=== PATIENT | male | born 1955 | race Caucasian/White ===

== ENCOUNTER 2019-02-10 05:31 | Inpatient (IN) | payer OTHER ==
[2019-02-10] VITALS (14 sets, daily range): BP systolic 74–135; BP diastolic 39–78
[~2019-02-10] VITALS: Ht 188 cm; Wt 104.4 kg
[2019-02-10] MEDS ORDERED: MIDAZOLAM HCL/PF 2 MG/2 ML VIAL. ONE ×3 (05:36→11:35)
[2019-02-10] MEDS ORDERED: fentaNYL PF VIAL 100 MCG/2 ML VIAL ONE (05:36)
[2019-02-10] MEDS ORDERED: VANCOMYCIN 10GM VIAL for OR. ONE (05:43)
[2019-02-10] MEDS ORDERED: SURGICEL HEMOSTAT 4X8 EACH. ONE (05:43)
[2019-02-10] MEDS ORDERED: ASPIRIN RECTAL 300 MG SUPP. ONE (05:44)
[2019-02-10] MEDS ORDERED: PAPAVERINE 60 MG/2 ML VIAL FOR OR ONLY. ONE (05:44)
[2019-02-10] MEDS ORDERED: 0.9 % SODIUM CHLORIDE 20 ML VIAL. IJ ONE ×3 (05:44)
[2019-02-10] MEDS ORDERED: fentaNYL PF VIAL 100 MCG/2 ML VIAL IV ONE ×2 (05:45→06:45)
[2019-02-10] MEDS ORDERED: DEXTROSE 50% 25 GM / 50ML DISP.SYRIN. IV PRN ×2 (05:45→14:15)
--- NOTE | 2019-02-10 05:50 | PHYS DOC ---
Past Medical History Past Medical History: Diabetes-Type II Past Surgical History: Appendectomy Smoking: Quit Greater Than 1 Year Alcohol Use: None Drug Use: None Adult General Chief Complaint Chief Complaint: CHEST PAIN-CARDIAC NATURE HPI HPI 63-year-old male presents from [facility] as a STEMI activation. Patient reports having chest pain last night with some associated shortness of breath. Patient presented to [facility] ED when the pain hadn't relieved this AM. EKG obtained at that time was concerning for STEMI. Patient received 324mg ASA, 50mcg of Fentanyl, 4000 units of Heparin, and nitroglycerin prior to transport. Denies trauma. Denies leg swelling or calf tenderness. Denies fever/chills. Reports cardiac risk factors of DM and history of father with AMI in his 60s. Review of Systems Review of Systems Constitutional: Denies fever or chills [] Eyes: Denies change in visual acuity, redness, or eye pain [] HENT: Denies nasal congestion or sore throat [] Respiratory: Denies cough; reports shortness of breath [] Cardiovascular: Reports chest pain; denies palpitations GI: Denies abdominal pain, nausea, vomiting, or diarrhea [] : Denies dysuria or hematuria [] Musculoskeletal: Denies back pain or joint pain [] Integument: Denies rash or skin lesions [] Neurologic: Denies headache, focal weakness or sensory changes [] Complete systems were reviewed and found to be within normal limits, except as documented in this note. Current Medications Current Medications Current Medications Medications (Trade) Dose Ordered Sig/[facility] Start Time Stop Time Status Last Admin Dose Admin Fentanyl Citrate (Fentanyl 2ml Vial) 100 mcg STK-MED ONCE 02/10/19 05:36 02/10/19 05:37 DC Midazolam HCl (Versed) 2 mg STK-MED ONCE 02/10/19 05:36 02/10/19 05:37 DC Physical Exam Physical Exam Constitutional: Well developed, well nourished, no acute distress, non-toxic appearance. [] HENT: Normocephalic, atraumatic, oropharynx moist Eyes: PERRL, EOMI, conjunctiva normal, no discharge. [] Neck: Normal range of motion, no tenderness, supple Cardiovascular: Heart rate regular rhythm, no murmur [] Lungs & Thorax: Bilateral breath sounds clear to auscultation [] Abdomen: Soft, no tenderness Skin: Warm, dry, no erythema, no rash. [] Extremities: No calves tenderness, ROM intact, no edema. [] Neurologic: Alert and oriented X 3, no focal deficits noted. [] Psychologic: Affect normal, judgement normal, mood normal. [] Current Patient Data Vital Signs Vital Signs Date Time Temp Pulse Resp B/P (MAP) Pulse Ox O2 Delivery O2 Flow Rate FiO2 02/10/19 05:31 98.4 118 22 139/89 (106) 96 Room Air 98.4 Lab Values Laboratory Tests Test 02/10/19 05:36 White Blood Count 8.6 x10^3/uL (4.0-11.0) Red Blood Count 5.02 x10^6/uL (4.30-5.70) Hemoglobin 15.0 g/dL (13.0-17.5) Hematocrit 43.5 % (39.0-53.0) Mean Corpuscular Volume 87 fL (79-100) Mean Corpuscular Hemoglobin 30 pg (25-35) Mean Corpuscular Hemoglobin Concent 35 g/dL (31-37) Red Cell Distribution Width 13.3 % (11.5-14.5) Platelet Count 171 x10^3/uL (140-400) Neutrophils (%) (Auto) 78 % (31-73) H Lymphocytes (%) (Auto) 14 % (24-48) L Monocytes (%) (Auto) 8 % (0-9) Eosinophils (%) (Auto) 0 % (0-3) Basophils (%) (Auto) 0 % (0-3) Neutrophils # (Auto) 6.7 x10^3uL (1.8-7.7) Lymphocytes # (Auto) 1.2 x10^3/uL (1.0-4.8) Monocytes # (Auto) 0.7 x10^3/uL (0.0-1.1) Eosinophils # (Auto) 0.0 x10^3/uL (0.0-0.7) Basophils # (Auto) 0.0 x10^3/uL (0.0-0.2) Prothrombin Time 14.9 SEC (11.7-14.0) H Prothrombin Time INR 1.2 (0.8-1.1) H PTT 145 SEC (24-38) H Sodium Level 140 mmol/L (136-145) Potassium Level 4.1 mmol/L (3.5-5.1) Chloride Level 105 mmol/L (98-107) Carbon Dioxide Level 19 mmol/L (21-32) L Anion Gap 16 (6-14) H Blood Urea Nitrogen 18 mg/dL (8-26) Creatinine 1.0 mg/dL (0.7-1.3) Estimated GFR (Cockcroft-Gault) 75.5 BUN/Creatinine Ratio 18 (6-20) Glucose Level 242 mg/dL (70-99) H Calcium Level 9.6 mg/dL (8.5-10.1) Magnesium Level 1.8 mg/dL (1.8-2.4) Total Bilirubin 0.9 mg/dL (0.2-1.0) Aspartate Amino Transferase (AST) 24 U/L (15-37) Alanine Aminotransferase (ALT) 27 U/L (16-63) Alkaline Phosphatase 107 U/L (46-116) Creatine Kinase 123 U/L (39-308) Creatine Kinase MB (Mass) 6.6 ng/mL (0.0-3.6) H Creatine Kinase MB Relative Index 5.4 % (0-4) H Troponin I Quantitative 0.848 ng/mL (0.000-0.055) UQ-Nzy-Y-Type Natriuretic Peptide 471 pg/mL (0-124) H Total Protein 7.1 g/dL (6.4-8.2) Albumin 3.9 g/dL (3.4-5.0) Albumin/Globulin Ratio 1.2 (1.0-1.7) Lipase 142 U/L (73-393) Laboratory Tests 02/10/19 05:36 Laboratory Tests 02/10/19 05:36 EKG EKG @0536 Sinus tachycadia at 112bpm, ST elevation aVR, Deep ST depression I-II, aVF , V3-V6, nonspecific t wave inversion I and aVL Radiology/Procedures Radiology/Procedures CXR AP: (Preliminary interpretation by ED physician) NO acute process noted. Course & Med Decision Making Course & Med Decision Making Pertinent Labs and Imaging studies reviewed. (See chart for details) Patient presented as emergent transfer from [facility] ER for STEMI. Patient with cardiac risk factors including diabetes, former smoker, and family history. Patient had previously received aspirin, nitroglycerin, fentanyl, and heparin bolus. Chest x-ray without acute process. Labs obtained and posted to chart. Patient emergently transferred to the [facility]. Discussed case previously with Dr. Christian (cardiology) who met patient in [facility]. Patient requiring admission for further evaluation and treatment. Discussed with Dr. Chatman (hospitalist) who is in agreement with admission. Discussed findings and plan with patient and family, who acknowledge understanding and agreement. Dragon Disclaimer Dragon Disclaimer This electronic medical record was generated, in whole or in part, using a voice recognition dictation system. Departure Departure Impression: Primary Impression: STEMI (ST elevation myocardial infarction) Disposition: 09 ADMITTED INPATIENT Condition: GUARDED Referrals: RYAN MARTINEZ MD (PCP) Critical Care Time Critical care time was 30 minutes which includes time at bedside, spent in discussion of patient's care with specialists and/or family members, with interpretation of laboratory and/or radiological studies and is exclusive of procedures. Problem Qualifiers Primary Impression: STEMI (ST elevation myocardial infarction) Involved coronary artery: unspecified coronary artery Qualified Codes: I21.3 - ST elevation (STEMI) myocardial infarction of unspecified site LOLY HUSAIN DO Feb 10, 2019 05:50
[2019-02-10 05:57] LABS: BASO % 0 % (0-3); EOS % 0 % (0-3); HEMATOCRIT 43.5 % (39.0-53.0); LYMPH # 1.2 x10^3/uL (1.0-4.8); LYMPH % 14 % (24-48); MEAN CORPUSCULAR HEMOGLOBIN 30 pg (25-35); MEAN CORPUSCULAR HGB CONC 35 g/dL (31-37); MEAN CORPUSCULAR VOLUME 87 fL (79-100); MONO # 0.7 x10^3/uL (0.0-1.1); MONO % 8 % (0-9); NEUT # 6.7 x10^3uL (1.8-7.7); NEUT % 78 % (31-73); PLATELET COUNT 171 x10^3/uL (140-400); RED BLOOD COUNT 5.02 x10^6/uL (4.30-5.70); RED CELL DISTRIBUTION WIDTH 13.3 % (11.5-14.5); WHITE BLOOD COUNT 8.6 x10^3/uL (4.0-11.0)
[2019-02-10 06:06] LABS: CALCIUM 9.6 mg/dL (8.5-10.1); GFR 75.5; POTASSIUM 4.1 mmol/L (3.5-5.1)
[2019-02-10 06:07] LABS: PROTHROMBIN TIME PATIENT 14.9 SEC (11.7-14.0)
[2019-02-10] MEDS ORDERED: IODIXANOL 320 MG/ML 100 ML VIAL. ONE (06:09)
[2019-02-10] MEDS ORDERED: HEPARIN for IV BOLUS 10,000 UNIT/10 ML VIAL. ONE ×3 (06:10→13:21)
[2019-02-10 06:12] LABS: ALBUMIN 3.9 g/dL (3.4-5.0); ALBUMIN/GLOBULIN RATIO 1.2 (1.0-1.7); MAGNESIUM 1.8 mg/dL (1.8-2.4); TOTAL BILIRUBIN 0.9 mg/dL (0.2-1.0); TOTAL PROTEIN 7.1 g/dL (6.4-8.2)
--- NOTE | 2019-02-10 06:23 | EKG ---
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
[2019-02-10] MEDS ORDERED: NITROGLYCERIN PREMIX 250 ML IV ONE (06:26)
--- NOTE | 2019-02-10 06:35 | PDOC ---
MODERATE SEDATION ASSESSMENT RISKS/ALTERNATIVES Risks/Alternatives Risks and alternatives of this type of sedation and procedure discussed with: RISK/ALTERNATIVES: Patient H & P ON CHART H & P H & P on chart and reviewed for co-morbid conditions and appropriate labs. H&P ON CHART: Yes STATUS PREG STATUS ASSESSED: N/A MEDS/ALLERGIES REVIEWED Meds/Allergies Reviewed Medications and Allergies including time and route of recently administered narcotics and sedatives. MEDS/ALLERGIES REVIEWED: Yes ASA RATING ASA RATING: III AIRWAY ASSESSMENT Airway Assessment Airway patency, oral function limitations, presence of caps, crowns, dentures, partials, and ability to extend neck assessed. AIRWAY ASSESSMENT: Yes MALLAMPATI SCORE MALLAMPATI SCORE: II PRE-SEDATION ASSESSMENT PRE-SEDATION ASSESSMENT: Yes MATHEW SHEEHAN MD Feb 10, 2019 06:35
--- NOTE | 2019-02-10 06:36 | PDOC2 ---
CONSULT Date of Consult Date of Consult DATE: 02/10/19 TIME: 06:36 Reason for Consult Reason for Consult: Acute myocardial infarction Referring Physician Referring Physician: Dr. Mccray Identification/Chief Complaint Chief Complaint Chest pain Source Source: Caregiver, Chart review, Patient History of Present Illness Reason for Visit: 63-year-old male initially presented to [facility] with waxing and waning retrosternal chest pain that he described as burning sensation starting yesterday at 10 pm. EKG showed diffuse ST depressions and ST elevation in aVR. Code STEMI was activated and patient was transferred emergently to [facility]. Patient continues to have chest pain but is presently down to 3/10 severity. He denied any orthopnea/PND, palpitations or syncope. He is a nonsmoker but has family history of premature coronary artery disease. Past Medical History Past Medical History Hypertension Diabetes mellitus type 2 Past Surgical History Past Surgical History Appendectomy Family History Family History Strongly positive for premature coronary artery disease Social History Social History Patient quit smoking several years ago and denied any alcohol or drug abuse Current Medications Current Medications Current Medications Fentanyl Citrate (Fentanyl 2ml Vial) 100 mcg STK-MED ONCE .ROUTE ; Start at 05:36; Stop 02/10/19 at 05:37; Status DC Midazolam HCl (Versed) 2 mg STK-MED ONCE .ROUTE ; Start 02/10/19 at 05:36; Stop 02/10/19 at 05:37; Status DC Fentanyl Citrate (Fentanyl 2ml Vial) 50 mcg 1X ONCE IV Last administered on at 05:43; Start 02/10/19 at 05:45; Stop 02/10/19 at 05:49; Status DC Insulin Human Lispro (HumaLOG) 0-5 UNITS TIDWMEALS SQ ; Start 02/10/19 at 08:00 Dextrose (Dextrose 50%-Water Syringe) 12.5 gm PRN Q15MIN PRN IV SEE COMMENTS; Start 02/10/19 at 05:45 Iodixanol (Visipaque 320) 100 ml STK-MED ONCE .ROUTE ; Start 02/10/19 at 06:09; Stop 02/10/19 at 06:10; Status DC Heparin Sodium (Porcine) (Heparin Sodium) 10,000 unit STK-MED ONCE .ROUTE ; Start 02/10/19 at 06:10; Stop 02/10/19 at 06:11; Status DC Nitroglycerin/ Dextrose 250 ml @ As Directed STK-MED ONCE IV ; Start 02/10/19 at 06:26; Stop 02/10/19 at 06:27; Status DC Allergies Allergies: Coded Allergies: No Known Drug Allergies (Unverified , 02/10/19) ROS PSYCHOLOGICAL ROS: No: Hallucinations Eyes: No Loss of vision HEENT: No: Epistaxis Respiratory: No: Hemoptysis Cardiovascular: yes Chest Pain Gastrointestinal: No Vomiting, No Diarrhea Genitourinary: No Hematuria Neurological: No Seizures Skin: No Rash Physical Exam General: Alert, Oriented X3 HEENT: Atraumatic Lungs: Clear to auscultation Heart: Regular rate Abdomen: Soft, No tenderness Extremities: No edema Neuro: Normal speech Psych/Mental Status: Mood NL Vitals VITALS Vital Signs Date Time Temp Pulse Resp B/P (MAP) Pulse Ox O2 Delivery O2 Flow Rate FiO2 02/10/19 05:43 18 96 Room Air 02/10/19 05:31 98.4 118 139/89 (106) 98.4 Labs Labs Laboratory Tests Test 02/10/19 05:36 White Blood Count 8.6 x10^3/uL (4.0-11.0) Red Blood Count 5.02 x10^6/uL (4.30-5.70) Hemoglobin 15.0 g/dL (13.0-17.5) Hematocrit 43.5 % (39.0-53.0) Mean Corpuscular Volume 87 fL (79-100) Mean Corpuscular Hemoglobin 30 pg (25-35) Mean Corpuscular Hemoglobin Concent 35 g/dL (31-37) Red Cell Distribution Width 13.3 % (11.5-14.5) Platelet Count 171 x10^3/uL (140-400) Neutrophils (%) (Auto) 78 % (31-73) Lymphocytes (%) (Auto) 14 % (24-48) Monocytes (%) (Auto) 8 % (0-9) Eosinophils (%) (Auto) 0 % (0-3) Basophils (%) (Auto) 0 % (0-3) Neutrophils # (Auto) 6.7 x10^3uL (1.8-7.7) Lymphocytes # (Auto) 1.2 x10^3/uL (1.0-4.8) Monocytes # (Auto) 0.7 x10^3/uL (0.0-1.1) Eosinophils # (Auto) 0.0 x10^3/uL (0.0-0.7) Basophils # (Auto) 0.0 x10^3/uL (0.0-0.2) Prothrombin Time 14.9 SEC (11.7-14.0) Prothromb Time International Ratio 1.2 (0.8-1.1) Activated Partial Thromboplast Time 145 SEC (24-38) Sodium Level 140 mmol/L (136-145) Potassium Level 4.1 mmol/L (3.5-5.1) Chloride Level 105 mmol/L (98-107) Carbon Dioxide Level 19 mmol/L (21-32) Anion Gap 16 (6-14) Blood Urea Nitrogen 18 mg/dL (8-26) Creatinine 1.0 mg/dL (0.7-1.3) Estimated GFR (Cockcroft-Gault) 75.5 BUN/Creatinine Ratio 18 (6-20) Glucose Level 242 mg/dL (70-99) Calcium Level 9.6 mg/dL (8.5-10.1) Magnesium Level 1.8 mg/dL (1.8-2.4) Total Bilirubin 0.9 mg/dL (0.2-1.0) Aspartate Amino Transf (AST/SGOT) 24 U/L (15-37) Alanine Aminotransferase (ALT/SGPT) 27 U/L (16-63) Alkaline Phosphatase 107 U/L (46-116) Creatine Kinase 123 U/L (39-308) Creatine Kinase MB (Mass) 6.6 ng/mL (0.0-3.6) Creatine Kinase MB Relative Index 5.4 % (0-4) Troponin I Quantitative 0.848 ng/mL (0.000-0.055) NF-Nrl-[id number]-Type Natriuretic Peptide 471 pg/mL (0-124) Total Protein 7.1 g/dL (6.4-8.2) Albumin 3.9 g/dL (3.4-5.0) Albumin/Globulin Ratio 1.2 (1.0-1.7) Lipase 142 U/L (73-393) Laboratory Tests Test 02/10/19 05:36 White Blood Count 8.6 x10^3/uL (4.0-11.0) Red Blood Count 5.02 x10^6/uL (4.30-5.70) Hemoglobin 15.0 g/dL (13.0-17.5) Hematocrit 43.5 % (39.0-53.0) Mean Corpuscular Volume 87 fL (79-100) Mean Corpuscular Hemoglobin 30 pg (25-35) Mean Corpuscular Hemoglobin Concent 35 g/dL (31-37) Red Cell Distribution Width 13.3 % (11.5-14.5) Platelet Count 171 x10^3/uL (140-400) Neutrophils (%) (Auto) 78 % (31-73) Lymphocytes (%) (Auto) 14 % (24-48) Monocytes (%) (Auto) 8 % (0-9) Eosinophils (%) (Auto) 0 % (0-3) Basophils (%) (Auto) 0 % (0-3) Neutrophils # (Auto) 6.7 x10^3uL (1.8-7.7) Lymphocytes # (Auto) 1.2 x10^3/uL (1.0-4.8) Monocytes # (Auto) 0.7 x10^3/uL (0.0-1.1) Eosinophils # (Auto) 0.0 x10^3/uL (0.0-0.7) Basophils # (Auto) 0.0 x10^3/uL (0.0-0.2) Prothrombin Time 14.9 SEC (11.7-14.0) Prothromb Time International Ratio 1.2 (0.8-1.1) Activated Partial Thromboplast Time 145 SEC (24-38) Sodium Level 140 mmol/L (136-145) Potassium Level 4.1 mmol/L (3.5-5.1) Chloride Level 105 mmol/L (98-107) Carbon Dioxide Level 19 mmol/L (21-32) Anion Gap 16 (6-14) Blood Urea Nitrogen 18 mg/dL (8-26) Creatinine 1.0 mg/dL (0.7-1.3) Estimated GFR (Cockcroft-Gault) 75.5 BUN/Creatinine Ratio 18 (6-20) Glucose Level 242 mg/dL (70-99) Calcium Level 9.6 mg/dL (8.5-10.1) Magnesium Level 1.8 mg/dL (1.8-2.4) Total Bilirubin 0.9 mg/dL (0.2-1.0) Aspartate Amino Transf (AST/SGOT) 24 U/L (15-37) Alanine Aminotransferase (ALT/SGPT) 27 U/L (16-63) Alkaline Phosphatase 107 U/L (46-116) Creatine Kinase 123 U/L (39-308) Creatine Kinase MB (Mass) 6.6 ng/mL (0.0-3.6) Creatine Kinase MB Relative Index 5.4 % (0-4) Troponin I Quantitative 0.848 ng/mL (0.000-0.055) RG-[id number]-Type Natriuretic Peptide 471 pg/mL (0-124) Total Protein 7.1 g/dL (6.4-8.2) Albumin 3.9 g/dL (3.4-5.0) Albumin/Globulin Ratio 1.2 (1.0-1.7) Lipase 142 U/L (73-393) Assessment/Plan Assessment/Plan 1. Acute myocardial infarction: EKG showed diffuse deep ST depressions and T- wave inversions and ST elevation in aVR. Patient has ongoing chest pain. We will proceed with emergent cardiac catheterization and possible angioplasty. Risks and benefits were explained and he is agreeable. 2. Diabetes mellitus type 2: Treated per IM Thank you for your consultation MATHEW SHEEHAN MD Feb 10, 2019 06:36
[2019-02-10] MEDS ORDERED: ROCURONIUM 100 MG/10 ML VIAL. ONE ×2 (06:44→08:51)
[2019-02-10] MEDS ORDERED: MIDAZOLAM HCL/PF 5 MG/5 ML VIAL. ONE (06:45)
[2019-02-10] MEDS ORDERED: LIDOCAINE 1% Multi-Dose 20 ML VIAL. INJ ONE (06:45)
[2019-02-10] MEDS ORDERED: SUFentanil 250 MCG/5 ML AMPUL. ONE (06:45)
[2019-02-10] MEDS ORDERED: MIDAZOLAM HCL/PF 2 MG/2 ML VIAL. IV ONE (06:45)
[2019-02-10] MEDS ORDERED: IODIXANOL 320 MG/ML 100 ML VIAL. IART ONE (06:45)
--- NOTE | 2019-02-10 06:45 | NUR ---
Nursing Electrical Software Engineer called stating patient to go for emergent CABG from [facility]. Admission information and history obtained from patient's .
[2019-02-10] MEDS ORDERED: LIDOCAINE 2% PF 5 ML VIAL. ONE ×2 (06:46→13:21)
[2019-02-10] MEDS ORDERED: AMINOCAPROIC ACID 5,000 MG/20 ML VIAL. IV ONE ×3 (06:46)
[2019-02-10] MEDS ORDERED: ETOMIDATE 20 MG/10 ML VIAL. IV ONE (06:46)
[2019-02-10] MEDS ORDERED: HEPARIN 30,000 UNIT/30 ML VIAL. ONE (06:50)
[2019-02-10] MEDS ORDERED: ePHEDrine PF IN SALINE 50 MG/10 ML SYRINGE. IV ONE ×2 (06:53→07:22)
[2019-02-10] MEDS ORDERED: PHENYLEPHRINE 10 MG/ML VIAL. ONE (06:59)
[2019-02-10] MEDS ORDERED: NITROGLYCERIN PREMIX 250 ML IV PRN ×2 (07:00→14:15)
[2019-02-10] MEDS ORDERED: EPINEPHrine SYRINGE 1 MG/10 ML SYRINGE ONE (07:20)
[2019-02-10] MEDS ORDERED: PHENYLEPHRINE in 0.9% NACL PF 1 MG/10 ML SYRINGE. IV ONE (07:22)
[2019-02-10] MEDS ORDERED: POTASSIUM CHLORIDE 70 MEQ, SODIUM BICARBONATE VIAL 12.5 MEQ, LIDOCAINE 2% 24 ML in IV E... IRR ONE (07:30)
[2019-02-10] MEDS ORDERED: HEPARIN 20,000 UNIT in IV RINGERS,LACTATED 1000ML 1,000 ML IRR ONE (07:30)
[2019-02-10] MEDS ORDERED: HEPARIN PRESERVATIVE FREE 800 UNIT, NITROGLYCERIN 4 MG, VERAPAMIL 8 MG, SODIUM BICARBON... IRR ONE ×5 (07:30)
[2019-02-10] MEDS ORDERED: POTASSIUM CHLORIDE 15 MEQ, SODIUM BICARBONATE VIAL 12.5 MEQ in IV ELECTROLYTE-S (PH 7.4... IRR ONE (07:30)
--- NOTE | 2019-02-10 07:33 | RAD ---
Portable chest, 02/10/2019: HISTORY: Chest pain The heart size is normal. No pulmonary infiltrate is seen. There is no evidence of pleural fluid. IMPRESSION: No acute cardiopulmonary abnormality is detected. Electronically signed by: Seun Childress MD (02/10/2019 7:30 AM) [facility]
--- NOTE | 2019-02-10 07:35 | NUR ---
Pt to OR for CABG, pt at bedside, pt alert and 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, states chest pain is "almost 0", Dr Sandoval here to see pt. OR staff arrived to take pt. Balloon pump in place, VSS. VELAZQUEZ RN
--- NOTE | 2019-02-10 07:44 | PDOC2 ---
CONSULT Date of Consult Date of Consult DATE: 02/10/19 TIME: 07:36 Reason for Consult Reason for Consult: STEMI Referring Physician Referring Physician: Dr Christian Identification/Chief Complaint Chief Complaint Chest pain Source Source: Chart review, Patient History of Present Illness Reason for Visit: Patient is a 63 year old male, with type II DM and FHx of premature IDH, who presents with chest pain since 10pm last night. Apparently has been having intermittent CP for some time, but has considered his symptoms as not significant. ST elevation in aVR and diffuse ST depressions in all other leads. Cath shows severe 3VD, with 70% left main involvement, no flow in the LAD, subtotal LCx occlusion and 90% proximal RCA disease. LVgram shows acute systolic failure with EF 20-25%. He continues to have ongoing chest pain and active ST elevations. Past Medical History Cardiovascular: CAD Pulmonary: No pertinent hx GI: No pertinent hx Heme/Onc: No pertinent hx Hepatobiliary: No pertinent hx Psych: No pertinent hx Rheumatologic: No pertinent hx Infectious disease: No pertinent hx ENT: No pertinent hx Renal/: No pertinent hx Endocrine: Diabetes Dermatology: No pertinent hx Past Surgical History Past Surgical History: Appendectomy Family History Family History: Coronary Artery Disease Social History Quit Drugs: None Lives: with Family Current Medications Current Medications Current Medications Fentanyl Citrate (Fentanyl 2ml Vial) 100 mcg STK-MED ONCE .ROUTE ; Start at 05:36; Stop 02/10/19 at 05:37; Status DC Midazolam HCl (Versed) 2 mg STK-MED ONCE .ROUTE ; Start 02/10/19 at 05:36; Stop 02/10/19 at 05:37; Status DC Fentanyl Citrate (Fentanyl 2ml Vial) 50 mcg 1X ONCE IV Last administered on at 05:43; Start 02/10/19 at 05:45; Stop 02/10/19 at 05:49; Status DC Insulin Human Lispro (HumaLOG) 0-5 UNITS TIDWMEALS SQ ; Start 02/10/19 at 08:00 Dextrose (Dextrose 50%-Water Syringe) 12.5 gm PRN Q15MIN PRN IV SEE COMMENTS; Start 02/10/19 at 05:45 Iodixanol (Visipaque 320) 100 ml STK-MED ONCE .ROUTE ; Start 02/10/19 at 06:09; Stop 02/10/19 at 06:10; Status DC Heparin Sodium (Porcine) (Heparin Sodium) 10,000 unit STK-MED ONCE .ROUTE ; Start 02/10/19 at 06:10; Stop 02/10/19 at 06:11; Status DC Nitroglycerin/ Dextrose 250 ml @ As Directed STK-MED ONCE IV ; Start 02/10/19 at 06:26; Stop 02/10/19 at 06:27; Status DC Vancomycin HCl (VANCO for OR ONLY) 10 gm STK-MED ONCE .ROUTE ; Start 02/10/19 at 05:43; Stop 02/10/19 at 06:44; Status DC Cellulose (Surgicel Hemostat 4x8) 1 each STK-MED ONCE .ROUTE ; Start 02/10/19 at 05:43; Stop 02/10/19 at 06:44; Status DC Papaverine HCl 60 mg STK-MED ONCE .ROUTE ; Start 02/10/19 at 05:44; Stop at 06:44; Status DC Aspirin (Aspirin) 300 mg STK-MED ONCE .ROUTE ; Start 02/10/19 at 05:44; Stop at 06:44; Status DC Sodium Chloride (SODIUM CHLORIDE 20ml) 20 ml STK-MED ONCE IJ ; Start 02/10/19 at 05:44; Stop 02/10/19 at 06:44; Status DC Sodium Chloride (SODIUM CHLORIDE 20ml) 20 ml STK-MED ONCE IJ ; Start 02/10/19 at 05:44; Stop 02/10/19 at 06:44; Status DC Potassium Chloride 70 meq/ Sodium Bicarbonate 12.5 meq/Lidocaine HCl 24 ml/ Parenteral Electrolytes 571.5 ml @ 571.5 mls/ hr 1X ONCE IRR ; Start 02/10/19 at 07:30; Stop 02/10/19 at 08:29 Sodium Chloride (SODIUM CHLORIDE 20ml) 20 ml STK-MED ONCE IJ ; Start 02/10/19 at 05:44; Stop 02/10/19 at 06:45; Status DC Rocuronium Sparks (Zemuron) 100 mg STK-MED ONCE .ROUTE ; Start 02/10/19 at 06: 44; Stop 02/10/19 at 06:45; Status DC Sufentanil Citrate (Sufenta) 250 mcg STK-MED ONCE .ROUTE ; Start 02/10/19 at 06: 45; Stop 02/10/19 at 06:46; Status DC Potassium Chloride 15 meq/ Sodium Bicarbonate 12.5 meq/Parenteral Electrolytes 520 ml @ 520 mls/hr 1X ONCE IRR ; Start 02/10/19 at 07:30; Stop 02/10/19 at 08 :29 Midazolam HCl (Versed) 5 mg STK-MED ONCE .ROUTE ; Start 02/10/19 at 06:45; Stop 02/10/19 at 06:46; Status DC Lidocaine HCl (Lidocaine Pf 2% Vial) 5 ml STK-MED ONCE .ROUTE ; Start 02/10/19 at 06:46; Stop 02/10/19 at 06:47; Status DC Etomidate (Amidate) 20 mg STK-MED ONCE IV ; Start 02/10/19 at 06:46; Stop at 06:47; Status DC Aminocaproic Acid (Amicar) 5,000 mg STK-MED ONCE IV ; Start 02/10/19 at 06:46; Stop 02/10/19 at 06:47; Status DC Aminocaproic Acid (Amicar) 5,000 mg STK-MED ONCE IV ; Start 02/10/19 at 06:46; Stop 02/10/19 at 06:47; Status DC Aminocaproic Acid (Amicar) 5,000 mg STK-MED ONCE IV ; Start 02/10/19 at 06:46; Stop 02/10/19 at 06:47; Status DC Heparin Sodium/ Sodium Chloride (HEPARIN for ARTERIAL LINE FLUSH) 1,000 unit 1X ONCE IART Last administered on 02/10/19at 06:56; Start 02/10/19 at 06:45; Stop 02/10/19 at 06:56; Status DC Midazolam HCl (Versed) 2 mg 1X ONCE IV Last administered on 02/10/19at 06:57; Start 02/10/19 at 06:45; Stop 02/10/19 at 06:56; Status DC Fentanyl Citrate (Fentanyl 2ml Vial) 100 mcg 1X ONCE IV Last administered on at 06:56; Start 02/10/19 at 06:45; Stop 02/10/19 at 06:56; Status DC Iodixanol (Visipaque 320) 139 ml 1X ONCE IART Last administered on 02/10/19at 06:56; Start 02/10/19 at 06:45; Stop 02/10/19 at 06:56; Status DC Lidocaine HCl (Lidocaine 1% 20ml Vial) 20 ml 1X ONCE INJ Last administered on 02/10/19at 06:56; Start 02/10/19 at 06:45; Stop 02/10/19 at 06:56; Status DC Heparin Sodium (Porcine) (Heparin 5,000 Units/1,000ml NS) 5,000 unit 1X ONCE IV Last administered on 02/10/19at 06:45; Start 02/10/19 at 06:45; Stop at 06:56; Status DC Heparin Sodium (Porcine) 38762 unit/Ringer's Solution 1,020 ml @ 1,020 mls/hr 1X ONCE IRR ; Start 02/10/19 at 07:30; Stop 02/10/19 at 08:29 Heparin Sodium (Porcine) 800 unit/ Nitroglycerin 4 mg/Verapamil HCl 8 mg/Sodium Bicarbonate 0.34 meq/Ringer's Solution 512.34 ml @ 512.34 mls/hr 1X ONCE IRR ; Start 02/10/19 at 07:30; Stop 02/10/19 at 08:29 Cefazolin Sodium 1 gm/Sodium Chloride 500 ml @ 500 mls/hr 1X ONCE IRR ; Start 02/10/19 at 07:30; Stop 02/10/19 at 08:29 Heparin Sodium (Porcine) 30,000 unit STK-MED ONCE .ROUTE ; Start 02/10/19 at 06: 50; Stop 02/10/19 at 06:51; Status DC Nitroglycerin/ Dextrose 250 ml @ 1.5 mls/hr CONT PRN IV SEE I/O RECORD Last administered on 02/10/19at 06:36; Start 02/10/19 at 07:00 Ephedrine Sulfate (ePHEDrine PF IN SALINE SYRINGE) 50 mg STK-MED ONCE IV ; Start 02/10/19 at 06:53; Stop 02/10/19 at 06:54; Status DC Phenylephrine HCl (Sp-Synephrine Inj) 10 mg STK-MED ONCE .ROUTE ; Start at 06:59; Stop 02/10/19 at 07:00; Status DC Epinephrine HCl (EPINEPHrine SYRINGE) 1 mg STK-MED ONCE .ROUTE ; Start 02/10/19 at 07:20; Stop 02/10/19 at 07:21; Status DC Ephedrine Sulfate (ePHEDrine PF IN SALINE SYRINGE) 50 mg STK-MED ONCE IV ; Start 02/10/19 at 07:22; Stop 02/10/19 at 07:23; Status DC Phenylephrine HCl (PHENYLEPHRINE in 0.9% NACL PF) 1 mg STK-MED ONCE IV ; Start 02/10/19 at 07:22; Stop 02/10/19 at 07:23; Status DC Active Scripts Active Reported No Known Medications Prior To Admisstion (Info) Each 1 Each DAILY Allergies Allergies: Coded Allergies: No Known Drug Allergies (Unverified , 02/10/19) ROS General: No: Chills, Night Sweats, Fatigue, Malaise, Appetite PSYCHOLOGICAL ROS: No: Anxiety, Behavioral Disorder, Concentration difficultie , Decreased libido, Depression, Disorientation, Hallucinations, Hostility, Irritablity, Memory difficulties, Mood Swings, Obsessive thoughts, Physical abuse, Sexual abuse, Sleep disturbances, Suicidal ideation Eyes: No Blurry vision, No Decreased vision, No Double vision, No Dry eyes, No Excessive tearing, No Eye Pain, No Itchy Eyes, No Loss of vision, No Photophobia , No Scotomata, No Uses contacts, No Uses glasses ALLERGY AND IMMUNOLOGY: No: Hives, Insect Bite Sensitivity, Itchy/Watery Eyes, Nasal Congestion, Post Nasal Drip, Seasonal Allergies Hematological and Lymphatic: No: Bleeding Problems, Blood Clots, Blood Transfusions, Brusing, Night Sweats, Pallor, Swollen Lymph Nodes ENDOCRINE: No: Breast Changes, Galactorrhea, Hair Pattern Changes, Hot Flashes , Malaise/lethargy, Mood Swings, Palpitations, Polydipsia/polyuria, Skin Changes , Temperature Intolerance, Unexpected Weight Changes Respiratory: No: Cough, Hemoptysis, Orthopnea, Pleuritic Pain, Shortness of breath, SOB with excertion, Sputum Changes, Stridor, Tachypnea, Wheezing Cardiovascular: yes Chest Pain; No Palpitations, No Orthopnea, No Paroxysmal Noc. Dyspnea, No Edema, No Lt Headedness Gastrointestinal: No Nausea, No Vomiting, No Abdominal Pain, No Diarrhea, No Constipation, No Melena, No Hematochezia Genitourinary: No Dysuria, No Frequency, No Incontinence, No Hematuria, No Retention, No Discharge, No Urgency, No Pain, No Flank Pain Musculoskeletal: No Gait Disturbance, No Joint Pain, No Joint Stiffness, No Joint Swelling, No Muscle Pain, No Muscular Weakness, No Pain In:, No Swelling In: Neurological: No Behavorial Changes, No Bowel/Bladder ControlChng, No Confusion , No Dizziness, No Gait Disturbance, No Headaches, No Impaired Coord/balance, No Memory Loss, No Numbness/Tingling, No Seizures, No Speech Problems, No Tremors, No Visual Changes, No Weakness Skin: No Dry Skin, No Eczema, No Hair Changes, No Lumps, No Mole Changes, No Mottling, No Nail Changes, No Pruritus, No Rash, No Skin Lesion Changes, No Acne Physical Exam General: Alert, Oriented X3, No acute distress HEENT: Atraumatic, PERRLA Lungs: Clear to auscultation Heart: Regular rate, Normal S1, Normal S2 Abdomen: Soft, No tenderness Extremities: No edema Skin: No significant lesion Neuro: Normal gait, Normal speech, Strength at 5/5 X4 ext, Normal tone, Sensation intact, Cranial nerves 3-12 NL, Reflexes 2+ Psych/Mental Status: Mental status NL MUSCULOSKELETAL: No deformity Vitals VITALS Vital Signs Date Time Temp Pulse Resp B/P (MAP) Pulse Ox O2 Delivery O2 Flow Rate FiO2 02/10/19 07:25 100 15 96 Nasal Cannula 3.0 02/10/19 05:31 98.4 139/89 (106) 98.4 Labs Labs Laboratory Tests Test 02/10/19 05:36 White Blood Count 8.6 x10^3/uL (4.0-11.0) Red Blood Count 5.02 x10^6/uL (4.30-5.70) Hemoglobin 15.0 g/dL (13.0-17.5) Hematocrit 43.5 % (39.0-53.0) Mean Corpuscular Volume 87 fL (79-100) Mean Corpuscular Hemoglobin 30 pg (25-35) Mean Corpuscular Hemoglobin Concent 35 g/dL (31-37) Red Cell Distribution Width 13.3 % (11.5-14.5) Platelet Count 171 x10^3/uL (140-400) Neutrophils (%) (Auto) 78 % (31-73) Lymphocytes (%) (Auto) 14 % (24-48) Monocytes (%) (Auto) 8 % (0-9) Eosinophils (%) (Auto) 0 % (0-3) Basophils (%) (Auto) 0 % (0-3) Neutrophils # (Auto) 6.7 x10^3uL (1.8-7.7) Lymphocytes # (Auto) 1.2 x10^3/uL (1.0-4.8) Monocytes # (Auto) 0.7 x10^3/uL (0.0-1.1) Eosinophils # (Auto) 0.0 x10^3/uL (0.0-0.7) Basophils # (Auto) 0.0 x10^3/uL (0.0-0.2) Prothrombin Time 14.9 SEC (11.7-14.0) Prothromb Time International Ratio 1.2 (0.8-1.1) Activated Partial Thromboplast Time 145 SEC (24-38) Sodium Level 140 mmol/L (136-145) Potassium Level 4.1 mmol/L (3.5-5.1) Chloride Level 105 mmol/L (98-107) Carbon Dioxide Level 19 mmol/L (21-32) Anion Gap 16 (6-14) Blood Urea Nitrogen 18 mg/dL (8-26) Creatinine 1.0 mg/dL (0.7-1.3) Estimated GFR (Cockcroft-Gault) 75.5 BUN/Creatinine Ratio 18 (6-20) Glucose Level 242 mg/dL (70-99) Calcium Level 9.6 mg/dL (8.5-10.1) Magnesium Level 1.8 mg/dL (1.8-2.4) Total Bilirubin 0.9 mg/dL (0.2-1.0) Aspartate Amino Transf (AST/SGOT) 24 U/L (15-37) Alanine Aminotransferase (ALT/SGPT) 27 U/L (16-63) Alkaline Phosphatase 107 U/L (46-116) Creatine Kinase 123 U/L (39-308) Creatine Kinase MB (Mass) 6.6 ng/mL (0.0-3.6) Creatine Kinase MB Relative Index 5.4 % (0-4) Troponin I Quantitative 0.848 ng/mL (0.000-0.055) TI-Vtn-W-Type Natriuretic Peptide 471 pg/mL (0-124) Total Protein 7.1 g/dL (6.4-8.2) Albumin 3.9 g/dL (3.4-5.0) Albumin/Globulin Ratio 1.2 (1.0-1.7) Lipase 142 U/L (73-393) Laboratory Tests Test 02/10/19 05:36 White Blood Count 8.6 x10^3/uL (4.0-11.0) Red Blood Count 5.02 x10^6/uL (4.30-5.70) Hemoglobin 15.0 g/dL (13.0-17.5) Hematocrit 43.5 % (39.0-53.0) Mean Corpuscular Volume 87 fL (79-100) Mean Corpuscular Hemoglobin 30 pg (25-35) Mean Corpuscular Hemoglobin Concent 35 g/dL (31-37) Red Cell Distribution Width 13.3 % (11.5-14.5) Platelet Count 171 x10^3/uL (140-400) Neutrophils (%) (Auto) 78 % (31-73) Lymphocytes (%) (Auto) 14 % (24-48) Monocytes (%) (Auto) 8 % (0-9) Eosinophils (%) (Auto) 0 % (0-3) Basophils (%) (Auto) 0 % (0-3) Neutrophils # (Auto) 6.7 x10^3uL (1.8-7.7) Lymphocytes # (Auto) 1.2 x10^3/uL (1.0-4.8) Monocytes # (Auto) 0.7 x10^3/uL (0.0-1.1) Eosinophils # (Auto) 0.0 x10^3/uL (0.0-0.7) Basophils # (Auto) 0.0 x10^3/uL (0.0-0.2) Prothrombin Time 14.9 SEC (11.7-14.0) Prothromb Time International Ratio 1.2 (0.8-1.1) Activated Partial Thromboplast Time 145 SEC (24-38) Sodium Level 140 mmol/L (136-145) Potassium Level 4.1 mmol/L (3.5-5.1) Chloride Level 105 mmol/L (98-107) Carbon Dioxide Level 19 mmol/L (21-32) Anion Gap 16 (6-14) Blood Urea Nitrogen 18 mg/dL (8-26) Creatinine 1.0 mg/dL (0.7-1.3) Estimated GFR (Cockcroft-Gault) 75.5 BUN/Creatinine Ratio 18 (6-20) Glucose Level 242 mg/dL (70-99) Calcium Level 9.6 mg/dL (8.5-10.1) Magnesium Level 1.8 mg/dL (1.8-2.4) Total Bilirubin 0.9 mg/dL (0.2-1.0) Aspartate Amino Transf (AST/SGOT) 24 U/L (15-37) Alanine Aminotransferase (ALT/SGPT) 27 U/L (16-63) Alkaline Phosphatase 107 U/L (46-116) Creatine Kinase 123 U/L (39-308) Creatine Kinase MB (Mass) 6.6 ng/mL (0.0-3.6) Creatine Kinase MB Relative Index 5.4 % (0-4) Troponin I Quantitative 0.848 ng/mL (0.000-0.055) AZ-Xlm-W-Type Natriuretic Peptide 471 pg/mL (0-124) Total Protein 7.1 g/dL (6.4-8.2) Albumin 3.9 g/dL (3.4-5.0) Albumin/Globulin Ratio 1.2 (1.0-1.7) Lipase 142 U/L (73-393) Assessment/Plan Assessment/Plan 63 year old male presents with STEMI. Cath shows severe 3VD, with 70% left main disease, no flow in the LAD, subtotal LCx occlusion and 90% proximal RCA disease , unable to perform primary PCI. LVgram demonstrates acute systolic failure with EF 20%. Patient continues to have ongoing chest pain and ST elevations. Risks, benefits of surgical coronary revascularization explained. Patient agrees. Proceed with emergency CABG ARNULFO MORROW MD Feb 10, 2019 07:44
--- NOTE | 2019-02-10 07:50 | PDOC1 ---
History and Physical Date of Admission Date of Admission DATE: 02/10/19 TIME: 07:48 Identification/Chief Complaint Chief Complaint Chest pain Source Source: Patient History of Present Illness History of Present Illness 63 yo M w/ PMHx DM2, HTN who initially presented to [facility] ED by the [facility] with waxing and waning retrosternal chest pain that he described as burning sensation starting yesterday at 10 pm[address] EKG showed diffuse ST depressions and ST elevation in aVR. Code STEMI was activated and patient was transferred emergently to [facility] to go urgently to manager labor delivery. Patient continues to have chest pain but is presently down to 3/10 severity. He denied any orthopnea/ PND, palpitations or syncope. He is a nonsmoker but has family history of premature coronary artery disease. ST elevation in aVR and diffuse ST depressions in all other leads. Cath shows severe 3VD, without LAD flow, subtotal LCx occlusion and 95% proximal RCA disease and CT surgery was urgently consulted. Initially seen in transit to OR. Then subsequently seen in ICU thereafter. Past Medical History Cardiovascular: CAD, HTN Pulmonary: No pertinent hx GI: No pertinent hx Heme/Onc: No pertinent hx Hepatobiliary: No pertinent hx Psych: No pertinent hx Rheumatologic: No pertinent hx Infectious disease: No pertinent hx ENT: No pertinent hx Renal/: No pertinent hx Endocrine: Diabetes Dermatology: No pertinent hx Past Surgical History Past Surgical History: Appendectomy Family History Family History: Coronary Artery Disease Social History Smoke: Quit ALCOHOL: rare Drugs: None Current Medications Current Medications Current Medications Fentanyl Citrate (Fentanyl 2ml Vial) 100 mcg STK-MED ONCE .ROUTE ; Start at 05:36; Stop 02/10/19 at 05:37; Status DC Midazolam HCl (Versed) 2 mg STK-MED ONCE .ROUTE ; Start 02/10/19 at 05:36; Stop 02/10/19 at 05:37; Status DC Fentanyl Citrate (Fentanyl 2ml Vial) 50 mcg 1X ONCE IV Last administered on at 05:43; Start 02/10/19 at 05:45; Stop 02/10/19 at 05:49; Status DC Insulin Human Lispro (HumaLOG) 0-5 UNITS TIDWMEALS SQ ; Start 02/10/19 at 08:00 Dextrose (Dextrose 50%-Water Syringe) 12.5 gm PRN Q15MIN PRN IV SEE COMMENTS; Start 02/10/19 at 05:45 Iodixanol (Visipaque 320) 100 ml STK-MED ONCE .ROUTE ; Start 02/10/19 at 06:09; Stop 02/10/19 at 06:10; Status DC Heparin Sodium (Porcine) (Heparin Sodium) 10,000 unit STK-MED ONCE .ROUTE ; Start 02/10/19 at 06:10; Stop 02/10/19 at 06:11; Status DC Nitroglycerin/ Dextrose 250 ml @ As Directed STK-MED ONCE IV ; Start 02/10/19 at 06:26; Stop 02/10/19 at 06:27; Status DC Vancomycin HCl (VANCO for OR ONLY) 10 gm STK-MED ONCE .ROUTE ; Start 02/10/19 at 05:43; Stop 02/10/19 at 06:44; Status DC Cellulose (Surgicel Hemostat 4x8) 1 each STK-MED ONCE .ROUTE ; Start 02/10/19 at 05:43; Stop 02/10/19 at 06:44; Status DC Papaverine HCl 60 mg STK-MED ONCE .ROUTE ; Start 02/10/19 at 05:44; Stop at 06:44; Status DC Aspirin (Aspirin) 300 mg STK-MED ONCE .ROUTE ; Start 02/10/19 at 05:44; Stop at 06:44; Status DC Sodium Chloride (SODIUM CHLORIDE 20ml) 20 ml STK-MED ONCE IJ ; Start 02/10/19 at 05:44; Stop 02/10/19 at 06:44; Status DC Sodium Chloride (SODIUM CHLORIDE 20ml) 20 ml STK-MED ONCE IJ ; Start 02/10/19 at 05:44; Stop 02/10/19 at 06:44; Status DC Potassium Chloride 70 meq/ Sodium Bicarbonate 12.5 meq/Lidocaine HCl 24 ml/ Parenteral Electrolytes 571.5 ml @ 571.5 mls/ hr 1X ONCE IRR ; Start 02/10/19 at 07:30; Stop 02/10/19 at 08:29 Sodium Chloride (SODIUM CHLORIDE 20ml) 20 ml STK-MED ONCE IJ ; Start 02/10/19 at 05:44; Stop 02/10/19 at 06:45; Status DC Rocuronium [place] (Zemuron) 100 mg STK-MED ONCE .ROUTE ; Start 02/10/19 at 06: 44; Stop 02/10/19 at 06:45; Status DC Sufentanil Citrate (Sufenta) 250 mcg STK-MED ONCE .ROUTE ; Start 02/10/19 at 06: 45; Stop 02/10/19 at 06:46; Status DC Potassium Chloride 15 meq/ Sodium Bicarbonate 12.5 meq/Parenteral Electrolytes 520 ml @ 520 mls/hr 1X ONCE IRR ; Start 02/10/19 at 07:30; Stop 02/10/19 at 08 :29 Midazolam HCl (Versed) 5 mg STK-MED ONCE .ROUTE ; Start 02/10/19 at 06:45; Stop 02/10/19 at 06:46; Status DC Lidocaine HCl (Lidocaine Pf 2% Vial) 5 ml STK-MED ONCE .ROUTE ; Start 02/10/19 at 06:46; Stop 02/10/19 at 06:47; Status DC Etomidate (Amidate) 20 mg STK-MED ONCE IV ; Start 02/10/19 at 06:46; Stop at 06:47; Status DC Aminocaproic Acid (Amicar) 5,000 mg STK-MED ONCE IV ; Start 02/10/19 at 06:46; Stop 02/10/19 at 06:47; Status DC Aminocaproic Acid (Amicar) 5,000 mg STK-MED ONCE IV ; Start 02/10/19 at 06:46; Stop 02/10/19 at 06:47; Status DC Aminocaproic Acid (Amicar) 5,000 mg STK-MED ONCE IV ; Start 02/10/19 at 06:46; Stop 02/10/19 at 06:47; Status DC Heparin Sodium/ Sodium Chloride (HEPARIN for ARTERIAL LINE FLUSH) 1,000 unit 1X ONCE IART Last administered on 02/10/19at 06:56; Start 02/10/19 at 06:45; Stop 02/10/19 at 06:56; Status DC Midazolam HCl (Versed) 2 mg 1X ONCE IV Last administered on 02/10/19at 06:57; Start 02/10/19 at 06:45; Stop 02/10/19 at 06:56; Status DC Fentanyl Citrate (Fentanyl 2ml Vial) 100 mcg 1X ONCE IV Last administered on at 06:56; Start 02/10/19 at 06:45; Stop 02/10/19 at 06:56; Status DC Iodixanol (Visipaque 320) 139 ml 1X ONCE IART Last administered on 02/10/19at 06:56; Start 02/10/19 at 06:45; Stop 02/10/19 at 06:56; Status DC Lidocaine HCl (Lidocaine 1% 20ml Vial) 20 ml 1X ONCE INJ Last administered on 02/10/19at 06:56; Start 02/10/19 at 06:45; Stop 02/10/19 at 06:56; Status DC Heparin Sodium (Porcine) (Heparin 5,000 Units/1,000ml NS) 5,000 unit 1X ONCE IV Last administered on 02/10/19at 06:45; Start 02/10/19 at 06:45; Stop at 06:56; Status DC Heparin Sodium (Porcine) 54959 unit/Ringer's Solution 1,020 ml @ 1,020 mls/hr 1X ONCE IRR ; Start 02/10/19 at 07:30; Stop 02/10/19 at 08:29 Heparin Sodium (Porcine) 800 unit/ Nitroglycerin 4 mg/Verapamil HCl 8 mg/Sodium Bicarbonate 0.34 meq/Ringer's Solution 512.34 ml @ 512.34 mls/hr 1X ONCE IRR ; Start 02/10/19 at 07:30; Stop 02/10/19 at 08:29 Cefazolin Sodium 1 gm/Sodium Chloride 500 ml @ 500 mls/hr 1X ONCE IRR ; Start 02/10/19 at 07:30; Stop 02/10/19 at 08:29 Heparin Sodium (Porcine) 30,000 unit STK-MED ONCE .ROUTE ; Start 02/10/19 at 06: 50; Stop 02/10/19 at 06:51; Status DC Nitroglycerin/ Dextrose 250 ml @ 1.5 mls/hr CONT PRN IV SEE I/O RECORD Last administered on 02/10/19at 06:36; Start 02/10/19 at 07:00 Ephedrine Sulfate (ePHEDrine PF IN SALINE SYRINGE) 50 mg STK-MED ONCE IV ; Start 02/10/19 at 06:53; Stop 02/10/19 at 06:54; Status DC Phenylephrine HCl (Sp-Synephrine Inj) 10 mg STK-MED ONCE .ROUTE ; Start at 06:59; Stop 02/10/19 at 07:00; Status DC Epinephrine HCl (EPINEPHrine SYRINGE) 1 mg STK-MED ONCE .ROUTE ; Start 02/10/19 at 07:20; Stop 02/10/19 at 07:21; Status DC Ephedrine Sulfate (ePHEDrine PF IN SALINE SYRINGE) 50 mg STK-MED ONCE IV ; Start 02/10/19 at 07:22; Stop 02/10/19 at 07:23; Status DC Phenylephrine HCl (PHENYLEPHRINE in 0.9% NACL PF) 1 mg STK-MED ONCE IV ; Start 02/10/19 at 07:22; Stop 02/10/19 at 07:23; Status DC Active Scripts Active Reported No Known Medications Prior To Admisstion (Info) Each 1 Each DAILY Allergies Allergies: Coded Allergies: No Known Drug Allergies (Unverified , 02/10/19) ROS General: YES: Fatigue, Malaise, Appetite; No: Chills, Night Sweats, Other PSYCHOLOGICAL ROS: No: Anxiety, Behavioral Disorder, Concentration difficultie , Decreased libido, Depression, Disorientation, Hallucinations, Hostility, Irritablity, Memory difficulties, Mood Swings, Obsessive thoughts, Physical abuse, Sexual abuse, Sleep disturbances, Suicidal ideation, Other Eyes: No Blurry vision, No Decreased vision, No Double vision, No Dry eyes, No Excessive tearing, No Eye Pain, No Itchy Eyes, No Loss of vision, No Photophobia , No Scotomata, No Uses contacts, No Uses glasses, No Other HEENT: No: Heacaches, Visual Changes, Hearing change, Nasal congestion, Nasal discharge, Oral lesions, Sinus pain, Sore Throat, Epistaxis, Sneezing, Snoring, Tinnitus, Vertigo, Vocal changes, Other ALLERGY AND IMMUNOLOGY: No: Hives, Insect Bite Sensitivity, Itchy/Watery Eyes, Nasal Congestion, Post Nasal Drip, Seasonal Allergies, Other Hematological and Lymphatic: No: Bleeding Problems, Blood Clots, Blood Transfusions, Brusing, Night Sweats, Pallor, Swollen Lymph Nodes, Other ENDOCRINE: No: Breast Changes, Galactorrhea, Hair Pattern Changes, Hot Flashes , Malaise/lethargy, Mood Swings, Palpitations, Polydipsia/polyuria, Skin Changes , Temperature Intolerance, Unexpected Weight Changes, Other Breast: No New/Changing Breast Lumps, No Nipple changes, No Nipple discharge, No Other Respiratory: YES: Shortness of breath, SOB with excertion; No: Cough, Hemoptysis, Orthopnea, Pleuritic Pain, Sputum Changes, Stridor, Tachypnea, Wheezing, Other Cardiovascular: yes Chest Pain; No Palpitations, No Orthopnea, No Paroxysmal Noc. Dyspnea, No Edema, No Lt Headedness, No Other Gastrointestinal: No Nausea, No Vomiting, No Abdominal Pain, No Diarrhea, No Constipation, No Melena, No Hematochezia, No Other Genitourinary: No Dysuria, No Frequency, No Incontinence, No Hematuria, No Retention, No Discharge, No Urgency, No Pain, No Flank Pain, No Other, No , No , No , No , No , No , No Musculoskeletal: No Gait Disturbance, No Joint Pain, No Joint Stiffness, No Joint Swelling, No Muscle Pain, No Muscular Weakness, No Pain In:, No Swelling In:, No Other Neurological: No Behavorial Changes, No Bowel/Bladder ControlChng, No Confusion , No Dizziness, No Gait Disturbance, No Headaches, No Impaired Coord/balance, No Memory Loss, No Numbness/Tingling, No Seizures, No Speech Problems, No Tremors, No Visual Changes, No Weakness, No Other Skin: No Dry Skin, No Eczema, No Hair Changes, No Lumps, No Mole Changes, No Mottling, No Nail Changes, No Pruritus, No Rash, No Skin Lesion Changes, No Other, No Acne Physical Exam General: mild distress HEENT: Atraumatic, PERRLA, EOMI, Mucous membr. moist/pink Lungs: Other (Ventilatory breath sounds) Heart: S1S2, RRR, murmurs Abdomen: Normal bowel sounds, Soft, No tenderness, No hepatosplenomegaly, No masses Extremities: No clubbing, No cyanosis, No edema, Normal pulses, No tenderness/ swelling Skin: No rashes, No breakdown, No significant lesion Neuro: Reflexes 2+ Psych/Mental Status: Other (Sedated) Vitals Vitals Vital Signs Date Time Temp Pulse Resp B/P (MAP) Pulse Ox O2 Delivery O2 Flow Rate FiO2 02/10/19 07:25 100 15 96 Nasal Cannula 3.0 02/10/19 05:31 98.4 139/89 (106) 98.4 Labs Labs Laboratory Tests Test 02/10/19 05:36 White Blood Count 8.6 x10^3/uL (4.0-11.0) Red Blood Count 5.02 x10^6/uL (4.30-5.70) Hemoglobin 15.0 g/dL (13.0-17.5) Hematocrit 43.5 % (39.0-53.0) Mean Corpuscular Volume 87 fL (79-100) Mean Corpuscular Hemoglobin 30 pg (25-35) Mean Corpuscular Hemoglobin Concent 35 g/dL (31-37) Red Cell Distribution Width 13.3 % (11.5-14.5) Platelet Count 171 x10^3/uL (140-400) Neutrophils (%) (Auto) 78 % (31-73) Lymphocytes (%) (Auto) 14 % (24-48) Monocytes (%) (Auto) 8 % (0-9) Eosinophils (%) (Auto) 0 % (0-3) Basophils (%) (Auto) 0 % (0-3) Neutrophils # (Auto) 6.7 x10^3uL (1.8-7.7) Lymphocytes # (Auto) 1.2 x10^3/uL (1.0-4.8) Monocytes # (Auto) 0.7 x10^3/uL (0.0-1.1) Eosinophils # (Auto) 0.0 x10^3/uL (0.0-0.7) Basophils # (Auto) 0.0 x10^3/uL (0.0-0.2) Prothrombin Time 14.9 SEC (11.7-14.0) Prothromb Time International Ratio 1.2 (0.8-1.1) Activated Partial Thromboplast Time 145 SEC (24-38) Sodium Level 140 mmol/L (136-145) Potassium Level 4.1 mmol/L (3.5-5.1) Chloride Level 105 mmol/L (98-107) Carbon Dioxide Level 19 mmol/L (21-32) Anion Gap 16 (6-14) Blood Urea Nitrogen 18 mg/dL (8-26) Creatinine 1.0 mg/dL (0.7-1.3) Estimated GFR (Cockcroft-Gault) 75.5 BUN/Creatinine Ratio 18 (6-20) Glucose Level 242 mg/dL (70-99) Calcium Level 9.6 mg/dL (8.5-10.1) Magnesium Level 1.8 mg/dL (1.8-2.4) Total Bilirubin 0.9 mg/dL (0.2-1.0) Aspartate Amino Transf (AST/SGOT) 24 U/L (15-37) Alanine Aminotransferase (ALT/SGPT) 27 U/L (16-63) Alkaline Phosphatase 107 U/L (46-116) Creatine Kinase 123 U/L (39-308) Creatine Kinase MB (Mass) 6.6 ng/mL (0.0-3.6) Creatine Kinase MB Relative Index 5.4 % (0-4) Troponin I Quantitative 0.848 ng/mL (0.000-0.055) OG-Rkw-M-Type Natriuretic Peptide 471 pg/mL (0-124) Total Protein 7.1 g/dL (6.4-8.2) Albumin 3.9 g/dL (3.4-5.0) Albumin/Globulin Ratio 1.2 (1.0-1.7) Lipase 142 U/L (73-393) Laboratory Tests Test 02/10/19 05:36 White Blood Count 8.6 x10^3/uL (4.0-11.0) Red Blood Count 5.02 x10^6/uL (4.30-5.70) Hemoglobin 15.0 g/dL (13.0-17.5) Hematocrit 43.5 % (39.0-53.0) Mean Corpuscular Volume 87 fL (79-100) Mean Corpuscular Hemoglobin 30 pg (25-35) Mean Corpuscular Hemoglobin Concent 35 g/dL (31-37) Red Cell Distribution Width 13.3 % (11.5-14.5) Platelet Count 171 x10^3/uL (140-400) Neutrophils (%) (Auto) 78 % (31-73) Lymphocytes (%) (Auto) 14 % (24-48) Monocytes (%) (Auto) 8 % (0-9) Eosinophils (%) (Auto) 0 % (0-3) Basophils (%) (Auto) 0 % (0-3) Neutrophils # (Auto) 6.7 x10^3uL (1.8-7.7) Lymphocytes # (Auto) 1.2 x10^3/uL (1.0-4.8) Monocytes # (Auto) 0.7 x10^3/uL (0.0-1.1) Eosinophils # (Auto) 0.0 x10^3/uL (0.0-0.7) Basophils # (Auto) 0.0 x10^3/uL (0.0-0.2) Prothrombin Time 14.9 SEC (11.7-14.0) Prothromb Time International Ratio 1.2 (0.8-1.1) Activated Partial Thromboplast Time 145 SEC (24-38) Sodium Level 140 mmol/L (136-145) Potassium Level 4.1 mmol/L (3.5-5.1) Chloride Level 105 mmol/L (98-107) Carbon Dioxide Level 19 mmol/L (21-32) Anion Gap 16 (6-14) Blood Urea Nitrogen 18 mg/dL (8-26) Creatinine 1.0 mg/dL (0.7-1.3) Estimated GFR (Cockcroft-Gault) 75.5 BUN/Creatinine Ratio 18 (6-20) Glucose Level 242 mg/dL (70-99) Calcium Level 9.6 mg/dL (8.5-10.1) Magnesium Level 1.8 mg/dL (1.8-2.4) Total Bilirubin 0.9 mg/dL (0.2-1.0) Aspartate Amino Transf (AST/SGOT) 24 U/L (15-37) Alanine Aminotransferase (ALT/SGPT) 27 U/L (16-63) Alkaline Phosphatase 107 U/L (46-116) Creatine Kinase 123 U/L (39-308) Creatine Kinase MB (Mass) 6.6 ng/mL (0.0-3.6) Creatine Kinase MB Relative Index 5.4 % (0-4) Troponin I Quantitative 0.848 ng/mL (0.000-0.055) TF-Hdf-J-Type Natriuretic Peptide 471 pg/mL (0-124) Total Protein 7.1 g/dL (6.4-8.2) Albumin 3.9 g/dL (3.4-5.0) Albumin/Globulin Ratio 1.2 (1.0-1.7) Lipase 142 U/L (73-393) VTE Prophylaxis Ordered VTE Prophylaxis Devices: Yes VTE Pharmacological Prophylaxi: Yes Assessment/Plan Assessment/Plan A/P: ST elevation myocardial infarction - to manager labor delivery urgently, found with severe disease by cardiology, sent urgently to CABG Acute systolic heart failure (EF 20-25%) - IABP placed Severe three vessel coronary artery disease with left main stem involvement - going to CABG. Will consult pulm for vent management post-operatively Diabetes - unknown meds, will place on insulin GTT to goal glucose 140 HTN - unknown meds, will reconcile home meds FEN - NPO PPX - heparin FULL CODE ICU for post-op CABG management SHAWN MACDONALD MD Feb 10, 2019 07:50
[2019-02-10] MEDS: ceFAZolin SODIUM 3 GM in IV DEXTROSE 5% 100ML 100 ML IV PRN ×2 (08:45→09:49)
[2019-02-10] MEDS ORDERED: MANNITOL 20% PREMIX 500 ML IV ONE (09:00)
[2019-02-10] MEDS ORDERED: INSULIN REGULAR VIAL 150 UNIT in 0.9 % SODIUM CHLORIDE 150ML 150 ML IV PRN (09:15)
--- NOTE | 2019-02-10 10:43 | NUR ---
0896 Communication w family on start of procedure w reinforcement of what to expect the next several hours
[2019-02-10] MEDS ORDERED: NOREPINEPHRIN 8MG/250ML PREMIX 250 ML IV ONE (11:15)
[2019-02-10] MEDS ORDERED: PROTAMINE 50 MG/5 ML VIAL. IV ONE (11:33)
[2019-02-10] MEDS ORDERED: PROTAMINE 250 MG/25 ML VIAL IV ONE ×2 (11:33)
[2019-02-10] MEDS ORDERED: ceFAZolin SODIUM 3 GM in IV DEXTROSE 5% 100ML 100 ML IV ONE (11:45)
[2019-02-10] MEDS ORDERED: ROCURONIUM 50 MG/5 ML VIAL. ONE (12:06)
--- NOTE | 2019-02-10 12:19 | CARD ---
MR#: [id number] Date of Study: 02/10/2019 Ordering Physician: MATHEW CHRISTIAN, Referring Physician: SHAWN MACDONALD, Tech: RT Urvashi (R) APPROVED REPORT Technologist: RT Urvashi (R) Nurse: Madisyn Sánchez R.N. Procedure(s) performed: 1. Left heart catheterization, selective coronary angiography and left ventr iculography 2. Successful intra-aortic balloon pump placement Sedation Time: 93 Minutes Fluoro Time: 3.6 Minutes Dose: 77.68 Gycm2 Contrast: 139 Visipaque INDICATION The indication(s) include : Acute myocardial infarction. PROCEDURE NARRATIVE After explaining the risks, benefits and alternative options, informed consent was obtained from shanice ent. Patient was brought to the cardiac Balance Bridge Assembler and his right groin was prepped and draped in the us ual fashion. 20 mL of 2% lidocaine was infiltrated into the skin and subcutaneous tissues for local a nesthesia. Arterial access was obtained the right common femoral artery and a 6 [place] sheath was ins erted. 6 [place] JL4 and 6 [place] JR4 catheters were used to perform selective angiography of the left and right coronary arteries. 6 [place] pigtail catheter was used to perform left ventriculography. Th e following findings were noted. FINDINGS 1. Hemodynamics: Elevated left ventricular end-diastolic pressure 34 mmHg consistent with acute sys tolic and diastolic heart failure. 2. Left ventriculography: Severe left ventricle systolic dysfunction with ejection fraction estimat ed at 25%. 3. Coronary angiography: a. The left main coronary artery arose from the left sinus of Valsalva, gave rise to the left anteri or descending and left circumflex arteries and showed 70% stenosis involving the mid to distal segmen t. b. The left anterior descending artery showed 100% occlusion in the midsegment with distal reconstit ution from left to left and [id number] collaterals. c. The left circumflex artery showed 99% stenosis involving the midsegment. The first obtuse margina l branch did not show any critical stenosis. The second obtuse marginal branch which appeared to be a medium caliber vessel showed 100% occlusion in the proximal segment with distal reconstitution from left to left collaterals. d. The right coronary artery was a large and dominant vessel arising from the right sinus of Valsalv a, was very tortuous and showed 90% stenosis involving the proximal segment and 80% stenosis involvin g the midsegment. Since patient had severe three-vessel coronary artery disease a decision was made to proceed with merged with [facility] coronary artery bypass surgery after discussion with cardiothoracic surgery. The sheath in the right groin was exchanged to IABP sheath. A 50 cm intra-aortic balloon pump was advanced and position ed in aorta under fluoroscopy guidance. Patient tolerated the procedure well. He will be transferred emergently to or for emergent coronary artery bypass surgery. There were no immediate complications. Conclusion 1. Severe three-vessel coronary artery disease 2. Severe left ventricular systolic dysfunction with ejection fraction estimated at 25% 3. Elevated left ventricle end-diastolic pressure consistent with acute systolic and diastolic heart failure 4. Successful placement of intra-aortic balloon pump Recommendations Emergent coronary artery bypass surgery by CT surgery. Signed by : Mathew Christian, Electronically Approved : 02/10/2019 12:19:00
[2019-02-10] MEDS ORDERED: PROPOFOL 0 ML IV ONE (12:49)
[2019-02-10] MEDS ORDERED: MAGNESIUM SULFATE 5 GM/10 ML VIAL. ONE (13:21)
[2019-02-10] MEDS ORDERED: ALBUMIN HUMAN 25% 200 ML IV ONE (13:21)
[2019-02-10] MEDS ORDERED: CALCIUM CHLORIDE 1,000 MG/10 ML DISP.SYRIN ONE (13:21)
[2019-02-10] MEDS ORDERED: SODIUM BICARB ADULT 8.4% 50 MEQ/50 ML DISP.SYRIN. ONE ×2 (13:23→15:29)
[2019-02-10 13:43] LABS: HEMATOCRIT 32.5 % (39.0-53.0); HEMOGLOBIN 11.3 g/dL (13.0-17.5); WHITE BLOOD COUNT 14.4 x10^3/uL (4.0-11.0)
[2019-02-10 13:52] LABS: PROTHROMBIN TIME PATIENT 19.3 SEC (11.7-14.0)
--- NOTE | 2019-02-10 14:01 | PDOC ---
BRIEF OPERATIVE NOTE Date: Feb 10, 2019 Pre-Op Diagnosis ST elevation myocardial infarction Acute systolic heart failure (EF 20-25%) Severe three vessel coronary artery disease with left main stem involvement Diabetes Post-Op Diagnosis ST elevation myocardial infarction Acute systolic heart failure (EF 20-25%) Severe three vessel coronary artery disease with left main stem involvement Diabetes Procedure Performed Emergency CABG x 3 (AL to LAD, SVG to RPDA, SVG to OM) Left endoscopic greater saphenous vein harvest Surgeon Arnulfo Morrow MD FACS Bag Loader Nazanin Webster, STEPHANIE Dhaliwal PULLBOAT ENGINEER Anesthesiologist Dr Ferrer Anesthesia Type: General Blood Loss Cellsaver IV Fluid Crystalloid: 1700 mls Colloid: 500 mls Cellsaver: 850 mls Urine Output 625 mls Specimens Obtained None Findings Diffusely calcified targets, but with reasonable size Moderate size AL with excellent flow Excellent saphenous vein conduit Off CPB on 8mcg Levophed and IABP 1:2 CPB time: 107 min x-clamp time: 92 min Complications None ARNULFO MORROW MD Feb 10, 2019 14:01
--- NOTE | 2019-02-10 14:03 | PDOC4 ---
Operative Note Operative Note Date Feb 10, [address] elevation myocardial infarction Acute systolic heart failure (EF 20-25%) Severe three vessel coronary artery disease with left main stem involvement Diabetes Postoperative diagnosis ST elevation myocardial infarction Acute systolic heart failure (EF 20-25%) Severe three vessel coronary artery disease with left main stem involvement Diabetes Procedure performed Emergency CABG x 3 (AL to LAD, SVG to RPDA, SVG to OM) Left endoscopic greater saphenous vein harvest Surgeon Stevenson Morrow MD FACS Equipment Technician Nazanin Webster, LAYOUT FORMERVan Dhaliwal [facility] Anesthesiologist Dr Ferrer Anesthesia type General Blood loss Cellsaver IV fluids Crystalloid: 1700 mls Colloid: 500 mls Cellsaver: 850 mls Urine output 625 mls Specimens obtained None Findings Diffusely calcified targets, but with reasonable size Moderate size AL with excellent flow Excellent saphenous vein conduit Off CPB on 8mcg Levophed and IABP 1:2 CPB time: 107 min x-clamp time: 92 min Complications None Indication Patient is a 63 year old male, with type II DM and FHx of premature IDH, who presents with chest pain since 10pm last night. Apparently has been having intermittent CP for some time, but has considered his symptoms as not significant. ST elevation in aVR and diffuse ST depressions in all other leads. Cath shows severe 3VD, without LAD flow, subtotal LCx occlusion and 80-90% proximal RCA disease. LV function was impaired with EF 20-25%. An emergency CABG was indicated. Operation After appropriate identification, the patient was brought to the operating room from the [facility] laborer with an IABP and placed supine on the operating table. Anesthesia was induced and the airway was secured with an endotracheal tube. A right IJ Uvalde-Fariha catheter was placed. A left radial arterial line was also inserted. Antibiotics were delivered and the patient was preped and draped in the usual standard surgical sterile fashion. A timeout was then performed. A median sternotomy was performed and the left internal mammary artery was harvested, which was of moderate size, but with excellent flow. Simultaneously the left greater saphenous vein was harvested endoscopically, but was of excellent quality and caliber. The pericardium was incised. The patient was heparinized. Cardiopulmonary bypass was established through the ascending aorta and the right atrium. A retrograde catheter was placed in the coronary sinus. The patient was cooled to 34. Arrest was achieved with induction antegrade and retrograde cold blood cardioplegia. The cross-clamp was applied and diastolic arrest was achieved. Intermittent dosages of antegrade and retrograde cardioplegia were given every 20 minutes. Grafts: Saphenous vein graft to right posterior descending coronary artery, end to side anastomosis with 7-0 Prolene. 2 mm vessel, diffusely calcified Saphenous vein graft to obtuse marginal coronary artery, end to side anastomosis with 7-0 Prolene, 2 mm vessel, diffusely calcified Left internal mammary artery to left anterior descending coronary artery, end to side anastomosis with 7-0 Prolene. 2 mm vessel, diffusely calcified Two proximal anastomoses were performed using a 5-0 Prolene running suture. The cross-clamp was removed. The heart was allowed to rewarm and reperfuse. The grafts were de-aired. The patient resumed normal sinus rhythm and was from cardiopulmonary bypass on a small dose of Levophed and on the IABP with 1: 2 support. All cannulae were removed. Heparin was reversed with protamine. Atrial and ventricular pacing wires were placed. Hemostasis was confirmed. An angled 32 Wol[place] chest tube was placed in the left pleural space, a 32Fr angled in the posterior pericardium and a 32 straight in the anterior pericardium. The sternotomy was closed with seven stainless steel wires. The incision was closed with a layer of 0 Vicryl, followed by 2-0 Vicryl and then 4-0 Monocryl for the epidermis. Sterile dressings were applied. The total cardiopulmonary bypass time was 107 minutes and the cross-clamp time was 92 minutes. The instrument, sponge and needle counts were correct. The patient was then transferred to the ICU in critical condition. STEVENSON MORROW MD Feb 10, 2019 14:03
[2019-02-10] MEDS ORDERED: AMIODARONE 900 MG in IV DEXTROSE 5% 500 ML IV PRN (14:15)
[2019-02-10] MEDS ORDERED: ACETAMINOPHEN 650 MG SUPP.RECT. PR PRN (14:15)
[2019-02-10] MEDS ORDERED: 0.9 % SODIUM CHLORIDE 10 ML DISP.SYRIN. IV PRN (14:15)
[2019-02-10] MEDS ORDERED: KCL PER PROTOCOL MC PRN (14:15)
[2019-02-10] MEDS ORDERED: BISACODYL 10 MG SUPP.RECT. PR PRN (14:15)
[2019-02-10] MEDS ORDERED: METOCLOPRAMIDE HCL 10 MG/2 ML VIAL. IV PRN (14:15)
[2019-02-10] MEDS ORDERED: PROCHLORPERAZINE 10 MG/2 ML VIAL. IV PRN (14:15)
[2019-02-10] MEDS ORDERED: PROPOFOL 100 ML IV PRN (14:15)
[2019-02-10] MEDS ORDERED: MAGNESIUM SULFATE 1GM 100 ML IV PRN (14:15)
[2019-02-10] MEDS ORDERED: AMIODARONE 150 MG in IV DEXTROSE 5% 100ML 100 ML IV PRN (14:15)
[2019-02-10] MEDS ORDERED: ALBUTEROL SULFATE 2.5 MG/3 ML NEBU. NEB PRN (14:15)
[2019-02-10] MEDS ORDERED: MORPHINE SULFATE 4 MG/ML VIAL. IV PRN (14:15)
[2019-02-10] MEDS ORDERED: AMIODARONE 150 MG in IV DEXTROSE 5% 100ML 100 ML IV ONE (14:15)
--- NOTE | 2019-02-10 14:16 | RAD ---
Examination: PORTABLE CHEST 1V History: POST OP CABG DONE IN OR. NO INSTRUMENT COUNT PERFORMED PRIOR TO SURGERY Comparison/Correlation: Portable chest x-ray exam performed earlier on the same day Findings: Portable supine frontal view of the chest was obtained. Sternal wires are present. Mediastinal clips noted. Endotracheal tube terminates 5.7 cm from the cecille. Mediastinal tube is noted. Pericardial drain noted. Nasogastric tube is in place. Left basilar chest tube noted. Right internal jugular [place] catheter terminates somewhat distally in the left pulmonary artery. Left medial basilar atelectasis is present. No pneumothorax with the patient is supine limiting assessment. Surgical clips at the epigastric level noted. No suspicious radiopaque foreign body or retained foreign body endplate delineated. Impression: Left [place] catheter terminates distally in the left pulmonary arterial system overlying the lower lobe. Correlate clinically in determining partial retraction. No suspicious radiopaque foreign body delineated. Electronically signed by: Nithin Gandara MD (02/10/2019 2:13 PM) [id number]
[2019-02-10] MEDS ORDERED: ISOFLURANE > 120 MINUTES. IH ONE (14:46)
[2019-02-10 15:07] LABS: BASE EXCESS COOX -5 mmol/L (-3-3); HCO3 COOX 21 mmol/L (21-28); METHEMOGLOBIN 0.5 % (0.0-1.9); OXYHEMOGLOBIN 98.6 %; PCO2 COOX 46 mmHg (35-46); PO2 COOX 374 mmHg (65-108); SAT O2 COOX 99 % (92-99)
[2019-02-10 15:08] LABS: HEMATOCRIT 36.6 % (39.0-53.0); HEMOGLOBIN 12.4 g/dL (13.0-17.5); RED BLOOD COUNT 4.16 x10^6/uL (4.30-5.70); RED CELL DISTRIBUTION WIDTH 13.5 % (11.5-14.5); WHITE BLOOD COUNT 14.3 x10^3/uL (4.0-11.0)
[2019-02-10 15:16] LABS: CALCIUM 9.6 mg/dL (8.5-10.1); CREATININE 1.2 mg/dL (0.7-1.3); GFR 61.1; POTASSIUM 3.7 mmol/L (3.5-5.1)
[2019-02-10 15:18] LABS: MAGNESIUM 2.6 mg/dL (1.8-2.4)
[2019-02-10] MEDS: MEPERIDINE PF 25 MG/ML VIAL. IV PRN (15:41)
[2019-02-10] MEDS ORDERED: SODIUM BICARB ADULT 8.4% 50 MEQ/50 ML DISP.SYRIN. IV ONE ×2 (15:45→18:15)
[2019-02-10] MEDS ORDERED: POTASSIUM CHL 20MEQ PREMIX 50 ML IV PRN ×3 (15:45→16:00)
[2019-02-10] MEDS: ALBUMIN HUMAN 5% 250 ML IV PRN ×3 (15:50→18:04)
[2019-02-10] MEDS: POTASSIUM CHL 20MEQ PREMIX 50 ML IV SCH ×2 (16:43→16:52)
[2019-02-10] MEDS: IV RINGERS,LACTATED 1000ML 1,000 ML IV SCH (16:55)
[2019-02-10 17:50] LABS: BASE EXCESS ABG -5 mmol/L (-3-3); HCO3 ABG 19 mmol/L (21-28); PCO2 ABG 33 mmHg (35-46); PO2 ABG 131 mmHg (65-108); SAT O2 ABG 98 % (92-99)
[2019-02-10 17:52] LABS: FIO2 ABG 40
[2019-02-10] MEDS: ACETAMINOPHEN 325 MG TABLET. PO PRN (18:02)
[2019-02-10 19:49] LABS: HEMATOCRIT 32.2 % (39.0-53.0); HEMOGLOBIN 10.9 g/dL (13.0-17.5); RED BLOOD COUNT 3.67 x10^6/uL (4.30-5.70); RED CELL DISTRIBUTION WIDTH 13.5 % (11.5-14.5); WHITE BLOOD COUNT 14.1 x10^3/uL (4.0-11.0)
[2019-02-10] MEDS: oxyCODONE IR 5 MG TABLET PO PRN (19:51)
[2019-02-10 20:01] LABS: CREATININE 1.1 mg/dL (0.7-1.3); GFR 67.6; POTASSIUM 4.3 mmol/L (3.5-5.1)
[2019-02-10] MEDS: ONDANSETRON PF 4 MG/2 ML VIAL. IV PRN (20:04)
[2019-02-10] MEDS: SENNOSIDES/DOCUSATE 8.6/50MG TABLET. PO SCH (20:36)
--- NOTE | 2019-02-10 20:58 | EKG ---
[facility] [address] [place] [address] Test Date: 2019-02-10 Test Time: 20:40:12 Pat Name: XENA HERNANDEZ Department: Room: 104 1 Gender: M Dag Coater: PATRIC : 1955 Requested By: ARNULFO MORROW Order Number: [id number] Reading MD: Measurements Intervals [place] Rate: 104 P: 108 NC: 152 QRS: 6 QRSD: 78 T: 108 QT: 332 QTc: 443 Interpretive Statements SINUS TACHYCARDIA LOW LIMB LEAD VOLTAGE QRS(T) CONTOUR ABNORMALITY CONSIDER ANTEROSEPTAL MYOCARDIAL DAMAGE T ABNORMALITY IN HIGH LATERAL LEADS ABNORMAL ECG RI6.01 No previous ECG available for comparison
[2019-02-10] MEDS ORDERED: FAMOTIDINE 20 MG/2 ML VIAL IVP SCH (21:00)
[2019-02-10] MEDS ORDERED: NOREPINEPHRIN 8MG/250ML PREMIX 250 ML IV PRN (22:45)
[2019-02-11] VITALS (23 sets, daily range): BP systolic 93–134; BP diastolic 35–67
[2019-02-11] MEDS: oxyCODONE IR 5 MG TABLET PO PRN ×6 (00:18→20:57)
[2019-02-11] MEDS: ACETAMINOPHEN 325 MG TABLET. PO PRN ×2 (03:14→10:19)
[2019-02-11] MEDS: INSULIN REGULAR VIAL 150 UNIT in 0.9 % SODIUM CHLORIDE 150ML 150 ML IV PRN (03:18)
--- NOTE | 2019-02-11 05:49 | EKG ---
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
[2019-02-11 05:51] LABS: CALCIUM 8.8 mg/dL (8.5-10.1); CREATININE 1.1 mg/dL (0.7-1.3); GFR 67.6; MAGNESIUM 2.1 mg/dL (1.8-2.4); POTASSIUM 4.1 mmol/L (3.5-5.1)
[2019-02-11 05:53] LABS: HEMATOCRIT 31.2 % (39.0-53.0); HEMOGLOBIN 10.7 g/dL (13.0-17.5); RED BLOOD COUNT 3.53 x10^6/uL (4.30-5.70); RED CELL DISTRIBUTION WIDTH 13.9 % (11.5-14.5); WHITE BLOOD COUNT 12.5 x10^3/uL (4.0-11.0)
[2019-02-11 05:59] LABS: CHOLESTEROL/HDL RATIO 2.2
--- NOTE | 2019-02-11 06:26 | PDOC ---
Provider Note Provider Note [id number] acute resp fail abnl cxr cad see orders NEVA RENTERIA MD Feb 11, 2019 06:26
--- NOTE | 2019-02-11 07:06 | CONS ---
DATE OF CONSULTATION: 02/11/2019 REASON FOR CONSULTATION: I was asked to see this 63-year-old gentleman for acute respiratory failure. HISTORY OF PRESENT ILLNESS: He has history of 10-izrr-pbpe smoking, stopped smoking in . He has not been diagnosed with any pulmonary disease. He presented with chest pain yesterday and had a cardiac catheterization and was found to have a 3-vessel coronary artery disease. He underwent emergent CABG. He was on the ventilator, was extubated yesterday evening. He is currently on 2 liters of oxygen. He has slight shortness of breath. He does have pain in the incision area. He denies cough. He does snore, has not had any sleep studies. He is currently on Levophed, amiodarone drip, insulin drip and balloon pump. PAST MEDICAL HISTORY: Diabetes mellitus, status post appendectomy. ALLERGIES: No known drug allergies. MEDICATIONS: Currently, he is on Levophed, insulin drip, amiodarone drip, metoprolol, aspirin, Pepcid. SOCIAL HISTORY: History of 88-[id number]-rfuk smoking. FAMILY HISTORY: Hypertension. REVIEW OF SYSTEMS: As mentioned above, other systems otherwise negative. PHYSICAL EXAMINATION: GENERAL: This is an overweight gentleman. VITAL SIGNS: His O2 saturation on 2 liters of oxygen is 96%, respiratory rate 18, heart rate 88, blood pressure 106/52, temperature 99.7. HEENT: Normocephalic, atraumatic. Pupils equal, round, reactive to light. There is shallow oropharynx. Nose is clear. NECK: There is a [place] in place. There is no thyromegaly or lymphadenopathy. CARDIOVASCULAR: Regular rate and rhythm. PMI is nondisplaced. CHEST INSPECTION: Status post sternotomy, dressing is in place. LUNGS: There are bibasilar crackles, dullness at the bases. ABDOMEN: Soft. Bowel sounds are good. There is no mass. EXTREMITIES: There is trace edema. LYMPHATICS: There is no lymphadenopathy. NEUROLOGIC: Alert and oriented. SKIN: Chronic changes. LABORATORY DATA: I reviewed the following lab data: Chest x-ray showed borderline cardiomegaly, increased vascular marking. WBC 14.1, hemoglobin 10.9, platelets 111. Sodium 141, potassium 4.1, chloride 107, CO2 23, glucose 151, BUN 19, creatinine 1.1. ABG yesterday pH 7.37, pCO2 33, pO2 131. His cardiac catheterization did show ejection fraction 25% presurgery. IMPRESSION: 1. Expected acute respiratory failure, status post coronary artery bypass graft. 2. Coronary artery disease, status post coronary artery bypass graft on 02/10/2019. 3. Leukocytosis. 4. Thrombocytopenia. 5. Diabetes mellitus. 6. Obesity and snoring, probable obstructive sleep apnea-hypopnea syndrome. 7. Ex-smoker. PLAN AND RECOMMENDATIONS: 1. Titrate FiO2 to keep O2 saturation at 92%. 2. Start incentive spirometry. 3. Add bronchodilator, Atrovent only. 4. Amiodarone and Levophed per Cardiology and Cardiothoracic surgeon. 5. Elevate head of bed. 6. I will change Pepcid to Protonix, Pepcid may cause thrombocytopenia. We will monitor thrombocytopenia. 7. Monitor leukocytosis. 8. I have discussed obstructive sleep apnea-hypopnea syndrome, the importance of diagnosis and treatment, if untreated increased cardiovascular and FAMILY HEALTH NURSE PRACTITIONER morbidity and mortality. I do recommend a sleep study as an outpatient. Thank you very much for allowing me to participate in care of this very nice gentleman. The findings and recommendations were discussed with the patient and RN. The patient understood and agreed to proceed with the plan. I have answered all of his questions. NEVA RENTERIA M.D. : Amberly JOB#: [id number] / [id number]
[2019-02-11] MEDS ORDERED: ASPIRIN RECTAL 300 MG SUPP. PR PRN (08:00)
[2019-02-11] MEDS: INSULIN LISPRO 300 UNITS/3 ML INSULN.PEN. SQ SCH ×3 (08:00→17:00)
[2019-02-11] MEDS: IPRATROPIUM BROMIDE 0.5 MG/2.5 ML NEBU. NEB SCH ×4 (08:03→20:23)
[2019-02-11] MEDS: PANTOPRAZOLE 40 MG TABLET.DR. PO SCH (08:25)
[2019-02-11] MEDS: ASPIRIN ENTERIC COATED 325 MG TABLET.DR. PO SCH (08:26)
[2019-02-11] MEDS: SENNOSIDES/DOCUSATE 8.6/50MG TABLET. PO SCH ×2 (08:30→20:57)
[2019-02-11] MEDS: MEPERIDINE PF 25 MG/ML VIAL. IV PRN ×2 (08:37→08:38)
--- NOTE | 2019-02-11 08:45 | PDOC ---
PROGRESS NOTES Chief Complaint Chief Complaint A/P: ST elevation myocardial infarction - to [facility] urgently, found with severe disease by cardiology, sent urgently to CABG CAD s/p CABG x 3 (AL to LAD, SVG to RPDA, SVG to OM) with Left endoscopic greater saphenous vein harvest Acute systolic heart failure (EF 20-25%) - IABP placed. Does have low UOP, given 4 bags albumin Seen by pulm for vent management post-operatively - extubated yesterday Diabetes - unknown meds, will place on insulin GTT to goal glucose 140 HTN - unknown meds, will reconcile home meds, picks up meds at [facility] on [address] FEN - ADA diet PPX - heparin FULL CODE ICU for post-op CABG management History of Present Illness History of Present Illness 63 yo M w/ PMHx DM2, HTN who initially presented to [facility] ED by the [facility] with waxing and waning retrosternal chest pain that he described as burning sensation starting yesterday at 10 pm. EKG showed diffuse ST depressions and ST elevation in aVR. Code STEMI was activated and patient was transferred emergently to [facility] to go urgently to [facility]. Patient continues to have chest pain but is presently down to 3/10 severity. He denied any orthopnea/ PND, palpitations or syncope. He is a nonsmoker but has family history of premature coronary artery disease. ST elevation in aVR and diffuse ST depressions in all other leads. Cath shows severe 3VD, without LAD flow, subtotal LCx occlusion and 95% proximal RCA disease and CT surgery was urgently consulted. Initially seen in transit to OR. Then subsequently seen in ICU thereafter. Successfully extubated yesterday without event, feeling some chest discomfort this morning, describes it as different. He is exhausted, falls asleep during examination. Does have low UOP, given 4 bags albumin. Still on insulin GTT, good glycemic control, ate a bit this morning. Still on amio gtt as well. off levophed. Chest drains with no air leak. Vitals Vitals Vital Signs Date Time Temp Pulse Resp B/P (MAP) Pulse Ox O2 Delivery O2 Flow Rate FiO2 02/11/19 08:26 18 96 Room Air 02/11/19 08:07 2.0 02/11/19 06:00 84 02/11/19 06:00 99.6 108/47 (67) 99.6 Physical Exam General: Alert, Oriented X3, Cooperative, mild distress Heart: Regular rate, Normal S1, Normal S2 Lungs: Wheezing Abdomen: Normal bowel sounds, Soft, No tenderness, No hepatosplenomegaly, No masses Extremities: No clubbing, No cyanosis, No edema, Normal pulses, No tenderness/ swelling Skin: No rashes, No breakdown, No significant lesion Labs LABS Laboratory Tests Test 02/10/19 09:04 02/10/19 10:11 02/10/19 10:43 02/10/19 11:12 Activated Clotting Time 617 SEC (90-125) 525 SEC (90-125) 526 SEC (90-125) 532 SEC (90-125) Test 02/10/19 11:54 02/10/19 12:30 02/10/19 13:30 02/10/19 14:50 Activated Clotting Time 138 SEC (90-125) 131 SEC (90-125) White Blood Count 14.4 x10^3/uL (4.0-11.0) 14.3 x10^3/uL (4.0-11.0) Hemoglobin 11.3 g/dL (13.0-17.5) 12.4 g/dL (13.0-17.5) Hematocrit 32.5 % (39.0-53.0) 36.6 % (39.0-53.0) Platelet Count 102 x10^3/uL (140-400) 106 x10^3/uL (140-400) Prothrombin Time 19.3 SEC (11.7-14.0) Prothromb Time International Ratio 1.7 (0.8-1.1) Activated Partial Thromboplast Time 32 SEC (24-38) 32 SEC (24-38) Fibrinogen 213 mg/dL (200-440) Red Blood Count 4.16 x10^6/uL (4.30-5.70) Mean Corpuscular Volume 88 fL (79-100) Mean Corpuscular Hemoglobin 30 pg (25-35) Mean Corpuscular Hemoglobin Concent 34 g/dL (31-37) Red Cell Distribution Width 13.5 % (11.5-14.5) Sodium Level 145 mmol/L (136-145) Potassium Level 3.7 mmol/L (3.5-5.1) Chloride Level 111 mmol/L (98-107) Carbon Dioxide Level 22 mmol/L (21-32) Anion Gap 12 (6-14) Blood Urea Nitrogen 17 mg/dL (8-26) Creatinine 1.2 mg/dL (0.7-1.3) Estimated GFR (Cockcroft-Gault) 61.1 Glucose Level 125 mg/dL (70-99) Calcium Level 9.6 mg/dL (8.5-10.1) Magnesium Level 2.6 mg/dL (1.8-2.4) Test 02/10/19 15:00 02/10/19 16:12 02/10/19 17:33 02/10/19 17:35 O2 Saturation 99 % (92-99) 98 % (92-99) Arterial Blood pH 7.29 (7.35-7.45) 7.37 (7.35-7.45) Arterial Blood pCO2 at Patient Temp 46 mmHg (35-46) 33 mmHg (35-46) Arterial Blood pO2 at Patient Temp 374 mmHg (65-108) 131 mmHg (65-108) Arterial Blood HCO3 21 mmol/L (21-28) 19 mmol/L (21-28) Arterial Blood Base Excess -5 mmol/L (-3-3) -5 mmol/L (-3-3) Oxyhemoglobin 98.6 % Methemoglobin 0.5 % (0.0-1.9) Carbon Monoxide, Quantitative 0.1 % (0.0-1.9) FiO2 100 40 Glucose (Fingerstick) 107 mg/dL (70-99) 159 mg/dL (70-99) 205 mg/dL (70-99) Test 02/10/19 18:38 02/10/19 19:40 02/10/19 19:41 02/10/19 21:08 Glucose (Fingerstick) 185 mg/dL (70-99) 188 mg/dL (70-99) 165 mg/dL (70-99) White Blood Count 14.1 x10^3/uL (4.0-11.0) Red Blood Count 3.67 x10^6/uL (4.30-5.70) Hemoglobin 10.9 g/dL (13.0-17.5) Hematocrit 32.2 % (39.0-53.0) Mean Corpuscular Volume 88 fL (79-100) Mean Corpuscular Hemoglobin 30 pg (25-35) Mean Corpuscular Hemoglobin Concent 34 g/dL (31-37) Red Cell Distribution Width 13.5 % (11.5-14.5) Platelet Count 111 x10^3/uL (140-400) Sodium Level 145 mmol/L (136-145) Potassium Level 4.3 mmol/L (3.5-5.1) Chloride Level 110 mmol/L (98-107) Carbon Dioxide Level 24 mmol/L (21-32) Anion Gap 11 (6-14) Blood Urea Nitrogen 18 mg/dL (8-26) Creatinine 1.1 mg/dL (0.7-1.3) Estimated GFR (Cockcroft-Gault) 67.6 Glucose Level 197 mg/dL (70-99) Calcium Level 9.0 mg/dL (8.5-10.1) Magnesium Level 2.0 mg/dL (1.8-2.4) Test 02/10/19 22:14 02/10/19 23:17 02/11/19 00:16 02/11/19 01:08 Glucose (Fingerstick) 165 mg/dL (70-99) 174 mg/dL (70-99) 162 mg/dL (70-99) 159 mg/dL (70-99) Test 02/11/19 02:14 02/11/19 03:21 02/11/19 04:23 02/11/19 05:25 Glucose (Fingerstick) 153 mg/dL (70-99) 148 mg/dL (70-99) 129 mg/dL (70-99) 143 mg/dL (70-99) Test 02/11/19 05:30 02/11/19 06:00 Sodium Level 141 mmol/L (136-145) Potassium Level 4.1 mmol/L (3.5-5.1) Chloride Level 107 mmol/L (98-107) Carbon Dioxide Level 23 mmol/L (21-32) Anion Gap 11 (6-14) Blood Urea Nitrogen 19 mg/dL (8-26) Creatinine 1.1 mg/dL (0.7-1.3) Estimated GFR (Cockcroft-Gault) 67.6 Glucose Level 151 mg/dL (70-99) Calcium Level 8.8 mg/dL (8.5-10.1) Magnesium Level 2.1 mg/dL (1.8-2.4) Triglycerides Level 72 mg/dL (0-150) Cholesterol Level 65 mg/dL (0-200) LDL Cholesterol, Calculated 22 mg/dL (0-100) VLDL Cholesterol, Calculated 14 mg/dL (0-40) Non-HDL Cholesterol Calculated 36 mg/dL (0-129) HDL Cholesterol 29 mg/dL (40-60) Cholesterol/HDL Ratio 2.2 White Blood Count 12.5 x10^3/uL (4.0-11.0) Red Blood Count 3.53 x10^6/uL (4.30-5.70) Hemoglobin 10.7 g/dL (13.0-17.5) Hematocrit 31.2 % (39.0-53.0) Mean Corpuscular Volume 88 fL (79-100) Mean Corpuscular Hemoglobin 30 pg (25-35) Mean Corpuscular Hemoglobin Concent 34 g/dL (31-37) Red Cell Distribution Width 13.9 % (11.5-14.5) Platelet Count 84 x10^3/uL (140-400) Comment Review of Relevant I have reviewed the following items richie (where applicable) has been applied. Labs Laboratory Tests Test 02/10/19 05:36 02/10/19 07:32 02/10/19 09:04 02/10/19 10:11 White Blood Count 8.6 x10^3/uL (4.0-11.0) Red Blood Count 5.02 x10^6/uL (4.30-5.70) Hemoglobin 15.0 g/dL (13.0-17.5) Hematocrit 43.5 % (39.0-53.0) Mean Corpuscular Volume 87 fL (79-100) Mean Corpuscular Hemoglobin 30 pg (25-35) Mean Corpuscular Hemoglobin Concent 35 g/dL (31-37) Red Cell Distribution Width 13.3 % (11.5-14.5) Platelet Count 171 x10^3/uL (140-400) Neutrophils (%) (Auto) 78 % (31-73) Lymphocytes (%) (Auto) 14 % (24-48) Monocytes (%) (Auto) 8 % (0-9) Eosinophils (%) (Auto) 0 % (0-3) Basophils (%) (Auto) 0 % (0-3) Neutrophils # (Auto) 6.7 x10^3uL (1.8-7.7) Lymphocytes # (Auto) 1.2 x10^3/uL (1.0-4.8) Monocytes # (Auto) 0.7 x10^3/uL (0.0-1.1) Eosinophils # (Auto) 0.0 x10^3/uL (0.0-0.7) Basophils # (Auto) 0.0 x10^3/uL (0.0-0.2) Prothrombin Time 14.9 SEC (11.7-14.0) Prothromb Time International Ratio 1.2 (0.8-1.1) Activated Partial Thromboplast Time 145 SEC (24-38) Sodium Level 140 mmol/L (136-145) Potassium Level 4.1 mmol/L (3.5-5.1) Chloride Level 105 mmol/L (98-107) Carbon Dioxide Level 19 mmol/L (21-32) Anion Gap 16 (6-14) Blood Urea Nitrogen 18 mg/dL (8-26) Creatinine 1.0 mg/dL (0.7-1.3) Estimated GFR (Cockcroft-Gault) 75.5 BUN/Creatinine Ratio 18 (6-20) Glucose Level 242 mg/dL (70-99) Calcium Level 9.6 mg/dL (8.5-10.1) Magnesium Level 1.8 mg/dL (1.8-2.4) Total Bilirubin 0.9 mg/dL (0.2-1.0) Aspartate Amino Transf (AST/SGOT) 24 U/L (15-37) Alanine Aminotransferase (ALT/SGPT) 27 U/L (16-63) Alkaline Phosphatase 107 U/L (46-116) Creatine Kinase 123 U/L (39-308) Creatine Kinase MB (Mass) 6.6 ng/mL (0.0-3.6) Creatine Kinase MB Relative Index 5.4 % (0-4) Troponin I Quantitative 0.848 ng/mL (0.000-0.055) FG-Qga-M-Type Natriuretic Peptide 471 pg/mL (0-124) Total Protein 7.1 g/dL (6.4-8.2) Albumin 3.9 g/dL (3.4-5.0) Albumin/Globulin Ratio 1.2 (1.0-1.7) Lipase 142 U/L (73-393) Activated Clotting Time 136 SEC (90-125) 617 SEC (90-125) 525 SEC (90-125) Test 02/10/19 10:43 02/10/19 11:12 02/10/19 11:54 02/10/19 12:30 Activated Clotting Time 526 SEC (90-125) 532 SEC (90-125) 138 SEC (90-125) 131 SEC (90-125) Test 02/10/19 13:30 02/10/19 14:50 02/10/19 15:00 02/10/19 16:12 White Blood Count 14.4 x10^3/uL (4.0-11.0) 14.3 x10^3/uL (4.0-11.0) Hemoglobin 11.3 g/dL (13.0-17.5) 12.4 g/dL (13.0-17.5) Hematocrit 32.5 % (39.0-53.0) 36.6 % (39.0-53.0) Platelet Count 102 x10^3/uL (140-400) 106 x10^3/uL (140-400) Prothrombin Time 19.3 SEC (11.7-14.0) Prothromb Time International Ratio 1.7 (0.8-1.1) Activated Partial Thromboplast Time 32 SEC (24-38) 32 SEC (24-38) Fibrinogen 213 mg/dL (200-440) Red Blood Count 4.16 x10^6/uL (4.30-5.70) Mean Corpuscular Volume 88 fL (79-100) Mean Corpuscular Hemoglobin 30 pg (25-35) Mean Corpuscular Hemoglobin Concent 34 g/dL (31-37) Red Cell Distribution Width 13.5 % (11.5-14.5) Sodium Level 145 mmol/L (136-145) Potassium Level 3.7 mmol/L (3.5-5.1) Chloride Level 111 mmol/L (98-107) Carbon Dioxide Level 22 mmol/L (21-32) Anion Gap 12 (6-14) Blood Urea Nitrogen 17 mg/dL (8-26) Creatinine 1.2 mg/dL (0.7-1.3) Estimated GFR (Cockcroft-Gault) 61.1 Glucose Level 125 mg/dL (70-99) Calcium Level 9.6 mg/dL (8.5-10.1) Magnesium Level 2.6 mg/dL (1.8-2.4) O2 Saturation 99 % (92-99) Arterial Blood pH 7.29 (7.35-7.45) Arterial Blood pCO2 at Patient Temp 46 mmHg (35-46) Arterial Blood pO2 at Patient Temp 374 mmHg (65-108) Arterial Blood HCO3 21 mmol/L (21-28) Arterial Blood Base Excess -5 mmol/L (-3-3) Oxyhemoglobin 98.6 % Methemoglobin 0.5 % (0.0-1.9) Carbon Monoxide, Quantitative 0.1 % (0.0-1.9) FiO2 100 Glucose (Fingerstick) 107 mg/dL (70-99) 159 mg/dL (70-99) Test 02/10/19 17:33 02/10/19 17:35 02/10/19 18:38 02/10/19 19:40 Glucose (Fingerstick) 205 mg/dL (70-99) 185 mg/dL (70-99) O2 Saturation 98 % (92-99) Arterial Blood pH 7.37 (7.35-7.45) Arterial Blood pCO2 at Patient Temp 33 mmHg (35-46) Arterial Blood pO2 at Patient Temp 131 mmHg (65-108) Arterial Blood HCO3 19 mmol/L (21-28) Arterial Blood Base Excess -5 mmol/L (-3-3) FiO2 40 White Blood Count 14.1 x10^3/uL (4.0-11.0) Red Blood Count 3.67 x10^6/uL (4.30-5.70) Hemoglobin 10.9 g/dL (13.0-17.5) Hematocrit 32.2 % (39.0-53.0) Mean Corpuscular Volume 88 fL (79-100) Mean Corpuscular Hemoglobin 30 pg (25-35) Mean Corpuscular Hemoglobin Concent 34 g/dL (31-37) Red Cell Distribution Width 13.5 % (11.5-14.5) Platelet Count 111 x10^3/uL (140-400) Sodium Level 145 mmol/L (136-145) Potassium Level 4.3 mmol/L (3.5-5.1) Chloride Level 110 mmol/L (98-107) Carbon Dioxide Level 24 mmol/L (21-32) Anion Gap 11 (6-14) Blood Urea Nitrogen 18 mg/dL (8-26) Creatinine 1.1 mg/dL (0.7-1.3) Estimated GFR (Cockcroft-Gault) 67.6 Glucose Level 197 mg/dL (70-99) Calcium Level 9.0 mg/dL (8.5-10.1) Magnesium Level 2.0 mg/dL (1.8-2.4) Test 02/10/19 19:41 02/10/19 21:08 02/10/19 22:14 02/10/19 23:17 Glucose (Fingerstick) 188 mg/dL (70-99) 165 mg/dL (70-99) 165 mg/dL (70-99) 174 mg/dL (70-99) Test 02/11/19 00:16 02/11/19 01:08 02/11/19 02:14 02/11/19 03:21 Glucose (Fingerstick) 162 mg/dL (70-99) 159 mg/dL (70-99) 153 mg/dL (70-99) 148 mg/dL (70-99) Test 02/11/19 04:23 02/11/19 05:25 02/11/19 05:30 02/11/19 06:00 Glucose (Fingerstick) 129 mg/dL (70-99) 143 mg/dL (70-99) Sodium Level 141 mmol/L (136-145) Potassium Level 4.1 mmol/L (3.5-5.1) Chloride Level 107 mmol/L (98-107) Carbon Dioxide Level 23 mmol/L (21-32) Anion Gap 11 (6-14) Blood Urea Nitrogen 19 mg/dL (8-26) Creatinine 1.1 mg/dL (0.7-1.3) Estimated GFR (Cockcroft-Gault) 67.6 Glucose Level 151 mg/dL (70-99) Calcium Level 8.8 mg/dL (8.5-10.1) Magnesium Level 2.1 mg/dL (1.8-2.4) Triglycerides Level 72 mg/dL (0-150) Cholesterol Level 65 mg/dL (0-200) LDL Cholesterol, Calculated 22 mg/dL (0-100) VLDL Cholesterol, Calculated 14 mg/dL (0-40) Non-HDL Cholesterol Calculated 36 mg/dL (0-129) HDL Cholesterol 29 mg/dL (40-60) Cholesterol/HDL Ratio 2.2 White Blood Count 12.5 x10^3/uL (4.0-11.0) Red Blood Count 3.53 x10^6/uL (4.30-5.70) Hemoglobin 10.7 g/dL (13.0-17.5) Hematocrit 31.2 % (39.0-53.0) Mean Corpuscular Volume 88 fL (79-100) Mean Corpuscular Hemoglobin 30 pg (25-35) Mean Corpuscular Hemoglobin Concent 34 g/dL (31-37) Red Cell Distribution Width 13.9 % (11.5-14.5) Platelet Count 84 x10^3/uL (140-400) Laboratory Tests Test 02/10/19 09:04 02/10/19 10:11 02/10/19 10:43 02/10/19 11:12 Activated Clotting Time 617 SEC (90-125) 525 SEC (90-125) 526 SEC (90-125) 532 SEC (90-125) Test 02/10/19 11:54 02/10/19 12:30 02/10/19 13:30 02/10/19 14:50 Activated Clotting Time 138 SEC (90-125) 131 SEC (90-125) White Blood Count 14.4 x10^3/uL (4.0-11.0) 14.3 x10^3/uL (4.0-11.0) Hemoglobin 11.3 g/dL (13.0-17.5) 12.4 g/dL (13.0-17.5) Hematocrit 32.5 % (39.0-53.0) 36.6 % (39.0-53.0) Platelet Count 102 x10^3/uL (140-400) 106 x10^3/uL (140-400) Prothrombin Time 19.3 SEC (11.7-14.0) Prothromb Time International Ratio 1.7 (0.8-1.1) Activated Partial Thromboplast Time 32 SEC (24-38) 32 SEC (24-38) Fibrinogen 213 mg/dL (200-440) Red Blood Count 4.16 x10^6/uL (4.30-5.70) Mean Corpuscular Volume 88 fL (79-100) Mean Corpuscular Hemoglobin 30 pg (25-35) Mean Corpuscular Hemoglobin Concent 34 g/dL (31-37) Red Cell Distribution Width 13.5 % (11.5-14.5) Sodium Level 145 mmol/L (136-145) Potassium Level 3.7 mmol/L (3.5-5.1) Chloride Level 111 mmol/L (98-107) Carbon Dioxide Level 22 mmol/L (21-32) Anion Gap 12 (6-14) Blood Urea Nitrogen 17 mg/dL (8-26) Creatinine 1.2 mg/dL (0.7-1.3) Estimated GFR (Cockcroft-Gault) 61.1 Glucose Level 125 mg/dL (70-99) Calcium Level 9.6 mg/dL (8.5-10.1) Magnesium Level 2.6 mg/dL (1.8-2.4) Test 02/10/19 15:00 02/10/19 16:12 02/10/19 17:33 02/10/19 17:35 O2 Saturation 99 % (92-99) 98 % (92-99) Arterial Blood pH 7.29 (7.35-7.45) 7.37 (7.35-7.45) Arterial Blood pCO2 at Patient Temp 46 mmHg (35-46) 33 mmHg (35-46) Arterial Blood pO2 at Patient Temp 374 mmHg (65-108) 131 mmHg (65-108) Arterial Blood HCO3 21 mmol/L (21-28) 19 mmol/L (21-28) Arterial Blood Base Excess -5 mmol/L (-3-3) -5 mmol/L (-3-3) Oxyhemoglobin 98.6 % Methemoglobin 0.5 % (0.0-1.9) Carbon Monoxide, Quantitative 0.1 % (0.0-1.9) FiO2 100 40 Glucose (Fingerstick) 107 mg/dL (70-99) 159 mg/dL (70-99) 205 mg/dL (70-99) Test 02/10/19 18:38 02/10/19 19:40 02/10/19 19:41 02/10/19 21:08 Glucose (Fingerstick) 185 mg/dL (70-99) 188 mg/dL (70-99) 165 mg/dL (70-99) White Blood Count 14.1 x10^3/uL (4.0-11.0) Red Blood Count 3.67 x10^6/uL (4.30-5.70) Hemoglobin 10.9 g/dL (13.0-17.5) Hematocrit 32.2 % (39.0-53.0) Mean Corpuscular Volume 88 fL (79-100) Mean Corpuscular Hemoglobin 30 pg (25-35) Mean Corpuscular Hemoglobin Concent 34 g/dL (31-37) Red Cell Distribution Width 13.5 % (11.5-14.5) Platelet Count 111 x10^3/uL (140-400) Sodium Level 145 mmol/L (136-145) Potassium Level 4.3 mmol/L (3.5-5.1) Chloride Level 110 mmol/L (98-107) Carbon Dioxide Level 24 mmol/L (21-32) Anion Gap 11 (6-14) Blood Urea Nitrogen 18 mg/dL (8-26) Creatinine 1.1 mg/dL (0.7-1.3) Estimated GFR (Cockcroft-Gault) 67.6 Glucose Level 197 mg/dL (70-99) Calcium Level 9.0 mg/dL (8.5-10.1) Magnesium Level 2.0 mg/dL (1.8-2.4) Test 02/10/19 22:14 02/10/19 23:17 02/11/19 00:16 02/11/19 01:08 Glucose (Fingerstick) 165 mg/dL (70-99) 174 mg/dL (70-99) 162 mg/dL (70-99) 159 mg/dL (70-99) Test 02/11/19 02:14 02/11/19 03:21 02/11/19 04:23 02/11/19 05:25 Glucose (Fingerstick) 153 mg/dL (70-99) 148 mg/dL (70-99) 129 mg/dL (70-99) 143 mg/dL (70-99) Test 02/11/19 05:30 02/11/19 06:00 Sodium Level 141 mmol/L (136-145) Potassium Level 4.1 mmol/L (3.5-5.1) Chloride Level 107 mmol/L (98-107) Carbon Dioxide Level 23 mmol/L (21-32) Anion Gap 11 (6-14) Blood Urea Nitrogen 19 mg/dL (8-26) Creatinine 1.1 mg/dL (0.7-1.3) Estimated GFR (Cockcroft-Gault) 67.6 Glucose Level 151 mg/dL (70-99) Calcium Level 8.8 mg/dL (8.5-10.1) Magnesium Level 2.1 mg/dL (1.8-2.4) Triglycerides Level 72 mg/dL (0-150) Cholesterol Level 65 mg/dL (0-200) LDL Cholesterol, Calculated 22 mg/dL (0-100) VLDL Cholesterol, Calculated 14 mg/dL (0-40) Non-HDL Cholesterol Calculated 36 mg/dL (0-129) HDL Cholesterol 29 mg/dL (40-60) Cholesterol/HDL Ratio 2.2 White Blood Count 12.5 x10^3/uL (4.0-11.0) Red Blood Count 3.53 x10^6/uL (4.30-5.70) Hemoglobin 10.7 g/dL (13.0-17.5) Hematocrit 31.2 % (39.0-53.0) Mean Corpuscular Volume 88 fL (79-100) Mean Corpuscular Hemoglobin 30 pg (25-35) Mean Corpuscular Hemoglobin Concent 34 g/dL (31-37) Red Cell Distribution Width 13.9 % (11.5-14.5) Platelet Count 84 x10^3/uL (140-400) Medications Current Medications Fentanyl Citrate (Fentanyl 2ml Vial) 100 mcg STK-MED ONCE .ROUTE ; Start at 05:36; Stop 02/10/19 at 05:37; Status DC Midazolam HCl (Versed) 2 mg STK-MED ONCE .ROUTE ; Start 02/10/19 at 05:36; Stop 02/10/19 at 05:37; Status DC Fentanyl Citrate (Fentanyl 2ml Vial) 50 mcg 1X ONCE IV Last administered on at 05:43; Start 02/10/19 at 05:45; Stop 02/10/19 at 05:49; Status DC Insulin Human Lispro (HumaLOG) 0-5 UNITS TIDWMEALS SQ ; Start 02/10/19 at 08:00 Dextrose (Dextrose 50%-Water Syringe) 12.5 gm PRN Q15MIN PRN IV SEE COMMENTS; Start 02/10/19 at 05:45; Stop 02/10/19 at 14:59; Status DC Iodixanol (Visipaque 320) 100 ml STK-MED ONCE .ROUTE ; Start 02/10/19 at 06:09; Stop 02/10/19 at 06:10; Status DC Heparin Sodium (Porcine) (Heparin Sodium) 10,000 unit STK-MED ONCE .ROUTE ; Start 02/10/19 at 06:10; Stop 02/10/19 at 06:11; Status DC Nitroglycerin/ Dextrose 250 ml @ As Directed STK-MED ONCE IV ; Start 02/10/19 at 06:26; Stop 02/10/19 at 06:27; Status DC Vancomycin HCl (VANCO for OR ONLY) 10 gm STK-MED ONCE .ROUTE Last administered on 02/10/19at 09:45; Start 02/10/19 at 05:43; Stop 02/10/19 at 06:44; Status DC Cellulose (Surgicel Hemostat 4x8) 1 each STK-MED ONCE .ROUTE Last administered on 02/10/19at 09:48; Start 02/10/19 at 05:43; Stop 02/10/19 at 06:44; Status DC Papaverine HCl 60 mg STK-MED ONCE .ROUTE Last administered on 02/10/19at 09:48; Start 02/10/19 at 05:44; Stop 02/10/19 at 06:44; Status DC Aspirin (Aspirin) 300 mg STK-MED ONCE .ROUTE Last administered on 02/10/19 09: 48; Start 02/10/19 at 05:44; Stop 02/10/19 at 06:44; Status DC Sodium Chloride (SODIUM CHLORIDE 20ml) 20 ml STK-MED ONCE IJ Last administered on 02/10/19at 09:44; Start 02/10/19 at 05:44; Stop 02/10/19 at 06:44; Status DC Sodium Chloride (SODIUM CHLORIDE 20ml) 20 ml STK-MED ONCE IJ Last administered on 02/10/19at 09:45; Start 02/10/19 at 05:44; Stop 02/10/19 at 06:44; Status DC Potassium Chloride 70 meq/ Sodium Bicarbonate 12.5 meq/Lidocaine HCl 24 ml/ Parenteral Electrolytes 571.5 ml @ 571.5 mls/ hr 1X ONCE IRR ; Start 02/10/19 at 07:30; Stop 02/10/19 at 08:29; Status DC Sodium Chloride (SODIUM CHLORIDE 20ml) 20 ml STK-MED ONCE IJ Last administered on 02/10/19at 09:45; Start 02/10/19 at 05:44; Stop 02/10/19 at 06:45; Status DC Rocuronium [place] (Zemuron) 100 mg STK-MED ONCE .ROUTE ; Start 02/10/19 at 06: 44; Stop 02/10/19 at 06:45; Status DC Sufentanil Citrate (Sufenta) 250 mcg STK-MED ONCE .ROUTE ; Start 02/10/19 at 06: 45; Stop 02/10/19 at 06:46; Status DC Potassium Chloride 15 meq/ Sodium Bicarbonate 12.5 meq/Parenteral Electrolytes 520 ml @ 520 mls/hr 1X ONCE IRR ; Start 02/10/19 at 07:30; Stop 02/10/19 at 08 :29; Status DC Midazolam HCl (Versed) 5 mg STK-MED ONCE .ROUTE ; Start 02/10/19 at 06:45; Stop 02/10/19 at 06:46; Status DC Lidocaine HCl (Lidocaine Pf 2% Vial) 5 ml STK-MED ONCE .ROUTE ; Start 02/10/19 at 06:46; Stop 02/10/19 at 06:47; Status DC Etomidate (Amidate) 20 mg STK-MED ONCE IV ; Start 02/10/19 at 06:46; Stop at 06:47; Status DC Aminocaproic Acid (Amicar) 5,000 mg STK-MED ONCE IV ; Start 02/10/19 at 06:46; Stop 02/10/19 at 06:47; Status DC Aminocaproic Acid (Amicar) 5,000 mg STK-MED ONCE IV ; Start 02/10/19 at 06:46; Stop 02/10/19 at 06:47; Status DC Aminocaproic Acid (Amicar) 5,000 mg STK-MED ONCE IV ; Start 02/10/19 at 06:46; Stop 02/10/19 at 06:47; Status DC Heparin Sodium/ Sodium Chloride (HEPARIN for ARTERIAL LINE FLUSH) 1,000 unit 1X ONCE IART Last administered on 02/10/19 06:56; Start 02/10/19 at 06:45; Stop 02/10/19 at 06:56; Status DC Midazolam HCl (Versed) 2 mg 1X ONCE IV Last administered on 02/10/19 06:57; Start 02/10/19 at 06:45; Stop 02/10/19 at 06:56; Status DC Fentanyl Citrate (Fentanyl 2ml Vial) 100 mcg 1X ONCE IV Last administered on 06:56; Start 02/10/19 at 06:45; Stop 02/10/19 at 06:56; Status DC Iodixanol (Visipaque 320) 139 ml 1X ONCE IART Last administered on 02/10/19 06:56; Start 02/10/19 at 06:45; Stop 02/10/19 at 06:56; Status DC Lidocaine HCl (Lidocaine 1% 20ml Vial) 20 ml 1X ONCE INJ Last administered on 02/10/19 06:56; Start 02/10/19 at 06:45; Stop 02/10/19 at 06:56; Status DC Heparin Sodium (Porcine) (Heparin 5,000 Units/1,000ml NS) 5,000 unit 1X ONCE IV Last administered on 02/10/19at 06:45; Start 02/10/19 at 06:45; Stop at 06:56; Status DC Heparin Sodium (Porcine) 32569 unit/Ringer's Solution 1,020 ml @ 1,020 mls/hr 1X ONCE IRR Last administered on 02/10/19at 09:54; Start 02/10/19 at 07:30; Stop 02/10/19 at 08:29; Status DC Heparin Sodium (Porcine) 800 unit/ Nitroglycerin 4 mg/Verapamil HCl 8 mg/Sodium Bicarbonate 0.34 meq/Ringer's Solution 512.34 ml @ 512.34 mls/hr 1X ONCE IRR ; Start 02/10/19 at 07:30; Stop 02/10/19 at 08:29; Status DC Cefazolin Sodium 1 gm/Sodium Chloride 500 ml @ 500 mls/hr 1X ONCE IRR ; Start 02/10/19 at 07:30; Stop 02/10/19 at 08:29; Status DC Heparin Sodium (Porcine) 30,000 unit STK-MED ONCE .ROUTE ; Start 02/10/19 at 06: 50; Stop 02/10/19 at 06:51; Status DC Nitroglycerin/ Dextrose 250 ml @ 1.5 mls/hr CONT PRN IV SEE I/O RECORD Last administered on 02/10/19at 06:36; Start 02/10/19 at 07:00 Ephedrine Sulfate (ePHEDrine PF IN SALINE SYRINGE) 50 mg STK-MED ONCE IV ; Start 02/10/19 at 06:53; Stop 02/10/19 at 06:54; Status DC Phenylephrine HCl (Sp-Synephrine Inj) 10 mg STK-MED ONCE .ROUTE ; Start at 06:59; Stop 02/10/19 at 07:00; Status DC Epinephrine HCl (EPINEPHrine SYRINGE) 1 mg STK-MED ONCE .ROUTE ; Start 02/10/19 at 07:20; Stop 02/10/19 at 07:21; Status DC Ephedrine Sulfate (ePHEDrine PF IN SALINE SYRINGE) 50 mg STK-MED ONCE IV ; Start 02/10/19 at 07:22; Stop 02/10/19 at 07:23; Status DC Phenylephrine HCl (PHENYLEPHRINE in 0.9% NACL PF) 1 mg STK-MED ONCE IV ; Start 02/10/19 at 07:22; Stop 02/10/19 at 07:23; Status DC Heparin Sodium (Porcine) (Heparin Sodium) 10,000 unit STK-MED ONCE .ROUTE ; Start 02/10/19 at 08:02; Stop 02/10/19 at 08:03; Status DC Cefazolin Sodium 3 gm/Dextrose 100 ml @ 200 mls/hr 1X PREOP PRN IV PRIOR TO PROCEDURE Last administered on 02/10/19at 08:45; Start 02/10/19 at 08:29; Stop at 08:28; Status DC Mannitol 500 ml @ 0 mls/hr 1X ONCE IV ; Start 02/10/19 at 09:00; Stop 02/10/19 at 09:01; Status DC Rocuronium [place] (Zemuron) 100 mg STK-MED ONCE .ROUTE ; Start 02/10/19 at 08: 51; Stop 02/10/19 at 08:52; Status DC Insulin Human Regular 150 unit/ Sodium Chloride 151.5 ml @ 0 mls/hr CONT PRN IV SEE I/O RECORD Last administered on 02/10/19at 09:50; Start 02/10/19 at 09:15 ; Stop 02/10/19 at 14:57; Status DC Norepinephrine Bitartrate 250 ml @ 1.875 mls/ hr 1X ONCE IV Last administered on 02/10/19at 16:56; Start 02/10/19 at 11:15; Stop 02/16/19 at 00:34 Midazolam HCl (Versed) 2 mg STK-MED ONCE .ROUTE ; Start 02/10/19 at 11:13; Stop 02/10/19 at 11:14; Status DC Epinephrine HCl 4 mg/Sodium Chloride 254 ml @ 3.81 mls/hr CONT PRN IV SEE I/O RECORD; Start 02/10/19 at 11:30; Stop 02/10/19 at 14:57; Status DC Protamine Sulfate (Protamine) 50 mg STK-MED ONCE IV ; Start 02/10/19 at 11:33; Stop 02/10/19 at 11:34; Status DC Protamine Sulfate (Protamine) 250 mg STK-MED ONCE IV ; Start 02/10/19 at 11:33; Stop 02/10/19 at 11:34; Status DC Protamine Sulfate (Protamine) 250 mg STK-MED ONCE IV ; Start 02/10/19 at 11:33; Stop 02/10/19 at 11:34; Status DC Midazolam HCl (Versed) 2 mg STK-MED ONCE .ROUTE ; Start 02/10/19 at 11:35; Stop 02/10/19 at 11:36; Status DC Cefazolin Sodium 3 gm/Dextrose 100 ml @ 200 mls/hr 1X ONCE IV Last administered on 02/10/19at 12:40; Start 02/10/19 at 11:45; Stop 02/10/19 at 12:14 ; Status DC Rocuronium [place] (Zemuron) 50 mg STK-MED ONCE .ROUTE ; Start 02/10/19 at 12:06 ; Stop 02/10/19 at 12:07; Status DC Propofol 0 ml @ As Directed STK-MED ONCE IV ; Start 02/10/19 at 12:49; Stop at 12:50; Status DC Nicardipine HCl 50 mg/Sodium Chloride 250 ml @ 25 mls/hr CONT PRN IV SEE I/O RECORD; Start 02/10/19 at 13:15; Stop 02/10/19 at 14:56; Status DC Heparin Sodium (Porcine) (Heparin Sodium) 10,000 unit STK-MED ONCE .ROUTE ; Start 02/10/19 at 13:21; Stop 02/10/19 at 13:22; Status DC Lidocaine HCl (Lidocaine Pf 2% Vial) 5 ml STK-MED ONCE .ROUTE ; Start 02/10/19 at 13:21; Stop 02/10/19 at 13:22; Status DC Magnesium Sulfate 5 gm STK-MED ONCE .ROUTE ; Start 02/10/19 at 13:21; Stop 02/10 at 13:22; Status DC Albumin Human 200 ml @ As Directed STK-MED ONCE IV ; Start 02/10/19 at 13:21; Stop 02/10/19 at 13:22; Status DC Calcium Chloride (Calcium Chloride) 1,000 mg STK-MED ONCE .ROUTE ; Start at 13:21; Stop 02/10/19 at 13:22; Status DC Sodium Bicarbonate (Sodium Bicarb Adult 8.4% Syr) 50 meq STK-MED ONCE .ROUTE ; Start 02/10/19 at 13:23; Stop 02/10/19 at 13:24; Status DC Sodium Chloride (Normal Saline Flush) 3 ml PRN Q12HR PRN IV AFTER MEDS AND BLOOD DRAWS; Start 02/10/19 at 14:15 Ringer's Solution 1,000 ml @ 30 mls/hr Q24H IV Last administered on 02/10/19at 16:55; Start 02/10/19 at 14:06 Albumin Human 250 ml @ 500 mls/hr PRN Q4HRS PRN IV SEE COMMENTS Last administered on 02/10/19at 18:04; Start 02/10/19 at 14:15 Insulin Human Regular 150 unit/ Sodium Chloride 151.5 ml @ 0 mls/hr CONT PRN PRN IV PER PROTOCOL Last administered on 02/11/19at 03:18; Start 02/10/19 at 14: 15 Dextrose (Dextrose 50%-Water Syringe) 25 gm PRN Q15MIN PRN IV LOW BLOOD SUGAR; Start 02/10/19 at 14:15 Nitroglycerin/ Dextrose 250 ml @ 0 mls/hr CONT PRN PRN IV POST CV SURGERY; Start 02/10/19 at 14:15; Stop 02/10/19 at 14:59; Status DC Epinephrine HCl 4 mg/Sodium Chloride 254 ml @ 0 mls/hr CONT PRN PRN IV POST CV SURGERY; Start 02/10/19 at 14:15 Amiodarone HCl 150 mg/Dextrose 103 ml @ 600 mls/hr 1X ONCE IV Last administered on 02/10/19at 22:41; Start 02/10/19 at 14:15; Stop 02/10/19 at 14:26 ; Status DC Amiodarone HCl 150 mg/Dextrose 103 ml @ 200 mls/hr 1X PRN PRN IV FOR AFIB; Start 02/10/19 at 14:15 Amiodarone HCl 900 mg/Dextrose 518 ml @ 0 mls/hr CONT PRN PRN IV AFIB Last administered on 02/10/19at 22:43; Start 02/10/19 at 14:15 Info (KCl Per Protocol) 1 ea CONT PRN PRN MC SEE COMMENTS; Start 02/10/19 at 14 :15 Magnesium Sulfate/ Dextrose 100 ml @ 100 mls/hr PRN DAILY PRN IV FOR MAG < 2.2 ; Start 02/10/19 at 14:15 Famotidine (Pepcid Vial) 20 mg BID IVP Last administered on 02/10/19at 20:36; Start 02/10/19 at 21:00; Stop 02/11/19 at 06:31; Status DC Ondansetron HCl (Zofran) 4 mg PRN Q4HRS PRN IV NAUSEA/VOMITING, 1st CHOICE Last administered on 02/10/19at 20:04; Start 02/10/19 at 14:15 Prochlorperazine Edisylate (Compazine) 10 mg PRN Q6HRS PRN IV NAUSEA/VOMITING, 2nd CHOICE; Start 02/10/19 at 14:15 Metoclopramide HCl (Reglan Vial) 10 mg PRN Q6HRS PRN IV NAUSEA/VOMITING, 3rd CHOICE; Start 02/10/19 at 14:15 Morphine Sulfate (Morphine Sulfate) 2 mg PRN Q1HR PRN IV PAIN; Start 02/10/19 at 14:15 Morphine Sulfate (Morphine Sulfate) 4 mg PRN Q1HR PRN IV PAIN Last administered on 02/10/19at 18:20; Start 02/10/19 at 14:15 Acetaminophen (Tylenol) 650 mg PRN Q4HRS PRN PO TEMP > 101'F or PAIN Last administered on 02/11/19at 03:14; Start 02/10/19 at 14:15 Acetaminophen (Tylenol Supp) 650 mg PRN Q4HRS PRN [place] TEMP > 101'F or MILD PAIN ; Start 02/10/19 at 14:15 Meperidine HCl (Demerol) 12.5 mg PRN Q15MIN PRN IV SHIVERING Last administered on 02/10/19at 15:41; Start 02/10/19 at 14:15; Stop 02/11/19 at 14:06 Propofol 100 ml @ 0 mls/hr CONT PRN PRN IV POSTOP SEDATION UNTIL EXTUBATE Last administered on 02/10/19at 16:58; Start 02/10/19 at 14:15 Senna/Docusate Sodium (Senna Plus) 1 tab BID PO Last administered on 02/10/19at 20:36; Start 02/10/19 at 21:00 Bisacodyl (Dulcolax Supp) 10 mg PRN DAILY PRN [place] NO BOWEL MOVEMENT; Start 02/10 at 14:15 Chlorhexidine Gluconate (Peridex) 15 ml BID MM ; Start 02/11/19 at 09:00 Aspirin (Ecotrin) 325 mg DAILYWBKFT PO Last administered on 02/11/19at 08:26; Start 02/11/19 at 08:00 Aspirin (Aspirin) 300 mg PRN DAILY PRN [place] IF UNABLE TO TAKE PO; Start 02/11/19 at 08:00 Albuterol Sulfate (Ventolin Neb Soln) 2.5 mg PRN Q4HRS PRN NEB SHORTNESS OF BREATH; Start 02/10/19 at 14:15 Metoprolol Tartrate (Lopressor) 25 mg BID PO ; Start 02/11/19 at 09:00 Nicardipine HCl 50 mg/Sodium Chloride 250 ml @ 0 mls/hr CONT PRN PRN IV PER PROTOCOL; Start 02/10/19 at 14:15 Oxycodone HCl (Roxicodone) 5 mg PRN Q4HRS PRN PO MILD TO MODERATE PAIN; Start 02/10/19 at 14:15 Oxycodone HCl (Roxicodone) 10 mg PRN Q4HRS PRN PO SEVERE PAIN Last administered on 02/11/19at 08:26; Start 02/10/19 at 14:15 Cefazolin Sodium/ Dextrose 50 ml @ 100 mls/hr Q8H IV ; Start 02/10/19 at 18:00 ; Stop 02/10/19 at 19:17; Status DC Isoflurane (Isoflurane) 90 ml STK-MED ONCE IH ; Start 02/10/19 at 14:46; Stop at 14:47; Status DC Sodium Bicarbonate (Sodium Bicarb Adult 8.4% Syr) 50 meq STK-MED ONCE .ROUTE ; Start 02/10/19 at 15:29; Stop 02/10/19 at 15:30; Status DC Sodium Bicarbonate (Sodium Bicarb Adult 8.4% Syr) 50 meq 1X ONCE IV Last administered on 02/10/19at 15:50; Start 02/10/19 at 15:45; Stop 02/10/19 at 15:46 ; Status DC Potassium Chloride/Water 50 ml @ 50 mls/hr PRN Q1HR PRN IV FOR K 3.1-3.5; Start 02/10/19 at 15:45 Potassium Chloride/Water 50 ml @ 50 mls/hr PRN Q1HR PRN IV FOR K 2.6-3.0 MEQ/L ; Start 02/10/19 at 15:45 Potassium Chloride/Water 50 ml @ 50 mls/hr PRN Q1HR PRN IV FOR K <2.6 MEQ/L; Start 02/10/19 at 16:00 Magnesium Sulfate/ Dextrose 100 ml @ 50 mls/hr PRN DAILY PRN IV SEE COMMENTS; Start 02/11/19 at 09:00 Potassium Chloride/Water 50 ml @ 50 mls/hr Q1H IV Last administered on 16:52; Start 02/10/19 at 17:00; Stop 02/10/19 at 18:59; Status DC Sodium Bicarbonate (Sodium Bicarb Adult 8.4% Syr) 50 meq 1X ONCE IV Last administered on 02/10/19at 18:05; Start 02/10/19 at 18:15; Stop 02/10/19 at 18:16 ; Status DC Cefazolin Sodium/ Dextrose 50 ml @ 100 mls/hr Q8H IV Last administered on 02/11at 04:26; Start 02/10/19 at 20:30; Stop 02/12/19 at 04:59 Norepinephrine Bitartrate 250 ml @ 1.875 mls/ hr CONT PRN IV SEE I/O RECORD Last administered on 02/11/19at 00:23; Start 02/10/19 at 22:45 Pantoprazole Sodium (Protonix) 40 mg DAILYAC PO Last administered on 02/11/19 08:25; Start 02/11/19 at 07:30 Ipratropium [place] (Atrovent) 0.5 mg RTQID NEB Last administered on 02/11/19 08:03; Start 02/11/19 at 08:00 Active Scripts Active Reported No Known Medications Prior To Admisstion (Info) Each 1 Each DAILY Vitals/I & O Vital Sign - Last 24 Hours 02/10/19 02/10/19 02/10/19 02/10/19 14:25 14:30 14:45 15:00 Temp 99.3 99.3 Pulse 99 99 101 Resp 18 B/P (MAP) 115/78 (90) 127/46 (73) 101/39 (59) Pulse Ox 100 100 O2 Delivery Ventilator Ventilator 02/10/19 02/10/19 02/10/19 02/10/19 15:00 15:15 15:30 15:41 Pulse 101 111 99 Resp 18 B/P (MAP) 135/58 (83) 101/39 (59) 117/46 (69) Pulse Ox 100 O2 Delivery Ventilator 02/10/19 02/10/19 02/10/19 02/10/19 16:00 16:00 16:30 16:38 Temp 99.8 99.8 Pulse 98 98 102 Resp 18 B/P (MAP) 94/41 (58) 94/41 (58) 118/51 (73) Pulse Ox 100 100 O2 Delivery Ventilator Ventilator 02/10/19 02/10/19 02/10/19 02/10/19 17:00 17:00 17:00 18:00 Temp 100.8 100.6 100.8 100.6 Pulse 105 105 106 Resp 19 22 B/P (MAP) 90/40 (57) 90/40 (57) 74/46 (55) Pulse Ox 98 98 O2 Delivery BiPAP/CPAP Ventilator Nasal Cannula O2 Flow Rate 4.0 02/10/19 02/10/19 02/10/19 02/10/19 18:00 18:09 18:20 18:50 Pulse 106 Resp 22 B/P (MAP) 74/46 (55) Pulse Ox 97 97 O2 Delivery Nasal Cannula Nasal Cannula Nasal Cannula O2 Flow Rate 4.0 4.0 4.0 02/10/19 02/10/19 02/10/19 02/10/19 19:00 19:00 19:43 20:00 Temp 100.1 100.1 Pulse 103 103 103 Resp 17 B/P (MAP) 105/43 (63) 105/43 (63) Pulse Ox 97 97 O2 Delivery Nasal Cannula Nasal Cannula O2 Flow Rate 4.0 4.0 02/10/19 02/10/19 02/10/19 02/10/19 20:00 20:00 21:00 22:00 Temp 100.3 100.1 100.1 100.3 100.1 100.1 Pulse 103 103 102 Resp 16 14 12 B/P (MAP) 111/46 (67) 101/45 (63) 104/46 (65) Pulse Ox 97 96 98 O2 Delivery Nasal Cannula Nasal Cannula Nasal Cannula Nasal Cannula O2 Flow Rate 4.0 4.0 4.0 4.0 02/10/19 02/10/19 02/10/19 02/11/19 22:41 23:00 23:00 00:00 Temp 99.9 99.9 Pulse 102 95 96 Resp 12 B/P (MAP) 102/46 98/44 (62) Pulse Ox 97 O2 Delivery Nasal Cannula Nasal Cannula O2 Flow Rate 4.0 4.0 02/11/19 02/11/19 02/11/19 02/11/19 01:00 02:00 02:00 03:00 Temp 100.0 100.0 99.9 100.0 100.0 99.9 Pulse 92 91 89 86 Resp 12 14 12 B/P (MAP) 116/35 (62) 115/45 (68) 122/50 (74) Pulse Ox 98 98 97 O2 Delivery Nasal Cannula Nasal Cannula Nasal Cannula O2 Flow Rate 4.0 4.0 4.0 02/11/19 02/11/19 02/11/19 02/11/19 03:23 03:49 04:00 04:34 Temp 100.1 100.1 Pulse 88 89 88 Resp 14 B/P (MAP) 115/52 (73) Pulse Ox 96 O2 Delivery Nasal Cannula Nasal Cannula O2 Flow Rate 4.0 2.0 02/11/19 02/11/19 02/11/19 02/11/19 05:00 05:00 05:26 06:00 Temp 99.7 99.6 99.7 99.6 Pulse 88 88 84 Resp 14 14 B/P (MAP) 106/52 (70) 108/47 (67) Pulse Ox 96 96 96 O2 Delivery Nasal Cannula Nasal Cannula Nasal Cannula O2 Flow Rate 2.0 2.0 2.0 02/11/19 02/11/19 02/11/19 06:00 08:07 08:26 Pulse 84 Resp 18 Pulse Ox 96 96 O2 Delivery Nasal Cannula Room Air O2 Flow Rate 2.0 Intake and Output 02/10/19 02/10/19 02/11/19 15:00 23:00 07:00 Intake Total 1190 ml 1234 ml Output Total 60 ml 458 ml 345 ml Balance -60 ml 732 ml 889 ml SHAWN MACDONALD MD Feb 11, 2019 08:45
[2019-02-11] MEDS ORDERED: MAGNESIUM SULFATE 4GM 100 ML IV PRN (09:00)
[2019-02-11] MEDS ORDERED: CHLORHEXIDINE 0.12% 15 ML MOUTHWASH. MM SCH (09:00)
[2019-02-11] MEDS: METOPROLOL TART IMMED RELEASE 25 MG TABLET. PO SCH ×2 (09:00→20:57)
--- NOTE | 2019-02-11 09:17 | RAD ---
Exam performed: One view chest HISTORY: Status post CABG DATE OF SERVICE: 02/11/2019. COMPARISON: 02/10/2019. Single AP semiupright portable view chest findings: Heart size and mediastinal silhouette is within limits of normal. Pulmonary vascularity is unremarkable. Interval extubation and removal of feeding tube. [place]-Fariha catheter is redemonstrated. 2 left-sided chest tubes. Slight hazy opacification of the left lung base is noted Impression: Interval extubation and removal of feeding tube. [place]-Fariha catheter and 2 left-sided chest tubes remain. Mild hazy opacification of the left lung base, likely mild atelectasis Electronically signed by: Bianca Thomas MD (02/11/2019 9:13 AM) [facility]
[2019-02-11] MEDS: MORPHINE SULFATE 2 MG/ML VIAL. IV PRN ×3 (10:19→18:39)
--- NOTE | 2019-02-11 10:43 | NUR ---
Order received from Dr. Villanueva to change patient's IABP settings from 1:1 to 1:2. RN placed patient on 1:2 at 0900. VS are WNL at this time. BP stable. Holding AM dose of Metoprolol due to VS parameters-- also verified with Dr. Villanueva during rounds. Pt currently on Amiodarone gtt. Levophed gtt stopped at 0750. Will continue to monitor.
--- NOTE | 2019-02-11 10:44 | PDOC ---
CARDIOLOGY PROGRESS NOTE SUBJECTIVE: No acute events overnight. This a.m. he feels ok except for incisional pain Mild cough Pressors off. IABP now at 1:2. OBJECTIVE: Vital SIgns: Vital Signs Date Time Temp Pulse Resp B/P (MAP) Pulse Ox O2 Delivery O2 Flow Rate FiO2 02/11/19 10:19 12 95 Nasal Cannula 2.0 02/11/19 10:00 99.6 90 114/38 (63) 99.6 I & O +1.5 L Objective: a/o x 3. NAD Normal heart tones. Lungs clear SOft abd No edema. 1+ pulses. CURRENT MEDICATIONS: asa 325mg daily Amiodarone gtt DIAGNOSTIC TESTING: Cr wnl Hgb 10.7 PA catheter extending into left subsegmental arteries CXR clr ASSESSMENT: 1. Emergent CABG for 3V CAD 2. Dyslipidemia 3. Post-operative vasoplegia improving. PLAN: 1. Hold metoprolol for now given that he is on amio and had levo turned off this a.m. 2. PA pressures, arterial pressures stable. IABP at 1:2 now, plan for removal in 2 hours. 3. Start atorvastatin 40mg p.o qhs. Thanks. Will follow along. MARY COPELAND MD Feb 11, 2019 10:44
[2019-02-11] MEDS ORDERED: MAGNESIUM SULFATE 2GM 50 ML IV ONE (11:00)
[2019-02-11] MEDS ORDERED: POTASSIUM CHL 20MEQ PREMIX 50 ML IV ONE (11:00)
[2019-02-11] MEDS: IV RINGERS,LACTATED 1000ML 1,000 ML IV SCH (13:49)
--- NOTE | 2019-02-11 15:00 | NUR ---
Patient's IABP removed by Dr. Villanueva at 1400. Angioseal placed at bedside. Direct pressure applied for 10 min per MD. Pressure dressing applied. No bleeding at site. Pulses remain palpable. See assessments. Orders received from Dr. Douglas to remove ART line, remove [place], start Amiodarone 200 mg BID PO, and to remove mediastinal chest tubes at 6pm after patient is allowed to get out of bed post IABP removal per Dr. Villanueva. Patient's family is at bedside. See assessments.
--- NOTE | 2019-02-11 15:12 | PDOC ---
Progress Note Subjective Subjective Doing very well. Fast track extubation yesterday. Levophed off, IABP out. Normotensive, SR. Minimal tube drainage. CI>3. Hb 10.7, creat 1.1. CXR with expected postop changes. ROS ROS No nausea No vomiting No pain No rash Vital Sign Vital Signs Vital Signs Date Time Temp Pulse Resp B/P (MAP) Pulse Ox O2 Delivery O2 Flow Rate FiO2 02/11/19 14:35 16 94 Nasal Cannula 2.0 02/11/19 13:00 87 02/11/19 13:00 99.8 99.8 Physical Exam PHYSICAL EXAM GENERAL: NAD, Alert HEENT: PERRL, OC/OP NECK: Supple, no JVD, no LN LUNGS: Clear HEART: S1S2, no gallop, no murmur ABD: Soft, NT, no organomegaly, no rebound EXT: No edema, no cyanosis [employer]: Alert, 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, no focal neurologic deficit SKIN: No rash IV: ok Labs Lab Laboratory Tests Test 02/10/19 16:12 02/10/19 17:33 02/10/19 17:35 02/10/19 18:38 Glucose (Fingerstick) 159 mg/dL (70-99) 205 mg/dL (70-99) 185 mg/dL (70-99) O2 Saturation 98 % (92-99) Arterial Blood pH 7.37 (7.35-7.45) Arterial Blood pCO2 at Patient Temp 33 mmHg (35-46) Arterial Blood pO2 at Patient Temp 131 mmHg (65-108) Arterial Blood HCO3 19 mmol/L (21-28) Arterial Blood Base Excess -5 mmol/L (-3-3) FiO2 40 Test 02/10/19 19:40 02/10/19 19:41 02/10/19 21:08 02/10/19 22:14 White Blood Count 14.1 x10^3/uL (4.0-11.0) Red Blood Count 3.67 x10^6/uL (4.30-5.70) Hemoglobin 10.9 g/dL (13.0-17.5) Hematocrit 32.2 % (39.0-53.0) Mean Corpuscular Volume 88 fL (79-100) Mean Corpuscular Hemoglobin 30 pg (25-35) Mean Corpuscular Hemoglobin Concent 34 g/dL (31-37) Red Cell Distribution Width 13.5 % (11.5-14.5) Platelet Count 111 x10^3/uL (140-400) Sodium Level 145 mmol/L (136-145) Potassium Level 4.3 mmol/L (3.5-5.1) Chloride Level 110 mmol/L (98-107) Carbon Dioxide Level 24 mmol/L (21-32) Anion Gap 11 (6-14) Blood Urea Nitrogen 18 mg/dL (8-26) Creatinine 1.1 mg/dL (0.7-1.3) Estimated GFR (Cockcroft-Gault) 67.6 Glucose Level 197 mg/dL (70-99) Calcium Level 9.0 mg/dL (8.5-10.1) Magnesium Level 2.0 mg/dL (1.8-2.4) Glucose (Fingerstick) 188 mg/dL (70-99) 165 mg/dL (70-99) 165 mg/dL (70-99) Test 02/10/19 23:17 02/11/19 00:16 02/11/19 01:08 02/11/19 02:14 Glucose (Fingerstick) 174 mg/dL (70-99) 162 mg/dL (70-99) 159 mg/dL (70-99) 153 mg/dL (70-99) Test 02/11/19 03:21 02/11/19 04:23 02/11/19 05:25 02/11/19 05:30 Glucose (Fingerstick) 148 mg/dL (70-99) 129 mg/dL (70-99) 143 mg/dL (70-99) Sodium Level 141 mmol/L (136-145) Potassium Level 4.1 mmol/L (3.5-5.1) Chloride Level 107 mmol/L (98-107) Carbon Dioxide Level 23 mmol/L (21-32) Anion Gap 11 (6-14) Blood Urea Nitrogen 19 mg/dL (8-26) Creatinine 1.1 mg/dL (0.7-1.3) Estimated GFR (Cockcroft-Gault) 67.6 Glucose Level 151 mg/dL (70-99) Calcium Level 8.8 mg/dL (8.5-10.1) Magnesium Level 2.1 mg/dL (1.8-2.4) Triglycerides Level 72 mg/dL (0-150) Cholesterol Level 65 mg/dL (0-200) LDL Cholesterol, Calculated 22 mg/dL (0-100) VLDL Cholesterol, Calculated 14 mg/dL (0-40) Non-HDL Cholesterol Calculated 36 mg/dL (0-129) HDL Cholesterol 29 mg/dL (40-60) Cholesterol/HDL Ratio 2.2 Test 02/11/19 06:00 02/11/19 06:30 02/11/19 07:37 02/11/19 08:49 White Blood Count 12.5 x10^3/uL (4.0-11.0) Red Blood Count 3.53 x10^6/uL (4.30-5.70) Hemoglobin 10.7 g/dL (13.0-17.5) Hematocrit 31.2 % (39.0-53.0) Mean Corpuscular Volume 88 fL (79-100) Mean Corpuscular Hemoglobin 30 pg (25-35) Mean Corpuscular Hemoglobin Concent 34 g/dL (31-37) Red Cell Distribution Width 13.9 % (11.5-14.5) Platelet Count 84 x10^3/uL (140-400) Glucose (Fingerstick) 144 mg/dL (70-99) 132 mg/dL (70-99) 118 mg/dL (70-99) Test 02/11/19 09:52 02/11/19 11:02 02/11/19 12:29 02/11/19 13:51 Glucose (Fingerstick) 131 mg/dL (70-99) 135 mg/dL (70-99) 152 mg/dL (70-99) 148 mg/dL (70-99) Objective Assessment POD#1, s/p emergent CABG x 3 (AL to LAD, SVG to OM, SVG to RPDA). Doing very well. Fast track extubation yesterday. Levophed off, IABP out. Normotensive, SR. Minimal tube drainage. CI>3. Hb 10.7, creat 1.1. CXR with expected postop changes. Plan Plan of Care D/c swan-stephanie D/c a-line D/c mediastinal tubes Switch amiodarone drip to 200mg po BID ASA, statin. Can start b kristin tonight if BP OK OOBTC at 6pm, given that sheath was removed at 2pm ARNULFO MORROW MD Feb 11, 2019 15:12
[2019-02-11] MEDS: AMIODARONE HCL 200 MG TABLET. PO SCH (16:06)
--- NOTE | 2019-02-11 16:44 | NUR ---
Arterial line removed. Manual pressure applied. Pressure dressing applied. [place] catheter removed. Cap placed on [place]. R femoral site remains intact. No bleeding at this time. Soft, no sign of hematoma. Patient's PO Amiodarone given. Will d/c Amiodarone gtt before end of shift. See assessments, VS's.
--- NOTE | 2019-02-11 18:30 | NUR ---
Patient's mediastinal chest tubes removed after standing on side of bed and walking to [facility]-- Per Dr. Douglas' order. Patient had large bowel movement, increased amount of pain. Patient wanted back in bed instead of recliner. See I/O. CT dressing changed. TPM wires secured to chest. Patient in pain, but tolerated well.
[2019-02-11] MEDS: ATORVASTATIN CALCIUM 40 MG TABLET. PO SCH (20:58)
[2019-02-12] VITALS (23 sets, daily range): BP systolic 111–150; BP diastolic 63–83
[2019-02-12] MEDS: ONDANSETRON PF 4 MG/2 ML VIAL. IV PRN (02:45)
[2019-02-12] MEDS: oxyCODONE IR 5 MG TABLET PO PRN ×3 (03:15→23:52)
[2019-02-12] MEDS: INSULIN REGULAR VIAL 150 UNIT in 0.9 % SODIUM CHLORIDE 150ML 150 ML IV PRN (05:08)
[2019-02-12 05:37] LABS: HEMATOCRIT 30.5 % (39.0-53.0); HEMOGLOBIN 10.6 g/dL (13.0-17.5); RED BLOOD COUNT 3.45 x10^6/uL (4.30-5.70); RED CELL DISTRIBUTION WIDTH 14.4 % (11.5-14.5); WHITE BLOOD COUNT 17.4 x10^3/uL (4.0-11.0)
[2019-02-12 05:47] LABS: CALCIUM 9.3 mg/dL (8.5-10.1); CREATININE 1.1 mg/dL (0.7-1.3); GFR 67.6; MAGNESIUM 2.4 mg/dL (1.8-2.4); POTASSIUM 4.1 mmol/L (3.5-5.1)
--- NOTE | 2019-02-12 06:15 | PDOC ---
PULMONARY PROGRESS NOTES Subjective on 02, swan out. sob better w BD, pain in incision area Vitals Vital Signs Date Time Temp Pulse Resp B/P (MAP) Pulse Ox O2 Delivery O2 Flow Rate FiO2 02/12/19 05:00 102 12 113/66 (82) 94 Nasal Cannula 2.0 02/12/19 04:00 98.9 98.9 Comments ros as mentioned as above other sys otherwise neg ROS: No Nausea General: Alert, No acute distress Lungs: Crackles, Other (l base, dull ) Cardiovascular: S1, S2 Abdomen: Soft, Non-tender, Other (no mass) Neuro Exam: Alert Extremities: Other (edema) Skin: Warm Labs Laboratory Tests Test 02/10/19 07:32 02/10/19 09:04 02/10/19 10:11 02/10/19 10:43 Activated Clotting Time 136 SEC (90-125) 617 SEC (90-125) 525 SEC (90-125) 526 SEC (90-125) Test 02/10/19 11:12 02/10/19 11:54 02/10/19 12:30 02/10/19 13:30 Activated Clotting Time 532 SEC (90-125) 138 SEC (90-125) 131 SEC (90-125) White Blood Count 14.4 x10^3/uL (4.0-11.0) Hemoglobin 11.3 g/dL (13.0-17.5) Hematocrit 32.5 % (39.0-53.0) Platelet Count 102 x10^3/uL (140-400) Prothrombin Time 19.3 SEC (11.7-14.0) Prothromb Time International Ratio 1.7 (0.8-1.1) Activated Partial Thromboplast Time 32 SEC (24-38) Fibrinogen 213 mg/dL (200-440) Test 02/10/19 14:50 02/10/19 15:00 02/10/19 16:12 02/10/19 17:33 White Blood Count 14.3 x10^3/uL (4.0-11.0) Red Blood Count 4.16 x10^6/uL (4.30-5.70) Hemoglobin 12.4 g/dL (13.0-17.5) Hematocrit 36.6 % (39.0-53.0) Mean Corpuscular Volume 88 fL (79-100) Mean Corpuscular Hemoglobin 30 pg (25-35) Mean Corpuscular Hemoglobin Concent 34 g/dL (31-37) Red Cell Distribution Width 13.5 % (11.5-14.5) Platelet Count 106 x10^3/uL (140-400) Activated Partial Thromboplast Time 32 SEC (24-38) Sodium Level 145 mmol/L (136-145) Potassium Level 3.7 mmol/L (3.5-5.1) Chloride Level 111 mmol/L (98-107) Carbon Dioxide Level 22 mmol/L (21-32) Anion Gap 12 (6-14) Blood Urea Nitrogen 17 mg/dL (8-26) Creatinine 1.2 mg/dL (0.7-1.3) Estimated GFR (Cockcroft-Gault) 61.1 Glucose Level 125 mg/dL (70-99) Calcium Level 9.6 mg/dL (8.5-10.1) Magnesium Level 2.6 mg/dL (1.8-2.4) O2 Saturation 99 % (92-99) Arterial Blood pH 7.29 (7.35-7.45) Arterial Blood pCO2 at Patient Temp 46 mmHg (35-46) Arterial Blood pO2 at Patient Temp 374 mmHg (65-108) Arterial Blood HCO3 21 mmol/L (21-28) Arterial Blood Base Excess -5 mmol/L (-3-3) Oxyhemoglobin 98.6 % Methemoglobin 0.5 % (0.0-1.9) Carbon Monoxide, Quantitative 0.1 % (0.0-1.9) FiO2 100 Glucose (Fingerstick) 107 mg/dL (70-99) 159 mg/dL (70-99) 205 mg/dL (70-99) Test 02/10/19 17:35 02/10/19 18:38 02/10/19 19:40 02/10/19 19:41 O2 Saturation 98 % (92-99) Arterial Blood pH 7.37 (7.35-7.45) Arterial Blood pCO2 at Patient Temp 33 mmHg (35-46) Arterial Blood pO2 at Patient Temp 131 mmHg (65-108) Arterial Blood HCO3 19 mmol/L (21-28) Arterial Blood Base Excess -5 mmol/L (-3-3) FiO2 40 Glucose (Fingerstick) 185 mg/dL (70-99) 188 mg/dL (70-99) White Blood Count 14.1 x10^3/uL (4.0-11.0) Red Blood Count 3.67 x10^6/uL (4.30-5.70) Hemoglobin 10.9 g/dL (13.0-17.5) Hematocrit 32.2 % (39.0-53.0) Mean Corpuscular Volume 88 fL (79-100) Mean Corpuscular Hemoglobin 30 pg (25-35) Mean Corpuscular Hemoglobin Concent 34 g/dL (31-37) Red Cell Distribution Width 13.5 % (11.5-14.5) Platelet Count 111 x10^3/uL (140-400) Sodium Level 145 mmol/L (136-145) Potassium Level 4.3 mmol/L (3.5-5.1) Chloride Level 110 mmol/L (98-107) Carbon Dioxide Level 24 mmol/L (21-32) Anion Gap 11 (6-14) Blood Urea Nitrogen 18 mg/dL (8-26) Creatinine 1.1 mg/dL (0.7-1.3) Estimated GFR (Cockcroft-Gault) 67.6 Glucose Level 197 mg/dL (70-99) Calcium Level 9.0 mg/dL (8.5-10.1) Magnesium Level 2.0 mg/dL (1.8-2.4) Test 02/10/19 21:08 02/10/19 22:14 02/10/19 23:17 02/11/19 00:16 Glucose (Fingerstick) 165 mg/dL (70-99) 165 mg/dL (70-99) 174 mg/dL (70-99) 162 mg/dL (70-99) Test 02/11/19 01:08 02/11/19 02:14 02/11/19 03:21 02/11/19 04:23 Glucose (Fingerstick) 159 mg/dL (70-99) 153 mg/dL (70-99) 148 mg/dL (70-99) 129 mg/dL (70-99) Test 02/11/19 05:25 02/11/19 05:30 02/11/19 06:00 02/11/19 06:30 Glucose (Fingerstick) 143 mg/dL (70-99) 144 mg/dL (70-99) Sodium Level 141 mmol/L (136-145) Potassium Level 4.1 mmol/L (3.5-5.1) Chloride Level 107 mmol/L (98-107) Carbon Dioxide Level 23 mmol/L (21-32) Anion Gap 11 (6-14) Blood Urea Nitrogen 19 mg/dL (8-26) Creatinine 1.1 mg/dL (0.7-1.3) Estimated GFR (Cockcroft-Gault) 67.6 Glucose Level 151 mg/dL (70-99) Calcium Level 8.8 mg/dL (8.5-10.1) Magnesium Level 2.1 mg/dL (1.8-2.4) Triglycerides Level 72 mg/dL (0-150) Cholesterol Level 65 mg/dL (0-200) LDL Cholesterol, Calculated 22 mg/dL (0-100) VLDL Cholesterol, Calculated 14 mg/dL (0-40) Non-HDL Cholesterol Calculated 36 mg/dL (0-129) HDL Cholesterol 29 mg/dL (40-60) Cholesterol/HDL Ratio 2.2 White Blood Count 12.5 x10^3/uL (4.0-11.0) Red Blood Count 3.53 x10^6/uL (4.30-5.70) Hemoglobin 10.7 g/dL (13.0-17.5) Hematocrit 31.2 % (39.0-53.0) Mean Corpuscular Volume 88 fL (79-100) Mean Corpuscular Hemoglobin 30 pg (25-35) Mean Corpuscular Hemoglobin Concent 34 g/dL (31-37) Red Cell Distribution Width 13.9 % (11.5-14.5) Platelet Count 84 x10^3/uL (140-400) Test 02/11/19 07:37 02/11/19 08:49 02/11/19 09:52 02/11/19 11:02 Glucose (Fingerstick) 132 mg/dL (70-99) 118 mg/dL (70-99) 131 mg/dL (70-99) 135 mg/dL (70-99) Test 02/11/19 12:29 02/11/19 13:51 02/11/19 15:08 02/11/19 18:45 Glucose (Fingerstick) 152 mg/dL (70-99) 148 mg/dL (70-99) 143 mg/dL (70-99) 156 mg/dL (70-99) Test 02/11/19 19:58 02/11/19 21:01 02/11/19 22:08 02/11/19 23:09 Glucose (Fingerstick) 127 mg/dL (70-99) 123 mg/dL (70-99) 142 mg/dL (70-99) 147 mg/dL (70-99) Test 02/12/19 00:12 02/12/19 01:17 02/12/19 02:46 02/12/19 03:53 Glucose (Fingerstick) 125 mg/dL (70-99) 144 mg/dL (70-99) 150 mg/dL (70-99) 150 mg/dL (70-99) Test 02/12/19 05:10 White Blood Count 17.4 x10^3/uL (4.0-11.0) Red Blood Count 3.45 x10^6/uL (4.30-5.70) Hemoglobin 10.6 g/dL (13.0-17.5) Hematocrit 30.5 % (39.0-53.0) Mean Corpuscular Volume 88 fL (79-100) Mean Corpuscular Hemoglobin 31 pg (25-35) Mean Corpuscular Hemoglobin Concent 35 g/dL (31-37) Red Cell Distribution Width 14.4 % (11.5-14.5) Platelet Count 82 x10^3/uL (140-400) Sodium Level 138 mmol/L (136-145) Potassium Level 4.1 mmol/L (3.5-5.1) Chloride Level 102 mmol/L (98-107) Carbon Dioxide Level 27 mmol/L (21-32) Anion Gap 9 (6-14) Blood Urea Nitrogen 31 mg/dL (8-26) Creatinine 1.1 mg/dL (0.7-1.3) Estimated GFR (Cockcroft-Gault) 67.6 Glucose Level 177 mg/dL (70-99) Calcium Level 9.3 mg/dL (8.5-10.1) Magnesium Level 2.4 mg/dL (1.8-2.4) Laboratory Tests Test 02/11/19 06:30 02/11/19 07:37 02/11/19 08:49 02/11/19 09:52 Glucose (Fingerstick) 144 mg/dL (70-99) 132 mg/dL (70-99) 118 mg/dL (70-99) 131 mg/dL (70-99) Test 02/11/19 11:02 02/11/19 12:29 02/11/19 13:51 02/11/19 15:08 Glucose (Fingerstick) 135 mg/dL (70-99) 152 mg/dL (70-99) 148 mg/dL (70-99) 143 mg/dL (70-99) Test 02/11/19 18:45 02/11/19 19:58 02/11/19 21:01 02/11/19 22:08 Glucose (Fingerstick) 156 mg/dL (70-99) 127 mg/dL (70-99) 123 mg/dL (70-99) 142 mg/dL (70-99) Test 02/11/19 23:09 02/12/19 00:12 02/12/19 01:17 02/12/19 02:46 Glucose (Fingerstick) 147 mg/dL (70-99) 125 mg/dL (70-99) 144 mg/dL (70-99) 150 mg/dL (70-99) Test 02/12/19 03:53 02/12/19 05:10 Glucose (Fingerstick) 150 mg/dL (70-99) White Blood Count 17.4 x10^3/uL (4.0-11.0) Red Blood Count 3.45 x10^6/uL (4.30-5.70) Hemoglobin 10.6 g/dL (13.0-17.5) Hematocrit 30.5 % (39.0-53.0) Mean Corpuscular Volume 88 fL (79-100) Mean Corpuscular Hemoglobin 31 pg (25-35) Mean Corpuscular Hemoglobin Concent 35 g/dL (31-37) Red Cell Distribution Width 14.4 % (11.5-14.5) Platelet Count 82 x10^3/uL (140-400) Sodium Level 138 mmol/L (136-145) Potassium Level 4.1 mmol/L (3.5-5.1) Chloride Level 102 mmol/L (98-107) Carbon Dioxide Level 27 mmol/L (21-32) Anion Gap 9 (6-14) Blood Urea Nitrogen 31 mg/dL (8-26) Creatinine 1.1 mg/dL (0.7-1.3) Estimated GFR (Cockcroft-Gault) 67.6 Glucose Level 177 mg/dL (70-99) Calcium Level 9.3 mg/dL (8.5-10.1) Magnesium Level 2.4 mg/dL (1.8-2.4) Medications Active Scripts Medications Dose Route/Sig Max Daily Dose Days Date Category No Known Medications Prior To Admisstion (Info) Each 1 Each DAILY 02/10/19 Reported Comments cxr reviewed, l atelectasis, cts Impression . IMPRESSION: 1. Expected acute respiratory failure, status post coronary artery bypass graft. 2. Coronary artery disease, status post coronary artery bypass graft on 02/10/2019. 3. Leukocytosis. 4. Thrombocytopenia. 5. Diabetes mellitus. 6. Obesity and snoring, probable obstructive sleep apnea-hypopnea syndrome. 7. Ex-smoker. Plan . PLAN AND RECOMMENDATIONS: 1. Titrate FiO2 to keep O2 saturation at 92%. extubated 02/10, ?lasix low dose x1 2. incentive spirometry. 3. bronchodilator, Atrovent only. 4. Amiodarone Cardiology and Cardiothoracic surgeon. 5. Elevate head of bed. 6. Protonix for prophylaxis, 7. Monitor leukocytosis. 8. I have discussed obstructive sleep apnea-hypopnea syndrome, the importance of diagnosis and treatment, if untreated increased cardiovascular and [employer] morbidity and mortality. I do recommend a sleep study as an outpatient. discussed w pt, rn NEVA RENTERIA MD Feb 12, 2019 06:15
[2019-02-12] MEDS: IPRATROPIUM BROMIDE 0.5 MG/2.5 ML NEBU. NEB SCH ×4 (07:00→20:12)
[2019-02-12] MEDS: PANTOPRAZOLE 40 MG TABLET.DR. PO SCH (07:30)
[2019-02-12] MEDS: ASPIRIN ENTERIC COATED 325 MG TABLET.DR. PO SCH (08:00)
--- NOTE | 2019-02-12 08:04 | PDOC ---
Provider Note Provider Note LATE ENTRY FOR PROCEDURE NOTE ON 02/11/2019 IABP REMOVAL: After verbal consent from the patient and confirmation of adequate hemodynamics and decision was made to remove the intra-aortic balloon pump previously placed through the right common femoral artery in the setting of the patient's original presentation for cardiac shock and three-vessel disease. After sterile prep and drape the injured balloon pump was removed through the previously placed 7-1/2 Serbian sheath and next a J-tipped guidewire was advanced without difficulty and the previous sheath was removed. Hemostasis was obtained with a Angio-Seal device. 2 hours postprocedure the patient had excellent palpable pedal pulses. Right groin site was clean dry and intact. No complications noted. Conclusion: 1. Successful intraaortic balloon pump removal. MARY COPELAND MD Feb 12, 2019 08:04
--- NOTE | 2019-02-12 08:05 | RAD ---
PORTABLE CHEST 1V Clinical History: S/P CABG Technique: AP view of the chest was obtained at 02/12/2019 6:38 AM. Comparison: February 11, 2019. Findings: The heart is normal size. There is median sternotomy wires. The right [place]-Fariha catheter has been removed although the introducer remains in place. The left-sided chest tube is unchanged. The mediastinal drain has been removed. There is patchy opacity in the left lung base and blunting of the left costophrenic angle. Impression: 1. Postoperative appearance of the chest. 2. Mild left effusion and left basal infiltrate likely discoid atelectasis has slightly increased. Electronically signed by: Brennen Melton III, MD (02/12/2019 8:02 AM) [facility]
[2019-02-12] MEDS ORDERED: POTASSIUM CHL 20MEQ PREMIX 50 ML IV ONE (08:30)
[2019-02-12] MEDS: AMIODARONE HCL 200 MG TABLET. PO SCH ×2 (09:00→21:01)
[2019-02-12] MEDS: METOPROLOL TART IMMED RELEASE 25 MG TABLET. PO SCH ×2 (09:00→21:01)
[2019-02-12] MEDS: SENNOSIDES/DOCUSATE 8.6/50MG TABLET. PO SCH ×2 (09:00→21:00)
--- NOTE | 2019-02-12 09:59 | PDOC ---
CARDIOLOGY PROGRESS NOTE SUBJECTIVE: Reports continued incisional pain but otherwise no new issues. Able to be up in chair this morning. He does not have an appetite quite yet. OBJECTIVE: Vital SIgns: Vital Signs Date Time Temp Pulse Resp B/P (MAP) Pulse Ox O2 Delivery O2 Flow Rate FiO2 02/12/19 09:00 104 14 134/69 (90) 95 Nasal Cannula 2.0 02/12/19 08:00 98.7 98.7 I & O Intake and Output 02/12/19 06:59 Intake Total 3667 ml Output Total 1573 ml Balance 2094 ml Intake Oral 1850 ml IV Total 1817 ml Output Urine Total 955 ml Chest Tube Drainage Total 618 ml Objective: Alert and oriented 3 Decreased breath sounds at the lung bases Normal S1 and S2 without any rubs Soft abdomen Pleural tube still in place with mild drainage overnight No significant edema of the lower extremity is, both feet are warm to touch and 1+ palpable pedal pulses CURRENT MEDICATIONS: Pertinent cardio vascular medications include aspirin, atorvastatin, metoprolol and amiodarone DIAGNOSTIC TESTING: Hemoglobin stable at 10.6. Creatinine within normal limits. No significant abnormalities on telemetry. ASSESSMENT: 1. Coronary artery disease status post urgent three-vessel bypass PLAN: 1. Continue postoperative care per CT surg 2. May decrease aspirin to 81 mg upon discharge 3. Continue statin and metoprolol therapy. Continue amiodarone per CT surgery. 4. May need one dose of lasix today given mild effusion on CXR and 2+L on I/O' s. No further CV recs. F/u in the office in 8 weeks. Thanks. Pls call with questions. MARY COPELAND MD Feb 12, 2019 09:59
[2019-02-12] MEDS: INSULIN LISPRO 300 UNITS/3 ML INSULN.PEN. SQ SCH ×3 (10:17→17:00)
--- NOTE | 2019-02-12 11:11 | NUR ---
Patient walked one lap around unit-- on monitor, on room air. Tolerated well. SpO2 >92% entire time. Patient is back in room, remains in recliner. Family is at bedside. Patient states his pain is 2/10. Roxicodone given. Pleural chest tube drained. See I/O. VS stable at this time. See assessments.
[2019-02-12] MEDS ORDERED: DEXTROSE 50% 25 GM / 50ML DISP.SYRIN. IV PRN (12:30)
--- NOTE | 2019-02-12 12:32 | NUR ---
Orders received from Dr. Douglas to give patient 12.5 Metoprolol x1, 50 U Lantus x1, start patient on high dose sliding scale insulin, give 10 U Novolog x1, remove pleural chest tube at end of shift (keep TPM wires capped until tomorrow), and to remove lozano catheter. Patient is currently sleeping in chair.
--- NOTE | 2019-02-12 12:33 | PDOC ---
PROGRESS NOTES Chief Complaint Chief Complaint A/P: ST elevation myocardial infarction - to lab tech urgently, found with severe disease by cardiology, sent urgently to CABG CAD s/p CABG x 3 (AL to LAD, SVG to RPDA, SVG to OM) with Left endoscopic greater saphenous vein harvest Acute systolic heart failure (EF 20-25%) - IABP placed. Does have low UOP, given 4 bags albumin Seen by pulm for vent management post-operatively - extubated yesterday Diabetes - unknown meds, will place on insulin GTT to goal glucose 140 HTN - unknown meds, will reconcile home meds, picks up meds at [facility] on [address] FEN - ADA diet PPX - heparin FULL CODE ICU for post-op CABG management History of Present Illness History of Present Illness 63 yo M w/ PMHx DM2, HTN who initially presented to [facility] ED by [facility] with waxing and waning retrosternal chest pain that he described as burning sensation starting yesterday at 10 pm. EKG showed diffuse ST depressions and ST elevation in aVR. Code STEMI was activated and patient was transferred emergently to [facility] to go urgently to lab tech. Patient continues to have chest pain but is presently down to 3/10 severity. He denied any orthopnea/ PND, palpitations or syncope. He is a nonsmoker but has family history of premature coronary artery disease. ST elevation in aVR and diffuse ST depressions in all other leads. Cath shows severe 3VD, without LAD flow, subtotal LCx occlusion and 95% proximal RCA disease and CT surgery was urgently consulted. Initially seen in transit to OR. Then subsequently seen in ICU thereafter. Extubated 02/10/19 without event. Feeling some chest discomfort this morning, describes it as better. WBC up a bit. He is exhausted, falls asleep during examination.Still on insulin GTT, good glycemic control, ate a bit this morning. off amio gtt as well. off levophed. Chest drains with no air leak. Up to chair Vitals Vitals Vital Signs Date Time Temp Pulse Resp B/P (MAP) Pulse Ox O2 Delivery O2 Flow Rate FiO2 02/12/19 12:00 104 15 111/74 (86) 95 Nasal Cannula 2.0 02/12/19 08:00 98.7 98.7 Physical Exam Physical Exam GENERAL: NAD, Alert HEENT: PERRL, OC/OP NECK: Supple, no JVD, no LN LUNGS: Clear HEART: S1S2, no gallop, no murmur ABD: Soft, NT, no organomegaly, no rebound EXT: No edema, no cyanosis CABIN SERVICE AGENT: Alert, 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, no focal neurologic deficit SKIN: No rash IV: ok General: Alert, Oriented X3, Cooperative, mild distress Heart: Regular rate, Normal S1, Normal S2 Lungs: Crackles, Other (l base, dull ) Abdomen: Normal bowel sounds, Soft, No tenderness, No hepatosplenomegaly, No masses Extremities: No clubbing, No cyanosis, No edema, Normal pulses, No tenderness/ swelling Skin: No rashes, No breakdown, No significant lesion Labs LABS Laboratory Tests Test 02/11/19 13:51 02/11/19 15:08 02/11/19 18:45 02/11/19 19:58 Glucose (Fingerstick) 148 mg/dL (70-99) 143 mg/dL (70-99) 156 mg/dL (70-99) 127 mg/dL (70-99) Test 02/11/19 21:01 02/11/19 22:08 02/11/19 23:09 02/12/19 00:12 Glucose (Fingerstick) 123 mg/dL (70-99) 142 mg/dL (70-99) 147 mg/dL (70-99) 125 mg/dL (70-99) Test 02/12/19 01:17 02/12/19 02:46 02/12/19 03:53 02/12/19 05:04 Glucose (Fingerstick) 144 mg/dL (70-99) 150 mg/dL (70-99) 150 mg/dL (70-99) 167 mg/dL (70-99) Test 02/12/19 05:10 02/12/19 06:44 02/12/19 07:41 02/12/19 10:16 White Blood Count 17.4 x10^3/uL (4.0-11.0) Red Blood Count 3.45 x10^6/uL (4.30-5.70) Hemoglobin 10.6 g/dL (13.0-17.5) Hematocrit 30.5 % (39.0-53.0) Mean Corpuscular Volume 88 fL (79-100) Mean Corpuscular Hemoglobin 31 pg (25-35) Mean Corpuscular Hemoglobin Concent 35 g/dL (31-37) Red Cell Distribution Width 14.4 % (11.5-14.5) Platelet Count 82 x10^3/uL (140-400) Sodium Level 138 mmol/L (136-145) Potassium Level 4.1 mmol/L (3.5-5.1) Chloride Level 102 mmol/L (98-107) Carbon Dioxide Level 27 mmol/L (21-32) Anion Gap 9 (6-14) Blood Urea Nitrogen 31 mg/dL (8-26) Creatinine 1.1 mg/dL (0.7-1.3) Estimated GFR (Cockcroft-Gault) 67.6 Glucose Level 177 mg/dL (70-99) Calcium Level 9.3 mg/dL (8.5-10.1) Magnesium Level 2.4 mg/dL (1.8-2.4) Glucose (Fingerstick) 162 mg/dL (70-99) 151 mg/dL (70-99) 161 mg/dL (70-99) Test 02/12/19 11:34 Glucose (Fingerstick) 145 mg/dL (70-99) Comment Review of Relevant I have reviewed the following items richie (where applicable) has been applied. Labs Laboratory Tests Test 02/10/19 13:30 02/10/19 14:50 02/10/19 15:00 02/10/19 16:12 White Blood Count 14.4 x10^3/uL (4.0-11.0) 14.3 x10^3/uL (4.0-11.0) Hemoglobin 11.3 g/dL (13.0-17.5) 12.4 g/dL (13.0-17.5) Hematocrit 32.5 % (39.0-53.0) 36.6 % (39.0-53.0) Platelet Count 102 x10^3/uL (140-400) 106 x10^3/uL (140-400) Prothrombin Time 19.3 SEC (11.7-14.0) Prothromb Time International Ratio 1.7 (0.8-1.1) Activated Partial Thromboplast Time 32 SEC (24-38) 32 SEC (24-38) Fibrinogen 213 mg/dL (200-440) Red Blood Count 4.16 x10^6/uL (4.30-5.70) Mean Corpuscular Volume 88 fL (79-100) Mean Corpuscular Hemoglobin 30 pg (25-35) Mean Corpuscular Hemoglobin Concent 34 g/dL (31-37) Red Cell Distribution Width 13.5 % (11.5-14.5) Sodium Level 145 mmol/L (136-145) Potassium Level 3.7 mmol/L (3.5-5.1) Chloride Level 111 mmol/L (98-107) Carbon Dioxide Level 22 mmol/L (21-32) Anion Gap 12 (6-14) Blood Urea Nitrogen 17 mg/dL (8-26) Creatinine 1.2 mg/dL (0.7-1.3) Estimated GFR (Cockcroft-Gault) 61.1 Glucose Level 125 mg/dL (70-99) Calcium Level 9.6 mg/dL (8.5-10.1) Magnesium Level 2.6 mg/dL (1.8-2.4) O2 Saturation 99 % (92-99) Arterial Blood pH 7.29 (7.35-7.45) Arterial Blood pCO2 at Patient Temp 46 mmHg (35-46) Arterial Blood pO2 at Patient Temp 374 mmHg (65-108) Arterial Blood HCO3 21 mmol/L (21-28) Arterial Blood Base Excess -5 mmol/L (-3-3) Oxyhemoglobin 98.6 % Methemoglobin 0.5 % (0.0-1.9) Carbon Monoxide, Quantitative 0.1 % (0.0-1.9) FiO2 100 Glucose (Fingerstick) 107 mg/dL (70-99) 159 mg/dL (70-99) Test 02/10/19 17:33 02/10/19 17:35 02/10/19 18:38 02/10/19 19:40 Glucose (Fingerstick) 205 mg/dL (70-99) 185 mg/dL (70-99) O2 Saturation 98 % (92-99) Arterial Blood pH 7.37 (7.35-7.45) Arterial Blood pCO2 at Patient Temp 33 mmHg (35-46) Arterial Blood pO2 at Patient Temp 131 mmHg (65-108) Arterial Blood HCO3 19 mmol/L (21-28) Arterial Blood Base Excess -5 mmol/L (-3-3) FiO2 40 White Blood Count 14.1 x10^3/uL (4.0-11.0) Red Blood Count 3.67 x10^6/uL (4.30-5.70) Hemoglobin 10.9 g/dL (13.0-17.5) Hematocrit 32.2 % (39.0-53.0) Mean Corpuscular Volume 88 fL (79-100) Mean Corpuscular Hemoglobin 30 pg (25-35) Mean Corpuscular Hemoglobin Concent 34 g/dL (31-37) Red Cell Distribution Width 13.5 % (11.5-14.5) Platelet Count 111 x10^3/uL (140-400) Sodium Level 145 mmol/L (136-145) Potassium Level 4.3 mmol/L (3.5-5.1) Chloride Level 110 mmol/L (98-107) Carbon Dioxide Level 24 mmol/L (21-32) Anion Gap 11 (6-14) Blood Urea Nitrogen 18 mg/dL (8-26) Creatinine 1.1 mg/dL (0.7-1.3) Estimated GFR (Cockcroft-Gault) 67.6 Glucose Level 197 mg/dL (70-99) Calcium Level 9.0 mg/dL (8.5-10.1) Magnesium Level 2.0 mg/dL (1.8-2.4) Test 02/10/19 19:41 02/10/19 21:08 02/10/19 22:14 02/10/19 23:17 Glucose (Fingerstick) 188 mg/dL (70-99) 165 mg/dL (70-99) 165 mg/dL (70-99) 174 mg/dL (70-99) Test 02/11/19 00:16 02/11/19 01:08 02/11/19 02:14 02/11/19 03:21 Glucose (Fingerstick) 162 mg/dL (70-99) 159 mg/dL (70-99) 153 mg/dL (70-99) 148 mg/dL (70-99) Test 02/11/19 04:23 02/11/19 05:25 02/11/19 05:30 02/11/19 06:00 Glucose (Fingerstick) 129 mg/dL (70-99) 143 mg/dL (70-99) Sodium Level 141 mmol/L (136-145) Potassium Level 4.1 mmol/L (3.5-5.1) Chloride Level 107 mmol/L (98-107) Carbon Dioxide Level 23 mmol/L (21-32) Anion Gap 11 (6-14) Blood Urea Nitrogen 19 mg/dL (8-26) Creatinine 1.1 mg/dL (0.7-1.3) Estimated GFR (Cockcroft-Gault) 67.6 Glucose Level 151 mg/dL (70-99) Calcium Level 8.8 mg/dL (8.5-10.1) Magnesium Level 2.1 mg/dL (1.8-2.4) Triglycerides Level 72 mg/dL (0-150) Cholesterol Level 65 mg/dL (0-200) LDL Cholesterol, Calculated 22 mg/dL (0-100) VLDL Cholesterol, Calculated 14 mg/dL (0-40) Non-HDL Cholesterol Calculated 36 mg/dL (0-129) HDL Cholesterol 29 mg/dL (40-60) Cholesterol/HDL Ratio 2.2 White Blood Count 12.5 x10^3/uL (4.0-11.0) Red Blood Count 3.53 x10^6/uL (4.30-5.70) Hemoglobin 10.7 g/dL (13.0-17.5) Hematocrit 31.2 % (39.0-53.0) Mean Corpuscular Volume 88 fL (79-100) Mean Corpuscular Hemoglobin 30 pg (25-35) Mean Corpuscular Hemoglobin Concent 34 g/dL (31-37) Red Cell Distribution Width 13.9 % (11.5-14.5) Platelet Count 84 x10^3/uL (140-400) Test 02/11/19 06:30 02/11/19 07:37 02/11/19 08:49 02/11/19 09:52 Glucose (Fingerstick) 144 mg/dL (70-99) 132 mg/dL (70-99) 118 mg/dL (70-99) 131 mg/dL (70-99) Test 02/11/19 11:02 02/11/19 12:29 02/11/19 13:51 02/11/19 15:08 Glucose (Fingerstick) 135 mg/dL (70-99) 152 mg/dL (70-99) 148 mg/dL (70-99) 143 mg/dL (70-99) Test 02/11/19 18:45 02/11/19 19:58 02/11/19 21:01 02/11/19 22:08 Glucose (Fingerstick) 156 mg/dL (70-99) 127 mg/dL (70-99) 123 mg/dL (70-99) 142 mg/dL (70-99) Test 02/11/19 23:09 02/12/19 00:12 02/12/19 01:17 02/12/19 02:46 Glucose (Fingerstick) 147 mg/dL (70-99) 125 mg/dL (70-99) 144 mg/dL (70-99) 150 mg/dL (70-99) Test 02/12/19 03:53 02/12/19 05:04 02/12/19 05:10 02/12/19 06:44 Glucose (Fingerstick) 150 mg/dL (70-99) 167 mg/dL (70-99) 162 mg/dL (70-99) White Blood Count 17.4 x10^3/uL (4.0-11.0) Red Blood Count 3.45 x10^6/uL (4.30-5.70) Hemoglobin 10.6 g/dL (13.0-17.5) Hematocrit 30.5 % (39.0-53.0) Mean Corpuscular Volume 88 fL (79-100) Mean Corpuscular Hemoglobin 31 pg (25-35) Mean Corpuscular Hemoglobin Concent 35 g/dL (31-37) Red Cell Distribution Width 14.4 % (11.5-14.5) Platelet Count 82 x10^3/uL (140-400) Sodium Level 138 mmol/L (136-145) Potassium Level 4.1 mmol/L (3.5-5.1) Chloride Level 102 mmol/L (98-107) Carbon Dioxide Level 27 mmol/L (21-32) Anion Gap 9 (6-14) Blood Urea Nitrogen 31 mg/dL (8-26) Creatinine 1.1 mg/dL (0.7-1.3) Estimated GFR (Cockcroft-Gault) 67.6 Glucose Level 177 mg/dL (70-99) Calcium Level 9.3 mg/dL (8.5-10.1) Magnesium Level 2.4 mg/dL (1.8-2.4) Test 02/12/19 07:41 02/12/19 10:16 02/12/19 11:34 Glucose (Fingerstick) 151 mg/dL (70-99) 161 mg/dL (70-99) 145 mg/dL (70-99) Laboratory Tests Test 02/11/19 13:51 02/11/19 15:08 02/11/19 18:45 02/11/19 19:58 Glucose (Fingerstick) 148 mg/dL (70-99) 143 mg/dL (70-99) 156 mg/dL (70-99) 127 mg/dL (70-99) Test 02/11/19 21:01 02/11/19 22:08 02/11/19 23:09 02/12/19 00:12 Glucose (Fingerstick) 123 mg/dL (70-99) 142 mg/dL (70-99) 147 mg/dL (70-99) 125 mg/dL (70-99) Test 02/12/19 01:17 02/12/19 02:46 02/12/19 03:53 02/12/19 05:04 Glucose (Fingerstick) 144 mg/dL (70-99) 150 mg/dL (70-99) 150 mg/dL (70-99) 167 mg/dL (70-99) Test 02/12/19 05:10 02/12/19 06:44 02/12/19 07:41 02/12/19 10:16 White Blood Count 17.4 x10^3/uL (4.0-11.0) Red Blood Count 3.45 x10^6/uL (4.30-5.70) Hemoglobin 10.6 g/dL (13.0-17.5) Hematocrit 30.5 % (39.0-53.0) Mean Corpuscular Volume 88 fL (79-100) Mean Corpuscular Hemoglobin 31 pg (25-35) Mean Corpuscular Hemoglobin Concent 35 g/dL (31-37) Red Cell Distribution Width 14.4 % (11.5-14.5) Platelet Count 82 x10^3/uL (140-400) Sodium Level 138 mmol/L (136-145) Potassium Level 4.1 mmol/L (3.5-5.1) Chloride Level 102 mmol/L (98-107) Carbon Dioxide Level 27 mmol/L (21-32) Anion Gap 9 (6-14) Blood Urea Nitrogen 31 mg/dL (8-26) Creatinine 1.1 mg/dL (0.7-1.3) Estimated GFR (Cockcroft-Gault) 67.6 Glucose Level 177 mg/dL (70-99) Calcium Level 9.3 mg/dL (8.5-10.1) Magnesium Level 2.4 mg/dL (1.8-2.4) Glucose (Fingerstick) 162 mg/dL (70-99) 151 mg/dL (70-99) 161 mg/dL (70-99) Test 02/12/19 11:34 Glucose (Fingerstick) 145 mg/dL (70-99) Medications Current Medications Fentanyl Citrate (Fentanyl 2ml Vial) 100 mcg STK-MED ONCE .ROUTE ; Start at 05:36; Stop 02/10/19 at 05:37; Status DC Midazolam HCl (Versed) 2 mg STK-MED ONCE .ROUTE ; Start 02/10/19 at 05:36; Stop 02/10/19 at 05:37; Status DC Fentanyl Citrate (Fentanyl 2ml Vial) 50 mcg 1X ONCE IV Last administered on at 05:43; Start 02/10/19 at 05:45; Stop 02/10/19 at 05:49; Status DC Insulin Human Lispro (HumaLOG) 0-5 UNITS TIDWMEALS SQ Last administered on 02/12at 11:36; Start 02/10/19 at 08:00 Dextrose (Dextrose 50%-Water Syringe) 12.5 gm PRN Q15MIN PRN IV SEE COMMENTS; Start 02/10/19 at 05:45; Stop 02/10/19 at 14:59; Status DC Iodixanol (Visipaque 320) 100 ml STK-MED ONCE .ROUTE ; Start 02/10/19 at 06:09; Stop 02/10/19 at 06:10; Status DC Heparin Sodium (Porcine) (Heparin Sodium) 10,000 unit STK-MED ONCE .ROUTE ; Start 02/10/19 at 06:10; Stop 02/10/19 at 06:11; Status DC Nitroglycerin/ Dextrose 250 ml @ As Directed STK-MED ONCE IV ; Start 02/10/19 at 06:26; Stop 02/10/19 at 06:27; Status DC Vancomycin HCl (VANCO for OR ONLY) 10 gm STK-MED ONCE .ROUTE Last administered on 02/10/19 09:45; Start 02/10/19 at 05:43; Stop 02/10/19 at 06:44; Status DC Cellulose (Surgicel Hemostat 4x8) 1 each STK-MED ONCE .ROUTE Last administered on 02/10/19 09:48; Start 02/10/19 at 05:43; Stop 02/10/19 at 06:44; Status DC Papaverine HCl 60 mg STK-MED ONCE .ROUTE Last administered on 02/10/19 09:48; Start 02/10/19 at 05:44; Stop 02/10/19 at 06:44; Status DC Aspirin (Aspirin) 300 mg STK-MED ONCE .ROUTE Last administered on 02/10/19 09: 48; Start 02/10/19 at 05:44; Stop 02/10/19 at 06:44; Status DC Sodium Chloride (SODIUM CHLORIDE 20ml) 20 ml STK-MED ONCE IJ Last administered on 02/10/19 09:44; Start 02/10/19 at 05:44; Stop 02/10/19 at 06:44; Status DC Sodium Chloride (SODIUM CHLORIDE 20ml) 20 ml STK-MED ONCE IJ Last administered on 02/10/19 09:45; Start 02/10/19 at 05:44; Stop 02/10/19 at 06:44; Status DC Potassium Chloride 70 meq/ Sodium Bicarbonate 12.5 meq/Lidocaine HCl 24 ml/ Parenteral Electrolytes 571.5 ml @ 571.5 mls/ hr 1X ONCE IRR ; Start 02/10/19 at 07:30; Stop 02/10/19 at 08:29; Status DC Sodium Chloride (SODIUM CHLORIDE 20ml) 20 ml STK-MED ONCE IJ Last administered on 02/10/19 09:45; Start 02/10/19 at 05:44; Stop 02/10/19 at 06:45; Status DC Rocuronium [place] (Zemuron) 100 mg STK-MED ONCE .ROUTE ; Start 02/10/19 at 06: 44; Stop 02/10/19 at 06:45; Status DC Sufentanil Citrate (Sufenta) 250 mcg STK-MED ONCE .ROUTE ; Start 02/10/19 at 06: 45; Stop 02/10/19 at 06:46; Status DC Potassium Chloride 15 meq/ Sodium Bicarbonate 12.5 meq/Parenteral Electrolytes 520 ml @ 520 mls/hr 1X ONCE IRR ; Start 02/10/19 at 07:30; Stop 02/10/19 at 08 :29; Status DC Midazolam HCl (Versed) 5 mg STK-MED ONCE .ROUTE ; Start 02/10/19 at 06:45; Stop 02/10/19 at 06:46; Status DC Lidocaine HCl (Lidocaine Pf 2% Vial) 5 ml STK-MED ONCE .ROUTE ; Start 02/10/19 at 06:46; Stop 02/10/19 at 06:47; Status DC Etomidate (Amidate) 20 mg STK-MED ONCE IV ; Start 02/10/19 at 06:46; Stop at 06:47; Status DC Aminocaproic Acid (Amicar) 5,000 mg STK-MED ONCE IV ; Start 02/10/19 at 06:46; Stop 02/10/19 at 06:47; Status DC Aminocaproic Acid (Amicar) 5,000 mg STK-MED ONCE IV ; Start 02/10/19 at 06:46; Stop 02/10/19 at 06:47; Status DC Aminocaproic Acid (Amicar) 5,000 mg STK-MED ONCE IV ; Start 02/10/19 at 06:46; Stop 02/10/19 at 06:47; Status DC Heparin Sodium/ Sodium Chloride (HEPARIN for ARTERIAL LINE FLUSH) 1,000 unit 1X ONCE IART Last administered on 02/10/19at 06:56; Start 02/10/19 at 06:45; Stop 02/10/19 at 06:56; Status DC Midazolam HCl (Versed) 2 mg 1X ONCE IV Last administered on 02/10/19at 06:57; Start 02/10/19 at 06:45; Stop 02/10/19 at 06:56; Status DC Fentanyl Citrate (Fentanyl 2ml Vial) 100 mcg 1X ONCE IV Last administered on at 06:56; Start 02/10/19 at 06:45; Stop 02/10/19 at 06:56; Status DC Iodixanol (Visipaque 320) 139 ml 1X ONCE IART Last administered on 02/10/19at 06:56; Start 02/10/19 at 06:45; Stop 02/10/19 at 06:56; Status DC Lidocaine HCl (Lidocaine 1% 20ml Vial) 20 ml 1X ONCE INJ Last administered on 02/10/19at 06:56; Start 02/10/19 at 06:45; Stop 02/10/19 at 06:56; Status DC Heparin Sodium (Porcine) (Heparin 5,000 Units/1,000ml NS) 5,000 unit 1X ONCE IV Last administered on 02/10/19at 06:45; Start 02/10/19 at 06:45; Stop at 06:56; Status DC Heparin Sodium (Porcine) 78052 unit/Ringer's Solution 1,020 ml @ 1,020 mls/hr 1X ONCE IRR Last administered on 02/10/19at 09:54; Start 02/10/19 at 07:30; Stop 02/10/19 at 08:29; Status DC Heparin Sodium (Porcine) 800 unit/ Nitroglycerin 4 mg/Verapamil HCl 8 mg/Sodium Bicarbonate 0.34 meq/Ringer's Solution 512.34 ml @ 512.34 mls/hr 1X ONCE IRR ; Start 02/10/19 at 07:30; Stop 02/10/19 at 08:29; Status DC Cefazolin Sodium 1 gm/Sodium Chloride 500 ml @ 500 mls/hr 1X ONCE IRR ; Start 02/10/19 at 07:30; Stop 02/10/19 at 08:29; Status DC Heparin Sodium (Porcine) 30,000 unit STK-MED ONCE .ROUTE ; Start 02/10/19 at 06: 50; Stop 02/10/19 at 06:51; Status DC Nitroglycerin/ Dextrose 250 ml @ 1.5 mls/hr CONT PRN IV SEE I/O RECORD Last administered on 02/10/19at 06:36; Start 02/10/19 at 07:00 Ephedrine Sulfate (ePHEDrine PF IN SALINE SYRINGE) 50 mg STK-MED ONCE IV ; Start 02/10/19 at 06:53; Stop 02/10/19 at 06:54; Status DC Phenylephrine HCl (Sp-Synephrine Inj) 10 mg STK-MED ONCE .ROUTE ; Start at 06:59; Stop 02/10/19 at 07:00; Status DC Epinephrine HCl (EPINEPHrine SYRINGE) 1 mg STK-MED ONCE .ROUTE ; Start 02/10/19 at 07:20; Stop 02/10/19 at 07:21; Status DC Ephedrine Sulfate (ePHEDrine PF IN SALINE SYRINGE) 50 mg STK-MED ONCE IV ; Start 02/10/19 at 07:22; Stop 02/10/19 at 07:23; Status DC Phenylephrine HCl (PHENYLEPHRINE in 0.9% NACL PF) 1 mg STK-MED ONCE IV ; Start 02/10/19 at 07:22; Stop 02/10/19 at 07:23; Status DC Heparin Sodium (Porcine) (Heparin Sodium) 10,000 unit STK-MED ONCE .ROUTE ; Start 02/10/19 at 08:02; Stop 02/10/19 at 08:03; Status DC Cefazolin Sodium 3 gm/Dextrose 100 ml @ 200 mls/hr 1X PREOP PRN IV PRIOR TO PROCEDURE Last administered on 02/10/19at 08:45; Start 02/10/19 at 08:29; Stop at 08:28; Status DC Mannitol 500 ml @ 0 mls/hr 1X ONCE IV ; Start 02/10/19 at 09:00; Stop 02/10/19 at 09:01; Status DC Rocuronium [place] (Zemuron) 100 mg STK-MED ONCE .ROUTE ; Start 02/10/19 at 08: 51; Stop 02/10/19 at 08:52; Status DC Insulin Human Regular 150 unit/ Sodium Chloride 151.5 ml @ 0 mls/hr CONT PRN IV SEE I/O RECORD Last administered on 02/10/19at 09:50; Start 02/10/19 at 09:15 ; Stop 02/10/19 at 14:57; Status DC Norepinephrine Bitartrate 250 ml @ 1.875 mls/ hr 1X ONCE IV Last administered on 02/10/19at 16:56; Start 02/10/19 at 11:15; Stop 02/16/19 at 00:34 Midazolam HCl (Versed) 2 mg STK-MED ONCE .ROUTE ; Start 02/10/19 at 11:13; Stop 02/10/19 at 11:14; Status DC Epinephrine HCl 4 mg/Sodium Chloride 254 ml @ 3.81 mls/hr CONT PRN IV SEE I/O RECORD; Start 02/10/19 at 11:30; Stop 02/10/19 at 14:57; Status DC Protamine Sulfate (Protamine) 50 mg STK-MED ONCE IV ; Start 02/10/19 at 11:33; Stop 02/10/19 at 11:34; Status DC Protamine Sulfate (Protamine) 250 mg STK-MED ONCE IV ; Start 02/10/19 at 11:33; Stop 02/10/19 at 11:34; Status DC Protamine Sulfate (Protamine) 250 mg STK-MED ONCE IV ; Start 02/10/19 at 11:33; Stop 02/10/19 at 11:34; Status DC Midazolam HCl (Versed) 2 mg STK-MED ONCE .ROUTE ; Start 02/10/19 at 11:35; Stop 02/10/19 at 11:36; Status DC Cefazolin Sodium 3 gm/Dextrose 100 ml @ 200 mls/hr 1X ONCE IV Last administered on 02/10/19at 12:40; Start 02/10/19 at 11:45; Stop 02/10/19 at 12:14 ; Status DC Rocuronium [place] (Zemuron) 50 mg STK-MED ONCE .ROUTE ; Start 02/10/19 at 12:06 ; Stop 02/10/19 at 12:07; Status DC Propofol 0 ml @ As Directed STK-MED ONCE IV ; Start 02/10/19 at 12:49; Stop at 12:50; Status DC Nicardipine HCl 50 mg/Sodium Chloride 250 ml @ 25 mls/hr CONT PRN IV SEE I/O RECORD; Start 02/10/19 at 13:15; Stop 02/10/19 at 14:56; Status DC Heparin Sodium (Porcine) (Heparin Sodium) 10,000 unit STK-MED ONCE .ROUTE ; Start 02/10/19 at 13:21; Stop 02/10/19 at 13:22; Status DC Lidocaine HCl (Lidocaine Pf 2% Vial) 5 ml STK-MED ONCE .ROUTE ; Start 02/10/19 at 13:21; Stop 02/10/19 at 13:22; Status DC Magnesium Sulfate 5 gm STK-MED ONCE .ROUTE ; Start 02/10/19 at 13:21; Stop 02/10 at 13:22; Status DC Albumin Human 200 ml @ As Directed STK-MED ONCE IV ; Start 02/10/19 at 13:21; Stop 02/10/19 at 13:22; Status DC Calcium Chloride (Calcium Chloride) 1,000 mg STK-MED ONCE .ROUTE ; Start at 13:21; Stop 02/10/19 at 13:22; Status DC Sodium Bicarbonate (Sodium Bicarb Adult 8.4% Syr) 50 meq STK-MED ONCE .ROUTE ; Start 02/10/19 at 13:23; Stop 02/10/19 at 13:24; Status DC Sodium Chloride (Normal Saline Flush) 3 ml PRN Q12HR PRN IV AFTER MEDS AND BLOOD DRAWS; Start 02/10/19 at 14:15 Ringer's Solution 1,000 ml @ 30 mls/hr Q24H IV Last administered on 02/11/19at 13:49; Start 02/10/19 at 14:06 Albumin Human 250 ml @ 500 mls/hr PRN Q4HRS PRN IV SEE COMMENTS Last administered on 02/10/19at 18:04; Start 02/10/19 at 14:15 Insulin Human Regular 150 unit/ Sodium Chloride 151.5 ml @ 0 mls/hr CONT PRN PRN IV PER PROTOCOL Last administered on 02/12/19at 05:08; Start 02/10/19 at 14: 15 Dextrose (Dextrose 50%-Water Syringe) 25 gm PRN Q15MIN PRN IV LOW BLOOD SUGAR; Start 02/10/19 at 14:15 Nitroglycerin/ Dextrose 250 ml @ 0 mls/hr CONT PRN PRN IV POST CV SURGERY; Start 02/10/19 at 14:15; Stop 02/10/19 at 14:59; Status DC Epinephrine HCl 4 mg/Sodium Chloride 254 ml @ 0 mls/hr CONT PRN PRN IV POST CV SURGERY; Start 02/10/19 at 14:15 Amiodarone HCl 150 mg/Dextrose 103 ml @ 600 mls/hr 1X ONCE IV Last administered on 02/10/19 22:41; Start 02/10/19 at 14:15; Stop 02/10/19 at 14:26 ; Status DC Amiodarone HCl 150 mg/Dextrose 103 ml @ 200 mls/hr 1X PRN PRN IV FOR AFIB; Start 02/10/19 at 14:15 Amiodarone HCl 900 mg/Dextrose 518 ml @ 0 mls/hr CONT PRN PRN IV AFIB Last administered on 02/10/19at 22:43; Start 02/10/19 at 14:15 Info (KCl Per Protocol) 1 ea CONT PRN PRN MC SEE COMMENTS; Start 02/10/19 at 14 :15 Magnesium Sulfate/ Dextrose 100 ml @ 100 mls/hr PRN DAILY PRN IV FOR MAG < 2.2 ; Start 02/10/19 at 14:15 Famotidine (Pepcid Vial) 20 mg BID IVP Last administered on 02/10/19at 20:36; Start 02/10/19 at 21:00; Stop 02/11/19 at 06:31; Status DC Ondansetron HCl (Zofran) 4 mg PRN Q4HRS PRN IV NAUSEA/VOMITING, 1st CHOICE Last administered on 02/12/19 02:45; Start 02/10/19 at 14:15 Prochlorperazine Edisylate (Compazine) 10 mg PRN Q6HRS PRN IV NAUSEA/VOMITING, 2nd CHOICE; Start 02/10/19 at 14:15 Metoclopramide HCl (Reglan Vial) 10 mg PRN Q6HRS PRN IV NAUSEA/VOMITING, 3rd CHOICE; Start 02/10/19 at 14:15 Morphine Sulfate (Morphine Sulfate) 2 mg PRN Q1HR PRN IV PAIN Last administered on 02/11/19at 18:39; Start 02/10/19 at 14:15 Morphine Sulfate (Morphine Sulfate) 4 mg PRN Q1HR PRN IV PAIN Last administered on 02/10/19 18:20; Start 02/10/19 at 14:15 Acetaminophen (Tylenol) 650 mg PRN Q4HRS PRN PO TEMP > 101'F or MILD PAIN Last administered on 02/11/19at 10:19; Start 02/10/19 at 14:15 Acetaminophen (Tylenol Supp) 650 mg PRN Q4HRS PRN ID TEMP > 101'F or MILD PAIN ; Start 02/10/19 at 14:15 Meperidine HCl (Demerol) 12.5 mg PRN Q15MIN PRN IV SHIVERING Last administered on 02/10/19 15:41; Start 02/10/19 at 14:15; Stop 02/11/19 at 14:06; Status DC Propofol 100 ml @ 0 mls/hr CONT PRN PRN IV POSTOP SEDATION UNTIL EXTUBATE Last administered on 02/10/19at 16:58; Start 02/10/19 at 14:15 Senna/Docusate Sodium (Senna Plus) 1 tab BID PO Last administered on 02/12/19 09:00; Start 02/10/19 at 21:00 Bisacodyl (Dulcolax Supp) 10 mg PRN DAILY PRN ID NO BOWEL MOVEMENT; Start 02/10 at 14:15 Chlorhexidine Gluconate (Peridex) 15 ml BID MM ; Start 02/11/19 at 09:00; Stop 02/11/19 at 11:15; Status DC Aspirin (Ecotrin) 325 mg [id number] PO Last administered on 02/12/19at 08:00; Start 02/11/19 at 08:00 Aspirin (Aspirin) 300 mg PRN DAILY PRN ID IF UNABLE TO TAKE PO; Start 02/11/19 at 08:00 Albuterol Sulfate (Ventolin Neb Soln) 2.5 mg PRN Q4HRS PRN NEB SHORTNESS OF BREATH; Start 02/10/19 at 14:15 Metoprolol Tartrate (Lopressor) 25 mg BID PO Last administered on 02/12/19at 09: 00; Start 02/11/19 at 09:00 Nicardipine HCl 50 mg/Sodium Chloride 250 ml @ 0 mls/hr CONT PRN PRN IV PER PROTOCOL; Start 02/10/19 at 14:15 Oxycodone HCl (Roxicodone) 5 mg PRN Q4HRS PRN PO MODERATE PAIN Last administered on 02/12/19at 03:15; Start 02/10/19 at 14:15 Oxycodone HCl (Roxicodone) 10 mg PRN Q4HRS PRN PO SEVERE PAIN Last administered on 02/12/19at 10:04; Start 02/10/19 at 14:15 Cefazolin Sodium/ Dextrose 50 ml @ 100 mls/hr Q8H IV ; Start 02/10/19 at 18:00 ; Stop 02/10/19 at 19:17; Status DC Isoflurane (Isoflurane) 90 ml STK-MED ONCE IH ; Start 02/10/19 at 14:46; Stop at 14:47; Status DC Sodium Bicarbonate (Sodium Bicarb Adult 8.4% Syr) 50 meq STK-MED ONCE .ROUTE ; Start 02/10/19 at 15:29; Stop 02/10/19 at 15:30; Status DC Sodium Bicarbonate (Sodium Bicarb Adult 8.4% Syr) 50 meq 1X ONCE IV Last administered on 02/10/19at 15:50; Start 02/10/19 at 15:45; Stop 02/10/19 at 15:46 ; Status DC Potassium Chloride/Water 50 ml @ 50 mls/hr PRN Q1HR PRN IV FOR K 3.1-3.5; Start 02/10/19 at 15:45 Potassium Chloride/Water 50 ml @ 50 mls/hr PRN Q1HR PRN IV FOR K 2.6-3.0 MEQ/L ; Start 02/10/19 at 15:45 Potassium Chloride/Water 50 ml @ 50 mls/hr PRN Q1HR PRN IV FOR K <2.6 MEQ/L; Start 02/10/19 at 16:00 Magnesium Sulfate/ Dextrose 100 ml @ 50 mls/hr PRN DAILY PRN IV SEE COMMENTS; Start 02/11/19 at 09:00 Potassium Chloride/Water 50 ml @ 50 mls/hr Q1H IV Last administered on at 16:52; Start 02/10/19 at 17:00; Stop 02/10/19 at 18:59; Status DC Sodium Bicarbonate (Sodium Bicarb Adult 8.4% Syr) 50 meq 1X ONCE IV Last administered on 02/10/19at 18:05; Start 02/10/19 at 18:15; Stop 02/10/19 at 18:16 ; Status DC Cefazolin Sodium/ Dextrose 50 ml @ 100 mls/hr Q8H IV Last administered on 02/12at 04:23; Start 02/10/19 at 20:30; Stop 02/12/19 at 04:59; Status DC Norepinephrine Bitartrate 250 ml @ 1.875 mls/ hr CONT PRN IV SEE I/O RECORD Last administered on 02/11/19at 00:23; Start 02/10/19 at 22:45 Pantoprazole Sodium (Protonix) 40 mg DAILYAC PO Last administered on 02/12/19at 07:30; Start 02/11/19 at 07:30 Ipratropium [place] (Atrovent) 0.5 mg RTQID NEB Last administered on 02/12/19at 11:16; Start 02/11/19 at 08:00 Potassium Chloride/Water 50 ml @ 50 mls/hr 1X ONCE IV Last administered on at 10:58; Start 02/11/19 at 11:00; Stop 02/11/19 at 11:59; Status DC Magnesium Sulfate 50 ml @ 25 mls/hr 1X ONCE IV Last administered on 02/11/19at 12:21; Start 02/11/19 at 11:00; Stop 02/11/19 at 12:59; Status DC Atorvastatin Calcium (Lipitor) 40 mg QHS PO Last administered on 02/11/19at 20: 58; Start 02/11/19 at 21:00 Amiodarone HCl (Cordarone) 200 mg BID PO Last administered on 02/12/19at 09:00; Start 02/11/19 at 16:00 Potassium Chloride/Water 50 ml @ 50 mls/hr 1X ONCE IV Last administered on at 08:30; Start 02/12/19 at 08:30; Stop 02/12/19 at 09:29; Status DC Insulin Glargine (Lantus) 50 units QHS SQ ; Start 02/12/19 at 21:00; Status UNV Insulin Glargine (Lantus) 50 units 1X ONCE SQ ; Start 02/12/19 at 12:30; Stop 02/12/19 at 12:31; Status UNV Insulin Human Lispro (HumaLOG) 10 units 1X ONCE SQ ; Start 02/12/19 at 12:30; Stop 02/12/19 at 12:31; Status UNV Active Scripts Active Reported No Known Medications Prior To Admisstion (Info) Each 1 Each MC DAILY Vitals/I & O Vital Sign - Last 24 Hours 4/20/19 4/20/19 4/20/19 4/20/19 13:00 13:00 14:00 14:00 Temp 99.8 99.6 99.8 99.6 Pulse 87 87 91 92 Resp 15 17 B/P (MAP) 126/51 (76) 124/54 (77) 102/61 (75) Pulse Ox 96 95 O2 Delivery Nasal Cannula Nasal Cannula O2 Flow Rate 2.0 2.0 02/11/19 02/11/19 02/11/19 02/11/19 14:35 15:00 15:00 15:05 Temp 99.8 99.8 Pulse 90 91 Resp 16 11 18 B/P (MAP) 134/54 (80) 104/61 (75) Pulse Ox 94 95 95 O2 Delivery Nasal Cannula Nasal Cannula Nasal Cannula O2 Flow Rate 2.0 2.0 2.0 02/11/19 02/11/19 02/11/19 02/11/19 15:34 16:00 16:00 16:06 Pulse 93 Resp 12 B/P (MAP) 108/62 (77) 137/53 Pulse Ox 95 96 O2 Delivery Nasal Cannula Nasal Cannula Nasal Cannula O2 Flow Rate 2.0 2.0 2.0 02/11/19 02/11/19 02/11/19 02/11/19 16:07 17:00 18:00 18:39 Pulse 94 Resp 16 15 16 30 B/P (MAP) 129/53 (78) 115/62 (79) Pulse Ox 95 97 97 92 O2 Delivery Nasal Cannula Nasal Cannula Nasal Cannula Nasal Cannula O2 Flow Rate 2.0 2.0 2.0 1.0 02/11/19 02/11/19 02/11/19 02/11/19 19:00 19:00 19:30 20:00 Temp 98.6 98.6 Pulse 92 94 91 Resp 16 14 16 B/P (MAP) 104/61 (75) 107/67 (80) 107/67 (80) Pulse Ox 95 97 97 O2 Delivery Nasal Cannula Nasal Cannula Nasal Cannula Nasal Cannula O2 Flow Rate 2.0 2.0 2.0 2.0 02/11/19 02/11/19 02/11/19 02/11/19 20:51 20:57 21:00 22:00 Pulse 93 93 93 Resp 12 14 B/P (MAP) 112/66 104/65 (78) 117/62 (80) Pulse Ox 95 96 93 O2 Delivery Nasal Cannula Nasal Cannula Nasal Cannula O2 Flow Rate 2.0 2.0 2.0 02/11/19 02/12/19 02/12/19 02/12/19 23:00 00:00 00:15 01:00 Temp 98.5 98.5 Pulse 98 101 101 Resp 12 12 11 B/P (MAP) 93/59 (70) 118/66 (83) 119/66 (83) Pulse Ox 93 91 96 O2 Delivery Room Air Room Air Nasal Cannula Nasal Cannula O2 Flow Rate 2.0 2.0 02/12/19 02/12/19 02/12/19 02/12/19 02:00 03:00 03:15 03:56 Pulse 106 98 Resp 14 12 14 B/P (MAP) 115/64 (81) 123/71 (88) Pulse Ox 96 97 O2 Delivery Nasal Cannula Nasal Cannula Nasal Cannula Nasal Cannula O2 Flow Rate 2.0 2.0 2.0 2.0 02/12/19 02/12/19 02/12/19 02/12/19 04:00 04:15 05:00 07:00 Temp 98.9 98.9 Pulse 102 102 102 Resp 13 12 16 B/P (MAP) 117/65 (82) 113/66 (82) 123/63 (83) Pulse Ox 94 94 95 O2 Delivery Nasal Cannula Nasal Cannula Nasal Cannula Nasal Cannula O2 Flow Rate 2.0 2.0 2.0 2.0 02/12/19 02/12/19 02/12/19 02/12/19 07:00 08:00 08:00 09:00 Temp 98.7 98.7 Pulse 100 102 Resp 17 B/P (MAP) 125/75 (92) 129/65 Pulse Ox 97 96 O2 Delivery Nasal Cannula Nasal Cannula Nasal Cannula O2 Flow Rate 2.0 2.0 2.0 02/12/19 02/12/19 02/12/19 02/12/19 09:00 09:00 10:00 10:04 Pulse 102 104 102 Resp 14 11 11 B/P (MAP) 129/65 134/69 (90) 129/65 (86) Pulse Ox 95 96 96 O2 Delivery Nasal Cannula Nasal Cannula Nasal Cannula O2 Flow Rate 2.0 2.0 2.0 02/12/19 02/12/19 02/12/19 02/12/19 11:00 11:04 11:18 12:00 Pulse 103 Resp 15 16 B/P (MAP) 119/65 (83) Pulse Ox 94 94 94 O2 Delivery Nasal Cannula Nasal Cannula Nasal Cannula Nasal Cannula O2 Flow Rate 2.0 2.0 2.0 2.0 02/12/19 12:00 Pulse 104 Resp 15 B/P (MAP) 111/74 (86) Pulse Ox 95 O2 Delivery Nasal Cannula O2 Flow Rate 2.0 Intake and Output 02/11/19 02/11/19 02/12/19 15:00 23:00 07:00 Intake Total 1200 ml 200 ml 2267 ml Output Total 568 ml 710 ml 295 ml Balance 632 ml -510 ml 1972 ml SHAWN MACDONALD MD Feb 12, 2019 12:32
[2019-02-12] MEDS: ACETAMINOPHEN 325 MG TABLET. PO PRN (12:50)
[2019-02-12] MEDS: IV RINGERS,LACTATED 1000ML 1,000 ML IV SCH (12:52)
--- NOTE | 2019-02-12 12:55 | PDOC ---
Progress Note Subjective Subjective Doing very well. Normotensive, mild sinus tachycardia 100-110. On 2 lit NC. UO 50-70mls/hr. Pleural tube dumped this morning, output now minimal. Hb 10.6, creat 1.1. CXR with expected postop changes, increased gas in GI tract. Glucose 160-170 on 6 units/hr insulin drip. ROS ROS No nausea No vomiting No pain No rash Vital Sign Vital Signs Vital Signs Date Time Temp Pulse Resp B/P (MAP) Pulse Ox O2 Delivery O2 Flow Rate FiO2 02/12/19 12:00 104 15 111/74 (86) 95 Nasal Cannula 2.0 02/12/19 08:00 98.7 98.7 Physical Exam PHYSICAL EXAM GENERAL: NAD, Alert HEENT: PERRL, OC/OP NECK: Supple, no JVD, no LN LUNGS: Clear HEART: S1S2, no gallop, no murmur ABD: Soft, NT, no organomegaly, no rebound EXT: No edema, no cyanosis LENS DOTTER: Alert, 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, no focal neurologic deficit SKIN: No rash IV: ok Labs Lab Laboratory Tests Test 02/11/19 13:51 02/11/19 15:08 02/11/19 18:45 02/11/19 19:58 Glucose (Fingerstick) 148 mg/dL (70-99) 143 mg/dL (70-99) 156 mg/dL (70-99) 127 mg/dL (70-99) Test 02/11/19 21:01 02/11/19 22:08 02/11/19 23:09 02/12/19 00:12 Glucose (Fingerstick) 123 mg/dL (70-99) 142 mg/dL (70-99) 147 mg/dL (70-99) 125 mg/dL (70-99) Test 02/12/19 01:17 02/12/19 02:46 02/12/19 03:53 02/12/19 05:04 Glucose (Fingerstick) 144 mg/dL (70-99) 150 mg/dL (70-99) 150 mg/dL (70-99) 167 mg/dL (70-99) Test 02/12/19 05:10 02/12/19 06:44 02/12/19 07:41 02/12/19 10:16 White Blood Count 17.4 x10^3/uL (4.0-11.0) Red Blood Count 3.45 x10^6/uL (4.30-5.70) Hemoglobin 10.6 g/dL (13.0-17.5) Hematocrit 30.5 % (39.0-53.0) Mean Corpuscular Volume 88 fL (79-100) Mean Corpuscular Hemoglobin 31 pg (25-35) Mean Corpuscular Hemoglobin Concent 35 g/dL (31-37) Red Cell Distribution Width 14.4 % (11.5-14.5) Platelet Count 82 x10^3/uL (140-400) Sodium Level 138 mmol/L (136-145) Potassium Level 4.1 mmol/L (3.5-5.1) Chloride Level 102 mmol/L (98-107) Carbon Dioxide Level 27 mmol/L (21-32) Anion Gap 9 (6-14) Blood Urea Nitrogen 31 mg/dL (8-26) Creatinine 1.1 mg/dL (0.7-1.3) Estimated GFR (Cockcroft-Gault) 67.6 Glucose Level 177 mg/dL (70-99) Calcium Level 9.3 mg/dL (8.5-10.1) Magnesium Level 2.4 mg/dL (1.8-2.4) Glucose (Fingerstick) 162 mg/dL (70-99) 151 mg/dL (70-99) 161 mg/dL (70-99) Test 02/12/19 11:34 Glucose (Fingerstick) 145 mg/dL (70-99) Objective Assessment POD#2, s/p emergent CABG x 3 (AL to LAD, SVG to OM, SVG to RPDA) Doing very well. Normotensive, mild sinus tachycardia 100-110. On 2 lit NC. UO 50-70mls/hr. Pleural tube dumped this morning, output now minimal. Hb 10.6, creat 1.1. CXR with expected postop changes, increased gas in GI tract. Glucose 160-170 on 6 units/hr insulin drip. Plan Plan of Care D/c pleural tube D/c lozano D/c cordis Amiodarone 200mg po BID Metoprolol 25mg BID ASA, statin. Start Lantus 50U daily with high dose sliding scale. Keep in ICU for one more day ARNULFO MORROW MD Feb 12, 2019 12:55
[2019-02-12] MEDS ORDERED: METOPROLOL TART IMMED RELEASE 25 MG TABLET. PO ONE (13:00)
[2019-02-12] MEDS ORDERED: INSULIN LISPRO 300 UNITS/3 ML INSULN.PEN. SQ ONE (13:00)
[2019-02-12] MEDS ORDERED: INSULIN GLARGINE 300 UNITS/3 ML INSULN.PEN. SQ ONE (13:00)
--- NOTE | 2019-02-12 18:14 | NUR ---
Pleural chest tube removed, Cordis removed, lozano catheter removed. Patient tolerated well. TPM wires capped, secured to chest. Patient walked entire lap of unit on room air. 2L NC applied when patient fell asleep in chair. VS stable. Patient currently sleeping in chair.
[2019-02-12] MEDS: ATORVASTATIN CALCIUM 40 MG TABLET. PO SCH (21:00)
[2019-02-12] MEDS: INSULIN GLARGINE 300 UNITS/3 ML INSULN.PEN. SQ SCH (21:17)
[2019-02-13] VITALS (16 sets, daily range): BP systolic 110–153; BP diastolic 59–80
[2019-02-13 06:51] LABS: HEMATOCRIT 31.3 % (39.0-53.0); HEMOGLOBIN 10.7 g/dL (13.0-17.5); RED BLOOD COUNT 3.53 x10^6/uL (4.30-5.70); WHITE BLOOD COUNT 16.4 x10^3/uL (4.0-11.0)
[2019-02-13 06:53] LABS: CALCIUM 9.5 mg/dL (8.5-10.1); CREATININE 1.1 mg/dL (0.7-1.3); GFR 67.6; MAGNESIUM 2.3 mg/dL (1.8-2.4)
[2019-02-13] MEDS: PANTOPRAZOLE 40 MG TABLET.DR. PO SCH (08:31)
[2019-02-13] MEDS: METOPROLOL TART IMMED RELEASE 25 MG TABLET. PO SCH (08:31)
[2019-02-13] MEDS: SENNOSIDES/DOCUSATE 8.6/50MG TABLET. PO SCH ×2 (08:31→20:52)
[2019-02-13] MEDS: AMIODARONE HCL 200 MG TABLET. PO SCH ×2 (08:31→20:53)
[2019-02-13] MEDS: ACETAMINOPHEN 325 MG TABLET. PO PRN ×2 (08:31→13:14)
[2019-02-13] MEDS: ASPIRIN ENTERIC COATED 325 MG TABLET.DR. PO SCH (08:31)
--- NOTE | 2019-02-13 08:32 | PDOC ---
PULMONARY PROGRESS NOTES Subjective Pt. is up in chair this am, on room air. Pt. denies SOB, cough or chesty pain. reports abdominal fullness. Vitals Vital Signs Date Time Temp Pulse Resp B/P (MAP) Pulse Ox O2 Delivery O2 Flow Rate FiO2 02/13/19 07:00 98.2 100 19 140/76 (97) 96 Nasal Cannula 2.0 98.2 Comments 12 point ROS was reviewed with pt. is negative except for positives in HPI. ROS: No Nausea, No Chest Pain, No Abdominal Pain General: Alert, Oriented X4, No acute distress Lungs: Clear, Crackles, Other (diminished in LLL) Cardiovascular: S1, S2 Abdomen: Soft, Non-tender, Other Neuro Exam: Alert, Oriented, Normal Speech Extremities: Other (trace edema BLE) Skin: Warm Labs Laboratory Tests Test 02/12/19 10:16 02/12/19 11:34 02/12/19 12:48 02/12/19 17:32 Glucose (Fingerstick) 161 mg/dL 145 mg/dL 142 mg/dL 206 mg/dL Test 02/12/19 21:04 02/13/19 06:15 02/13/19 08:24 Glucose (Fingerstick) 171 mg/dL 234 mg/dL White Blood Count 16.4 x10^3/uL Red Blood Count 3.53 x10^6/uL Hemoglobin 10.7 g/dL Hematocrit 31.3 % Mean Corpuscular Volume 89 fL Mean Corpuscular Hemoglobin 30 pg Mean Corpuscular Hemoglobin Concent 34 g/dL Red Cell Distribution Width 14.0 % Platelet Count 110 x10^3/uL Sodium Level 134 mmol/L Potassium Level 5.0 mmol/L Chloride Level 100 mmol/L Carbon Dioxide Level 27 mmol/L Anion Gap 7 Blood Urea Nitrogen 36 mg/dL Creatinine 1.1 mg/dL Estimated GFR (Cockcroft-Gault) 67.6 Glucose Level 273 mg/dL Calcium Level 9.5 mg/dL Magnesium Level 2.3 mg/dL Current Medications Medications (Trade) Dose Ordered Sig/Rosa Elena Route PRN Reason Start Time Stop Time Status Last Admin Dose Admin Fentanyl Citrate (Fentanyl 2ml Vial) 100 mcg STK-MED ONCE .ROUTE 02/10/19 05:36 02/10/19 05:37 DC Midazolam HCl (Versed) 2 mg STK-MED ONCE .ROUTE 02/10/19 05:36 02/10/19 05:37 DC Fentanyl Citrate (Fentanyl 2ml Vial) 50 mcg 1X ONCE IV 02/10/19 05:45 02/10/19 05:49 DC 02/10/19 05:43 Insulin Human Lispro (HumaLOG) 0-5 UNITS TIDWMEALS SQ 02/10/19 08:00 02/12/19 12:32 DC 02/12/19 11:36 Dextrose (Dextrose 50%-Water Syringe) 12.5 gm PRN Q15MIN PRN IV SEE COMMENTS 02/10/19 05:45 02/10/19 14:59 DC Iodixanol (Visipaque 320) 100 ml STK-MED ONCE .ROUTE 02/10/19 06:09 02/10/19 06:10 DC Heparin Sodium (Porcine) (Heparin Sodium) 10,000 unit STK-MED ONCE .ROUTE 02/10/19 06:10 02/10/19 06:11 DC Nitroglycerin/ Dextrose 250 ml @ As Directed STK-MED ONCE IV 02/10/19 06:26 02/10/19 06:27 DC Vancomycin HCl (VANCO for OR ONLY) 10 gm STK-MED ONCE .ROUTE 02/10/19 05:43 02/10/19 06:44 DC 02/10/19 09:45 Cellulose (Surgicel Hemostat 4x8) 1 each STK-MED ONCE .ROUTE 02/10/19 05:43 02/10/19 06:44 DC 02/10/19 09:48 Papaverine HCl 60 mg STK-MED ONCE .ROUTE 02/10/19 05:44 02/10/19 06:44 DC 02/10/19 09:48 Aspirin (Aspirin) 300 mg STK-MED ONCE .ROUTE 02/10/19 05:44 02/10/19 06:44 DC 02/10/19 09:48 Sodium Chloride (SODIUM CHLORIDE 20ml) 20 ml STK-MED ONCE IJ 02/10/19 05:44 02/10/19 06:44 DC 02/10/19 09:44 Sodium Chloride (SODIUM CHLORIDE 20ml) 20 ml STK-MED ONCE IJ 02/10/19 05:44 02/10/19 06:44 DC 02/10/19 09:45 Potassium Chloride 70 meq/ Sodium Bicarbonate 12.5 meq/Lidocaine HCl 24 ml/Parenteral Electrolytes 571.5 ml @ 571.5 mls/ hr 1X ONCE IRR 02/10/19 07:30 02/10/19 08:29 DC Sodium Chloride (SODIUM CHLORIDE 20ml) 20 ml STK-MED ONCE IJ 02/10/19 05:44 02/10/19 06:45 DC 02/10/19 09:45 Rocuronium [place] (Zemuron) 100 mg STK-MED ONCE .ROUTE 02/10/19 06:44 02/10/19 06:45 DC Sufentanil Citrate (Sufenta) 250 mcg STK-MED ONCE .ROUTE 02/10/19 06:45 02/10/19 06:46 DC Potassium Chloride 15 meq/ Sodium Bicarbonate 12.5 meq/Parenteral Electrolytes 520 ml @ 520 mls/hr 1X ONCE IRR 02/10/19 07:30 02/10/19 08:29 DC Midazolam HCl (Versed) 5 mg STK-MED ONCE .ROUTE 02/10/19 06:45 02/10/19 06:46 DC Lidocaine HCl (Lidocaine Pf 2% Vial) 5 ml STK-MED ONCE .ROUTE 02/10/19 06:46 02/10/19 06:47 DC Etomidate (Amidate) 20 mg STK-MED ONCE IV 02/10/19 06:46 02/10/19 06:47 DC Aminocaproic Acid (Amicar) 5,000 mg STK-MED ONCE IV 02/10/19 06:46 02/10/19 06:47 DC Aminocaproic Acid (Amicar) 5,000 mg STK-MED ONCE IV 02/10/19 06:46 02/10/19 06:47 DC Aminocaproic Acid (Amicar) 5,000 mg STK-MED ONCE IV 02/10/19 06:46 02/10/19 06:47 DC Heparin Sodium/ Sodium Chloride (HEPARIN for ARTERIAL LINE FLUSH) 1,000 unit 1X ONCE IART 02/10/19 06:45 02/10/19 06:56 DC 02/10/19 06:56 Midazolam HCl (Versed) 2 mg 1X ONCE IV 02/10/19 06:45 02/10/19 06:56 DC 02/10/19 06:57 Fentanyl Citrate (Fentanyl 2ml Vial) 100 mcg 1X ONCE IV 02/10/19 06:45 02/10/19 06:56 DC 02/10/19 06:56 Iodixanol (Visipaque 320) 139 ml 1X ONCE IART 02/10/19 06:45 02/10/19 06:56 DC 02/10/19 06:56 Lidocaine HCl (Lidocaine 1% 20ml Vial) 20 ml 1X ONCE INJ 02/10/19 06:45 02/10/19 06:56 DC 02/10/19 06:56 Heparin Sodium (Porcine) (Heparin 5,000 Units/1,000ml NS) 5,000 unit 1X ONCE IV 02/10/19 06:45 02/10/19 06:56 DC 02/10/19 06:45 Heparin Sodium (Porcine) 65220 unit/Ringer's Solution 1,020 ml @ 1,020 mls/hr 1X ONCE IRR 02/10/19 07:30 02/10/19 08:29 DC 02/10/19 09:54 Heparin Sodium (Porcine) 800 unit/ Nitroglycerin 4 mg/Verapamil HCl 8 mg/Sodium Bicarbonate 0.34 meq/Ringer's Solution 512.34 ml @ 512.34 mls/hr 1X ONCE IRR 02/10/19 07:30 02/10/19 08:29 DC Cefazolin Sodium 1 gm/Sodium Chloride 500 ml @ 500 mls/hr 1X ONCE IRR 02/10/19 07:30 02/10/19 08:29 DC Heparin Sodium (Porcine) 30,000 unit STK-MED ONCE .ROUTE 02/10/19 06:50 02/10/19 06:51 DC Nitroglycerin/ Dextrose 250 ml @ 1.5 mls/hr CONT PRN IV SEE I/O RECORD 02/10/19 07:00 02/10/19 06:36 Ephedrine Sulfate (ePHEDrine PF IN SALINE SYRINGE) 50 mg STK-MED ONCE IV 02/10/19 06:53 02/10/19 06:54 DC Phenylephrine HCl (Sp-Synephrine Inj) 10 mg STK-MED ONCE .ROUTE 02/10/19 06:59 02/10/19 07:00 DC Epinephrine HCl (EPINEPHrine SYRINGE) 1 mg STK-MED ONCE .ROUTE 02/10/19 07:20 02/10/19 07:21 DC Ephedrine Sulfate (ePHEDrine PF IN SALINE SYRINGE) 50 mg STK-MED ONCE IV 02/10/19 07:22 02/10/19 07:23 DC Phenylephrine HCl (PHENYLEPHRINE in 0.9% NACL PF) 1 mg STK-MED ONCE IV 02/10/19 07:22 02/10/19 07:23 DC Heparin Sodium (Porcine) (Heparin Sodium) 10,000 unit STK-MED ONCE .ROUTE 02/10/19 08:02 02/10/19 08:03 DC Cefazolin Sodium 3 gm/Dextrose 100 ml @ 200 mls/hr 1X PREOP PRN IV PRIOR TO PROCEDURE 02/10/19 08:29 02/11/19 08:28 DC 02/10/19 08:45 Mannitol 500 ml @ 0 mls/hr 1X ONCE IV 02/10/19 09:00 02/10/19 09:01 DC Rocuronium [place] (Zemuron) 100 mg STK-MED ONCE .ROUTE 02/10/19 08:51 02/10/19 08:52 DC Insulin Human Regular 150 unit/ Sodium Chloride 151.5 ml @ 0 mls/hr CONT PRN IV SEE I/O RECORD 02/10/19 09:15 02/10/19 14:57 DC 02/10/19 09:50 Norepinephrine Bitartrate 250 ml @ 1.875 mls/ hr 1X ONCE IV 02/10/19 11:15 02/16/19 00:34 02/10/19 16:56 Midazolam HCl (Versed) 2 mg STK-MED ONCE .ROUTE 02/10/19 11:13 02/10/19 11:14 DC Epinephrine HCl 4 mg/Sodium Chloride 254 ml @ 3.81 mls/hr CONT PRN IV SEE I/O RECORD 02/10/19 11:30 02/10/19 14:57 DC Protamine Sulfate (Protamine) 50 mg STK-MED ONCE IV 02/10/19 11:33 02/10/19 11:34 DC Protamine Sulfate (Protamine) 250 mg STK-MED ONCE IV 02/10/19 11:33 02/10/19 11:34 DC Protamine Sulfate (Protamine) 250 mg STK-MED ONCE IV 02/10/19 11:33 02/10/19 11:34 DC Midazolam HCl (Versed) 2 mg STK-MED ONCE .ROUTE 02/10/19 11:35 02/10/19 11:36 DC Cefazolin Sodium 3 gm/Dextrose 100 ml @ 200 mls/hr 1X ONCE IV 02/10/19 11:45 02/10/19 12:14 DC 02/10/19 12:40 Rocuronium [place] (Zemuron) 50 mg STK-MED ONCE .ROUTE 02/10/19 12:06 02/10/19 12:07 DC Propofol 0 ml @ As Directed STK-MED ONCE IV 02/10/19 12:49 02/10/19 12:50 DC Nicardipine HCl 50 mg/Sodium Chloride 250 ml @ 25 mls/hr CONT PRN IV SEE I/O RECORD 02/10/19 13:15 02/10/19 14:56 DC Heparin Sodium (Porcine) (Heparin Sodium) 10,000 unit STK-MED ONCE .ROUTE 02/10/19 13:21 02/10/19 13:22 DC Lidocaine HCl (Lidocaine Pf 2% Vial) 5 ml STK-MED ONCE .ROUTE 02/10/19 13:21 02/10/19 13:22 DC Magnesium Sulfate 5 gm STK-MED ONCE .ROUTE 02/10/19 13:21 02/10/19 13:22 DC Albumin Human 200 ml @ As Directed STK-MED ONCE IV 02/10/19 13:21 02/10/19 13:22 DC Calcium Chloride (Calcium Chloride) 1,000 mg STK-MED ONCE .ROUTE 02/10/19 13:21 02/10/19 13:22 DC Sodium Bicarbonate (Sodium Bicarb Adult 8.4% Syr) 50 meq STK-MED ONCE .ROUTE 02/10/19 13:23 02/10/19 13:24 DC Sodium Chloride (Normal Saline Flush) 3 ml PRN Q12HR PRN IV AFTER MEDS AND BLOOD DRAWS 02/10/19 14:15 Ringer's Solution 1,000 ml @ 30 mls/hr Q24H IV 02/10/19 14:06 02/12/19 12:52 Albumin Human 250 ml @ 500 mls/hr PRN Q4HRS PRN IV SEE COMMENTS 02/10/19 14:15 02/10/19 18:04 Insulin Human Regular 150 unit/ Sodium Chloride 151.5 ml @ 0 mls/hr CONT PRN PRN IV PER PROTOCOL 02/10/19 14:15 02/12/19 05:08 Dextrose (Dextrose 50%-Water Syringe) 25 gm PRN Q15MIN PRN IV LOW BLOOD SUGAR 02/10/19 14:15 Nitroglycerin/ Dextrose 250 ml @ 0 mls/hr CONT PRN PRN IV POST CV SURGERY 02/10/19 14:15 02/10/19 14:59 DC Epinephrine HCl 4 mg/Sodium Chloride 254 ml @ 0 mls/hr CONT PRN PRN IV POST CV SURGERY 02/10/19 14:15 Amiodarone HCl 150 mg/Dextrose 103 ml @ 600 mls/hr 1X ONCE IV 02/10/19 14:15 02/10/19 14:26 DC 02/10/19 22:41 Amiodarone HCl 150 mg/Dextrose 103 ml @ 200 mls/hr 1X PRN PRN IV FOR AFIB 02/10/19 14:15 Amiodarone HCl 900 mg/Dextrose 518 ml @ 0 mls/hr CONT PRN PRN IV AFIB 02/10/19 14:15 02/10/19 22:43 Info (KCl Per Protocol) 1 ea CONT PRN PRN MC SEE COMMENTS 02/10/19 14:15 Magnesium Sulfate/ Dextrose 100 ml @ 100 mls/hr PRN DAILY PRN IV FOR MAG < 2.2 02/10/19 14:15 Famotidine (Pepcid Vial) 20 mg BID IVP 02/10/19 21:00 02/11/19 06:31 DC 02/10/19 20:36 Ondansetron HCl (Zofran) 4 mg PRN Q4HRS PRN IV NAUSEA/VOMITING, 1st CHOICE 02/10/19 14:15 02/12/19 02:45 Prochlorperazine Edisylate (Compazine) 10 mg PRN Q6HRS PRN IV NAUSEA/VOMITING, 2nd CHOICE 02/10/19 14:15 Metoclopramide HCl (Reglan Vial) 10 mg PRN Q6HRS PRN IV NAUSEA/VOMITING, 3rd CHOICE 02/10/19 14:15 Morphine Sulfate (Morphine Sulfate) 2 mg PRN Q1HR PRN IV PAIN 02/10/19 14:15 02/11/19 18:39 Morphine Sulfate (Morphine Sulfate) 4 mg PRN Q1HR PRN IV PAIN 02/10/19 14:15 02/10/19 18:20 Acetaminophen (Tylenol) 650 mg PRN Q4HRS PRN PO TEMP > 101'F or MILD PAIN 02/10/19 14:15 02/12/19 12:50 Acetaminophen (Tylenol Supp) 650 mg PRN Q4HRS PRN NE TEMP > 101'F or MILD PAIN 02/10/19 14:15 Meperidine HCl (Demerol) 12.5 mg PRN Q15MIN PRN IV SHIVERING 02/10/19 14:15 02/11/19 14:06 DC 02/10/19 15:41 Propofol 100 ml @ 0 mls/hr CONT PRN PRN IV POSTOP SEDATION UNTIL EXTUBATE 02/10/19 14:15 02/10/19 16:58 Senna/Docusate Sodium (Senna Plus) 1 tab BID PO 02/10/19 21:00 02/12/19 21:00 Bisacodyl (Dulcolax Supp) 10 mg PRN DAILY PRN NE NO BOWEL MOVEMENT 02/10/19 14:15 Chlorhexidine Gluconate (Peridex) 15 ml BID MM 02/11/19 09:00 02/11/19 11:15 DC Aspirin (Ecotrin) 325 mg DAILYWBKFT PO 02/11/19 08:00 02/12/19 08:00 Aspirin (Aspirin) 300 mg PRN DAILY PRN NE IF UNABLE TO TAKE PO 02/11/19 08:00 Albuterol Sulfate (Ventolin Neb Soln) 2.5 mg PRN Q4HRS PRN NEB SHORTNESS OF BREATH 02/10/19 14:15 Metoprolol Tartrate (Lopressor) 25 mg BID PO 02/11/19 09:00 02/12/19 21:01 Nicardipine HCl 50 mg/Sodium Chloride 250 ml @ 0 mls/hr CONT PRN PRN IV PER PROTOCOL 02/10/19 14:15 Oxycodone HCl (Roxicodone) 5 mg PRN Q4HRS PRN PO MODERATE PAIN 02/10/19 14:15 02/12/19 23:52 Oxycodone HCl (Roxicodone) 10 mg PRN Q4HRS PRN PO SEVERE PAIN 02/10/19 14:15 02/12/19 10:04 Cefazolin Sodium/ Dextrose 50 ml @ 100 mls/hr Q8H IV 02/10/19 18:00 02/10/19 19:17 DC Isoflurane (Isoflurane) 90 ml STK-MED ONCE IH 02/10/19 14:46 02/10/19 14:47 DC Sodium Bicarbonate (Sodium Bicarb Adult 8.4% Syr) 50 meq STK-MED ONCE .ROUTE 02/10/19 15:29 02/10/19 15:30 DC Sodium Bicarbonate (Sodium Bicarb Adult 8.4% Syr) 50 meq 1X ONCE IV 02/10/19 15:45 02/10/19 15:46 DC 02/10/19 15:50 Potassium Chloride/Water 50 ml @ 50 mls/hr PRN Q1HR PRN IV FOR K 3.1-3.5 02/10/19 15:45 Potassium Chloride/Water 50 ml @ 50 mls/hr PRN Q1HR PRN IV FOR K 2.6-3.0 MEQ/L 02/10/19 15:45 Potassium Chloride/Water 50 ml @ 50 mls/hr PRN Q1HR PRN IV FOR K <2.6 MEQ/L 02/10/19 16:00 Magnesium Sulfate/ Dextrose 100 ml @ 50 mls/hr PRN DAILY PRN IV SEE COMMENTS 02/11/19 09:00 Potassium Chloride/Water 50 ml @ 50 mls/hr Q1H IV 02/10/19 17:00 02/10/19 18:59 DC 02/10/19 16:52 Sodium Bicarbonate (Sodium Bicarb Adult 8.4% Syr) 50 meq 1X ONCE IV 02/10/19 18:15 02/10/19 18:16 DC 02/10/19 18:05 Cefazolin Sodium/ Dextrose 50 ml @ 100 mls/hr Q8H IV 02/10/19 20:30 02/12/19 04:59 DC 02/12/19 04:23 Norepinephrine Bitartrate 250 ml @ 1.875 mls/ hr CONT PRN IV SEE I/O RECORD 02/10/19 22:45 02/11/19 00:23 Pantoprazole Sodium (Protonix) 40 mg DAILYAC PO 02/11/19 07:30 02/12/19 07:30 Ipratropium [place] (Atrovent) 0.5 mg RTQID NEB 02/11/19 08:00 02/12/19 20:12 Potassium Chloride/Water 50 ml @ 50 mls/hr 1X ONCE IV 02/11/19 11:00 02/11/19 11:59 DC 02/11/19 10:58 Magnesium Sulfate 50 ml @ 25 mls/hr 1X ONCE IV 02/11/19 11:00 02/11/19 12:59 DC 02/11/19 12:21 Atorvastatin Calcium (Lipitor) 40 mg QHS PO 02/11/19 21:00 02/12/19 21:00 Amiodarone HCl (Cordarone) 200 mg BID PO 02/11/19 16:00 02/12/19 21:01 Potassium Chloride/Water 50 ml @ 50 mls/hr 1X ONCE IV 02/12/19 08:30 02/12/19 09:29 DC 02/12/19 08:30 Insulin Glargine (Lantus) 50 units QHS SQ 02/13/19 21:00 02/13/19 21:00 DC Insulin Glargine (Lantus) 50 units 1X ONCE SQ 02/12/19 13:00 02/12/19 13:01 DC 02/12/19 12:51 Insulin Human Lispro (HumaLOG) 10 units 1X ONCE SQ 02/12/19 13:00 02/12/19 13:01 DC 02/12/19 12:52 Insulin Human Lispro (HumaLOG) 0-9 UNITS TIDWMEALS SQ 02/12/19 17:00 02/12/19 17:00 Dextrose (Dextrose 50%-Water Syringe) 12.5 gm PRN Q15MIN PRN IV SEE COMMENTS 02/12/19 12:30 Metoprolol Tartrate (Lopressor) 12.5 mg 1X ONCE PO 02/12/19 13:00 02/12/19 13:01 DC 02/12/19 12:50 Insulin Glargine (Lantus) 50 units QHS SQ 02/12/19 21:15 02/12/19 21:17 Laboratory Tests Test 02/11/19 08:49 02/11/19 09:52 02/11/19 11:02 02/11/19 12:29 Glucose (Fingerstick) 118 mg/dL (70-99) 131 mg/dL (70-99) 135 mg/dL (70-99) 152 mg/dL (70-99) Test 02/11/19 13:51 02/11/19 15:08 02/11/19 18:45 02/11/19 19:58 Glucose (Fingerstick) 148 mg/dL (70-99) 143 mg/dL (70-99) 156 mg/dL (70-99) 127 mg/dL (70-99) Test 02/11/19 21:01 02/11/19 22:08 02/11/19 23:09 02/12/19 00:12 Glucose (Fingerstick) 123 mg/dL (70-99) 142 mg/dL (70-99) 147 mg/dL (70-99) 125 mg/dL (70-99) Test 02/12/19 01:17 02/12/19 02:46 02/12/19 03:53 02/12/19 05:04 Glucose (Fingerstick) 144 mg/dL (70-99) 150 mg/dL (70-99) 150 mg/dL (70-99) 167 mg/dL (70-99) Test 02/12/19 05:10 02/12/19 06:44 02/12/19 07:41 02/12/19 10:16 White Blood Count 17.4 x10^3/uL (4.0-11.0) Red Blood Count 3.45 x10^6/uL (4.30-5.70) Hemoglobin 10.6 g/dL (13.0-17.5) Hematocrit 30.5 % (39.0-53.0) Mean Corpuscular Volume 88 fL (79-100) Mean Corpuscular Hemoglobin 31 pg (25-35) Mean Corpuscular Hemoglobin Concent 35 g/dL (31-37) Red Cell Distribution Width 14.4 % (11.5-14.5) Platelet Count 82 x10^3/uL (140-400) Sodium Level 138 mmol/L (136-145) Potassium Level 4.1 mmol/L (3.5-5.1) Chloride Level 102 mmol/L (98-107) Carbon Dioxide Level 27 mmol/L (21-32) Anion Gap 9 (6-14) Blood Urea Nitrogen 31 mg/dL (8-26) Creatinine 1.1 mg/dL (0.7-1.3) Estimated GFR (Cockcroft-Gault) 67.6 Glucose Level 177 mg/dL (70-99) Calcium Level 9.3 mg/dL (8.5-10.1) Magnesium Level 2.4 mg/dL (1.8-2.4) Glucose (Fingerstick) 162 mg/dL (70-99) 151 mg/dL (70-99) 161 mg/dL (70-99) Test 02/12/19 11:34 02/12/19 12:48 02/12/19 17:32 02/12/19 21:04 Glucose (Fingerstick) 145 mg/dL (70-99) 142 mg/dL (70-99) 206 mg/dL (70-99) 171 mg/dL (70-99) Test 02/13/19 06:15 White Blood Count 16.4 x10^3/uL (4.0-11.0) Red Blood Count 3.53 x10^6/uL (4.30-5.70) Hemoglobin 10.7 g/dL (13.0-17.5) Hematocrit 31.3 % (39.0-53.0) Mean Corpuscular Volume 89 fL (79-100) Mean Corpuscular Hemoglobin 30 pg (25-35) Mean Corpuscular Hemoglobin Concent 34 g/dL (31-37) Red Cell Distribution Width 14.0 % (11.5-14.5) Platelet Count 110 x10^3/uL (140-400) Sodium Level 134 mmol/L (136-145) Potassium Level 5.0 mmol/L (3.5-5.1) Chloride Level 100 mmol/L (98-107) Carbon Dioxide Level 27 mmol/L (21-32) Anion Gap 7 (6-14) Blood Urea Nitrogen 36 mg/dL (8-26) Creatinine 1.1 mg/dL (0.7-1.3) Estimated GFR (Cockcroft-Gault) 67.6 Glucose Level 273 mg/dL (70-99) Calcium Level 9.5 mg/dL (8.5-10.1) Magnesium Level 2.3 mg/dL (1.8-2.4) Laboratory Tests Test 02/12/19 10:16 02/12/19 11:34 02/12/19 12:48 02/12/19 17:32 Glucose (Fingerstick) 161 mg/dL (70-99) 145 mg/dL (70-99) 142 mg/dL (70-99) 206 mg/dL (70-99) Test 02/12/19 21:04 02/13/19 06:15 Glucose (Fingerstick) 171 mg/dL (70-99) White Blood Count 16.4 x10^3/uL (4.0-11.0) Red Blood Count 3.53 x10^6/uL (4.30-5.70) Hemoglobin 10.7 g/dL (13.0-17.5) Hematocrit 31.3 % (39.0-53.0) Mean Corpuscular Volume 89 fL (79-100) Mean Corpuscular Hemoglobin 30 pg (25-35) Mean Corpuscular Hemoglobin Concent 34 g/dL (31-37) Red Cell Distribution Width 14.0 % (11.5-14.5) Platelet Count 110 x10^3/uL (140-400) Sodium Level 134 mmol/L (136-145) Potassium Level 5.0 mmol/L (3.5-5.1) Chloride Level 100 mmol/L (98-107) Carbon Dioxide Level 27 mmol/L (21-32) Anion Gap 7 (6-14) Blood Urea Nitrogen 36 mg/dL (8-26) Creatinine 1.1 mg/dL (0.7-1.3) Estimated GFR (Cockcroft-Gault) 67.6 Glucose Level 273 mg/dL (70-99) Calcium Level 9.5 mg/dL (8.5-10.1) Magnesium Level 2.3 mg/dL (1.8-2.4) Medications Laboratory Tests Test 02/12/19 10:16 02/12/19 11:34 02/12/19 12:48 02/12/19 17:32 Glucose (Fingerstick) 161 mg/dL 145 mg/dL 142 mg/dL 206 mg/dL Test 02/12/19 21:04 02/13/19 06:15 02/13/19 08:24 Glucose (Fingerstick) 171 mg/dL 234 mg/dL White Blood Count 16.4 x10^3/uL Red Blood Count 3.53 x10^6/uL Hemoglobin 10.7 g/dL Hematocrit 31.3 % Mean Corpuscular Volume 89 fL Mean Corpuscular Hemoglobin 30 pg Mean Corpuscular Hemoglobin Concent 34 g/dL Red Cell Distribution Width 14.0 % Platelet Count 110 x10^3/uL Sodium Level 134 mmol/L Potassium Level 5.0 mmol/L Chloride Level 100 mmol/L Carbon Dioxide Level 27 mmol/L Anion Gap 7 Blood Urea Nitrogen 36 mg/dL Creatinine 1.1 mg/dL Estimated GFR (Cockcroft-Gault) 67.6 Glucose Level 273 mg/dL Calcium Level 9.5 mg/dL Magnesium Level 2.3 mg/dL Current Medications Medications (Trade) Dose Ordered Sig/Rosa Elena Route PRN Reason Start Time Stop Time Status Last Admin Dose Admin Fentanyl Citrate (Fentanyl 2ml Vial) 100 mcg STK-MED ONCE .ROUTE 02/10/19 05:36 02/10/19 05:37 DC Midazolam HCl (Versed) 2 mg STK-MED ONCE .ROUTE 02/10/19 05:36 02/10/19 05:37 DC Fentanyl Citrate (Fentanyl 2ml Vial) 50 mcg 1X ONCE IV 02/10/19 05:45 02/10/19 05:49 DC 02/10/19 05:43 Insulin Human Lispro (HumaLOG) 0-5 UNITS TIDWMEALS SQ 02/10/19 08:00 02/12/19 12:32 DC 02/12/19 11:36 Dextrose (Dextrose 50%-Water Syringe) 12.5 gm PRN Q15MIN PRN IV SEE COMMENTS 02/10/19 05:45 02/10/19 14:59 DC Iodixanol (Visipaque 320) 100 ml STK-MED ONCE .ROUTE 02/10/19 06:09 02/10/19 06:10 DC Heparin Sodium (Porcine) (Heparin Sodium) 10,000 unit STK-MED ONCE .ROUTE 02/10/19 06:10 02/10/19 06:11 DC Nitroglycerin/ Dextrose 250 ml @ As Directed STK-MED ONCE IV 02/10/19 06:26 02/10/19 06:27 DC Vancomycin HCl (VANCO for OR ONLY) 10 gm STK-MED ONCE .ROUTE 02/10/19 05:43 02/10/19 06:44 DC 02/10/19 09:45 Cellulose (Surgicel Hemostat 4x8) 1 each STK-MED ONCE .ROUTE 02/10/19 05:43 02/10/19 06:44 DC 02/10/19 09:48 Papaverine HCl 60 mg STK-MED ONCE .ROUTE 02/10/19 05:44 02/10/19 06:44 DC 02/10/19 09:48 Aspirin (Aspirin) 300 mg STK-MED ONCE .ROUTE 02/10/19 05:44 02/10/19 06:44 DC 02/10/19 09:48 Sodium Chloride (SODIUM CHLORIDE 20ml) 20 ml STK-MED ONCE IJ 02/10/19 05:44 02/10/19 06:44 DC 02/10/19 09:44 Sodium Chloride (SODIUM CHLORIDE 20ml) 20 ml STK-MED ONCE IJ 02/10/19 05:44 02/10/19 06:44 DC 02/10/19 09:45 Potassium Chloride 70 meq/ Sodium Bicarbonate 12.5 meq/Lidocaine HCl 24 ml/Parenteral Electrolytes 571.5 ml @ 571.5 mls/ hr 1X ONCE IRR 02/10/19 07:30 02/10/19 08:29 DC Sodium Chloride (SODIUM CHLORIDE 20ml) 20 ml STK-MED ONCE IJ 02/10/19 05:44 02/10/19 06:45 DC 02/10/19 09:45 Rocuronium [place] (Zemuron) 100 mg STK-MED ONCE .ROUTE 02/10/19 06:44 02/10/19 06:45 DC Sufentanil Citrate (Sufenta) 250 mcg STK-MED ONCE .ROUTE 02/10/19 06:45 02/10/19 06:46 DC Potassium Chloride 15 meq/ Sodium Bicarbonate 12.5 meq/Parenteral Electrolytes 520 ml @ 520 mls/hr 1X ONCE IRR 02/10/19 07:30 02/10/19 08:29 DC Midazolam HCl (Versed) 5 mg STK-MED ONCE .ROUTE 02/10/19 06:45 02/10/19 06:46 DC Lidocaine HCl (Lidocaine Pf 2% Vial) 5 ml STK-MED ONCE .ROUTE 02/10/19 06:46 02/10/19 06:47 DC Etomidate (Amidate) 20 mg STK-MED ONCE IV 02/10/19 06:46 02/10/19 06:47 DC Aminocaproic Acid (Amicar) 5,000 mg STK-MED ONCE IV 02/10/19 06:46 02/10/19 06:47 DC Aminocaproic Acid (Amicar) 5,000 mg STK-MED ONCE IV 02/10/19 06:46 02/10/19 06:47 DC Aminocaproic Acid (Amicar) 5,000 mg STK-MED ONCE IV 02/10/19 06:46 02/10/19 06:47 DC Heparin Sodium/ Sodium Chloride (HEPARIN for ARTERIAL LINE FLUSH) 1,000 unit 1X ONCE IART 02/10/19 06:45 02/10/19 06:56 DC 02/10/19 06:56 Midazolam HCl (Versed) 2 mg 1X ONCE IV 02/10/19 06:45 02/10/19 06:56 DC 02/10/19 06:57 Fentanyl Citrate (Fentanyl 2ml Vial) 100 mcg 1X ONCE IV 02/10/19 06:45 02/10/19 06:56 DC 02/10/19 06:56 Iodixanol (Visipaque 320) 139 ml 1X ONCE IART 02/10/19 06:45 02/10/19 06:56 DC 02/10/19 06:56 Lidocaine HCl (Lidocaine 1% 20ml Vial) 20 ml 1X ONCE INJ 02/10/19 06:45 02/10/19 06:56 DC 02/10/19 06:56 Heparin Sodium (Porcine) (Heparin 5,000 Units/1,000ml NS) 5,000 unit 1X ONCE IV 02/10/19 06:45 02/10/19 06:56 DC 02/10/19 06:45 Heparin Sodium (Porcine) 86920 unit/Ringer's Solution 1,020 ml @ 1,020 mls/hr 1X ONCE IRR 02/10/19 07:30 02/10/19 08:29 DC 02/10/19 09:54 Heparin Sodium (Porcine) 800 unit/ Nitroglycerin 4 mg/Verapamil HCl 8 mg/Sodium Bicarbonate 0.34 meq/Ringer's Solution 512.34 ml @ 512.34 mls/hr 1X ONCE IRR 02/10/19 07:30 02/10/19 08:29 DC Cefazolin Sodium 1 gm/Sodium Chloride 500 ml @ 500 mls/hr 1X ONCE IRR 02/10/19 07:30 02/10/19 08:29 DC Heparin Sodium (Porcine) 30,000 unit STK-MED ONCE .ROUTE 02/10/19 06:50 02/10/19 06:51 DC Nitroglycerin/ Dextrose 250 ml @ 1.5 mls/hr CONT PRN IV SEE I/O RECORD 02/10/19 07:00 02/10/19 06:36 Ephedrine Sulfate (ePHEDrine PF IN SALINE SYRINGE) 50 mg STK-MED ONCE IV 02/10/19 06:53 02/10/19 06:54 DC Phenylephrine HCl (Sp-Synephrine Inj) 10 mg STK-MED ONCE .ROUTE 02/10/19 06:59 02/10/19 07:00 DC Epinephrine HCl (EPINEPHrine SYRINGE) 1 mg STK-MED ONCE .ROUTE 02/10/19 07:20 02/10/19 07:21 DC Ephedrine Sulfate (ePHEDrine PF IN SALINE SYRINGE) 50 mg STK-MED ONCE IV 02/10/19 07:22 02/10/19 07:23 DC Phenylephrine HCl (PHENYLEPHRINE in 0.9% NACL PF) 1 mg STK-MED ONCE IV 02/10/19 07:22 02/10/19 07:23 DC Heparin Sodium (Porcine) (Heparin Sodium) 10,000 unit STK-MED ONCE .ROUTE 02/10/19 08:02 02/10/19 08:03 DC Cefazolin Sodium 3 gm/Dextrose 100 ml @ 200 mls/hr 1X PREOP PRN IV PRIOR TO PROCEDURE 02/10/19 08:29 02/11/19 08:28 DC 02/10/19 08:45 Mannitol 500 ml @ 0 mls/hr 1X ONCE IV 02/10/19 09:00 02/10/19 09:01 DC Rocuronium [place] (Zemuron) 100 mg STK-MED ONCE .ROUTE 02/10/19 08:51 02/10/19 08:52 DC Insulin Human Regular 150 unit/ Sodium Chloride 151.5 ml @ 0 mls/hr CONT PRN IV SEE I/O RECORD 02/10/19 09:15 02/10/19 14:57 DC 02/10/19 09:50 Norepinephrine Bitartrate 250 ml @ 1.875 mls/ hr 1X ONCE IV 02/10/19 11:15 02/16/19 00:34 02/10/19 16:56 Midazolam HCl (Versed) 2 mg STK-MED ONCE .ROUTE 02/10/19 11:13 02/10/19 11:14 DC Epinephrine HCl 4 mg/Sodium Chloride 254 ml @ 3.81 mls/hr CONT PRN IV SEE I/O RECORD 02/10/19 11:30 02/10/19 14:57 DC Protamine Sulfate (Protamine) 50 mg STK-MED ONCE IV 02/10/19 11:33 02/10/19 11:34 DC Protamine Sulfate (Protamine) 250 mg STK-MED ONCE IV 02/10/19 11:33 02/10/19 11:34 DC Protamine Sulfate (Protamine) 250 mg STK-MED ONCE IV 02/10/19 11:33 02/10/19 11:34 DC Midazolam HCl (Versed) 2 mg STK-MED ONCE .ROUTE 02/10/19 11:35 02/10/19 11:36 DC Cefazolin Sodium 3 gm/Dextrose 100 ml @ 200 mls/hr 1X ONCE IV 02/10/19 11:45 02/10/19 12:14 DC 02/10/19 12:40 Rocuronium [place] (Zemuron) 50 mg STK-MED ONCE .ROUTE 02/10/19 12:06 02/10/19 12:07 DC Propofol 0 ml @ As Directed STK-MED ONCE IV 02/10/19 12:49 02/10/19 12:50 DC Nicardipine HCl 50 mg/Sodium Chloride 250 ml @ 25 mls/hr CONT PRN IV SEE I/O RECORD 02/10/19 13:15 02/10/19 14:56 DC Heparin Sodium (Porcine) (Heparin Sodium) 10,000 unit STK-MED ONCE .ROUTE 02/10/19 13:21 02/10/19 13:22 DC Lidocaine HCl (Lidocaine Pf 2% Vial) 5 ml STK-MED ONCE .ROUTE 02/10/19 13:21 02/10/19 13:22 DC Magnesium Sulfate 5 gm STK-MED ONCE .ROUTE 02/10/19 13:21 02/10/19 13:22 DC Albumin Human 200 ml @ As Directed STK-MED ONCE IV 02/10/19 13:21 02/10/19 13:22 DC Calcium Chloride (Calcium Chloride) 1,000 mg STK-MED ONCE .ROUTE 02/10/19 13:21 02/10/19 13:22 DC Sodium Bicarbonate (Sodium Bicarb Adult 8.4% Syr) 50 meq STK-MED ONCE .ROUTE 02/10/19 13:23 02/10/19 13:24 DC Sodium Chloride (Normal Saline Flush) 3 ml PRN Q12HR PRN IV AFTER MEDS AND BLOOD DRAWS 02/10/19 14:15 Ringer's Solution 1,000 ml @ 30 mls/hr Q24H IV 02/10/19 14:06 02/12/19 12:52 Albumin Human 250 ml @ 500 mls/hr PRN Q4HRS PRN IV SEE COMMENTS 02/10/19 14:15 02/10/19 18:04 Insulin Human Regular 150 unit/ Sodium Chloride 151.5 ml @ 0 mls/hr CONT PRN PRN IV PER PROTOCOL 02/10/19 14:15 02/12/19 05:08 Dextrose (Dextrose 50%-Water Syringe) 25 gm PRN Q15MIN PRN IV LOW BLOOD SUGAR 02/10/19 14:15 Nitroglycerin/ Dextrose 250 ml @ 0 mls/hr CONT PRN PRN IV POST CV SURGERY 02/10/19 14:15 02/10/19 14:59 DC Epinephrine HCl 4 mg/Sodium Chloride 254 ml @ 0 mls/hr CONT PRN PRN IV POST CV SURGERY 02/10/19 14:15 Amiodarone HCl 150 mg/Dextrose 103 ml @ 600 mls/hr 1X ONCE IV 02/10/19 14:15 02/10/19 14:26 DC 02/10/19 22:41 Amiodarone HCl 150 mg/Dextrose 103 ml @ 200 mls/hr 1X PRN PRN IV FOR AFIB 02/10/19 14:15 Amiodarone HCl 900 mg/Dextrose 518 ml @ 0 mls/hr CONT PRN PRN IV AFIB 02/10/19 14:15 02/10/19 22:43 Info (KCl Per Protocol) 1 ea CONT PRN PRN MC SEE COMMENTS 02/10/19 14:15 Magnesium Sulfate/ Dextrose 100 ml @ 100 mls/hr PRN DAILY PRN IV FOR MAG < 2.2 02/10/19 14:15 Famotidine (Pepcid Vial) 20 mg BID IVP 02/10/19 21:00 4/20/19 06:31 DC 02/10/19 20:36 Ondansetron HCl (Zofran) 4 mg PRN Q4HRS PRN IV NAUSEA/VOMITING, 1st CHOICE 02/10/19 14:15 02/12/19 02:45 Prochlorperazine Edisylate (Compazine) 10 mg PRN Q6HRS PRN IV NAUSEA/VOMITING, 2nd CHOICE 02/10/19 14:15 Metoclopramide HCl (Reglan Vial) 10 mg PRN Q6HRS PRN IV NAUSEA/VOMITING, 3rd CHOICE 02/10/19 14:15 Morphine Sulfate (Morphine Sulfate) 2 mg PRN Q1HR PRN IV PAIN 02/10/19 14:15 02/11/19 18:39 Morphine Sulfate (Morphine Sulfate) 4 mg PRN Q1HR PRN IV PAIN 02/10/19 14:15 02/10/19 18:20 Acetaminophen (Tylenol) 650 mg PRN Q4HRS PRN PO TEMP > 101'F or MILD PAIN 02/10/19 14:15 02/12/19 12:50 Acetaminophen (Tylenol Supp) 650 mg PRN Q4HRS PRN NE TEMP > 101'F or MILD PAIN 02/10/19 14:15 Meperidine HCl (Demerol) 12.5 mg PRN Q15MIN PRN IV SHIVERING 02/10/19 14:15 02/11/19 14:06 DC 02/10/19 15:41 Propofol 100 ml @ 0 mls/hr CONT PRN PRN IV POSTOP SEDATION UNTIL EXTUBATE 02/10/19 14:15 02/10/19 16:58 Senna/Docusate Sodium (Senna Plus) 1 tab BID PO 02/10/19 21:00 02/12/19 21:00 Bisacodyl (Dulcolax Supp) 10 mg PRN DAILY PRN NE NO BOWEL MOVEMENT 02/10/19 14:15 Chlorhexidine Gluconate (Peridex) 15 ml BID MM 02/11/19 09:00 02/11/19 11:15 DC Aspirin (Ecotrin) 325 mg DAILYWBKFT PO 02/11/19 08:00 02/12/19 08:00 Aspirin (Aspirin) 300 mg PRN DAILY PRN NE IF UNABLE TO TAKE PO 02/11/19 08:00 Albuterol Sulfate (Ventolin Neb Soln) 2.5 mg PRN Q4HRS PRN NEB SHORTNESS OF BREATH 02/10/19 14:15 Metoprolol Tartrate (Lopressor) 25 mg BID PO 02/11/19 09:00 02/12/19 21:01 Nicardipine HCl 50 mg/Sodium Chloride 250 ml @ 0 mls/hr CONT PRN PRN IV PER PROTOCOL 02/10/19 14:15 Oxycodone HCl (Roxicodone) 5 mg PRN Q4HRS PRN PO MODERATE PAIN 02/10/19 14:15 02/12/19 23:52 Oxycodone HCl (Roxicodone) 10 mg PRN Q4HRS PRN PO SEVERE PAIN 02/10/19 14:15 02/12/19 10:04 Cefazolin Sodium/ Dextrose 50 ml @ 100 mls/hr Q8H IV 02/10/19 18:00 02/10/19 19:17 DC Isoflurane (Isoflurane) 90 ml STK-MED ONCE IH 02/10/19 14:46 02/10/19 14:47 DC Sodium Bicarbonate (Sodium Bicarb Adult 8.4% Syr) 50 meq STK-MED ONCE .ROUTE 02/10/19 15:29 02/10/19 15:30 DC Sodium Bicarbonate (Sodium Bicarb Adult 8.4% Syr) 50 meq 1X ONCE IV 02/10/19 15:45 02/10/19 15:46 DC 02/10/19 15:50 Potassium Chloride/Water 50 ml @ 50 mls/hr PRN Q1HR PRN IV FOR K 3.1-3.5 02/10/19 15:45 Potassium Chloride/Water 50 ml @ 50 mls/hr PRN Q1HR PRN IV FOR K 2.6-3.0 MEQ/L 02/10/19 15:45 Potassium Chloride/Water 50 ml @ 50 mls/hr PRN Q1HR PRN IV FOR K <2.6 MEQ/L 02/10/19 16:00 Magnesium Sulfate/ Dextrose 100 ml @ 50 mls/hr PRN DAILY PRN IV SEE COMMENTS 02/11/19 09:00 Potassium Chloride/Water 50 ml @ 50 mls/hr Q1H IV 02/10/19 17:00 02/10/19 18:59 DC 02/10/19 16:52 Sodium Bicarbonate (Sodium Bicarb Adult 8.4% Syr) 50 meq 1X ONCE IV 02/10/19 18:15 02/10/19 18:16 DC 02/10/19 18:05 Cefazolin Sodium/ Dextrose 50 ml @ 100 mls/hr Q8H IV 02/10/19 20:30 02/12/19 04:59 DC 02/12/19 04:23 Norepinephrine Bitartrate 250 ml @ 1.875 mls/ hr CONT PRN IV SEE I/O RECORD 02/10/19 22:45 02/11/19 00:23 Pantoprazole Sodium (Protonix) 40 mg DAILYAC PO 02/11/19 07:30 02/12/19 07:30 Ipratropium [place] (Atrovent) 0.5 mg RTQID NEB 02/11/19 08:00 02/12/19 20:12 Potassium Chloride/Water 50 ml @ 50 mls/hr 1X ONCE IV 02/11/19 11:00 02/11/19 11:59 DC 02/11/19 10:58 Magnesium Sulfate 50 ml @ 25 mls/hr 1X ONCE IV 02/11/19 11:00 02/11/19 12:59 DC 02/11/19 12:21 Atorvastatin Calcium (Lipitor) 40 mg QHS PO 02/11/19 21:00 02/12/19 21:00 Amiodarone HCl (Cordarone) 200 mg BID PO 02/11/19 16:00 02/12/19 21:01 Potassium Chloride/Water 50 ml @ 50 mls/hr 1X ONCE IV 02/12/19 08:30 02/12/19 09:29 DC 02/12/19 08:30 Insulin Glargine (Lantus) 50 units QHS SQ 02/13/19 21:00 02/13/19 21:00 DC Insulin Glargine (Lantus) 50 units 1X ONCE SQ 02/12/19 13:00 02/12/19 13:01 DC 02/12/19 12:51 Insulin Human Lispro (HumaLOG) 10 units 1X ONCE SQ 02/12/19 13:00 02/12/19 13:01 DC 02/12/19 12:52 Insulin Human Lispro (HumaLOG) 0-9 UNITS TIDWMEALS SQ 02/12/19 17:00 02/12/19 17:00 Dextrose (Dextrose 50%-Water Syringe) 12.5 gm PRN Q15MIN PRN IV SEE COMMENTS 02/12/19 12:30 Metoprolol Tartrate (Lopressor) 12.5 mg 1X ONCE PO 02/12/19 13:00 02/12/19 13:01 DC 02/12/19 12:50 Insulin Glargine (Lantus) 50 units QHS SQ 02/12/19 21:15 02/12/19 21:17 Active Scripts Medications Dose Route/Sig Max Daily Dose Days Date Category No Known Medications Prior To Admisstion (Info) Each 1 Each MC DAILY 02/10/19 Reported Impression . IMPRESSION: 1. Acute Expected Hypoxic respiratory S/P CABG 2. Coronary artery disease, status post coronary artery bypass graft on 02/10/2019. 3. Leukocytosis. 4. Thrombocytopenia. 5. Diabetes mellitus with hyperglycemia 6. Probable obstructive sleep apnea-hypopnea syndrome. 7. Former Smoker 8. Obesity Plan . PLAN AND RECOMMENDATIONS: 1. Supplemental oxygen and Titrate FiO2 to keep O2 saturation at 92%. extubated 02/10.currently on room air 2. Incentive spirometry at bedside/HOB 30 degrees 3. Continue bronchodilator, Atrovent only. 4. Amiodarone and Hypertension medications per Cardiology and Cardiothoracic surgeon. 5. Leukocytosis likely refractory continue to monitor 6. MIGUEL A will need outpatient follow up; for sleep study 7. Nocturnal oxygen study DVT/GI PPX: protonix/SCD DONAVAN BROOKE MD Feb 13, 2019 08:32
[2019-02-13] MEDS: INSULIN LISPRO 300 UNITS/3 ML INSULN.PEN. SQ SCH ×3 (08:33→17:39)
[2019-02-13] MEDS: IPRATROPIUM BROMIDE 0.5 MG/2.5 ML NEBU. NEB SCH ×4 (09:00→20:58)
[2019-02-13] MEDS: oxyCODONE IR 5 MG TABLET PO PRN (09:50)
--- NOTE | 2019-02-13 10:22 | PDOC ---
PROGRESS NOTES Chief Complaint Chief Complaint CAD s/p CABG x 3 (AL to LAD, SVG to RPDA, SVG to OM) with Left endoscopic greater saphenous vein harvest ST elevation myocardial infarction - Acute systolic heart failure (EF 20-25%) - IABP placed REspi failure s/post CABG Diabetes - HTN - History of Present Illness History of Present Illness In ICU He has no complaints No chest pain, Cordis, García out and voiding freely Intra-aortic balloon pump out Only maintaining is a pacemaker and will be taken out today Has ambulated around the halls Came from home Plan: temp pacemaker to be removed today ambulate, cardiac diet Okay to transfer to [facility] floor Likely home tmr Vitals Vitals Vital Signs Date Time Temp Pulse Resp B/P (MAP) Pulse Ox O2 Delivery O2 Flow Rate FiO2 02/13/19 09:55 110 18 111/59 (76) 88 Room Air 02/13/19 07:00 98.2 2.0 98.2 Physical Exam Physical Exam GENERAL: NAD, Alert HEENT: PERRL, OC/OP NECK: Supple, no JVD, no LN LUNGS: Clear HEART: S1S2, no gallop, no murmur ABD: Soft, NT, no organomegaly, no rebound EXT: No edema, no cyanosis [employer]ESS [employer] INST[employer]ER: Alert, 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, no focal neurologic deficit SKIN: No rash IV: ok General: Alert, Oriented X3, Cooperative, mild distress Heart: Regular rate, Normal S1, Normal S2 Lungs: Clear, Crackles, Other (diminished in LLL) Abdomen: Normal bowel sounds, Soft, No tenderness, No hepatosplenomegaly, No masses Extremities: No clubbing, No cyanosis, No edema, Normal pulses, No tenderness/ swelling Skin: No rashes, No breakdown, No significant lesion Labs LABS Laboratory Tests Test 02/12/19 11:34 02/12/19 12:48 02/12/19 17:32 02/12/19 21:04 Glucose (Fingerstick) 145 mg/dL (70-99) 142 mg/dL (70-99) 206 mg/dL (70-99) 171 mg/dL (70-99) Test 02/13/19 06:15 02/13/19 08:24 White Blood Count 16.4 x10^3/uL (4.0-11.0) Red Blood Count 3.53 x10^6/uL (4.30-5.70) Hemoglobin 10.7 g/dL (13.0-17.5) Hematocrit 31.3 % (39.0-53.0) Mean Corpuscular Volume 89 fL (79-100) Mean Corpuscular Hemoglobin 30 pg (25-35) Mean Corpuscular Hemoglobin Concent 34 g/dL (31-37) Red Cell Distribution Width 14.0 % (11.5-14.5) Platelet Count 110 x10^3/uL (140-400) Sodium Level 134 mmol/L (136-145) Potassium Level 5.0 mmol/L (3.5-5.1) Chloride Level 100 mmol/L (98-107) Carbon Dioxide Level 27 mmol/L (21-32) Anion Gap 7 (6-14) Blood Urea Nitrogen 36 mg/dL (8-26) Creatinine 1.1 mg/dL (0.7-1.3) Estimated GFR (Cockcroft-Gault) 67.6 Glucose Level 273 mg/dL (70-99) Calcium Level 9.5 mg/dL (8.5-10.1) Magnesium Level 2.3 mg/dL (1.8-2.4) Glucose (Fingerstick) 234 mg/dL (70-99) Review of Systems Review of Systems A 14 point ROS was completed with the following noted as positive: Other systems reviewed and negative. \CONSTITUTIONAL: No fever or chills EYES: No recent changes SKIN: No rash or itching CARDIOVASCULAR: No chest pain, syncope, palpitations, or edema RESPIRATORY: No SOB or cough GASTROINTESTINAL: No nausea, vomiting or abdominal pain NEUROLOGICAL: No headaches or weakness ENDOCRINE: No cold or heat intolerance GENITOURINARY: No urgency or frequency of urination MUSCULOSKELETAL: No back pain or joint pain LYMPHATICS: No enlarged lymph nodes PSYCHIATRIC: No anxiety or depression Comment Review of Relevant I have reviewed the following items richie (where applicable) has been applied. Labs Laboratory Tests Test 02/11/19 11:02 02/11/19 12:29 02/11/19 13:51 02/11/19 15:08 Glucose (Fingerstick) 135 mg/dL (70-99) 152 mg/dL (70-99) 148 mg/dL (70-99) 143 mg/dL (70-99) Test 02/11/19 18:45 02/11/19 19:58 02/11/19 21:01 02/11/19 22:08 Glucose (Fingerstick) 156 mg/dL (70-99) 127 mg/dL (70-99) 123 mg/dL (70-99) 142 mg/dL (70-99) Test 02/11/19 23:09 02/12/19 00:12 02/12/19 01:17 02/12/19 02:46 Glucose (Fingerstick) 147 mg/dL (70-99) 125 mg/dL (70-99) 144 mg/dL (70-99) 150 mg/dL (70-99) Test 02/12/19 03:53 02/12/19 05:04 02/12/19 05:10 02/12/19 06:44 Glucose (Fingerstick) 150 mg/dL (70-99) 167 mg/dL (70-99) 162 mg/dL (70-99) White Blood Count 17.4 x10^3/uL (4.0-11.0) Red Blood Count 3.45 x10^6/uL (4.30-5.70) Hemoglobin 10.6 g/dL (13.0-17.5) Hematocrit 30.5 % (39.0-53.0) Mean Corpuscular Volume 88 fL (79-100) Mean Corpuscular Hemoglobin 31 pg (25-35) Mean Corpuscular Hemoglobin Concent 35 g/dL (31-37) Red Cell Distribution Width 14.4 % (11.5-14.5) Platelet Count 82 x10^3/uL (140-400) Sodium Level 138 mmol/L (136-145) Potassium Level 4.1 mmol/L (3.5-5.1) Chloride Level 102 mmol/L (98-107) Carbon Dioxide Level 27 mmol/L (21-32) Anion Gap 9 (6-14) Blood Urea Nitrogen 31 mg/dL (8-26) Creatinine 1.1 mg/dL (0.7-1.3) Estimated GFR (Cockcroft-Gault) 67.6 Glucose Level 177 mg/dL (70-99) Calcium Level 9.3 mg/dL (8.5-10.1) Magnesium Level 2.4 mg/dL (1.8-2.4) Test 02/12/19 07:41 02/12/19 10:16 02/12/19 11:34 02/12/19 12:48 Glucose (Fingerstick) 151 mg/dL (70-99) 161 mg/dL (70-99) 145 mg/dL (70-99) 142 mg/dL (70-99) Test 02/12/19 17:32 02/12/19 21:04 02/13/19 06:15 02/13/19 08:24 Glucose (Fingerstick) 206 mg/dL (70-99) 171 mg/dL (70-99) 234 mg/dL (70-99) White Blood Count 16.4 x10^3/uL (4.0-11.0) Red Blood Count 3.53 x10^6/uL (4.30-5.70) Hemoglobin 10.7 g/dL (13.0-17.5) Hematocrit 31.3 % (39.0-53.0) Mean Corpuscular Volume 89 fL (79-100) Mean Corpuscular Hemoglobin 30 pg (25-35) Mean Corpuscular Hemoglobin Concent 34 g/dL (31-37) Red Cell Distribution Width 14.0 % (11.5-14.5) Platelet Count 110 x10^3/uL (140-400) Sodium Level 134 mmol/L (136-145) Potassium Level 5.0 mmol/L (3.5-5.1) Chloride Level 100 mmol/L (98-107) Carbon Dioxide Level 27 mmol/L (21-32) Anion Gap 7 (6-14) Blood Urea Nitrogen 36 mg/dL (8-26) Creatinine 1.1 mg/dL (0.7-1.3) Estimated GFR (Cockcroft-Gault) 67.6 Glucose Level 273 mg/dL (70-99) Calcium Level 9.5 mg/dL (8.5-10.1) Magnesium Level 2.3 mg/dL (1.8-2.4) Laboratory Tests Test 02/12/19 11:34 02/12/19 12:48 02/12/19 17:32 02/12/19 21:04 Glucose (Fingerstick) 145 mg/dL (70-99) 142 mg/dL (70-99) 206 mg/dL (70-99) 171 mg/dL (70-99) Test 02/13/19 06:15 02/13/19 08:24 White Blood Count 16.4 x10^3/uL (4.0-11.0) Red Blood Count 3.53 x10^6/uL (4.30-5.70) Hemoglobin 10.7 g/dL (13.0-17.5) Hematocrit 31.3 % (39.0-53.0) Mean Corpuscular Volume 89 fL (79-100) Mean Corpuscular Hemoglobin 30 pg (25-35) Mean Corpuscular Hemoglobin Concent 34 g/dL (31-37) Red Cell Distribution Width 14.0 % (11.5-14.5) Platelet Count 110 x10^3/uL (140-400) Sodium Level 134 mmol/L (136-145) Potassium Level 5.0 mmol/L (3.5-5.1) Chloride Level 100 mmol/L (98-107) Carbon Dioxide Level 27 mmol/L (21-32) Anion Gap 7 (6-14) Blood Urea Nitrogen 36 mg/dL (8-26) Creatinine 1.1 mg/dL (0.7-1.3) Estimated GFR (Cockcroft-Gault) 67.6 Glucose Level 273 mg/dL (70-99) Calcium Level 9.5 mg/dL (8.5-10.1) Magnesium Level 2.3 mg/dL (1.8-2.4) Glucose (Fingerstick) 234 mg/dL (70-99) Medications Current Medications Fentanyl Citrate (Fentanyl 2ml Vial) 100 mcg STK-MED ONCE .ROUTE ; Start at 05:36; Stop 02/10/19 at 05:37; Status DC Midazolam HCl (Versed) 2 mg STK-MED ONCE .ROUTE ; Start 02/10/19 at 05:36; Stop 02/10/19 at 05:37; Status DC Fentanyl Citrate (Fentanyl 2ml Vial) 50 mcg 1X ONCE IV Last administered on at 05:43; Start 02/10/19 at 05:45; Stop 02/10/19 at 05:49; Status DC Insulin Human Lispro (HumaLOG) 0-5 UNITS TIDWMEALS SQ Last administered on 02/12at 11:36; Start 02/10/19 at 08:00; Stop 02/12/19 at 12:32; Status DC Dextrose (Dextrose 50%-Water Syringe) 12.5 gm PRN Q15MIN PRN IV SEE COMMENTS; Start 02/10/19 at 05:45; Stop 02/10/19 at 14:59; Status DC Iodixanol (Visipaque 320) 100 ml STK-MED ONCE .ROUTE ; Start 02/10/19 at 06:09; Stop 02/10/19 at 06:10; Status DC Heparin Sodium (Porcine) (Heparin Sodium) 10,000 unit STK-MED ONCE .ROUTE ; Start 02/10/19 at 06:10; Stop 02/10/19 at 06:11; Status DC Nitroglycerin/ Dextrose 250 ml @ As Directed STK-MED ONCE IV ; Start 02/10/19 at 06:26; Stop 02/10/19 at 06:27; Status DC Vancomycin HCl (VANCO for OR ONLY) 10 gm STK-MED ONCE .ROUTE Last administered on 02/10/19 09:45; Start 02/10/19 at 05:43; Stop 02/10/19 at 06:44; Status DC Cellulose (Surgicel Hemostat 4x8) 1 each STK-MED ONCE .ROUTE Last administered on 02/10/19 09:48; Start 02/10/19 at 05:43; Stop 02/10/19 at 06:44; Status DC Papaverine HCl 60 mg STK-MED ONCE .ROUTE Last administered on 02/10/19 09:48; Start 02/10/19 at 05:44; Stop 02/10/19 at 06:44; Status DC Aspirin (Aspirin) 300 mg STK-MED ONCE .ROUTE Last administered on 02/10/19 09: 48; Start 02/10/19 at 05:44; Stop 02/10/19 at 06:44; Status DC Sodium Chloride (SODIUM CHLORIDE 20ml) 20 ml STK-MED ONCE IJ Last administered on 02/10/19 09:44; Start 02/10/19 at 05:44; Stop 02/10/19 at 06:44; Status DC Sodium Chloride (SODIUM CHLORIDE 20ml) 20 ml STK-MED ONCE IJ Last administered on 02/10/19 09:45; Start 02/10/19 at 05:44; Stop 02/10/19 at 06:44; Status DC Potassium Chloride 70 meq/ Sodium Bicarbonate 12.5 meq/Lidocaine HCl 24 ml/ Parenteral Electrolytes 571.5 ml @ 571.5 mls/ hr 1X ONCE IRR ; Start 02/10/19 at 07:30; Stop 02/10/19 at 08:29; Status DC Sodium Chloride (SODIUM CHLORIDE 20ml) 20 ml STK-MED ONCE IJ Last administered on 02/10/19at 09:45; Start 02/10/19 at 05:44; Stop 02/10/19 at 06:45; Status DC Rocuronium Grandfalls (Zemuron) 100 mg STK-MED ONCE .ROUTE ; Start 02/10/19 at 06: 44; Stop 02/10/19 at 06:45; Status DC Sufentanil Citrate (Sufenta) 250 mcg STK-MED ONCE .ROUTE ; Start 02/10/19 at 06: 45; Stop 02/10/19 at 06:46; Status DC Potassium Chloride 15 meq/ Sodium Bicarbonate 12.5 meq/Parenteral Electrolytes 520 ml @ 520 mls/hr 1X ONCE IRR ; Start 02/10/19 at 07:30; Stop 02/10/19 at 08 :29; Status DC Midazolam HCl (Versed) 5 mg STK-MED ONCE .ROUTE ; Start 02/10/19 at 06:45; Stop 02/10/19 at 06:46; Status DC Lidocaine HCl (Lidocaine Pf 2% Vial) 5 ml STK-MED ONCE .ROUTE ; Start 02/10/19 at 06:46; Stop 02/10/19 at 06:47; Status DC Etomidate (Amidate) 20 mg STK-MED ONCE IV ; Start 02/10/19 at 06:46; Stop at 06:47; Status DC Aminocaproic Acid (Amicar) 5,000 mg STK-MED ONCE IV ; Start 02/10/19 at 06:46; Stop 02/10/19 at 06:47; Status DC Aminocaproic Acid (Amicar) 5,000 mg STK-MED ONCE IV ; Start 02/10/19 at 06:46; Stop 02/10/19 at 06:47; Status DC Aminocaproic Acid (Amicar) 5,000 mg STK-MED ONCE IV ; Start 02/10/19 at 06:46; Stop 02/10/19 at 06:47; Status DC Heparin Sodium/ Sodium Chloride (HEPARIN for ARTERIAL LINE FLUSH) 1,000 unit 1X ONCE IART Last administered on 02/10/19at 06:56; Start 02/10/19 at 06:45; Stop 02/10/19 at 06:56; Status DC Midazolam HCl (Versed) 2 mg 1X ONCE IV Last administered on 02/10/19at 06:57; Start 02/10/19 at 06:45; Stop 02/10/19 at 06:56; Status DC Fentanyl Citrate (Fentanyl 2ml Vial) 100 mcg 1X ONCE IV Last administered on at 06:56; Start 02/10/19 at 06:45; Stop 02/10/19 at 06:56; Status DC Iodixanol (Visipaque 320) 139 ml 1X ONCE IART Last administered on 02/10/19at 06:56; Start 02/10/19 at 06:45; Stop 02/10/19 at 06:56; Status DC Lidocaine HCl (Lidocaine 1% 20ml Vial) 20 ml 1X ONCE INJ Last administered on 02/10/19at 06:56; Start 02/10/19 at 06:45; Stop 02/10/19 at 06:56; Status DC Heparin Sodium (Porcine) (Heparin 5,000 Units/1,000ml NS) 5,000 unit 1X ONCE IV Last administered on 02/10/19at 06:45; Start 02/10/19 at 06:45; Stop at 06:56; Status DC Heparin Sodium (Porcine) 32241 unit/Ringer's Solution 1,020 ml @ 1,020 mls/hr 1X ONCE IRR Last administered on 02/10/19at 09:54; Start 02/10/19 at 07:30; Stop 02/10/19 at 08:29; Status DC Heparin Sodium (Porcine) 800 unit/ Nitroglycerin 4 mg/Verapamil HCl 8 mg/Sodium Bicarbonate 0.34 meq/Ringer's Solution 512.34 ml @ 512.34 mls/hr 1X ONCE IRR ; Start 02/10/19 at 07:30; Stop 02/10/19 at 08:29; Status DC Cefazolin Sodium 1 gm/Sodium Chloride 500 ml @ 500 mls/hr 1X ONCE IRR ; Start 02/10/19 at 07:30; Stop 02/10/19 at 08:29; Status DC Heparin Sodium (Porcine) 30,000 unit STK-MED ONCE .ROUTE ; Start 02/10/19 at 06: 50; Stop 02/10/19 at 06:51; Status DC Nitroglycerin/ Dextrose 250 ml @ 1.5 mls/hr CONT PRN IV SEE I/O RECORD Last administered on 02/10/19at 06:36; Start 02/10/19 at 07:00 Ephedrine Sulfate (ePHEDrine PF IN SALINE SYRINGE) 50 mg STK-MED ONCE IV ; Start 02/10/19 at 06:53; Stop 02/10/19 at 06:54; Status DC Phenylephrine HCl (Sp-Synephrine Inj) 10 mg STK-MED ONCE .ROUTE ; Start at 06:59; Stop 02/10/19 at 07:00; Status DC Epinephrine HCl (EPINEPHrine SYRINGE) 1 mg STK-MED ONCE .ROUTE ; Start 02/10/19 at 07:20; Stop 02/10/19 at 07:21; Status DC Ephedrine Sulfate (ePHEDrine PF IN SALINE SYRINGE) 50 mg STK-MED ONCE IV ; Start 02/10/19 at 07:22; Stop 02/10/19 at 07:23; Status DC Phenylephrine HCl (PHENYLEPHRINE in 0.9% NACL PF) 1 mg STK-MED ONCE IV ; Start 02/10/19 at 07:22; Stop 02/10/19 at 07:23; Status DC Heparin Sodium (Porcine) (Heparin Sodium) 10,000 unit STK-MED ONCE .ROUTE ; Start 02/10/19 at 08:02; Stop 02/10/19 at 08:03; Status DC Cefazolin Sodium 3 gm/Dextrose 100 ml @ 200 mls/hr 1X PREOP PRN IV PRIOR TO PROCEDURE Last administered on 02/10/19at 08:45; Start 02/10/19 at 08:29; Stop at 08:28; Status DC Mannitol 500 ml @ 0 mls/hr 1X ONCE IV ; Start 02/10/19 at 09:00; Stop 02/10/19 at 09:01; Status DC Rocuronium Grandfalls (Zemuron) 100 mg STK-MED ONCE .ROUTE ; Start 02/10/19 at 08: 51; Stop 02/10/19 at 08:52; Status DC Insulin Human Regular 150 unit/ Sodium Chloride 151.5 ml @ 0 mls/hr CONT PRN IV SEE I/O RECORD Last administered on 02/10/19at 09:50; Start 02/10/19 at 09:15 ; Stop 02/10/19 at 14:57; Status DC Norepinephrine Bitartrate 250 ml @ 1.875 mls/ hr 1X ONCE IV Last administered on 02/10/19at 16:56; Start 02/10/19 at 11:15; Stop 02/16/19 at 00:34 Midazolam HCl (Versed) 2 mg STK-MED ONCE .ROUTE ; Start 02/10/19 at 11:13; Stop 02/10/19 at 11:14; Status DC Epinephrine HCl 4 mg/Sodium Chloride 254 ml @ 3.81 mls/hr CONT PRN IV SEE I/O RECORD; Start 02/10/19 at 11:30; Stop 02/10/19 at 14:57; Status DC Protamine Sulfate (Protamine) 50 mg STK-MED ONCE IV ; Start 02/10/19 at 11:33; Stop 02/10/19 at 11:34; Status DC Protamine Sulfate (Protamine) 250 mg STK-MED ONCE IV ; Start 02/10/19 at 11:33; Stop 02/10/19 at 11:34; Status DC Protamine Sulfate (Protamine) 250 mg STK-MED ONCE IV ; Start 02/10/19 at 11:33; Stop 02/10/19 at 11:34; Status DC Midazolam HCl (Versed) 2 mg STK-MED ONCE .ROUTE ; Start 02/10/19 at 11:35; Stop 02/10/19 at 11:36; Status DC Cefazolin Sodium 3 gm/Dextrose 100 ml @ 200 mls/hr 1X ONCE IV Last administered on 02/10/19at 12:40; Start 02/10/19 at 11:45; Stop 02/10/19 at 12:14 ; Status DC Rocuronium [place]falls (Zemuron) 50 mg STK-MED ONCE .ROUTE ; Start 02/10/19 at 12:06 ; Stop 02/10/19 at 12:07; Status DC Propofol 0 ml @ As Directed STK-MED ONCE IV ; Start 02/10/19 at 12:49; Stop at 12:50; Status DC Nicardipine HCl 50 mg/Sodium Chloride 250 ml @ 25 mls/hr CONT PRN IV SEE I/O RECORD; Start 02/10/19 at 13:15; Stop 02/10/19 at 14:56; Status DC Heparin Sodium (Porcine) (Heparin Sodium) 10,000 unit STK-MED ONCE .ROUTE ; Start 02/10/19 at 13:21; Stop 02/10/19 at 13:22; Status DC Lidocaine HCl (Lidocaine Pf 2% Vial) 5 ml STK-MED ONCE .ROUTE ; Start 02/10/19 at 13:21; Stop 02/10/19 at 13:22; Status DC Magnesium Sulfate 5 gm STK-MED ONCE .ROUTE ; Start 02/10/19 at 13:21; Stop 02/10 at 13:22; Status DC Albumin Human 200 ml @ As Directed STK-MED ONCE IV ; Start 02/10/19 at 13:21; Stop 02/10/19 at 13:22; Status DC Calcium Chloride (Calcium Chloride) 1,000 mg STK-MED ONCE .ROUTE ; Start at 13:21; Stop 02/10/19 at 13:22; Status DC Sodium Bicarbonate (Sodium Bicarb Adult 8.4% Syr) 50 meq STK-MED ONCE .ROUTE ; Start 02/10/19 at 13:23; Stop 02/10/19 at 13:24; Status DC Sodium Chloride (Normal Saline Flush) 3 ml PRN Q12HR PRN IV AFTER MEDS AND BLOOD DRAWS; Start 02/10/19 at 14:15 Ringer's Solution 1,000 ml @ 30 mls/hr Q24H IV Last administered on 02/12/19at 12:52; Start 02/10/19 at 14:06 Albumin Human 250 ml @ 500 mls/hr PRN Q4HRS PRN IV SEE COMMENTS Last administered on 02/10/19at 18:04; Start 02/10/19 at 14:15 Insulin Human Regular 150 unit/ Sodium Chloride 151.5 ml @ 0 mls/hr CONT PRN PRN IV PER PROTOCOL Last administered on 02/12/19at 05:08; Start 02/10/19 at 14: 15 Dextrose (Dextrose 50%-Water Syringe) 25 gm PRN Q15MIN PRN IV LOW BLOOD SUGAR; Start 02/10/19 at 14:15 Nitroglycerin/ Dextrose 250 ml @ 0 mls/hr CONT PRN PRN IV POST CV SURGERY; Start 02/10/19 at 14:15; Stop 02/10/19 at 14:59; Status DC Epinephrine HCl 4 mg/Sodium Chloride 254 ml @ 0 mls/hr CONT PRN PRN IV POST CV SURGERY; Start 02/10/19 at 14:15 Amiodarone HCl 150 mg/Dextrose 103 ml @ 600 mls/hr 1X ONCE IV Last administered on 02/10/19at 22:41; Start 02/10/19 at 14:15; Stop 02/10/19 at 14:26 ; Status DC Amiodarone HCl 150 mg/Dextrose 103 ml @ 200 mls/hr 1X PRN PRN IV FOR AFIB; Start 02/10/19 at 14:15 Amiodarone HCl 900 mg/Dextrose 518 ml @ 0 mls/hr CONT PRN PRN IV AFIB Last administered on 02/10/19at 22:43; Start 02/10/19 at 14:15 Info (KCl Per Protocol) 1 ea CONT PRN PRN MC SEE COMMENTS; Start 02/10/19 at 14 :15 Magnesium Sulfate/ Dextrose 100 ml @ 100 mls/hr PRN DAILY PRN IV FOR MAG < 2.2 ; Start 02/10/19 at 14:15 Famotidine (Pepcid Vial) 20 mg BID IVP Last administered on 02/10/19at 20:36; Start 02/10/19 at 21:00; Stop 02/11/19 at 06:31; Status DC Ondansetron HCl (Zofran) 4 mg PRN Q4HRS PRN IV NAUSEA/VOMITING, 1st CHOICE Last administered on 02/12/19at 02:45; Start 02/10/19 at 14:15 Prochlorperazine Edisylate (Compazine) 10 mg PRN Q6HRS PRN IV NAUSEA/VOMITING, 2nd CHOICE; Start 02/10/19 at 14:15 Metoclopramide HCl (Reglan Vial) 10 mg PRN Q6HRS PRN IV NAUSEA/VOMITING, 3rd CHOICE; Start 02/10/19 at 14:15 Morphine Sulfate (Morphine Sulfate) 2 mg PRN Q1HR PRN IV PAIN Last administered on 02/11/19at 18:39; Start 02/10/19 at 14:15 Morphine Sulfate (Morphine Sulfate) 4 mg PRN Q1HR PRN IV PAIN Last administered on 02/10/19at 18:20; Start 02/10/19 at 14:15 Acetaminophen (Tylenol) 650 mg PRN Q4HRS PRN PO TEMP > 101'F or MILD PAIN Last administered on 02/13/19 08:31; Start 02/10/19 at 14:15 Acetaminophen (Tylenol Supp) 650 mg PRN Q4HRS PRN [place] TEMP > 101'F or MILD PAIN ; Start 02/10/19 at 14:15 Meperidine HCl (Demerol) 12.5 mg PRN Q15MIN PRN IV SHIVERING Last administered on 02/10/19at 15:41; Start 02/10/19 at 14:15; Stop 02/11/19 at 14:06; Status DC Propofol 100 ml @ 0 mls/hr CONT PRN PRN IV POSTOP SEDATION UNTIL EXTUBATE Last administered on 02/10/19at 16:58; Start 02/10/19 at 14:15 Senna/Docusate Sodium (Senna Plus) 1 tab BID PO Last administered on 02/13/19 08:31; Start 02/10/19 at 21:00 Bisacodyl (Dulcolax Supp) 10 mg PRN DAILY PRN [place] NO BOWEL MOVEMENT; Start 02/10 at 14:15 Chlorhexidine Gluconate (Peridex) 15 ml BID MM ; Start 02/11/19 at 09:00; Stop 02/11/19 at 11:15; Status DC Aspirin (Ecotrin) 325 mg DAILYWBKFT PO Last administered on 02/13/19 08:31; Start 02/11/19 at 08:00 Aspirin (Aspirin) 300 mg PRN DAILY PRN [place] IF UNABLE TO TAKE PO; Start 02/11/19 at 08:00 Albuterol Sulfate (Ventolin Neb Soln) 2.5 mg PRN Q4HRS PRN NEB SHORTNESS OF BREATH; Start 02/10/19 at 14:15 Metoprolol Tartrate (Lopressor) 25 mg BID PO Last administered on 02/13/19at 08: 31; Start 02/11/19 at 09:00 Nicardipine HCl 50 mg/Sodium Chloride 250 ml @ 0 mls/hr CONT PRN PRN IV PER PROTOCOL; Start 02/10/19 at 14:15 Oxycodone HCl (Roxicodone) 5 mg PRN Q4HRS PRN PO MODERATE PAIN Last administered on 02/12/19at 23:52; Start 02/10/19 at 14:15 Oxycodone HCl (Roxicodone) 10 mg PRN Q4HRS PRN PO SEVERE PAIN Last administered on 02/13/19at 09:50; Start 02/10/19 at 14:15 Cefazolin Sodium/ Dextrose 50 ml @ 100 mls/hr Q8H IV ; Start 02/10/19 at 18:00 ; Stop 02/10/19 at 19:17; Status DC Isoflurane (Isoflurane) 90 ml STK-MED ONCE IH ; Start 02/10/19 at 14:46; Stop at 14:47; Status DC Sodium Bicarbonate (Sodium Bicarb Adult 8.4% Syr) 50 meq STK-MED ONCE .ROUTE ; Start 02/10/19 at 15:29; Stop 02/10/19 at 15:30; Status DC Sodium Bicarbonate (Sodium Bicarb Adult 8.4% Syr) 50 meq 1X ONCE IV Last administered on 02/10/19at 15:50; Start 02/10/19 at 15:45; Stop 02/10/19 at 15:46 ; Status DC Potassium Chloride/Water 50 ml @ 50 mls/hr PRN Q1HR PRN IV FOR K 3.1-3.5; Start 02/10/19 at 15:45 Potassium Chloride/Water 50 ml @ 50 mls/hr PRN Q1HR PRN IV FOR K 2.6-3.0 MEQ/L ; Start 02/10/19 at 15:45 Potassium Chloride/Water 50 ml @ 50 mls/hr PRN Q1HR PRN IV FOR K <2.6 MEQ/L; Start 02/10/19 at 16:00 Magnesium Sulfate/ Dextrose 100 ml @ 50 mls/hr PRN DAILY PRN IV SEE COMMENTS; Start 02/11/19 at 09:00 Potassium Chloride/Water 50 ml @ 50 mls/hr Q1H IV Last administered on 16:52; Start 02/10/19 at 17:00; Stop 02/10/19 at 18:59; Status DC Sodium Bicarbonate (Sodium Bicarb Adult 8.4% Syr) 50 meq 1X ONCE IV Last administered on 02/10/19 18:05; Start 02/10/19 at 18:15; Stop 02/10/19 at 18:16 ; Status DC Cefazolin Sodium/ Dextrose 50 ml @ 100 mls/hr Q8H IV Last administered on 02/12at 04:23; Start 02/10/19 at 20:30; Stop 02/12/19 at 04:59; Status DC Norepinephrine Bitartrate 250 ml @ 1.875 mls/ hr CONT PRN IV SEE I/O RECORD Last administered on 02/11/19at 00:23; Start 02/10/19 at 22:45 Pantoprazole Sodium (Protonix) 40 mg DAILYAC PO Last administered on 02/13/19 08:31; Start 02/11/19 at 07:30 Ipratropium [place] (Atrovent) 0.5 mg RTQID NEB Last administered on 02/13/19 09:00; Start 02/11/19 at 08:00 Potassium Chloride/Water 50 ml @ 50 mls/hr 1X ONCE IV Last administered on 10:58; Start 02/11/19 at 11:00; Stop 02/11/19 at 11:59; Status DC Magnesium Sulfate 50 ml @ 25 mls/hr 1X ONCE IV Last administered on 02/11/19at 12:21; Start 02/11/19 at 11:00; Stop 02/11/19 at 12:59; Status DC Atorvastatin Calcium (Lipitor) 40 mg QHS PO Last administered on 02/12/19at 21: 00; Start 02/11/19 at 21:00 Amiodarone HCl (Cordarone) 200 mg BID PO Last administered on 02/13/19 08:31; Start 02/11/19 at 16:00 Potassium Chloride/Water 50 ml @ 50 mls/hr 1X ONCE IV Last administered on 08:30; Start 02/12/19 at 08:30; Stop 02/12/19 at 09:29; Status DC Insulin Glargine (Lantus) 50 units QHS SQ ; Start 02/13/19 at 21:00; Stop at 21:00; Status DC Insulin Glargine (Lantus) 50 units 1X ONCE SQ Last administered on 02/12/19at 12:51; Start 02/12/19 at 13:00; Stop 02/12/19 at 13:01; Status DC Insulin Human Lispro (HumaLOG) 10 units 1X ONCE SQ Last administered on at 12:52; Start 02/12/19 at 13:00; Stop 02/12/19 at 13:01; Status DC Insulin Human Lispro (HumaLOG) 0-9 UNITS TIDWMEALS SQ Last administered on 02/13at 08:33; Start 02/12/19 at 17:00 Dextrose (Dextrose 50%-Water Syringe) 12.5 gm PRN Q15MIN PRN IV SEE COMMENTS; Start 02/12/19 at 12:30 Metoprolol Tartrate (Lopressor) 12.5 mg 1X ONCE PO Last administered on at 12:50; Start 02/12/19 at 13:00; Stop 02/12/19 at 13:01; Status DC Insulin Glargine (Lantus) 50 units QHS SQ Last administered on 02/12/19at 21:17 ; Start 02/12/19 at 21:15 Active Scripts Active Reported No Known Medications Prior To Admisstion (Info) Each 1 Each DAILY Vitals/I & O Vital Sign - Last 24 Hours 02/12/19 02/12/19 02/12/19 02/12/19 11:00 11:04 11:18 12:00 Pulse 103 Resp 15 16 B/P (MAP) 119/65 (83) Pulse Ox 94 94 94 O2 Delivery Nasal Cannula Nasal Cannula Nasal Cannula Nasal Cannula O2 Flow Rate 2.0 2.0 2.0 2.0 02/12/19 02/12/19 02/12/19 02/12/19 12:00 12:50 13:00 14:00 Temp 98.8 98.8 Pulse 104 103 103 102 Resp 15 12 10 B/P (MAP) 111/74 (86) 132/73 128/72 (90) 131/71 (91) Pulse Ox 95 96 96 O2 Delivery Nasal Cannula Nasal Cannula Nasal Cannula O2 Flow Rate 2.0 2.0 2.0 02/12/19 02/12/19 02/12/19 02/12/19 15:00 16:00 16:00 16:25 Pulse 100 101 Resp 13 15 B/P (MAP) 122/72 (89) 132/76 (94) Pulse Ox 96 92 91 O2 Delivery Nasal Cannula Room Air Nasal Cannula Room Air O2 Flow Rate 2.0 2.0 02/12/19 02/12/19 02/12/19 02/12/19 16:28 17:00 18:00 19:00 Temp 98.2 98.2 Pulse 104 105 99 Resp 12 10 15 B/P (MAP) 132/76 (94) 139/78 (98) 119/72 (88) Pulse Ox 95 92 95 96 O2 Delivery Room Air Room Air Nasal Cannula Nasal Cannula O2 Flow Rate 2.0 2.0 02/12/19 02/12/19 02/12/19 02/12/19 19:50 20:00 20:21 21:00 Temp 98.3 98.3 Pulse 101 106 Resp 18 17 B/P (MAP) 150/83 (105) 128/75 (92) Pulse Ox 95 95 96 O2 Delivery Nasal Cannula Nasal Cannula Nasal Cannula Nasal Cannula O2 Flow Rate 2.0 2.0 2.0 2.0 02/12/19 02/12/19 02/12/19 02/12/19 21:01 21:01 22:00 23:00 Pulse 105 105 107 103 Resp 20 14 B/P (MAP) 128/75 128/75 140/75 (96) 135/70 (91) Pulse Ox 96 96 O2 Delivery Nasal Cannula Nasal Cannula O2 Flow Rate 2.0 2.0 02/13/19 02/13/19 02/13/19 02/13/19 00:00 00:00 01:00 02:00 Temp 98.1 98.1 Pulse 105 105 108 Resp 18 17 25 B/P (MAP) 110/71 (84) 140/78 (98) 153/75 (101) Pulse Ox 96 96 96 O2 Delivery Nasal Cannula Nasal Cannula Nasal Cannula Nasal Cannula O2 Flow Rate 2.0 2.0 2.0 2.0 02/13/19 02/13/19 02/13/19 02/13/19 03:00 04:00 04:00 05:00 Temp 98.6 98.6 Pulse 105 103 103 Resp 08 10 19 B/P (MAP) 141/72 (95) 147/74 (98) 136/80 (98) Pulse Ox 96 96 96 O2 Delivery Nasal Cannula Nasal Cannula Nasal Cannula Nasal Cannula O2 Flow Rate 2.0 2.0 2.0 2.0 02/13/19 02/13/19 02/13/19 02/13/19 06:00 07:00 08:00 08:31 Temp 98.2 98.2 Pulse 100 100 100 100 Resp 19 19 B/P (MAP) 140/76 (97) 140/76 (97) 135/63 (87) 140/76 Pulse Ox 96 96 95 O2 Delivery Nasal Cannula Nasal Cannula Room Air O2 Flow Rate 2.0 2.0 02/13/19 02/13/19 02/13/19 02/13/19 08:31 09:00 09:00 09:50 Pulse 100 96 Resp 16 B/P (MAP) 140/76 144/76 (98) Pulse Ox 95 94 88 O2 Delivery Room Air Room Air Room Air 02/13/19 09:55 Pulse 110 Resp 18 B/P (MAP) 111/59 (76) Pulse Ox 88 O2 Delivery Room Air Intake and Output 02/12/19 02/12/19 02/13/19 15:00 23:00 07:00 Intake Total 1094 ml 1037 ml Output Total 760 ml 405 ml 600 ml Balance 334 ml 632 ml -600 ml NEGRITA KENT MD Feb 13, 2019 10:22
[2019-02-13 10:47] LABS: ART BE ISTAT -3 mmol/L (0-3); ART GLUC ISTAT 200 mg/dL (70-99); ART HCO3 ISTAT 23 mmol/L (21-28); ART HCT ISTAT 38 % (37-52); ART HGB ISTAT 12.9 g/dL (14-18); ART ION CA ISTAT 1.32 mmol/L (1.13-1.32); ART K ISTAT 4.3 mmol/L (3.5-5.0); ART NA ISTAT 140 mmol/L (135-145); ART PCO2 ISTAT 44 mmHg (35-45); ART PH ISTAT 7.33 (7.35-7.45); ART PO2 ISTAT 288 mmHg (75-100); ART SAT O2 SAT 100 % (95-99); ART TCO2 ISTAT 24 mmol/L (21-32)
[2019-02-13 10:47] LABS: ART BE ISTAT -3 mmol/L (0-3); ART GLUC ISTAT 170 mg/dL (70-99); ART HCO3 ISTAT 24 mmol/L (21-28); ART HCT ISTAT 28 % (37-52); ART HGB ISTAT 9.5 g/dL (14-18); ART ION CA ISTAT 1.19 mmol/L (1.13-1.32); ART K ISTAT 4.9 mmol/L (3.5-5.0); ART NA ISTAT 141 mmol/L (135-145); ART PCO2 ISTAT 48 mmHg (35-45); ART PH ISTAT 7.29 (7.35-7.45); ART PO2 ISTAT 49 mmHg (75-100); ART SAT O2 SAT 79 % (95-99); ART TCO2 ISTAT 25 mmol/L (21-32)
[2019-02-13 10:47] LABS: ART BE ISTAT -2 mmol/L (0-3); ART GLUC ISTAT 162 mg/dL (70-99); ART HCO3 ISTAT 22 mmol/L (21-28); ART HCT ISTAT 33 % (37-52); ART HGB ISTAT 11.2 g/dL (14-18); ART ION CA ISTAT 1.44 mmol/L (1.13-1.32); ART K ISTAT 4.2 mmol/L (3.5-5.0); ART NA ISTAT 141 mmol/L (135-145); ART PCO2 ISTAT 36 mmHg (35-45); ART PH ISTAT 7.41 (7.35-7.45); ART PO2 ISTAT 418 mmHg (75-100); ART SAT O2 SAT 100 % (95-99); ART TCO2 ISTAT 24 mmol/L (21-32)
[2019-02-13 10:47] LABS: FIO2 ISTAT 100; VEN BASE EXCESS ISTAT -5 mmol/L (0-3); VEN GLUC ISTAT 218 mg/dL (70-99); VEN HCO3 ISTAT 21 mmol/L (24-28); VEN HCT ISTAT 36 % (37-52); VEN HGB ISTAT 12.2 g/dL (14-18); VEN ION CA ISTAT 1.32 mmol/L (1.13-1.32); VEN K ISTAT 4.2 mmol/L (3.5-5.0); VEN NA ISTAT 140 mmol/L (135-145); VEN O2 ISTAT 46 mmHg (20-40); VEN PCO2 ISTAT 44 mmHg (41-51); VEN PH ISTAT 7.29 (7.32-7.42); VEN SO2 ISTAT 77 %; VEN TCO2 ISTAT 23 mmol/L (21-32)
[2019-02-13 10:47] LABS: ART BE ISTAT -3 mmol/L (0-3); ART GLUC ISTAT 182 mg/dL (70-99); ART HCO3 ISTAT 22 mmol/L (21-28); ART HCT ISTAT 33 % (37-52); ART HGB ISTAT 11.2 g/dL (14-18); ART ION CA ISTAT 1.18 mmol/L (1.13-1.32); ART K ISTAT 4.9 mmol/L (3.5-5.0); ART NA ISTAT 141 mmol/L (135-145); ART PCO2 ISTAT 42 mmHg (35-45); ART PH ISTAT 7.33 (7.35-7.45); ART PO2 ISTAT 357 mmHg (75-100); ART SAT O2 SAT 100 % (95-99); ART TCO2 ISTAT 24 mmol/L (21-32)
[2019-02-13 10:47] LABS: ART BE ISTAT -1 mmol/L (0-3); ART GLUC ISTAT 181 mg/dL (70-99); ART HCO3 ISTAT 24 mmol/L (21-28); ART HCT ISTAT 33 % (37-52); ART HGB ISTAT 11.2 g/dL (14-18); ART ION CA ISTAT 1.17 mmol/L (1.13-1.32); ART K ISTAT 5.4 mmol/L (3.5-5.0); ART NA ISTAT 140 mmol/L (135-145); ART PCO2 ISTAT 44 mmHg (35-45); ART PH ISTAT 7.35 (7.35-7.45); ART PO2 ISTAT 433 mmHg (75-100); ART SAT O2 SAT 100 % (95-99); ART TCO2 ISTAT 26 mmol/L (21-32)
[2019-02-13 10:47] LABS: ART BE ISTAT -5 mmol/L (0-3); ART GLUC ISTAT 210 mg/dL (70-99); ART HCO3 ISTAT 21 mmol/L (21-28); ART HCT ISTAT 36 % (37-52); ART HGB ISTAT 12.2 g/dL (14-18); ART K ISTAT 4.5 mmol/L (3.5-5.0); ART NA ISTAT 140 mmol/L (135-145); ART PCO2 ISTAT 40 mmHg (35-45); ART PH ISTAT 7.33 (7.35-7.45); ART PO2 ISTAT 371 mmHg (75-100); ART SAT O2 SAT 100 % (95-99); ART TCO2 ISTAT 22 mmol/L (21-32)
[2019-02-13 10:47] LABS: ART BE ISTAT -3 mmol/L (0-3); ART GLUC ISTAT 202 mg/dL (70-99); ART HCO3 ISTAT 23 mmol/L (21-28); ART HCT ISTAT 30 % (37-52); ART HGB ISTAT 10.2 g/dL (14-18); ART ION CA ISTAT 1.57 mmol/L (1.13-1.32); ART K ISTAT 4.2 mmol/L (3.5-5.0); ART NA ISTAT 140 mmol/L (135-145); ART PCO2 ISTAT 41 mmHg (35-45); ART PH ISTAT 7.35 (7.35-7.45); ART PO2 ISTAT 364 mmHg (75-100); ART SAT O2 SAT 100 % (95-99); ART TCO2 ISTAT 24 mmol/L (21-32)
[2019-02-13 10:47] LABS: FIO2 ISTAT 100; VEN BASE EXCESS ISTAT -3 mmol/L (0-3); VEN GLUC ISTAT 194 mg/dL (70-99); VEN HCO3 ISTAT 23 mmol/L (24-28); VEN HCT ISTAT 37 % (37-52); VEN HGB ISTAT 12.6 g/dL (14-18); VEN ION CA ISTAT 1.33 mmol/L (1.13-1.32); VEN K ISTAT 4.2 mmol/L (3.5-5.0); VEN NA ISTAT 140 mmol/L (135-145); VEN O2 ISTAT 48 mmHg (20-40); VEN PCO2 ISTAT 46 mmHg (41-51); VEN SO2 ISTAT 79 %; VEN TCO2 ISTAT 24 mmol/L (21-32)
--- NOTE | 2019-02-13 10:56 | PDOC ---
MYRNA LOJA PERFORMING ARTIST 02/13/19 1056: CARDIO Progress Notes Date and Time Date of Service 02/13/19 Time of Evaluation 1045 Subjective Subjective: Other (sternal CP with movement) Vitals Vitals Vital Signs Date Time Temp Pulse Resp B/P (MAP) Pulse Ox O2 Delivery O2 Flow Rate FiO2 02/13/19 09:55 110 18 111/59 (76) 88 Room Air 02/13/19 07:00 98.2 2.0 98.2 Weight Weight [ ] Input and Output Intake and Output Intake and Output 02/13/19 06:59 Intake Total 2131 ml Output Total 1765 ml Balance 366 ml Intake Oral 1600 ml IV Total 531 ml Output Urine Total 1640 ml Chest Tube Drainage Total 125 ml Laboratory Labs Laboratory Tests Test 02/12/19 11:34 02/12/19 12:48 02/12/19 17:32 02/12/19 21:04 Glucose (Fingerstick) 145 mg/dL (70-99) 142 mg/dL (70-99) 206 mg/dL (70-99) 171 mg/dL (70-99) Test 02/13/19 06:15 02/13/19 08:24 White Blood Count 16.4 x10^3/uL (4.0-11.0) Red Blood Count 3.53 x10^6/uL (4.30-5.70) Hemoglobin 10.7 g/dL (13.0-17.5) Hematocrit 31.3 % (39.0-53.0) Mean Corpuscular Volume 89 fL (79-100) Mean Corpuscular Hemoglobin 30 pg (25-35) Mean Corpuscular Hemoglobin Concent 34 g/dL (31-37) Red Cell Distribution Width 14.0 % (11.5-14.5) Platelet Count 110 x10^3/uL (140-400) Sodium Level 134 mmol/L (136-145) Potassium Level 5.0 mmol/L (3.5-5.1) Chloride Level 100 mmol/L (98-107) Carbon Dioxide Level 27 mmol/L (21-32) Anion Gap 7 (6-14) Blood Urea Nitrogen 36 mg/dL (8-26) Creatinine 1.1 mg/dL (0.7-1.3) Estimated GFR (Cockcroft-Gault) 67.6 Glucose Level 273 mg/dL (70-99) Calcium Level 9.5 mg/dL (8.5-10.1) Magnesium Level 2.3 mg/dL (1.8-2.4) Glucose (Fingerstick) 234 mg/dL (70-99) Physical Exam HEENT: Neck Supple W Full Motion Chest: Symmetric LUNGS: Clear to Auscultation Heart: S1S2, RRR, murmurs Abdomen: Soft N/T Extremities: Other (trace bilateral LE edema ) Neurology: alert, oriented, follow commands Assessment Assessment 1. 3V CAD s/p emergent CABG with AL to LAD, SVG to OM, SVG to RPDA. POD #3 2. Chronic systolic HF with ICM; LVEF 25% per cath; appears compensated 3. Hypertension; controlled 4. Hyperlipidemia; LDL 22 6. Diabetes, II Recommendations Continue ASA, BB, statin Add lisinopril when BP consistently adequate given CMP Amiodarone for AFIB prophylaxis Echocardiogram to evaluate LV systolic function Continue post op management as per CTS MATHEW SHEEHAN MD 02/13/192038: CARDIO Progress Notes Assessment Assessment Patient seen and examined. Agree with DIRECTOR OF ONCOLOGY's assessment and plan. s/p CABG, progressing well Continue post op care per CTS Chronic systolic HF well compensated We will consider Lifevest upon DC and repeat echo in 3 months MYRNA LOJA APRN Feb 13, 2019 10:56 MATHEW SHEEHAN MD Feb 13, 2019 20:39
--- NOTE | 2019-02-13 12:11 | PDOC ---
Progress Note Subjective Subjective Doing very well. Normotensive, mild sinus tachycardia 100-110. On 2 lit NC. Hb 10.7, creat 1.1. CXR looks good. Glucose >200, 50U Lantus ordered, only given 10U ROS ROS No nausea No vomiting No pain No rash Vital Sign Vital Signs Vital Signs Date Time Temp Pulse Resp B/P (MAP) Pulse Ox O2 Delivery O2 Flow Rate FiO2 02/13/19 11:01 106 18 113/59 (77) 94 Nasal Cannula 2.0 02/13/19 07:00 98.2 98.2 Physical Exam PHYSICAL EXAM GENERAL: NAD, Alert HEENT: PERRL, OC/OP NECK: Supple, no JVD, no LN LUNGS: Clear HEART: S1S2, no gallop, no murmur ABD: Soft, NT, no organomegaly, no rebound EXT: No edema, no cyanosis SENIOR MAINFRAME PROGRAMMER ANALYST: Alert, 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, no focal neurologic deficit SKIN: No rash IV: ok Labs Lab Laboratory Tests Test 02/12/19 12:48 02/12/19 17:32 02/12/19 21:04 02/13/19 06:15 Glucose (Fingerstick) 142 mg/dL (70-99) 206 mg/dL (70-99) 171 mg/dL (70-99) White Blood Count 16.4 x10^3/uL (4.0-11.0) Red Blood Count 3.53 x10^6/uL (4.30-5.70) Hemoglobin 10.7 g/dL (13.0-17.5) Hematocrit 31.3 % (39.0-53.0) Mean Corpuscular Volume 89 fL (79-100) Mean Corpuscular Hemoglobin 30 pg (25-35) Mean Corpuscular Hemoglobin Concent 34 g/dL (31-37) Red Cell Distribution Width 14.0 % (11.5-14.5) Platelet Count 110 x10^3/uL (140-400) Sodium Level 134 mmol/L (136-145) Potassium Level 5.0 mmol/L (3.5-5.1) Chloride Level 100 mmol/L (98-107) Carbon Dioxide Level 27 mmol/L (21-32) Anion Gap 7 (6-14) Blood Urea Nitrogen 36 mg/dL (8-26) Creatinine 1.1 mg/dL (0.7-1.3) Estimated GFR (Cockcroft-Gault) 67.6 Glucose Level 273 mg/dL (70-99) Calcium Level 9.5 mg/dL (8.5-10.1) Magnesium Level 2.3 mg/dL (1.8-2.4) Test 02/13/19 08:24 Glucose (Fingerstick) 234 mg/dL (70-99) Objective Assessment POD#3, s/p emergent CABG x 3 (AL to LAD, SVG to OM, SVG to RPDA) Doing very well. Normotensive, mild sinus tachycardia 100-110. On 2 lit NC. Hb 10.7, creat 1.1. CXR looks good. Glucose >200, 50U Lantus ordered, only given 10U Plan Plan of Care D/c pacing wires Amiodarone 200mg po BID Increase Metoprolol to 50mg BID ASA, statin. Needs at least 50 units Lantus with high dose sliding scale. Transfer to stepdown Agree with ECHO Dispo planning ARNULFO MORROW MD Feb 13, 2019 12:11
[2019-02-13] MEDS ORDERED: METOPROLOL TART IMMED RELEASE 25 MG TABLET. PO ONE (12:15)
--- NOTE | 2019-02-13 13:00 | NUR ---
dr bell removed pacemaker wires from chest. pt ambulated in [place] with minimal assistance. pt with increased respirations while walking o2 sats remains in the 90's. attempted to increase distance of walking and pt became more pale, eyes buldging and rr increased to 35. pt stated "I feel a little dizzy". pt assisted to chair. bp 122/62. hr 108. sat 96%. pt states "the dizziness of gone".
--- NOTE | 2019-02-13 13:06 | RAD ---
Portable chest compared to similar study dated 02/12/2019 for 3 days post CABG. FINDINGS: The right IJ sheath and left chest tubes have been removed. Patchy left basilar atelectasis and small effusion or infiltrate in the left costophrenic sulcus is redemonstrated. No new lung parenchymal abnormalities are seen. Median sternotomy wires are present. Heart size is within normal limits. There is gaseous distention of the bowel within the upper abdomen, grossly unchanged. IMPRESSION: 1. Interval removal of the right IJ sheath and left chest tube. 2. Stable left basilar atelectasis, infiltrate, and/or small effusion. No new lung parenchymal abnormalities. 3. Stable gaseous distention of bowel within the upper abdomen. Electronically signed by: Jonny Valle MD (02/13/2019 1:03 PM) [id number]
[2019-02-13] MEDS ORDERED: diphenhydrAMINE HCL 25 MG CAPSULE PO PRN (13:15)
[2019-02-13] MEDS ORDERED: DEXTROSE 50% 25 GM / 50ML DISP.SYRIN. IV PRN (13:15)
--- NOTE | 2019-02-13 15:04 | CARD ---
MR#: [id number] Date of Study: 02/13/2019 Ordering Physician: MYRNA LOJA, Referring Physician: SHAWN MACDONALD, Tech: Kavita El APPROVED REPORT EXAM: Two-dimensional and M-mode echocardiogram with Doppler and color Doppler. Other Information Quality : AverageHR: 107bpm Technically limited study due to body habitus. INDICATION CAD Surgery/Intervention CABG: Date: 02/10/2019 Site: [facility] 2D DIMENSIONS RVDd2.6 (2.9-3.5cm)Left Atrium(2D)3.9 (1.6-4.0cm) IVSd1.2 (0.7-1.1cm)Aortic Root(2D)3.3 (2.0-3.7cm) LVDd5.0 (3.9-5.9cm)LVOT Diameter2.2 (1.8-2.4cm) PWd1.2 (0.7-1.1cm)LVDs4.3 (2.5-4.0cm) FS (%) 14.3 %SV35.7 ml LVEF(%)30.4 (>50%) Aortic Valve AoV Peak Jim.127.6cm/sAoV VTI19.0cm AO Peak GR.6.5mmHgLVOT VTI 15.76cm AO Mean GR.4mmHg Mitral Valve MV E Bfuehrih255.1cm/sMV DECEL [id number] MV A Nhhqfysz90.6cm/sE/A Ratio1.5 TDI Lateral E' P. V8.50cm/sMedial E' P. V4.46cm/s E/Lateral E'11.8E/Medial E'22.4 Tricuspid Valve TR P. Tihxcuye165rt/sRAP [id number] TR Peak Gr.84txVnNOPI42zrXf Pulmonary Vein S1 Lwhxmebi16.5cm/sS2 Szucptqw51.45cm/s D2 Oysdxlkp73.5cm/sPVa bqwxngds84egvq LEFT VENTRICLE The left ventricle is normal size. There is borderline concentric left ventricular hypertrophy. The L V systolic function is moderately impaired. EF 35-40% There is global hypokinesis of the left ventric le with septal motion suggestive of prior infarct versus post-operative state. Tissue Doppler imaging reveals moderate left ventricular diastolic dysfunction. RIGHT VENTRICLE The right ventricle is normal size. There is normal right ventricular wall thickness. The right ventr icular systolic function is normal. ATRIA The left atrium is borderline dilated. The right atrium is borderline dilated. The interatrial septum is intact with no evidence for an atrial septal defect or patent foramen ovale as noted on 2-D or Do ppler imaging. AORTIC VALVE The aortic valve is thickened but opens well. Doppler and Color Flow revealed no significant aortic r egurgitation. There is no significant aortic valvular stenosis. MITRAL VALVE The mitral valve is normal in structure and function. There is no evidence of mitral valve prolapse. There is no mitral valve stenosis. Doppler and Color-flow revealed trace mitral regurgitation. TRICUSPID VALVE The tricuspid valve is normal in structure and function. Doppler and Color Flow revealed trace tricus pid regurgitation with an estimated PAP of 30 mmHg. There is no tricuspid valve stenosis. PULMONIC VALVE The pulmonic valve is not well visualized. Doppler and Color Flow revealed no pulmonic valvular regur gitation. GREAT VESSELS The aortic root is normal in size. The IVC was not visualized. PERICARDIAL EFFUSION There is no evidence of significant pericardial effusion. Critical Notification Critical Value: No <Conclusion> The LV systolic function is moderately impaired. EF 35-40% There is global hypokinesis of the left ventricle with septal motion suggestive of prior infarct vers us post-operative state. Signed by : Mello Villanueva, Electronically Approved : 02/13/2019 15:03:53
--- NOTE | 2019-02-13 15:51 | NUR ---
SS following for discharge planning. SS reviewed pt chart. Pt is from home with spouse and is currently on room air. PT/OT ordered. No discharge needs noted at this time. SS will continue to follow for pending discharge needs.
[2019-02-13] MEDS: INSULIN GLARGINE 300 UNITS/3 ML INSULN.PEN. SQ SCH (20:57)
[2019-02-13] MEDS ORDERED: ATORVASTATIN CALCIUM 20 MG TABLET PO SCH (21:00)
[2019-02-13] MEDS ORDERED: INSULIN GLARGINE 300 UNITS/3 ML INSULN.PEN. SQ SCH (21:00)
[2019-02-13] MEDS: METOPROLOL TART IMMED RELEASE 50 MG TABLET. PO SCH (21:17)
[2019-02-14 03:03] VITALS: BP 136/79
[2019-02-14 04:07] LABS: CALCIUM 9.2 mg/dL (8.5-10.1); CREATININE 0.8 mg/dL (0.7-1.3); GFR 97.6; POTASSIUM 4.3 mmol/L (3.5-5.1)
[2019-02-14] MEDS: IPRATROPIUM BROMIDE 0.5 MG/2.5 ML NEBU. NEB SCH ×2 (07:24→11:12)
[2019-02-14 08:00] VITALS: BP 129/72
[2019-02-14] MEDS: INSULIN LISPRO 300 UNITS/3 ML INSULN.PEN. SQ SCH ×2 (08:00→12:00)
[2019-02-14] MEDS ORDERED: AMIO200T4 PO (08:41)
[2019-02-14] MEDS ORDERED: INSU100I13 SQ (08:41)
[2019-02-14] MEDS ORDERED: OXYC5TAB4 PO (08:41)
[2019-02-14] MEDS ORDERED: METO50TA6 PO (08:41)
[2019-02-14] MEDS ORDERED: ASPI325T11 PO (08:41)
[2019-02-14] MEDS ORDERED: Pantoprazole PO (08:41)
[2019-02-14] MEDS ORDERED: ATOR20TA58 PO (08:41)
[2019-02-14] MEDS ORDERED: ALBU2.5V8 NEB (08:41)
[2019-02-14] MEDS: PANTOPRAZOLE 40 MG TABLET.DR. PO SCH (09:09)
[2019-02-14] MEDS: SENNOSIDES/DOCUSATE 8.6/50MG TABLET. PO SCH (09:09)
[2019-02-14] MEDS: AMIODARONE HCL 200 MG TABLET. PO SCH (09:09)
[2019-02-14] MEDS: METOPROLOL TART IMMED RELEASE 50 MG TABLET. PO SCH (09:09)
[2019-02-14] MEDS: ASPIRIN ENTERIC COATED 325 MG TABLET.DR. PO SCH (09:09)
--- NOTE | 2019-02-14 09:18 | EKG ---
[facility] [address] [place] [address] Test Date: 2019-02-10 Test Time: 20:40:12 Pat Name: XENA HERNANDEZ Department: Room: 258 1 Gender: M Stencil Cutter: PATRIC : 1955 Requested By: ARNULFO MORROW Order Number: [id number] Reading MD: Mello Villanueva MD Measurements Intervals Loyal Rate: 104 P: 108 NM: 152 QRS: 6 QRSD: 78 T: 108 QT: 332 QTc: 443 Interpretive Statements SINUS TACHYCARDIA MILD ANTERIOR INJURY/PERICARDITIS Electronically Signed On 02-14-2019 12:15:41 CDT by Mello Villanueva MD
--- NOTE | 2019-02-14 11:09 | PDOC3 ---
Discharge Summary Visit Information Date of Admission: Feb 10, 2019 Date of Discharge: Feb 14, 2019 Admitting Diagnosis Comment: CAD s/p CABG x 3 (AL to LAD, SVG to RPDA, SVG to OM) with Left endoscopic greater saphenous vein harvest ST elevation myocardial infarction - Acute systolic heart failure (EF 20-25%) - IABP placed REspi failure s/post CABG Diabetes - HTN - Brief Hospital Course Allergies Allergies Coded Allergies Type Severity Reaction Last Updated Verified No Known Drug Allergies 02/10/19 No Vital Signs Vital Signs Date Time Temp Pulse Resp B/P (MAP) Pulse Ox O2 Delivery O2 Flow Rate FiO2 02/14/19 09:09 103 129/72 02/14/19 08:00 98.3 20 96 Room Air 98.3 02/13/19 15:00 2.0 Lab Results Laboratory Tests Test 02/12/19 11:34 02/12/19 12:48 02/12/19 17:32 02/12/19 21:04 Glucose (Fingerstick) 145 mg/dL (70-99) 142 mg/dL (70-99) 206 mg/dL (70-99) 171 mg/dL (70-99) Test 02/13/19 06:15 02/13/19 08:24 02/13/19 09:30 02/13/19 12:26 White Blood Count 16.4 x10^3/uL (4.0-11.0) Red Blood Count 3.53 x10^6/uL (4.30-5.70) Hemoglobin 10.7 g/dL (13.0-17.5) Hematocrit 31.3 % (39.0-53.0) Mean Corpuscular Volume 89 fL (79-100) Mean Corpuscular Hemoglobin 30 pg (25-35) Mean Corpuscular Hemoglobin Concent 34 g/dL (31-37) Red Cell Distribution Width 14.0 % (11.5-14.5) Platelet Count 110 x10^3/uL (140-400) Sodium Level 134 mmol/L (136-145) Potassium Level 5.0 mmol/L (3.5-5.1) Chloride Level 100 mmol/L (98-107) Carbon Dioxide Level 27 mmol/L (21-32) Anion Gap 7 (6-14) Blood Urea Nitrogen 36 mg/dL (8-26) Creatinine 1.1 mg/dL (0.7-1.3) Estimated GFR (Cockcroft-Gault) 67.6 Glucose Level 273 mg/dL (70-99) Calcium Level 9.5 mg/dL (8.5-10.1) Magnesium Level 2.3 mg/dL (1.8-2.4) Glucose (Fingerstick) 234 mg/dL (70-99) 194 mg/dL (70-99) Nasal Screen MRSA (PCR) Negative (Negative) Test 02/13/19 16:54 02/13/19 20:51 02/14/19 03:30 02/14/19 07:35 Glucose (Fingerstick) 199 mg/dL (70-99) 180 mg/dL (70-99) 144 mg/dL (70-99) Sodium Level 137 mmol/L (136-145) Potassium Level 4.3 mmol/L (3.5-5.1) Chloride Level 101 mmol/L (98-107) Carbon Dioxide Level 27 mmol/L (21-32) Anion Gap 9 (6-14) Blood Urea Nitrogen 35 mg/dL (8-26) Creatinine 0.8 mg/dL (0.7-1.3) Estimated GFR (Cockcroft-Gault) 97.6 Glucose Level 163 mg/dL (70-99) Calcium Level 9.2 mg/dL (8.5-10.1) Magnesium Level 2.0 mg/dL (1.8-2.4) Laboratory Tests Test 02/13/19 12:26 02/13/19 16:54 02/13/19 20:51 02/14/19 03:30 Glucose (Fingerstick) 194 mg/dL (70-99) 199 mg/dL (70-99) 180 mg/dL (70-99) Sodium Level 137 mmol/L (136-145) Potassium Level 4.3 mmol/L (3.5-5.1) Chloride Level 101 mmol/L (98-107) Carbon Dioxide Level 27 mmol/L (21-32) Anion Gap 9 (6-14) Blood Urea Nitrogen 35 mg/dL (8-26) Creatinine 0.8 mg/dL (0.7-1.3) Estimated GFR (Cockcroft-Gault) 97.6 Glucose Level 163 mg/dL (70-99) Calcium Level 9.2 mg/dL (8.5-10.1) Magnesium Level 2.0 mg/dL (1.8-2.4) Test 02/14/19 07:35 Glucose (Fingerstick) 144 mg/dL (70-99) Brief Hospital Course Mr. Bower is a 63 old white obese male with a BMI 29.5. Found to have a STEMI. But eventually needed CABG by [facility]. EF is 20-25%. Started on cardiac meds. He will follow-up with cardiology for possible defibrillator/ LifeVest if numbers do not improve. Hx Hypertension and diabetes but not on insulin. But in the course here,. requiring 50 units daily at bedtime post op. SOme post op respi failure too, intubated 24 hrs? pulmo on board. Pro air on dc He claims BS plummeted down with 50 units insulin, I do not see that recorded. After heavy discussion with him, we opted to start with Lantus 20 units daily at bedtime with instructions to up it if blood sugars are high at home. I have Rx'd aspirin 325 and other cardiac meds that [facility] has recommended plus glucometer, Accu-Cheks and Lantus 20 units daily at bedtime. He will follow-up with PCP regarding diabetes He will follow-up with [facility] and cardiology as instructed on discharge paperwork 2 visits today, DM educn done/Time 34 mins Discharge Information Condition at Discharge: Improved, Stable Follow Up: Weeks ([facility] and cards as instructed) Disposition/Orders: D/C to Home Scheduled Amiodarone Hcl (Amiodarone Hcl) 200 Mg Tablet, 1 TAB PO BID for post cabg arrhythmia, #90 Ref 1 Prescribed by: NEGRITA KENT on 02/14/19 0841 Aspirin (Aspirin Ec) 325 Mg Tablet.dr 325 MG PO DAILYWBKFT for cad MDD 1, #60 Ref 1 Prescribed by: NEGRITA KENT on 02/14/19 0841 Atorvastatin Calcium (Atorvastatin Calcium) 20 Mg Tablet, 20 MG PO QHS for lipids MDD 1, #60 Prescribed by: NEGRITA KENT on 02/14/19 0841 Info (No Known Medications Prior To Admisstion) Each, 1 EACH MC DAILY for x, (Reported) Entered as Reported by: GEOVANNY YATES on 02/10/19699 Last Action: New Order on 02/10/19699 by GEOVANNY YATES Insulin Glargine,Hum.rec.anlog (Lantus Solostar) 100 Unit/1 Ml Insuln.pen, 50 UNITS SQ QHS for dm MDD 1 for 30 Days Prescribed by: NEGRITA KENT on 02/14/19840 Metoprolol Tartrate (Metoprolol Tartrate) 50 Mg Tablet, 50 MG PO BID for cad MDD 1, #60 Ref 1 Prescribed by: NEGRITA KENT on 02/14/19840 [Pantoprazole] 40 MG TABLET.DR, 40 MG PO DAILYAC for gerd MDD 1, #30 Prescribed by: NEGRITA KENT on 02/14/19840 Scheduled PRN Albuterol Sulfate (Proair Hfa) 8.5 Gm Hfa.aer.ad, 2.5 MG NEB PRN Q4HRS PRN for SHORTNESS OF BREATH MDD 1 for 30 Days, #1 Prescribed by: NEGRITA KENT on 02/14/19840 Oxycodone Hcl (Oxycodone Hcl Immed.release ) 5 Mg Tablet, 5 MG PO PRN Q4HRS PRN for MODERATE PAIN MDD 1, #30 Prescribed by: NEGRITA KENT on 02/14/19840 NEGRITA KENT MD Feb 14, 2019 11:09
[2019-02-14 12:00] VITALS: BP 154/78
--- NOTE | 2019-02-14 12:38 | NUR ---
Pt refused insulin, wants to DC and eat at home. Reports he is "not hungry right now".
--- NOTE | 2019-02-14 13:02 | PDOC ---
RUSLAN GAR AEROSPACE ENGINEER 02/14/19 1302: CARDIO Progress Notes Date and Time Date of Service 02/14/2019 Time of Evaluation 1240 Subjective Subjective: No Chest Pain, No shortness of breath, No Palpitations Vitals Vitals Vital Signs Date Time Temp Pulse Resp B/P (MAP) Pulse Ox O2 Delivery O2 Flow Rate FiO2 02/14/19 12:00 98.3 109 18 154/78 (103) 96 Room Air 98.3 02/13/19 15:00 2.0 Weight Weight [ ] Input and Output Intake and Output Intake and Output 02/14/19 06:59 Intake Total 900 ml Output Total 750 ml Balance 150 ml Intake Oral 900 ml Output Urine Total 750 ml Laboratory Labs Laboratory Tests Test 02/13/19 16:54 02/13/19 20:51 02/14/19 03:30 02/14/19 07:35 Glucose (Fingerstick) 199 mg/dL (70-99) 180 mg/dL (70-99) 144 mg/dL (70-99) Sodium Level 137 mmol/L (136-145) Potassium Level 4.3 mmol/L (3.5-5.1) Chloride Level 101 mmol/L (98-107) Carbon Dioxide Level 27 mmol/L (21-32) Anion Gap 9 (6-14) Blood Urea Nitrogen 35 mg/dL (8-26) Creatinine 0.8 mg/dL (0.7-1.3) Estimated GFR (Cockcroft-Gault) 97.6 Glucose Level 163 mg/dL (70-99) Calcium Level 9.2 mg/dL (8.5-10.1) Magnesium Level 2.0 mg/dL (1.8-2.4) Test 02/14/19 11:41 Glucose (Fingerstick) 155 mg/dL (70-99) Physical Exam HEENT: Neck Supple W Full Motion Chest: Symmetric, Other (midchest surgical incision TOMER well approximated, no erythema or swelling) LUNGS: Clear to Auscultation Heart: S1S2, RRR (SR) Abdomen: Soft N/T Extremities: Other (trace bilateral LE edema ) Neurology: alert, oriented, follow commands Assessment Assessment 1. 3V CAD s/p emergent CABG with AL to LAD, SVG to OM, SVG to RPDA. POD #4 2. Chronic systolic HF with ICM; follow up TTE with EF at 35-40%, compensated 3. Hypertension; controlled 4. Hyperlipidemia; LDL 22 6. Diabetes, II Recommendations Cardiac rehab. ASA, statin, Toprol 100 lisinopril 5 mg, lasix PRN CHF education Amiodarone for AFIB prophylaxis Follow up in 4 weeks MATHEW SHEEHAN MD 02/15/19 0956: CARDIO Progress Notes Assessment Assessment Patient seen and examined 02/14/19. Agree with STAFF PHYSICIAN's assessment and plan. CAD s/p CABG progressing well Telemetry did not show any significant arrhythmias Chronic systolic heart failure well compensated Follow-up with our office in 1 month RUSLAN GAR APRN Feb 14, 2019 13:02 MATHEW SHEEHAN MD Feb 15, 2019 09:56
--- NOTE | 2019-02-14 13:09 | PDOC ---
Progress Note Subjective Subjective Doing very well. SBP 140-150, mild sinus tachycardia 100-110. On room air. creat 0.9. Glucose better controlled with 50U Lantus. ROS ROS No nausea No vomiting No pain No rash Vital Sign Vital Signs Vital Signs Date Time Temp Pulse Resp B/P (MAP) Pulse Ox O2 Delivery O2 Flow Rate FiO2 02/14/19 12:00 98.3 109 18 154/78 (103) 96 Room Air 98.3 02/13/19 15:00 2.0 Physical Exam PHYSICAL EXAM GENERAL: NAD, Alert HEENT: PERRL, OC/OP NECK: Supple, no JVD, no LN LUNGS: Clear HEART: S1S2, no gallop, no murmur ABD: Soft, NT, no organomegaly, no rebound EXT: No edema, no cyanosis COIN DEALER: Alert, 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, no focal neurologic deficit SKIN: No rash IV: ok Labs Lab Laboratory Tests Test 02/13/19 16:54 02/13/19 20:51 02/14/19 03:30 02/14/19 07:35 Glucose (Fingerstick) 199 mg/dL (70-99) 180 mg/dL (70-99) 144 mg/dL (70-99) Sodium Level 137 mmol/L (136-145) Potassium Level 4.3 mmol/L (3.5-5.1) Chloride Level 101 mmol/L (98-107) Carbon Dioxide Level 27 mmol/L (21-32) Anion Gap 9 (6-14) Blood Urea Nitrogen 35 mg/dL (8-26) Creatinine 0.8 mg/dL (0.7-1.3) Estimated GFR (Cockcroft-Gault) 97.6 Glucose Level 163 mg/dL (70-99) Calcium Level 9.2 mg/dL (8.5-10.1) Magnesium Level 2.0 mg/dL (1.8-2.4) Test 02/14/19 11:41 Glucose (Fingerstick) 155 mg/dL (70-99) Objective Assessment POD#4, s/p emergent CABG x 3 (AL to LAD, SVG to OM, SVG to RPDA) Doing very well. Normotensive, mild sinus tachycardia 100-110. On 2 lit NC. Hb 10.7, creat 1.1. CXR looks good. Glucose >200, 50U Lantus ordered, only given 1 0U Plan Plan of Care D/c home today F/u with me on February 24 Stop Amiodarone Start WAQAR inhibitor for HTN and LV remodeling Needs insulin teaching ARNULFO MORROW MD Feb 14, 2019 13:09
[2019-02-14] MEDS ORDERED: METO-247 PO (13:26)
[2019-02-14] MEDS ORDERED: FURO-68 PO ×2 (13:27→13:28)
[2019-02-14] MEDS ORDERED: LISI-338 PO (13:29)
--- NOTE | 2019-02-14 14:07 | PDOC ---
PULMONARY PROGRESS NOTES Subjective Pt. is up in chair this am, on room air. Pt. denies SOB, cough or chest pain. Pt. is planning to discharge home today. Vitals Laboratory Tests Test 02/13/19 16:54 02/13/19 20:51 02/14/19 03:30 02/14/19 07:35 Glucose (Fingerstick) 199 mg/dL 180 mg/dL 144 mg/dL Sodium Level 137 mmol/L Potassium Level 4.3 mmol/L Chloride Level 101 mmol/L Carbon Dioxide Level 27 mmol/L Anion Gap 9 Blood Urea Nitrogen 35 mg/dL Creatinine 0.8 mg/dL Estimated GFR (Cockcroft-Gault) 97.6 Glucose Level 163 mg/dL Calcium Level 9.2 mg/dL Magnesium Level 2.0 mg/dL Test 02/14/19 11:41 Glucose (Fingerstick) 155 mg/dL Current Medications Medications (Trade) Dose Ordered Sig/Rosa Elena Route PRN Reason Start Time Stop Time Status Last Admin Dose Admin Fentanyl Citrate (Fentanyl 2ml Vial) 100 mcg STK-MED ONCE .ROUTE 02/10/19 05:36 02/10/19 05:37 DC Midazolam HCl (Versed) 2 mg STK-MED ONCE .ROUTE 02/10/19 05:36 02/10/19 05:37 DC Fentanyl Citrate (Fentanyl 2ml Vial) 50 mcg 1X ONCE IV 02/10/19 05:45 02/10/19 05:49 DC 02/10/19 05:43 Insulin Human Lispro (HumaLOG) 0-5 UNITS TIDWMEALS SQ 02/10/19 08:00 02/12/19 12:32 DC 02/12/19 11:36 Dextrose (Dextrose 50%-Water Syringe) 12.5 gm PRN Q15MIN PRN IV SEE COMMENTS 02/10/19 05:45 02/10/19 14:59 DC Iodixanol (Visipaque 320) 100 ml STK-MED ONCE .ROUTE 02/10/19 06:09 02/10/19 06:10 DC Heparin Sodium (Porcine) (Heparin Sodium) 10,000 unit STK-MED ONCE .ROUTE 02/10/19 06:10 02/10/19 06:11 DC Nitroglycerin/ Dextrose 250 ml @ As Directed STK-MED ONCE IV 02/10/19 06:26 02/10/19 06:27 DC Vancomycin HCl (VANCO for OR ONLY) 10 gm STK-MED ONCE .ROUTE 02/10/19 05:43 02/10/19 06:44 DC 02/10/19 09:45 Cellulose (Surgicel Hemostat 4x8) 1 each STK-MED ONCE .ROUTE 02/10/19 05:43 02/10/19 06:44 DC 02/10/19 09:48 Papaverine HCl 60 mg STK-MED ONCE .ROUTE 02/10/19 05:44 02/10/19 06:44 DC 02/10/19 09:48 Aspirin (Aspirin) 300 mg STK-MED ONCE .ROUTE 02/10/19 05:44 02/10/19 06:44 DC 02/10/19 09:48 Sodium Chloride (SODIUM CHLORIDE 20ml) 20 ml STK-MED ONCE IJ 02/10/19 05:44 02/10/19 06:44 DC 02/10/19 09:44 Sodium Chloride (SODIUM CHLORIDE 20ml) 20 ml STK-MED ONCE IJ 02/10/19 05:44 02/10/19 06:44 DC 02/10/19 09:45 Potassium Chloride 70 meq/ Sodium Bicarbonate 12.5 meq/Lidocaine HCl 24 ml/Parenteral Electrolytes 571.5 ml @ 571.5 mls/ hr 1X ONCE IRR 02/10/19 07:30 02/10/19 08:29 DC Sodium Chloride (SODIUM CHLORIDE 20ml) 20 ml STK-MED ONCE IJ 02/10/19 05:44 02/10/19 06:45 DC 02/10/19 09:45 Rocuronium Tarrs (Zemuron) 100 mg STK-MED ONCE .ROUTE 02/10/19 06:44 02/10/19 06:45 DC Sufentanil Citrate (Sufenta) 250 mcg STK-MED ONCE .ROUTE 02/10/19 06:45 02/10/19 06:46 DC Potassium Chloride 15 meq/ Sodium Bicarbonate 12.5 meq/Parenteral Electrolytes 520 ml @ 520 mls/hr 1X ONCE IRR 02/10/19 07:30 02/10/19 08:29 DC Midazolam HCl (Versed) 5 mg STK-MED ONCE .ROUTE 02/10/19 06:45 02/10/19 06:46 DC Lidocaine HCl (Lidocaine Pf 2% Vial) 5 ml STK-MED ONCE .ROUTE 02/10/19 06:46 02/10/19 06:47 DC Etomidate (Amidate) 20 mg STK-MED ONCE IV 02/10/19 06:46 02/10/19 06:47 DC Aminocaproic Acid (Amicar) 5,000 mg STK-MED ONCE IV 02/10/19 06:46 02/10/19 06:47 DC Aminocaproic Acid (Amicar) 5,000 mg STK-MED ONCE IV 02/10/19 06:46 02/10/19 06:47 DC Aminocaproic Acid (Amicar) 5,000 mg STK-MED ONCE IV 02/10/19 06:46 02/10/19 06:47 DC Heparin Sodium/ Sodium Chloride (HEPARIN for ARTERIAL LINE FLUSH) 1,000 unit 1X ONCE IART 02/10/19 06:45 02/10/19 06:56 DC 02/10/19 06:56 Midazolam HCl (Versed) 2 mg 1X ONCE IV 02/10/19 06:45 02/10/19 06:56 DC 02/10/19 06:57 Fentanyl Citrate (Fentanyl 2ml Vial) 100 mcg 1X ONCE IV 02/10/19 06:45 02/10/19 06:56 DC 02/10/19 06:56 Iodixanol (Visipaque 320) 139 ml 1X ONCE IART 02/10/19 06:45 02/10/19 06:56 DC 02/10/19 06:56 Lidocaine HCl (Lidocaine 1% 20ml Vial) 20 ml 1X ONCE INJ 02/10/19 06:45 02/10/19 06:56 DC 02/10/19 06:56 Heparin Sodium (Porcine) (Heparin 5,000 Units/1,000ml NS) 5,000 unit 1X ONCE IV 02/10/19 06:45 02/10/19 06:56 DC 02/10/19 06:45 Heparin Sodium (Porcine) 43228 unit/Ringer's Solution 1,020 ml @ 1,020 mls/hr 1X ONCE IRR 02/10/19 07:30 02/10/19 08:29 DC 02/10/19 09:54 Heparin Sodium (Porcine) 800 unit/ Nitroglycerin 4 mg/Verapamil HCl 8 mg/Sodium Bicarbonate 0.34 meq/Ringer's Solution 512.34 ml @ 512.34 mls/hr 1X ONCE IRR 02/10/19 07:30 02/10/19 08:29 DC Cefazolin Sodium 1 gm/Sodium Chloride 500 ml @ 500 mls/hr 1X ONCE IRR 02/10/19 07:30 02/10/19 08:29 DC Heparin Sodium (Porcine) 30,000 unit STK-MED ONCE .ROUTE 02/10/19 06:50 02/10/19 06:51 DC Nitroglycerin/ Dextrose 250 ml @ 1.5 mls/hr CONT PRN IV SEE I/O RECORD 02/10/19 07:00 02/13/19 10:20 DC 02/10/19 06:36 Ephedrine Sulfate (ePHEDrine PF IN SALINE SYRINGE) 50 mg STK-MED ONCE IV 02/10/19 06:53 02/10/19 06:54 DC Phenylephrine HCl (Sp-Synephrine Inj) 10 mg STK-MED ONCE .ROUTE 02/10/19 06:59 02/10/19 07:00 DC Epinephrine HCl (EPINEPHrine SYRINGE) 1 mg STK-MED ONCE .ROUTE 02/10/19 07:20 02/10/19 07:21 DC Ephedrine Sulfate (ePHEDrine PF IN SALINE SYRINGE) 50 mg STK-MED ONCE IV 02/10/19 07:22 02/10/19 07:23 DC Phenylephrine HCl (PHENYLEPHRINE in 0.9% NACL PF) 1 mg STK-MED ONCE IV 02/10/19 07:22 02/10/19 07:23 DC Heparin Sodium (Porcine) (Heparin Sodium) 10,000 unit STK-MED ONCE .ROUTE 02/10/19 08:02 02/10/19 08:03 DC Cefazolin Sodium 3 gm/Dextrose 100 ml @ 200 mls/hr 1X PREOP PRN IV PRIOR TO PROCEDURE 02/10/19 08:29 02/11/19 08:28 DC 02/10/19 08:45 Mannitol 500 ml @ 0 mls/hr 1X ONCE IV 02/10/19 09:00 02/10/19 09:01 DC Rocuronium Tarrs (Zemuron) 100 mg STK-MED ONCE .ROUTE 02/10/19 08:51 02/10/19 08:52 DC Insulin Human Regular 150 unit/ Sodium Chloride 151.5 ml @ 0 mls/hr CONT PRN IV SEE I/O RECORD 02/10/19 09:15 02/10/19 14:57 DC 02/10/19 09:50 Norepinephrine Bitartrate 250 ml @ 1.875 mls/ hr 1X ONCE IV 02/10/19 11:15 02/16/19 00:34 02/10/19 16:56 Midazolam HCl (Versed) 2 mg STK-MED ONCE .ROUTE 02/10/19 11:13 02/10/19 11:14 DC Epinephrine HCl 4 mg/Sodium Chloride 254 ml @ 3.81 mls/hr CONT PRN IV SEE I/O RECORD 02/10/19 11:30 02/10/19 14:57 DC Protamine Sulfate (Protamine) 50 mg STK-MED ONCE IV 02/10/19 11:33 02/10/19 11:34 DC Protamine Sulfate (Protamine) 250 mg STK-MED ONCE IV 02/10/19 11:33 02/10/19 11:34 DC Protamine Sulfate (Protamine) 250 mg STK-MED ONCE IV 02/10/19 11:33 02/10/19 11:34 DC Midazolam HCl (Versed) 2 mg STK-MED ONCE .ROUTE 02/10/19 11:35 02/10/19 11:36 DC Cefazolin Sodium 3 gm/Dextrose 100 ml @ 200 mls/hr 1X ONCE IV 02/10/19 11:45 02/10/19 12:14 DC 02/10/19 12:40 Rocuronium Tarrs (Zemuron) 50 mg STK-MED ONCE .ROUTE 02/10/19 12:06 02/10/19 12:07 DC Propofol 0 ml @ As Directed STK-MED ONCE IV 02/10/19 12:49 02/10/19 12:50 DC Nicardipine HCl 50 mg/Sodium Chloride 250 ml @ 25 mls/hr CONT PRN IV SEE I/O RECORD 02/10/19 13:15 02/10/19 14:56 DC Heparin Sodium (Porcine) (Heparin Sodium) 10,000 unit STK-MED ONCE .ROUTE 02/10/19 13:21 02/10/19 13:22 DC Lidocaine HCl (Lidocaine Pf 2% Vial) 5 ml STK-MED ONCE .ROUTE 02/10/19 13:21 02/10/19 13:22 DC Magnesium Sulfate 5 gm STK-MED ONCE .ROUTE 02/10/19 13:21 02/10/19 13:22 DC Albumin Human 200 ml @ As Directed STK-MED ONCE IV 02/10/19 13:21 02/10/19 13:22 DC Calcium Chloride (Calcium Chloride) 1,000 mg STK-MED ONCE .ROUTE 02/10/19 13:21 02/10/19 13:22 DC Sodium Bicarbonate (Sodium Bicarb Adult 8.4% Syr) 50 meq STK-MED ONCE .ROUTE 02/10/19 13:23 02/10/19 13:24 DC Sodium Chloride (Normal Saline Flush) 3 ml PRN Q12HR PRN IV AFTER MEDS AND BLOOD DRAWS 02/10/19 14:15 Ringer's Solution 1,000 ml @ 30 mls/hr Q24H IV 02/10/19 14:06 02/13/19 14:26 DC 02/12/19 12:52 Albumin Human 250 ml @ 500 mls/hr PRN Q4HRS PRN IV SEE COMMENTS 02/10/19 14:15 02/13/19 10:20 DC 02/10/19 18:04 Insulin Human Regular 150 unit/ Sodium Chloride 151.5 ml @ 0 mls/hr CONT PRN PRN IV PER PROTOCOL 02/10/19 14:15 02/13/19 10:20 DC 02/12/19 05:08 Dextrose (Dextrose 50%-Water Syringe) 25 gm PRN Q15MIN PRN IV LOW BLOOD SUGAR 02/10/19 14:15 02/13/19 15:09 DC Nitroglycerin/ Dextrose 250 ml @ 0 mls/hr CONT PRN PRN IV POST CV SURGERY 02/10/19 14:15 02/10/19 14:59 DC Epinephrine HCl 4 mg/Sodium Chloride 254 ml @ 0 mls/hr CONT PRN PRN IV POST CV SURGERY 02/10/19 14:15 02/13/19 10:20 DC Amiodarone HCl 150 mg/Dextrose 103 ml @ 600 mls/hr 1X ONCE IV 02/10/19 14:15 02/10/19 14:26 DC 02/10/19 22:41 Amiodarone HCl 150 mg/Dextrose 103 ml @ 200 mls/hr 1X PRN PRN IV FOR AFIB 02/10/19 14:15 Amiodarone HCl 900 mg/Dextrose 518 ml @ 0 mls/hr CONT PRN PRN IV AFIB 02/10/19 14:15 02/13/19 10:20 DC 02/10/19 22:43 Info (KCl Per Protocol) 1 ea CONT PRN PRN MC SEE COMMENTS 02/10/19 14:15 Magnesium Sulfate/ Dextrose 100 ml @ 100 mls/hr PRN DAILY PRN IV FOR MAG < 2.2 02/10/19 14:15 Famotidine (Pepcid Vial) 20 mg BID IVP 02/10/19 21:00 02/11/19 06:31 DC 02/10/19 20:36 Ondansetron HCl (Zofran) 4 mg PRN Q4HRS PRN IV NAUSEA/VOMITING, 1st CHOICE 02/10/19 14:15 02/12/19 02:45 Prochlorperazine Edisylate (Compazine) 10 mg PRN Q6HRS PRN IV NAUSEA/VOMITING, 2nd CHOICE 02/10/19 14:15 Metoclopramide HCl (Reglan Vial) 10 mg PRN Q6HRS PRN IV NAUSEA/VOMITING, 3rd CHOICE 02/10/19 14:15 Morphine Sulfate (Morphine Sulfate) 2 mg PRN Q1HR PRN IV PAIN MILD 02/10/19 14:15 02/11/19 18:39 Morphine Sulfate (Morphine Sulfate) 4 mg PRN Q1HR PRN IV PAIN MODERATE TO SEVERE 02/10/19 14:15 02/10/19 18:20 Acetaminophen (Tylenol) 650 mg PRN Q4HRS PRN PO TEMP > 101'F or MILD PAIN 02/10/19 14:15 02/13/19 13:14 Acetaminophen (Tylenol Supp) 650 mg PRN Q4HRS PRN OR TEMP > 101'F or MILD PAIN 02/10/19 14:15 Meperidine HCl (Demerol) 12.5 mg PRN Q15MIN PRN IV SHIVERING 02/10/19 14:15 02/11/19 14:06 DC 02/10/19 15:41 Propofol 100 ml @ 0 mls/hr CONT PRN PRN IV POSTOP SEDATION UNTIL EXTUBATE 02/10/19 14:15 02/13/19 10:20 DC 02/10/19 16:58 Senna/Docusate Sodium (Senna Plus) 1 tab BID PO 02/10/19 21:00 02/14/19 09:09 Bisacodyl (Dulcolax Supp) 10 mg PRN DAILY PRN OR NO BOWEL MOVEMENT 02/10/19 14:15 Chlorhexidine Gluconate (Peridex) 15 ml BID MM 02/11/19 09:00 02/11/19 11:15 DC Aspirin (Ecotrin) 325 mg DAILYWBKFT PO 02/11/19 08:00 02/14/19 09:09 Aspirin (Aspirin) 300 mg PRN DAILY PRN OR IF UNABLE TO TAKE PO 02/11/19 08:00 Albuterol Sulfate (Ventolin Neb Soln) 2.5 mg PRN Q4HRS PRN NEB SHORTNESS OF BREATH 02/10/19 14:15 Metoprolol Tartrate (Lopressor) 25 mg BID PO 02/11/19 09:00 02/13/19 12:15 DC 02/13/19 08:31 Nicardipine HCl 50 mg/Sodium Chloride 250 ml @ 0 mls/hr CONT PRN PRN IV PER PROTOCOL 02/10/19 14:15 02/13/19 10:20 DC Oxycodone HCl (Roxicodone) 5 mg PRN Q4HRS PRN PO MODERATE PAIN 02/10/19 14:15 02/12/19 23:52 Oxycodone HCl (Roxicodone) 10 mg PRN Q4HRS PRN PO SEVERE PAIN 02/10/19 14:15 02/13/19 09:50 Cefazolin Sodium/ Dextrose 50 ml @ 100 mls/hr Q8H IV 02/10/19 18:00 02/10/19 19:17 DC Isoflurane (Isoflurane) 90 ml STK-MED ONCE IH 02/10/19 14:46 02/10/19 14:47 DC Sodium Bicarbonate (Sodium Bicarb Adult 8.4% Syr) 50 meq STK-MED ONCE .ROUTE 02/10/19 15:29 02/10/19 15:30 DC Sodium Bicarbonate (Sodium Bicarb Adult 8.4% Syr) 50 meq 1X ONCE IV 02/10/19 15:45 02/10/19 15:46 DC 02/10/19 15:50 Potassium Chloride/Water 50 ml @ 50 mls/hr PRN Q1HR PRN IV FOR K 3.1-3.5 02/10/19 15:45 02/13/19 10:20 DC Potassium Chloride/Water 50 ml @ 50 mls/hr PRN Q1HR PRN IV FOR K 2.6-3.0 MEQ/L 02/10/19 15:45 02/13/19 10:20 DC Potassium Chloride/Water 50 ml @ 50 mls/hr PRN Q1HR PRN IV FOR K <2.6 MEQ/L 02/10/19 16:00 02/13/19 10:20 DC Magnesium Sulfate/ Dextrose 100 ml @ 50 mls/hr PRN DAILY PRN IV SEE COMMENTS 02/11/19 09:00 Potassium Chloride/Water 50 ml @ 50 mls/hr Q1H IV 02/10/19 17:00 02/10/19 18:59 DC 02/10/19 16:52 Sodium Bicarbonate (Sodium Bicarb Adult 8.4% Syr) 50 meq 1X ONCE IV 02/10/19 18:15 02/10/19 18:16 DC 02/10/19 18:05 Cefazolin Sodium/ Dextrose 50 ml @ 100 mls/hr Q8H IV 02/10/19 20:30 02/12/19 04:59 DC 02/12/19 04:23 Norepinephrine Bitartrate 250 ml @ 1.875 mls/ hr CONT PRN IV SEE I/O RECORD 02/10/19 22:45 02/13/19 10:20 DC 02/11/19 00:23 Pantoprazole Sodium (Protonix) 40 mg DAILYAC PO 02/11/19 07:30 02/14/19 09:09 Ipratropium Tarrs (Atrovent) 0.5 mg RTQID NEB 02/11/19 08:00 02/14/19 11:12 Potassium Chloride/Water 50 ml @ 50 mls/hr 1X ONCE IV 02/11/19 11:00 02/11/19 11:59 DC 02/11/19 10:58 Magnesium Sulfate 50 ml @ 25 mls/hr 1X ONCE IV 02/11/19 11:00 02/11/19 12:59 DC 02/11/19 12:21 Atorvastatin Calcium (Lipitor) 40 mg QHS PO 02/11/19 21:00 02/13/19 15:07 DC 02/12/19 21:00 Amiodarone HCl (Cordarone) 200 mg BID PO 02/11/19 16:00 02/14/19 09:09 Potassium Chloride/Water 50 ml @ 50 mls/hr 1X ONCE IV 02/12/19 08:30 02/12/19 09:29 DC 02/12/19 08:30 Insulin Glargine (Lantus) 50 units QHS SQ 02/13/19 21:00 02/13/19 21:00 DC Insulin Glargine (Lantus) 50 units 1X ONCE SQ 02/12/19 13:00 02/12/19 13:01 DC 02/12/19 12:51 Insulin Human Lispro (HumaLOG) 10 units 1X ONCE SQ 02/12/19 13:00 02/12/19 13:01 DC 02/12/19 12:52 Insulin Human Lispro (HumaLOG) 0-9 UNITS TIDWMEALS SQ 02/12/19 17:00 02/13/19 17:39 Dextrose (Dextrose 50%-Water Syringe) 12.5 gm PRN Q15MIN PRN IV SEE COMMENTS 02/12/19 12:30 Metoprolol Tartrate (Lopressor) 12.5 mg 1X ONCE PO 02/12/19 13:00 02/12/19 13:01 DC 02/12/19 12:50 Insulin Glargine (Lantus) 50 units QHS SQ 02/12/19 21:15 02/13/19 20:57 Metoprolol Tartrate (Lopressor) 50 mg BID PO 02/13/19 21:00 02/14/19 09:09 Metoprolol Tartrate (Lopressor) 25 mg 1X ONCE PO 02/13/19 12:15 02/13/19 12:18 DC 02/13/19 12:45 Diphenhydramine HCl (Benadryl) 25 mg PRN QHS PRN PO INSOMNIA 02/13/19 13:15 Atorvastatin Calcium (Lipitor) 20 mg QHS PO 02/13/19 21:00 02/13/19 20:52 Dextrose (Dextrose 50%-Water Syringe) 12.5 gm PRN Q15MIN PRN IV SEE COMMENTS 02/13/19 13:15 Cancel Vital Signs Date Time Temp Pulse Resp B/P (MAP) Pulse Ox O2 Delivery O2 Flow Rate FiO2 02/14/19 12:00 98.3 109 18 154/78 (103) 96 Room Air 98.3 02/13/19 15:00 2.0 Comments 12 point ROS was reviewed with pt. is negative except for positives in HPI. ROS: No Nausea, No Chest Pain, No Abdominal Pain, No Increase Cough General: Alert, Oriented X4, No acute distress Lungs: Clear, Crackles, Other (diminished in LLL) Cardiovascular: S1, S2 Abdomen: Soft, Non-tender, Other Neuro Exam: Alert, Oriented, Normal Speech Extremities: No Edema, Other Skin: Warm Labs Laboratory Tests Test 02/12/19 17:32 02/12/19 21:04 02/13/19 06:15 02/13/19 08:24 Glucose (Fingerstick) 206 mg/dL (70-99) 171 mg/dL (70-99) 234 mg/dL (70-99) White Blood Count 16.4 x10^3/uL (4.0-11.0) Red Blood Count 3.53 x10^6/uL (4.30-5.70) Hemoglobin 10.7 g/dL (13.0-17.5) Hematocrit 31.3 % (39.0-53.0) Mean Corpuscular Volume 89 fL (79-100) Mean Corpuscular Hemoglobin 30 pg (25-35) Mean Corpuscular Hemoglobin Concent 34 g/dL (31-37) Red Cell Distribution Width 14.0 % (11.5-14.5) Platelet Count 110 x10^3/uL (140-400) Sodium Level 134 mmol/L (136-145) Potassium Level 5.0 mmol/L (3.5-5.1) Chloride Level 100 mmol/L (98-107) Carbon Dioxide Level 27 mmol/L (21-32) Anion Gap 7 (6-14) Blood Urea Nitrogen 36 mg/dL (8-26) Creatinine 1.1 mg/dL (0.7-1.3) Estimated GFR (Cockcroft-Gault) 67.6 Glucose Level 273 mg/dL (70-99) Calcium Level 9.5 mg/dL (8.5-10.1) Magnesium Level 2.3 mg/dL (1.8-2.4) Test 02/13/19 09:30 02/13/19 12:26 02/13/19 16:54 02/13/19 20:51 Nasal Screen MRSA (PCR) Negative (Negative) Glucose (Fingerstick) 194 mg/dL (70-99) 199 mg/dL (70-99) 180 mg/dL (70-99) Test 02/14/19 03:30 02/14/19 07:35 02/14/19 11:41 Sodium Level 137 mmol/L (136-145) Potassium Level 4.3 mmol/L (3.5-5.1) Chloride Level 101 mmol/L (98-107) Carbon Dioxide Level 27 mmol/L (21-32) Anion Gap 9 (6-14) Blood Urea Nitrogen 35 mg/dL (8-26) Creatinine 0.8 mg/dL (0.7-1.3) Estimated GFR (Cockcroft-Gault) 97.6 Glucose Level 163 mg/dL (70-99) Calcium Level 9.2 mg/dL (8.5-10.1) Magnesium Level 2.0 mg/dL (1.8-2.4) Glucose (Fingerstick) 144 mg/dL (70-99) 155 mg/dL (70-99) Laboratory Tests Test 02/13/19 16:54 02/13/19 20:51 02/14/19 03:30 02/14/19 07:35 Glucose (Fingerstick) 199 mg/dL (70-99) 180 mg/dL (70-99) 144 mg/dL (70-99) Sodium Level 137 mmol/L (136-145) Potassium Level 4.3 mmol/L (3.5-5.1) Chloride Level 101 mmol/L (98-107) Carbon Dioxide Level 27 mmol/L (21-32) Anion Gap 9 (6-14) Blood Urea Nitrogen 35 mg/dL (8-26) Creatinine 0.8 mg/dL (0.7-1.3) Estimated GFR (Cockcroft-Gault) 97.6 Glucose Level 163 mg/dL (70-99) Calcium Level 9.2 mg/dL (8.5-10.1) Magnesium Level 2.0 mg/dL (1.8-2.4) Test 02/14/19 11:41 Glucose (Fingerstick) 155 mg/dL (70-99) Medications Active Scripts Medications Dose Route/Sig Max Daily Dose Days Date Category Lisinopril 5 Mg Tablet 1 Tab PO DAILY 02/14/19 Reported Lasix (Furosemide) 40 Mg Tablet 1 Tab PO PRN DAILY PRN 02/14/19 Reported Metoprolol Succinate ( Xl ) (Metoprolol Succinate) 100 Mg Tab.er.24h 1 Tab PO DAILY 02/14/19 Reported Amiodarone Hcl 200 Mg Tablet 1 Tab PO BID 02/14/19 Rx Oxycodone Hcl Immed.release (Oxycodone Hcl) 5 Mg Tablet 5 Mg PO PRN Q4HRS PRN MDD 1 02/14/19 Rx [Pantoprazole] 40 MG Tablet. 40 Mg PO DAILYAC MDD 1 02/14/19 Rx Lantus Solostar (Insulin Glargine,Hum.rec.anlog) 100 Unit/1 Ml Insuln.pen 50 Units SQ QHS MDD 1 30 02/14/19 Rx Aspirin Ec (Aspirin) 325 Mg Tablet. 325 Mg PO DAILYWBKFT MDD 1 02/14/19 Rx Atorvastatin Calcium 20 Mg Tablet 20 Mg PO QHS MDD 1 02/14/19 Rx Proair Hfa (Albuterol Sulfate) 8.5 Gm Hfa.aer.ad 2.5 Mg NEB PRN Q4HRS PRN MDD 1 30 02/14/19 Rx Laboratory Tests Test 02/12/19 10:16 02/12/19 11:34 02/12/19 12:48 02/12/19 17:32 Glucose (Fingerstick) 161 mg/dL 145 mg/dL 142 mg/dL 206 mg/dL Test 02/12/19 21:04 02/13/19 06:15 02/13/19 08:24 Glucose (Fingerstick) 171 mg/dL 234 mg/dL White Blood Count 16.4 x10^3/uL Red Blood Count 3.53 x10^6/uL Hemoglobin 10.7 g/dL Hematocrit 31.3 % Mean Corpuscular Volume 89 fL Mean Corpuscular Hemoglobin 30 pg Mean Corpuscular Hemoglobin Concent 34 g/dL Red Cell Distribution Width 14.0 % Platelet Count 110 x10^3/uL Sodium Level 134 mmol/L Potassium Level 5.0 mmol/L Chloride Level 100 mmol/L Carbon Dioxide Level 27 mmol/L Anion Gap 7 Blood Urea Nitrogen 36 mg/dL Creatinine 1.1 mg/dL Estimated GFR (Cockcroft-Gault) 67.6 Glucose Level 273 mg/dL Calcium Level 9.5 mg/dL Magnesium Level 2.3 mg/dL Current Medications Medications (Trade) Dose Ordered Sig/Rosa Elena Route PRN Reason Start Time Stop Time Status Last Admin Dose Admin Fentanyl Citrate (Fentanyl 2ml Vial) 100 mcg STK-MED ONCE .ROUTE 02/10/19 05:36 02/10/19 05:37 DC Midazolam HCl (Versed) 2 mg STK-MED ONCE .ROUTE 02/10/19 05:36 02/10/19 05:37 DC Fentanyl Citrate (Fentanyl 2ml Vial) 50 mcg 1X ONCE IV 02/10/19 05:45 02/10/19 05:49 DC 02/10/19 05:43 Insulin Human Lispro (HumaLOG) 0-5 UNITS TIDWMEALS SQ 02/10/19 08:00 02/12/19 12:32 DC 02/12/19 11:36 Dextrose (Dextrose 50%-Water Syringe) 12.5 gm PRN Q15MIN PRN IV SEE COMMENTS 02/10/19 05:45 02/10/19 14:59 DC Iodixanol (Visipaque 320) 100 ml STK-MED ONCE .ROUTE 02/10/19 06:09 02/10/19 06:10 DC Heparin Sodium (Porcine) (Heparin Sodium) 10,000 unit STK-MED ONCE .ROUTE 02/10/19 06:10 02/10/19 06:11 DC Nitroglycerin/ Dextrose 250 ml @ As Directed STK-MED ONCE IV 02/10/19 06:26 02/10/19 06:27 DC Vancomycin HCl (VANCO for OR ONLY) 10 gm STK-MED ONCE .ROUTE 02/10/19 05:43 02/10/19 06:44 DC 02/10/19 09:45 Cellulose (Surgicel Hemostat 4x8) 1 each STK-MED ONCE .ROUTE 02/10/19 05:43 02/10/19 06:44 DC 02/10/19 09:48 Papaverine HCl 60 mg STK-MED ONCE .ROUTE 02/10/19 05:44 02/10/19 06:44 DC 02/10/19 09:48 Aspirin (Aspirin) 300 mg STK-MED ONCE .ROUTE 02/10/19 05:44 02/10/19 06:44 DC 02/10/19 09:48 Sodium Chloride (SODIUM CHLORIDE 20ml) 20 ml STK-MED ONCE IJ 02/10/19 05:44 02/10/19 06:44 DC 02/10/19 09:44 Sodium Chloride (SODIUM CHLORIDE 20ml) 20 ml STK-MED ONCE IJ 02/10/19 05:44 02/10/19 06:44 DC 02/10/19 09:45 Potassium Chloride 70 meq/ Sodium Bicarbonate 12.5 meq/Lidocaine HCl 24 ml/Parenteral Electrolytes 571.5 ml @ 571.5 mls/ hr 1X ONCE IRR 02/10/19 07:30 02/10/19 08:29 DC Sodium Chloride (SODIUM CHLORIDE 20ml) 20 ml STK-MED ONCE IJ 02/10/19 05:44 02/10/19 06:45 DC 02/10/19 09:45 Rocuronium Tarrs (Zemuron) 100 mg STK-MED ONCE .ROUTE 02/10/19 06:44 02/10/19 06:45 DC Sufentanil Citrate (Sufenta) 250 mcg STK-MED ONCE .ROUTE 02/10/19 06:45 02/10/19 06:46 DC Potassium Chloride 15 meq/ Sodium Bicarbonate 12.5 meq/Parenteral Electrolytes 520 ml @ 520 mls/hr 1X ONCE IRR 02/10/19 07:30 02/10/19 08:29 DC Midazolam HCl (Versed) 5 mg STK-MED ONCE .ROUTE 02/10/19 06:45 02/10/19 06:46 DC Lidocaine HCl (Lidocaine Pf 2% Vial) 5 ml STK-MED ONCE .ROUTE 02/10/19 06:46 02/10/19 06:47 DC Etomidate (Amidate) 20 mg STK-MED ONCE IV 02/10/19 06:46 02/10/19 06:47 DC Aminocaproic Acid (Amicar) 5,000 mg STK-MED ONCE IV 02/10/19 06:46 02/10/19 06:47 DC Aminocaproic Acid (Amicar) 5,000 mg STK-MED ONCE IV 02/10/19 06:46 02/10/19 06:47 DC Aminocaproic Acid (Amicar) 5,000 mg STK-MED ONCE IV 02/10/19 06:46 02/10/19 06:47 DC Heparin Sodium/ Sodium Chloride (HEPARIN for ARTERIAL LINE FLUSH) 1,000 unit 1X ONCE IART 02/10/19 06:45 02/10/19 06:56 DC 02/10/19 06:56 Midazolam HCl (Versed) 2 mg 1X ONCE IV 02/10/19 06:45 02/10/19 06:56 DC 02/10/19 06:57 Fentanyl Citrate (Fentanyl 2ml Vial) 100 mcg 1X ONCE IV 02/10/19 06:45 02/10/19 06:56 DC 02/10/19 06:56 Iodixanol (Visipaque 320) 139 ml 1X ONCE IART 02/10/19 06:45 02/10/19 06:56 DC 02/10/19 06:56 Lidocaine HCl (Lidocaine 1% 20ml Vial) 20 ml 1X ONCE INJ 02/10/19 06:45 02/10/19 06:56 DC 02/10/19 06:56 Heparin Sodium (Porcine) (Heparin 5,000 Units/1,000ml NS) 5,000 unit 1X ONCE IV 02/10/19 06:45 02/10/19 06:56 DC 02/10/19 06:45 Heparin Sodium (Porcine) 85182 unit/Ringer's Solution 1,020 ml @ 1,020 mls/hr 1X ONCE IRR 02/10/19 07:30 02/10/19 08:29 DC 02/10/19 09:54 Heparin Sodium (Porcine) 800 unit/ Nitroglycerin 4 mg/Verapamil HCl 8 mg/Sodium Bicarbonate 0.34 meq/Ringer's Solution 512.34 ml @ 512.34 mls/hr 1X ONCE IRR 02/10/19 07:30 02/10/19 08:29 DC Cefazolin Sodium 1 gm/Sodium Chloride 500 ml @ 500 mls/hr 1X ONCE IRR 02/10/19 07:30 02/10/19 08:29 DC Heparin Sodium (Porcine) 30,000 unit STK-MED ONCE .ROUTE 02/10/19 06:50 02/10/19 06:51 DC Nitroglycerin/ Dextrose 250 ml @ 1.5 mls/hr CONT PRN IV SEE I/O RECORD 02/10/19 07:00 02/10/19 06:36 Ephedrine Sulfate (ePHEDrine PF IN SALINE SYRINGE) 50 mg STK-MED ONCE IV 02/10/19 06:53 02/10/19 06:54 DC Phenylephrine HCl (Sp-Synephrine Inj) 10 mg STK-MED ONCE .ROUTE 02/10/19 06:59 02/10/19 07:00 DC Epinephrine HCl (EPINEPHrine SYRINGE) 1 mg STK-MED ONCE .ROUTE 02/10/19 07:20 02/10/19 07:21 DC Ephedrine Sulfate (ePHEDrine PF IN SALINE SYRINGE) 50 mg STK-MED ONCE IV 02/10/19 07:22 02/10/19 07:23 DC Phenylephrine HCl (PHENYLEPHRINE in 0.9% NACL PF) 1 mg STK-MED ONCE IV 02/10/19 07:22 02/10/19 07:23 DC Heparin Sodium (Porcine) (Heparin Sodium) 10,000 unit STK-MED ONCE .ROUTE 02/10/19 08:02 02/10/19 08:03 DC Cefazolin Sodium 3 gm/Dextrose 100 ml @ 200 mls/hr 1X PREOP PRN IV PRIOR TO PROCEDURE 02/10/19 08:29 02/11/19 08:28 DC 02/10/19 08:45 Mannitol 500 ml @ 0 mls/hr 1X ONCE IV 02/10/19 09:00 02/10/19 09:01 DC Rocuronium Tarrs (Zemuron) 100 mg STK-MED ONCE .ROUTE 02/10/19 08:51 02/10/19 08:52 DC Insulin Human Regular 150 unit/ Sodium Chloride 151.5 ml @ 0 mls/hr CONT PRN IV SEE I/O RECORD 02/10/19 09:15 02/10/19 14:57 DC 02/10/19 09:50 Norepinephrine Bitartrate 250 ml @ 1.875 mls/ hr 1X ONCE IV 02/10/19 11:15 02/16/19 00:34 02/10/19 16:56 Midazolam HCl (Versed) 2 mg STK-MED ONCE .ROUTE 02/10/19 11:13 02/10/19 11:14 DC Epinephrine HCl 4 mg/Sodium Chloride 254 ml @ 3.81 mls/hr CONT PRN IV SEE I/O RECORD 02/10/19 11:30 02/10/19 14:57 DC Protamine Sulfate (Protamine) 50 mg STK-MED ONCE IV 02/10/19 11:33 02/10/19 11:34 DC Protamine Sulfate (Protamine) 250 mg STK-MED ONCE IV 02/10/19 11:33 02/10/19 11:34 DC Protamine Sulfate (Protamine) 250 mg STK-MED ONCE IV 02/10/19 11:33 02/10/19 11:34 DC Midazolam HCl (Versed) 2 mg STK-MED ONCE .ROUTE 02/10/19 11:35 02/10/19 11:36 DC Cefazolin Sodium 3 gm/Dextrose 100 ml @ 200 mls/hr 1X ONCE IV 02/10/19 11:45 02/10/19 12:14 DC 02/10/19 12:40 Rocuronium Tarrs (Zemuron) 50 mg STK-MED ONCE .ROUTE 02/10/19 12:06 02/10/19 12:07 DC Propofol 0 ml @ As Directed STK-MED ONCE IV 02/10/19 12:49 02/10/19 12:50 DC Nicardipine HCl 50 mg/Sodium Chloride 250 ml @ 25 mls/hr CONT PRN IV SEE I/O RECORD 02/10/19 13:15 02/10/19 14:56 DC Heparin Sodium (Porcine) (Heparin Sodium) 10,000 unit STK-MED ONCE .ROUTE 02/10/19 13:21 02/10/19 13:22 DC Lidocaine HCl (Lidocaine Pf 2% Vial) 5 ml STK-MED ONCE .ROUTE 02/10/19 13:21 02/10/19 13:22 DC Magnesium Sulfate 5 gm STK-MED ONCE .ROUTE 02/10/19 13:21 02/10/19 13:22 DC Albumin Human 200 ml @ As Directed STK-MED ONCE IV 02/10/19 13:21 02/10/19 13:22 DC Calcium Chloride (Calcium Chloride) 1,000 mg STK-MED ONCE .ROUTE 02/10/19 13:21 02/10/19 13:22 DC Sodium Bicarbonate (Sodium Bicarb Adult 8.4% Syr) 50 meq STK-MED ONCE .ROUTE 02/10/19 13:23 02/10/19 13:24 DC Sodium Chloride (Normal Saline Flush) 3 ml PRN Q12HR PRN IV AFTER MEDS AND BLOOD DRAWS 02/10/19 14:15 Ringer's Solution 1,000 ml @ 30 mls/hr Q24H IV 02/10/19 14:06 02/12/19 12:52 Albumin Human 250 ml @ 500 mls/hr PRN Q4HRS PRN IV SEE COMMENTS 02/10/19 14:15 02/10/19 18:04 Insulin Human Regular 150 unit/ Sodium Chloride 151.5 ml @ 0 mls/hr CONT PRN PRN IV PER PROTOCOL 02/10/19 14:15 02/12/19 05:08 Dextrose (Dextrose 50%-Water Syringe) 25 gm PRN Q15MIN PRN IV LOW BLOOD SUGAR 02/10/19 14:15 Nitroglycerin/ Dextrose 250 ml @ 0 mls/hr CONT PRN PRN IV POST CV SURGERY 02/10/19 14:15 02/10/19 14:59 DC Epinephrine HCl 4 mg/Sodium Chloride 254 ml @ 0 mls/hr CONT PRN PRN IV POST CV SURGERY 02/10/19 14:15 Amiodarone HCl 150 mg/Dextrose 103 ml @ 600 mls/hr 1X ONCE IV 02/10/19 14:15 02/10/19 14:26 DC 02/10/19 22:41 Amiodarone HCl 150 mg/Dextrose 103 ml @ 200 mls/hr 1X PRN PRN IV FOR AFIB 02/10/19 14:15 Amiodarone HCl 900 mg/Dextrose 518 ml @ 0 mls/hr CONT PRN PRN IV AFIB 02/10/19 14:15 02/10/19 22:43 Info (KCl Per Protocol) 1 ea CONT PRN PRN MC SEE COMMENTS 02/10/19 14:15 Magnesium Sulfate/ Dextrose 100 ml @ 100 mls/hr PRN DAILY PRN IV FOR MAG < 2.2 02/10/19 14:15 Famotidine (Pepcid Vial) 20 mg BID IVP 02/10/19 21:00 02/11/19 06:31 DC 02/10/19 20:36 Ondansetron HCl (Zofran) 4 mg PRN Q4HRS PRN IV NAUSEA/VOMITING, 1st CHOICE 02/10/19 14:15 02/12/19 02:45 Prochlorperazine Edisylate (Compazine) 10 mg PRN Q6HRS PRN IV NAUSEA/VOMITING, 2nd CHOICE 02/10/19 14:15 Metoclopramide HCl (Reglan Vial) 10 mg PRN Q6HRS PRN IV NAUSEA/VOMITING, 3rd CHOICE 02/10/19 14:15 Morphine Sulfate (Morphine Sulfate) 2 mg PRN Q1HR PRN IV PAIN 02/10/19 14:15 02/11/19 18:39 Morphine Sulfate (Morphine Sulfate) 4 mg PRN Q1HR PRN IV PAIN 02/10/19 14:15 02/10/19 18:20 Acetaminophen (Tylenol) 650 mg PRN Q4HRS PRN PO TEMP > 101'F or MILD PAIN 02/10/19 14:15 02/12/19 12:50 Acetaminophen (Tylenol Supp) 650 mg PRN Q4HRS PRN OR TEMP > 101'F or MILD PAIN 02/10/19 14:15 Meperidine HCl (Demerol) 12.5 mg PRN Q15MIN PRN IV SHIVERING 02/10/19 14:15 02/11/19 14:06 DC 02/10/19 15:41 Propofol 100 ml @ 0 mls/hr CONT PRN PRN IV POSTOP SEDATION UNTIL EXTUBATE 02/10/19 14:15 02/10/19 16:58 Senna/Docusate Sodium (Senna Plus) 1 tab BID PO 02/10/19 21:00 02/12/19 21:00 Bisacodyl (Dulcolax Supp) 10 mg PRN DAILY PRN OR NO BOWEL MOVEMENT 02/10/19 14:15 Chlorhexidine Gluconate (Peridex) 15 ml BID MM 02/11/19 09:00 02/11/19 11:15 DC Aspirin (Ecotrin) 325 mg DAILYWBKFT PO 02/11/19 08:00 02/12/19 08:00 Aspirin (Aspirin) 300 mg PRN DAILY PRN OR IF UNABLE TO TAKE PO 02/11/19 08:00 Albuterol Sulfate (Ventolin Neb Soln) 2.5 mg PRN Q4HRS PRN NEB SHORTNESS OF BREATH 02/10/19 14:15 Metoprolol Tartrate (Lopressor) 25 mg BID PO 02/11/19 09:00 02/12/19 21:01 Nicardipine HCl 50 mg/Sodium Chloride 250 ml @ 0 mls/hr CONT PRN PRN IV PER PROTOCOL 02/10/19 14:15 Oxycodone HCl (Roxicodone) 5 mg PRN Q4HRS PRN PO MODERATE PAIN 02/10/19 14:15 02/12/19 23:52 Oxycodone HCl (Roxicodone) 10 mg PRN Q4HRS PRN PO SEVERE PAIN 02/10/19 14:15 02/12/19 10:04 Cefazolin Sodium/ Dextrose 50 ml @ 100 mls/hr Q8H IV 02/10/19 18:00 02/10/19 19:17 DC Isoflurane (Isoflurane) 90 ml STK-MED ONCE IH 02/10/19 14:46 02/10/19 14:47 DC Sodium Bicarbonate (Sodium Bicarb Adult 8.4% Syr) 50 meq STK-MED ONCE .ROUTE 02/10/19 15:29 02/10/19 15:30 DC Sodium Bicarbonate (Sodium Bicarb Adult 8.4% Syr) 50 meq 1X ONCE IV 02/10/19 15:45 02/10/19 15:46 DC 02/10/19 15:50 Potassium Chloride/Water 50 ml @ 50 mls/hr PRN Q1HR PRN IV FOR K 3.1-3.5 02/10/19 15:45 Potassium Chloride/Water 50 ml @ 50 mls/hr PRN Q1HR PRN IV FOR K 2.6-3.0 MEQ/L 02/10/19 15:45 Potassium Chloride/Water 50 ml @ 50 mls/hr PRN Q1HR PRN IV FOR K <2.6 MEQ/L 02/10/19 16:00 Magnesium Sulfate/ Dextrose 100 ml @ 50 mls/hr PRN DAILY PRN IV SEE COMMENTS 02/11/19 09:00 Potassium Chloride/Water 50 ml @ 50 mls/hr Q1H IV 02/10/19 17:00 02/10/19 18:59 DC 02/10/19 16:52 Sodium Bicarbonate (Sodium Bicarb Adult 8.4% Syr) 50 meq 1X ONCE IV 02/10/19 18:15 02/10/19 18:16 DC 02/10/19 18:05 Cefazolin Sodium/ Dextrose 50 ml @ 100 mls/hr Q8H IV 02/10/19 20:30 02/12/19 04:59 DC 02/12/19 04:23 Norepinephrine Bitartrate 250 ml @ 1.875 mls/ hr CONT PRN IV SEE I/O RECORD 02/10/19 22:45 02/11/19 00:23 Pantoprazole Sodium (Protonix) 40 mg DAILYAC PO 02/11/19 07:30 02/12/19 07:30 Ipratropium Tarrs (Atrovent) 0.5 mg RTQID NEB 02/11/19 08:00 02/12/19 20:12 Potassium Chloride/Water 50 ml @ 50 mls/hr 1X ONCE IV 02/11/19 11:00 02/11/19 11:59 DC 02/11/19 10:58 Magnesium Sulfate 50 ml @ 25 mls/hr 1X ONCE IV 02/11/19 11:00 02/11/19 12:59 DC 02/11/19 12:21 Atorvastatin Calcium (Lipitor) 40 mg QHS PO 02/11/19 21:00 02/12/19 21:00 Amiodarone HCl (Cordarone) 200 mg BID PO 02/11/19 16:00 02/12/19 21:01 Potassium Chloride/Water 50 ml @ 50 mls/hr 1X ONCE IV 02/12/19 08:30 02/12/19 09:29 DC 02/12/19 08:30 Insulin Glargine (Lantus) 50 units QHS SQ 02/13/19 21:00 02/13/19 21:00 DC Insulin Glargine (Lantus) 50 units 1X ONCE SQ 02/12/19 13:00 02/12/19 13:01 DC 02/12/19 12:51 Insulin Human Lispro (HumaLOG) 10 units 1X ONCE SQ 02/12/19 13:00 02/12/19 13:01 DC 02/12/19 12:52 Insulin Human Lispro (HumaLOG) 0-9 UNITS TIDWMEALS SQ 02/12/19 17:00 02/12/19 17:00 Dextrose (Dextrose 50%-Water Syringe) 12.5 gm PRN Q15MIN PRN IV SEE COMMENTS 02/12/19 12:30 Metoprolol Tartrate (Lopressor) 12.5 mg 1X ONCE PO 02/12/19 13:00 02/12/19 13:01 DC 02/12/19 12:50 Insulin Glargine (Lantus) 50 units QHS SQ 02/12/19 21:15 02/12/19 21:17 Active Scripts Medications Dose Route/Sig Max Daily Dose Days Date Category No Known Medications Prior To Admisstion (Info) Each 1 Each MC DAILY 02/10/19 Reported Impression . Acute Expected Hypoxic respiratory S/P CABG Coronary artery disease, status post coronary artery bypass graft on02/10/2019. Leukocytosis. Thrombocytopenia. Diabetes mellitus with hyperglycemia Probable obstructive sleep apnea-hypopnea syndrome. Former Smoker Obesity Plan . Acute expected Hypoxic respiratory S/P CABG :resolved * on room air Coronary artery disease, status post coronary artery bypass graft on02/10/2019. * PER CTS/cardiology recs Diabetes mellitus with hyperglycemia * PER IM/ follow up with PCP for chronic management Probable obstructive sleep apnea-hypopnea syndrome. * follow up outpatient with us for Sleep study * discussed cardio risks of untreated MIGUEL A Obesity * encourage healthy life style and weight loss Ok to discharge home from our stand point. Thank you DONAVAN BROOKE MD Feb 14, 2019 14:07
--- NOTE | 2019-02-14 15:40 | NUR ---
Pt and spouse given extensive teaching on CHF, insulin pen usage, checking blood sugars, diet, medications, follow up, and medications called in to [facility]. Pt alert, oriented and stable at [place]. Both IVs removed with no bleeding, bruising, or other negative effects. Pt taken out by this insurance writer in a WC to personal vehicle driven by spouse. Pt left without incident. Pt was able to do teach-back and demonstration of insulin administration and use of medication for different values. Pt voiced understanding, and was given a callback number in case of additional questions.
--- NOTE | 2019-02-16 09:41 | RESP ---
DATE OF SERVICE: 02/13/2019 NOCTURNAL OXIMETRY The patient's mean oxygen saturation remained around 92% with the lowest of 81%. 8% of the time, which was 36 minutes, that was spent with oxygen saturation of less than 90%. IMPRESSION: Mild nocturnal hypoxia. RECOMMENDATIONS: If clinical suspicion for sleep apnea is high, then consider doing full polysomnogram. The patient met the criteria for nocturnal oxygen at 1 liter. SEEMA PASTRANA MD DR: LAUREL/nts JOB#: [id number] / [id number]
[2019-02-22] MEDS ORDERED: POLY17PO28 PO (13:22)
[2019-02-22] MEDS ORDERED: MAGN400T22 PO (13:22)
== END 2019-02-14 14:40 | disposition home or self-care (01) | DRG 233 ==
LOC: ER 05:31 → 1 WEST ICU 05:36 → 2 SOUTH 02-13 16:25
PROVIDERS: ADMIT Internal Medicine; ATTEND Internal Medicine
PROC: 4A023N7 Measurement of Cardiac Sampling and Pressure, Left Heart, Percutaneous Approach (ICD-10-PCS; 2019-02-10)
PROC: 06BQ4ZZ Excision of Left Saphenous Vein, Percutaneous Endoscopic Approach (ICD-10-PCS; 2019-02-10)
PROC: 02100Z9 Bypass Coronary Artery, One Artery from Left Internal Mammary, Open Approach (ICD-10-PCS; 2019-02-10)
PROC: 5A02210 Assistance with Cardiac Output using Balloon Pump, Continuous (ICD-10-PCS; 2019-02-10)
PROC: B2111ZZ Fluoroscopy of Multiple Coronary Arteries using Low Osmolar Contrast (ICD-10-PCS; 2019-02-10)
PROC: B2151ZZ Fluoroscopy of Left Heart using Low Osmolar Contrast (ICD-10-PCS; 2019-02-10)
PROC: 5A1221Z Performance of Cardiac Output, Continuous (ICD-10-PCS; 2019-02-10)
PROC: 021109W Bypass Coronary Artery, Two Arteries from Aorta with Autologous Venous Tissue, Open Approach (ICD-10-PCS; principal; 2019-02-10 07:30)
DX: I21.3 ST elevation (STEMI) myocardial infarction of unspecified site (principal); J96.01 Acute respiratory failure with hypoxia; I50.21 Acute systolic (congestive) heart failure; I25.10 Atherosclerotic heart disease of native coronary artery without angina pectoris; I11.0 Hypertensive heart disease with heart failure; D69.6 Thrombocytopenia, unspecified; D72.829 Elevated white blood cell count, unspecified; E66.9 Obesity, unspecified; E11.65 Type 2 diabetes mellitus with hyperglycemia; E78.5 Hyperlipidemia, unspecified; Z87.891 Personal history of nicotine dependence; Z90.49 Acquired absence of other specified parts of digestive tract; Z82.49 Family history of ischemic heart disease and other diseases of the circulatory system; Z68.29 Body mass index [BMI] 29.0-29.9, adult
CPT/HCPCS: 33967; 36415; 36600; 71045; 80048; 80053; 80061; 82553; 82803; 82805; 82962; 83690; 83735; 83880; 84484; 85025; 85027; 85347; 85384; 85610; 85730; 86850; 86900; 86901; 86920; 87641; 93005; 93306; 93458; 94002; 94640; 94760; 94799; 96374; 99152; 99153; C1769; C1781; C1892; J0171; J0282; J0690; J0696; J1644; J1815; J2001; J2175; J2250; J2270; J2370; J2405; J2440; J2704; J3010; J3370; J3475; J3480; J3490; J7030; J7120; J7644; P9041; P9046; Q9967; 97116; 99291-25

== ENCOUNTER 2019-02-15 15:37 | Inpatient (IN) | payer OTHER ==
[~2019-02-15] VITALS: Ht 188 cm; Wt 114.8 kg
[~2019-02-15 15:37] MED LIST: ALBU2.5V8 NEB; AMIO200T4 PO; ASPI325T11 PO; ATOR20TA58 PO; FURO-68 PO; INSU100I13 SQ; LISI-338 PO; METO-247 PO; METO50TA6 PO; OXYC5TAB4 PO; Pantoprazole PO
[2019-02-15] MEDS ORDERED: ONDANSETRON PF 4 MG/2 ML VIAL. ONE (16:07)
[2019-02-15] MEDS ORDERED: fentaNYL PF VIAL 100 MCG/2 ML VIAL ONE (16:07)
[2019-02-15] MEDS ORDERED: fentaNYL PF VIAL 100 MCG/2 ML VIAL IV ONE ×2 (16:15→18:00)
[2019-02-15] MEDS ORDERED: ONDANSETRON PF 4 MG/2 ML VIAL. IV ONE (16:15)
[2019-02-15 16:24] LABS: BASO % 0 % (0-3); EOS % 0 % (0-3); HEMATOCRIT 37.7 % (39.0-53.0); HEMOGLOBIN 12.7 g/dL (13.0-17.5); LYMPH # 0.6 x10^3/uL (1.0-4.8); LYMPH % 5 % (24-48); MEAN CORPUSCULAR HEMOGLOBIN 30 pg (25-35); MEAN CORPUSCULAR HGB CONC 34 g/dL (31-37); MEAN CORPUSCULAR VOLUME 88 fL (79-100); MONO # 1.3 x10^3/uL (0.0-1.1); MONO % 12 % (0-9); NEUT # 9.1 x10^3uL (1.8-7.7); NEUT % 83 % (31-73); PLATELET COUNT 222 x10^3/uL (140-400); RED BLOOD COUNT 4.29 x10^6/uL (4.30-5.70); RED CELL DISTRIBUTION WIDTH 14.1 % (11.5-14.5); WHITE BLOOD COUNT 10.9 x10^3/uL (4.0-11.0)
[2019-02-15] MEDS ORDERED: IOHEXOL 350 MG/ML 100 ML VIAL. IV ONE (16:30)
[2019-02-15 16:40] LABS: GFR 75.5
[2019-02-15 16:45] LABS: ALBUMIN/GLOBULIN RATIO 0.8 (1.0-1.7); MAGNESIUM 2.1 mg/dL (1.8-2.4); TOTAL BILIRUBIN 1.8 mg/dL (0.2-1.0)
--- NOTE | 2019-02-15 16:47 | RAD ---
PORTABLE CHEST 1V History: SOA, ABDOMINAL PAIN, HX OF RECENT AAA. Comparison with February 13, 2019. Heart size is not enlarged. Low lung volumes are again seen. Mild opacity at the left costophrenic angle is again identified and stable. No new consolidating infiltrate is seen. No pneumothorax. Upper abdominal bowel gaseous distention is again seen. IMPRESSION: 1. Mild pleural and parenchymal disease of the left lung base is stable. 2. Upper abdominal bowel gaseous distention appears similar. Electronically signed by: Oscar Olivia MD (02/15/2019 4:44 PM) [facility]
[2019-02-15] MEDS ORDERED: IV NORMAL SALINE 1000ML BAG 1,000 ML IV ONE (17:00)
--- NOTE | 2019-02-15 17:15 | RAD ---
CT ANGIO CHEST ABD PELVIS Indication: Nausea, vomiting, abdominal pain, recent CABG. History of recent abdominal aortic aneurysm. . Technique: After intravenous contrast administration, CT imaging was performed of the chest. 3-D reconstructions were obtained of the aorta. Exposure: One or more of the following individualized dose reduction techniques were utilized for this examination: 1. Automated exposure control 2. Adjustment of the mA and/or kV according to patient size 3. Use of iterative reconstruction technique. Comparison: None Arterial exam: Atherosclerotic calcifications of the aorta. No evidence of aneurysm or dissection. The proximal great vessels are patent. The major aortic branches in the abdomen are patent. There is anatomic variant of the celiac axis, and a branch arises directly from the aorta just above the celiac axis, probably representing a separate origin of the left gastric artery from the aorta. There is at least mild narrowing of the left renal artery origin. Nonvascular chest findings: Study was not protocoled for nonvascular evaluation. Thyroid appears symmetric. No evidence of significant lymph node enlargement. Coronary artery calcifications. No pericardial effusion. Small left pleural effusion. The esophagus is mildly distended with fluid. There is mild atelectasis in both lungs, without lobar airspace consolidation. Trachea and mainstem bronchi are patent. There are postsurgical changes in the chest. Sternotomy is noted. Nonvascular abdomen pelvis findings: Study was not protocoled for nonvascular exam, limiting evaluation of solid viscera and bowel. Mild distention of the colon with gas and fluid, more so on the right. No evidence of colonic wall thickening. Appendix is not clearly seen. There is diffuse distention of small bowel loops throughout, with fluid and a smaller amount of gas. There is also distention of the stomach with fluid and air. Findings may be due to an ileus, versus a distal obstruction. Liver and spleen are not enlarged. No peripancreatic inflammatory type change. No adrenal mass. Symmetric enhancement of both kidneys. Hypodense lesion upper pole right kidney measures 11 Hounsfield units and 4.5 cm compatible with a cyst. No hydronephrosis. Gallbladder not well visualized. No significant lymph node enlargement. Urinary bladder demonstrates no focal wall thickening. Bones: Degenerative changes of the spine, mild. No evidence of aggressive bone destruction. IMPRESSION: 1. No evidence of aortic aneurysm or dissection. 2. Atherosclerotic disease. 3. Diffuse distention of large and small bowel, as well as stomach and esophagus with gas and fluid. Findings may represent distal obstruction, and/or severe ileus. Electronically signed by: Oscar Olivia MD (02/15/2019 5:12 PM) [facility]
--- NOTE | 2019-02-15 17:27 | PHYS DOC ---
Past Medical History Past Medical History: CAD, Diabetes-Type II Past Surgical History: Appendectomy, Coronary Bypass Surgery Alcohol Use: None Drug Use: None Adult General Chief Complaint Chief Complaint: nausea and vomiting and abdominal pain HPI HPI Patient is a 63 year old male with history of CABG on February 10 and discharged home yesterday who presents with complaining of abdominal pain and nausea and vomiting. Patient complaining of constant shortness of breath since yesterday and generalized abdominal pain since this morning as a constant and aching pain and rated his pain 7/10. Patient states he had nausea and vomited large amount of nonbloody vomiting this afternoon. Patient states he had good bowel movement yesterday and today and denies fever and chills and urinary symptom. Patient currently taking oxycodone but didn't taking pain medication today because of nausea. Review of Systems Review of Systems Constitutional: Denies fever or chills [] Eyes: Denies change in visual acuity, redness, or eye pain [] HENT: Denies nasal congestion or sore throat [] Respiratory: Denies cough, reports shortness of breath [] Cardiovascular: No additional information not addressed in HPI [] GI: Reports abdominal pain, nausea, vomiting, denies bloody stools or diarrhea [] : Denies dysuria or hematuria [] Musculoskeletal: Denies back pain or joint pain [] Integument: Denies rash or skin lesions [] Neurologic: Denies headache, focal weakness or sensory changes [] Endocrine: Denies polyuria or polydipsia [] All other systems were reviewed and found to be within normal limits, except as documented in this note. Current Medications Current Medications Current Medications Medications (Trade) Dose Ordered Sig/Rosa Elena Start Time Stop Time Status Last Admin Dose Admin Fentanyl Citrate (Fentanyl 2ml Vial) 50 mcg 1X ONCE 02/15/19 16:15 02/15/19 16:16 DC 02/15/19 16:13 50 MCG Iohexol (Omnipaque 350 Mg/ml) 100 ml 1X ONCE 02/15/19 16:30 02/15/19 16:31 DC 02/15/19 16:30 100 ML Ondansetron HCl (Zofran) 4 mg 1X ONCE 02/15/19 16:15 02/15/19 16:16 DC 02/15/19 16:10 4 MG Sodium Chloride 1,000 ml @ 1,000 mls/hr 1X ONCE 4/24/19 17:00 02/15/19 17:59 DC 02/15/19 16:53 1,000 MLS/HR Allergies Allergies Allergies Coded Allergies Type Severity Reaction Last Updated Verified No Known Drug Allergies 02/10/19 No Physical Exam Physical Exam Constitutional: Well developed, well nourished, moderate distress, non-toxic appearance. [] HENT: Normocephalic, atraumatic, oropharynx dry , no oral exudates, nose normal. [] Eyes: PERRLA, EOMI, conjunctiva normal, no discharge. [] Neck: Normal range of motion, no tenderness, supple, no stridor. [] Cardiovascular:Heart rate regular rhythm, no murmur [] Lungs & Thorax: Mild respiratory distress with tachypnea, Bilateral breath sounds clear to auscultation [] Abdomen: Abdomen mildly distended with gas, bowel sounds hypoactive, soft, no tenderness, no masses, no pulsatile masses. [] Skin: Warm, dry, no erythema, no rash. [] Back: No tenderness, no CVA tenderness. [] Extremities: No tenderness, no cyanosis, no clubbing, ROM intact, no edema. [] Neurologic: Alert and oriented X 3, normal motor function, normal sensory function, no focal deficits noted. [] Psychologic: Affect normal, judgement normal, mood normal. [] Current Patient Data Vital Signs Vital Signs Date Time Temp Pulse Resp B/P (MAP) Pulse Ox O2 Delivery O2 Flow Rate FiO2 02/15/19 16:13 32 96 Room Air 02/15/19 15:39 98.5 112 165/92 (116) 98.5 Lab Values Laboratory Tests Test 02/15/19 15:45 White Blood Count 10.9 x10^3/uL (4.0-11.0) Red Blood Count 4.29 x10^6/uL (4.30-5.70) L Hemoglobin 12.7 g/dL (13.0-17.5) L Hematocrit 37.7 % (39.0-53.0) L Mean Corpuscular Volume 88 fL (79-100) Mean Corpuscular Hemoglobin 30 pg (25-35) Mean Corpuscular Hemoglobin Concent 34 g/dL (31-37) Red Cell Distribution Width 14.1 % (11.5-14.5) Platelet Count 222 x10^3/uL (140-400) # Neutrophils (%) (Auto) 83 % (31-73) H Lymphocytes (%) (Auto) 5 % (24-48) L Monocytes (%) (Auto) 12 % (0-9) H Eosinophils (%) (Auto) 0 % (0-3) Basophils (%) (Auto) 0 % (0-3) Neutrophils # (Auto) 9.1 x10^3uL (1.8-7.7) H Lymphocytes # (Auto) 0.6 x10^3/uL (1.0-4.8) L Monocytes # (Auto) 1.3 x10^3/uL (0.0-1.1) H Eosinophils # (Auto) 0.0 x10^3/uL (0.0-0.7) Basophils # (Auto) 0.0 x10^3/uL (0.0-0.2) Sodium Level 136 mmol/L (136-145) Potassium Level 4.0 mmol/L (3.5-5.1) Chloride Level 96 mmol/L (98-107) L Carbon Dioxide Level 30 mmol/L (21-32) Anion Gap 10 (6-14) Blood Urea Nitrogen 35 mg/dL (8-26) H Creatinine 1.0 mg/dL (0.7-1.3) Estimated GFR (Cockcroft-Gault) 75.5 BUN/Creatinine Ratio 35 (6-20) H Glucose Level 185 mg/dL (70-99) H Calcium Level 9.0 mg/dL (8.5-10.1) Magnesium Level 2.1 mg/dL (1.8-2.4) Total Bilirubin 1.8 mg/dL (0.2-1.0) H Aspartate Amino Transferase (AST) 35 U/L (15-37) Alanine Aminotransferase (ALT) 32 U/L (16-63) Alkaline Phosphatase 83 U/L (46-116) Creatine Kinase 75 U/L (39-308) Troponin I Quantitative 4.542 ng/mL (0.000-0.055) LK-Rzr-[id number]-Type Natriuretic Peptide 2759 pg/mL (0-124) H Total Protein 7.0 g/dL (6.4-8.2) Albumin 3.0 g/dL (3.4-5.0) L Albumin/Globulin Ratio 0.8 (1.0-1.7) L Lipase 589 U/L (73-393) H Laboratory Tests 02/15/19 15:45 Laboratory Tests 02/15/19 15:45 EKG EKG EKG interpreted by me. EKG at 1544 showed sinus tachycardia at rate of 113, left atrial abnormalities, Q wave in anteroseptal leads, normal OK and QT intervals, no acute ST and T-wave abnormalities. Radiology/Procedures Radiology/Procedures [][facility] [address] [place] [address] IMAGING REPORT Signed PATIENT: XENA HERNANDEZ ACCOUNT: [id number] : 1955 LOCATION: ER AGE: 63 SEX: M EXAM STATUS: REG ER ORD. PHYSICIAN: MANUEL GRIFFIN MD REASON: abdominal pain, recent history of AAA PROCEDURE: PORTABLE CHEST 1V PORTABLE CHEST 1V History: SOA, ABDOMINAL PAIN, HX OF RECENT AAA. Comparison with February 13, 2019. Heart size is not enlarged. Low lung volumes are again seen. Mild opacity at the left costophrenic angle is again identified and stable. No new consolidating infiltrate is seen. No pneumothorax. Upper abdominal bowel gaseous distention is again seen. IMPRESSION: 1. Mild pleural and parenchymal disease of the left lung base is stable. 2. Upper abdominal bowel gaseous distention appears similar. Electronically signed by: Oscar Olivia MD (02/15/2019 4:44 PM) [facility] DICTATED and SIGNED BY: OSCAR OLIVIA MD DATE: 02/15/19 1644 [facility] [address] [place] [address] IMAGING REPORT Signed PATIENT: XENA HERNANDEZ ACCOUNT: [id number] : 1955 LOCATION: ER AGE: 63 SEX: M EXAM STATUS: REG ER ORD. PHYSICIAN: MANUEL GRIFFIN MD REASON: soa, abdominal pain, history of recent AAA PROCEDURE: CT ANGIO CHEST ABD PELVIS CT ANGIO CHEST ABD PELVIS Indication: Nausea, vomiting, abdominal pain, recent CABG. History of recent abdominal aortic aneurysm. . Technique: After intravenous contrast administration, CT imaging was performed of the chest. 3-D reconstructions were obtained of the aorta. Exposure: One or more of the following individualized dose reduction techniques were utilized for this examination: 1. Automated exposure control 2. Adjustment of the mA and/or kV according to patient size 3. Use of iterative reconstruction technique. Comparison: None Arterial exam: Atherosclerotic calcifications of the aorta. No evidence of aneurysm or dissection. The proximal great vessels are patent. The major aortic branches in the abdomen are patent. There is anatomic variant of the celiac axis, and a branch arises directly from the aorta just above the celiac axis, probably representing a separate origin of the left gastric artery from the aorta. There is at least mild narrowing of the left renal artery origin. Nonvascular chest findings: Study was not protocoled for nonvascular evaluation. Thyroid appears symmetric. No evidence of significant lymph node enlargement. Coronary artery calcifications. No pericardial effusion. Small left pleural effusion. The esophagus is mildly distended with fluid. There is mild atelectasis in both lungs, without lobar airspace consolidation. Trachea and mainstem bronchi are patent. There are postsurgical changes in the chest. Sternotomy is noted. Nonvascular abdomen pelvis findings: Study was not protocoled for nonvascular exam, limiting evaluation of solid viscera and bowel. Mild distention of the colon with gas and fluid, more so on the right. No evidence of colonic wall thickening. Appendix is not clearly seen. There is diffuse distention of small bowel loops throughout, with fluid and a smaller amount of gas. There is also distention of the stomach with fluid and air. Findings may be due to an ileus, versus a distal obstruction. Liver and spleen are not enlarged. No peripancreatic inflammatory type change. No adrenal mass. Symmetric enhancement of both kidneys. Hypodense lesion upper pole right kidney measures 11 Hounsfield units and 4.5 cm compatible with a cyst. No hydronephrosis. Gallbladder not well visualized. No significant lymph node enlargement. Urinary bladder demonstrates no focal wall thickening. Bones: Degenerative changes of the spine, mild. No evidence of aggressive bone destruction. IMPRESSION: 1. No evidence of aortic aneurysm or dissection. 2. Atherosclerotic disease. 3. Diffuse distention of large and small bowel, as well as stomach and esophagus with gas and fluid. Findings may represent distal obstruction, and/or severe ileus. Electronically signed by: Oscar Olivia MD (02/15/2019 5:12 PM) [facility] DICTATED and SIGNED BY: OSCAR OLIVIA MD DATE: 02/15/19 5343 Course & Med Decision Making Course & Med Decision Making Pertinent Labs and Imaging studies reviewed. (See chart for details) Evaluation of patient in ER showed 63-year-old male patient with history of CABG 5 days ago brought in because of abdominal pain and nausea and vomiting and sh ortness of breath. Patient did not have fever or hypotension and had chronic tachycardia at 110. Patient treated with IV fluid and Zofran and fentanyl with improvement of pain from 7 to1. Patient had elevation of troponin of 4.2 because of recent CABG. Patient had mild elevation of BUN and BNP. CT of abdomen. CT showed acute ileus or possible obstruction. Thoracic surgeon was consulted at 1620.Patient requiring admission for further evaluation and treatment. Discussed with Dr. Michel who is in agreement with admission. Discussed findings and plan with patient and family, who acknowledge understanding and agreement. Dragon Disclaimer Dragon Disclaimer This electronic medical record was generated, in whole or in part, using a voice recognition dictation system. Departure Departure Impression: Primary Impression: Ileus Additional Impressions: Small bowel obstruction Abdominal pain Nausea and vomiting History of coronary artery bypass graft Renal insufficiency Tachycardia Elevated troponin I level Disposition: ADMITTED INPATIENT Admitting Physician: Nusrat Michel Condition: GUARDED Referrals: RYAN MARTINEZ MD (PCP) Critical Care Time Critical care time was 70 minutes exclusive of procedures. Problem Qualifiers Additional Impressions: Abdominal pain Abdominal location: unspecified location Qualified Codes: R10.9 - Unspecified abdominal pain Nausea and vomiting Vomiting type: unspecified Vomiting Intractability: non-intractable Qualified Codes: R11.2 - Nausea with vomiting, unspecified MANUEL GRIFFIN MD Feb 15, 2019 17:27
[2019-02-15] MEDS ORDERED: IV NORMAL SALINE 1000ML BAG 1,000 ML IV SCH ×2 (17:41→22:00)
[2019-02-15] MEDS ORDERED: AMIODARONE 150 MG/3 ML VIAL IVP ONE (18:30)
[2019-02-15] MEDS ORDERED: AMIODARONE 900 MG in IV DEXTROSE 5% 500 ML IV PRN (18:30)
[2019-02-15] MEDS ORDERED: ASPIRIN RECTAL 300 MG SUPP. PR ONE (18:30)
[2019-02-15 19:30] VITALS: BP 134/76
--- NOTE | 2019-02-15 19:30 | NUR ---
Pt was admitted to the unit from ER with c/o n/v, symptoms started the night before. Pt was recently discharged from [facility] s/p CABG on 02/10/19. Pt is A/Ox4, up adlib, on 2L NC, will titrate O2 to RA. Abdominal CT showed possible ilieus, ER was unsuccessful placing NG tube, stated pt went into sustained VTACH and switched into AFIB RVR. Amiodarone bolus was initiated and continuous gtt started. Pt is currently ST on telemetry, VSS, eric at bedside. Reviewed home medications, H&P completed, pt is NPO r/t ilieus, pt seen at bedside by Dr. Michel, orders received and started. Bed in low/locked position, call light within reach, will continue to monitor for status changes.
[2019-02-15 20:21] LABS: BILIRUBIN,URINE NEGATIVE (NEG); CLARITY,URINE CLEAR; COLOR,URINE YELLOW; NITRITE,URINE NEGATIVE (NEG); PROTEIN,URINE NEGATIVE (NEG-TRACE); UROBILINOGEN,URINE 0.2 mg/dL (0.2 mg/dL)
[2019-02-15 20:34] LABS: BACTERIA,URINE 0 /HPF (0-FEW); RBC,URINE OCC /HPF (0-2); WBC,URINE 0 /HPF (0-4)
[2019-02-15] MEDS ORDERED: ONDANSETRON PF 4 MG/2 ML VIAL. IV PRN (20:45)
[2019-02-15] MEDS ORDERED: DEXTROSE 50% 25 GM / 50ML DISP.SYRIN. IV PRN (20:45)
[2019-02-15] MEDS ORDERED: INSULIN GLARGINE 300 UNITS/3 ML INSULN.PEN. SQ SCH (21:00)
[2019-02-15] MEDS: MORPHINE SULFATE 2 MG/ML VIAL. IV PRN (21:25)
[2019-02-15] MEDS ORDERED: PANTOPRAZOLE IV PUSH 40 MG VIAL. IVP ONE (22:00)
[2019-02-15] MEDS ORDERED: BENZOCAINE/MENTHOL LOZENGE. PO PRN (22:45)
[2019-02-15 23:00] VITALS: BP 122/70
[2019-02-15] MEDS: IV NORMAL SALINE 1000ML BAG 1,000 ML IV SCH (23:00)
--- NOTE | 2019-02-15 23:15 | HP ---
ADMIT DATE: 02/15/2019 CHIEF COMPLAINT: Nausea, vomiting, abdominal pain, recent bypass surgery. HISTORY OF PRESENT ILLNESS: The patient is a pleasant 63-year-old male who underwent bypass surgery just a week ago. He just got discharged after a 3-vessel bypass 4 days ago. He has been doing relatively well at home, but now he has developed abdominal pain, nausea, vomiting and associated shortness of breath. He tried increasing his home meds, but that did not work. He describes it as agonizing, rates it at 10/10. I have discussed the case with the ER physician. It appears the patient has got a possible bowel obstruction. While he was in the ER, they tried to place an NG; that put him into V-tach. He has now been placed on an amiodarone drip. He is quite ill. PAST MEDICAL HISTORY: The above-mentioned bypass surgery about a week ago, he just got discharged 4 days ago; diabetes; hypertension; hyperlipidemia and appendectomy. ALLERGIES: None. FAMILY HISTORY: Coronary artery disease. SOCIAL HISTORY: He does not drink, smoke or take drugs. MEDICATIONS: Reviewed. Please refer to the MRAD. He is on 10 home medications, including ProAir, amiodarone, atorvastatin, metoprolol, lisinopril, aspirin, oxycodone, Lasix, Lantus and Protonix. REVIEW OF SYSTEMS: GENERAL: No history of weight change, weakness or fevers. SKIN: No bruising, hair changes or rashes. EYES: No blurred, double or loss of vision. NOSE AND THROAT: No history of nosebleeds, hoarseness or sore throat. HEART: No history of palpitations, chest pain or shortness of breath on exertion. LUNGS: Denies cough, hemoptysis or wheezing. He complains of shortness of . GASTROINTESTINAL: Denies changes in appetite, diarrhea or constipation. He complains of abdominal pain, nausea and vomiting. GENITOURINARY: No history of frequency, urgency, hesitancy or nocturia. NEUROLOGIC: Denies history of numbness, tingling, tremor or weakness. PSYCHIATRIC: No history of panic, anxiety or depression. ENDOCRINE: No history of heat or cold intolerance, polyuria or polydipsia. EXTREMITIES: Denies muscle weakness, joint pain, pain on walking or stiffness. PHYSICAL EXAMINATION: VITAL SIGNS: Temperature 98, pulse 114, respirations 24 and blood pressure 134/76. It was as high as 180/88. GENERAL: He appears ill. HEART: Distant S1, S2, tachycardic. LUNGS: Slight crackles. ABDOMEN: Soft. Decreased bowel sounds. Distended, tender. EXTREMITIES: Trace edema. SKIN: No rashes. He does have a large incision on his chest that is healing well. ENDOCRINE: No thyromegaly. LYMPHATICS: No cervical nodes. HEMATOPOIETIC: No bruising. PSYCHIATRIC: He is depressed. LABORATORY DATA: Hemoglobin is 12.7. Electrolytes are pending. Troponin is slightly high at 4.52. BNP 2759. CT of the abdomen is showing an ileus versus obstruction. ASSESSMENT AND PLAN: Nausea, vomiting and abdominal pain with probable small-bowel obstruction in a middle-aged male who had bypass surgery recently. We are going to consult GI, General Surgery, Cardiology and his surgeon, Dr. Douglas. Home meds, IV fluids at [facility], amiodarone drip, frequent labs, echocardiogram, serial enzymes and p.r.n. Zofran. We will try to get an NG down, but he did not tolerate that. PROGNOSIS: Guarded. ERIC QUINTERO DO DR: VIDAL/alexandre JOB#: [id number] / [id number]
[2019-02-16 03:00] VITALS: BP 119/66
--- NOTE | 2019-02-16 06:18 | EKG ---
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
--- NOTE | 2019-02-16 06:18 | EKG ---
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 QRS(T) CONTOUR ABNORMALITY CONSIDER ANTEROSEPTAL MYOCARDIAL DAMAGE T ABNORMALITY IN HIGH LATERAL LEADS ABNORMAL ECG Electronically Signed On 02-22-2019 11:42:27 CDT by Jim Tobin
[2019-02-16 07:00] VITALS: BP 120/69
[2019-02-16] MEDS ORDERED: INSULIN LISPRO 300 UNITS/3 ML INSULN.PEN. SQ SCH (08:00)
--- NOTE | 2019-02-16 08:35 | PDOC2 ---
SHAKIRA REED ANNEALER HELPER 02/16/19 0835: CONSULT Date of Consult Date of Consult DATE: 02/16/19 TIME: 08:28 Reason for Consult Reason for Consult: sbo vs ileus Referring Physician Referring Physician: ER Identification/Chief Complaint Chief Complaint bloating, vomiting Source Source: Chart review, Patient History of Present Illness Reason for Visit: Underwent CABG 1 week ago, discharged 2 days ago. Developed distention, vomiting, and came to ER. Imaging concerning for SBO vs ileus. Attempted NG in ER, however coiled in mouth on multiple attempts. Reports some loose stool yesterday. No emesis since admission. Feels less bloated now. Past Medical History Cardiovascular: CAD, HTN Pulmonary: No pertinent hx GI: No pertinent hx Heme/Onc: No pertinent hx Hepatobiliary: No pertinent hx Psych: No pertinent hx Rheumatologic: No pertinent hx Infectious disease: No pertinent hx Renal/: No pertinent hx Endocrine: Diabetes Past Surgical History Past Surgical History: Appendectomy, CABG Family History Family History: Coronary Artery Disease Social History ALCOHOL: rare Drugs: None Lives: with Family Current Problem List Problem List Problems Medical Problems: (1) Abdominal pain Status: Acute (2) Elevated troponin I level Status: Acute (3) Ileus Status: Acute (4) Nausea and vomiting Status: Acute (5) Renal insufficiency Status: Acute (6) Small bowel obstruction Status: Acute (7) Tachycardia Status: Acute Current Medications Current Medications Current Medications Ondansetron HCl (Zofran) 4 mg STK-MED ONCE .ROUTE ; Start 02/15/19 at 16:07; Stop 02/15/19 at 16:08; Status DC Fentanyl Citrate (Fentanyl 2ml Vial) 100 mcg STK-MED ONCE .ROUTE ; Start 02/15/19 at 16:07; Stop 02/15/19 at 16:08; Status DC Ondansetron HCl (Zofran) 4 mg 1X ONCE IV Last administered on 02/15/19at 16:10; Start 02/15/19 at 16:15; Stop 02/15/19 at 16:16; Status DC Fentanyl Citrate (Fentanyl 2ml Vial) 50 mcg 1X ONCE IV Last administered on 02/15/19at 16:13; Start 02/15/19 at 16:15; Stop 02/15/19 at 16:16; Status DC Iohexol (Omnipaque 350 Mg/ml) 100 ml 1X ONCE IV Last administered on 02/15/19 16:30; Start 02/15/19 at 16:30; Stop 02/15/19 at 16:31; Status DC Sodium Chloride 1,000 ml @ 1,000 mls/hr 1X ONCE IV Last administered on 02/15/19at 16:53; Start 02/15/19 at 17:00; Stop 02/15/19 at 17:59; Status DC Sodium Chloride 1,000 ml @ 125 mls/hr Q8H IV ; Start 02/15/19 at 17:41; Stop 02/15/19 at 21:53; Status DC Fentanyl Citrate (Fentanyl 2ml Vial) 50 mcg 1X ONCE IV Last administered on 02/15/19at 17:55; Start 02/15/19 at 18:00; Stop 02/15/19 at 18:01; Status DC Amiodarone HCl (Cordarone) 150 mg 1X ONCE IVP Last administered on 02/15/19at 18:16; Start 02/15/19 at 18:30; Stop 02/15/19 at 18:33; Status DC Amiodarone HCl 900 mg/Dextrose 518 ml @ 0 mls/hr CONT PRN IV SEE I/O RECORD Last administered on 02/15/19 19:02; Start 02/15/19 at 18:30; Stop 02/15/19 at 19:02; Status DC Aspirin (Aspirin) 300 mg 1X ONCE UT Last administered on 02/15/19 19:02; Start 02/15/19 at 18:30; Stop 02/15/19 at 18:32; Status DC Morphine Sulfate (Morphine Sulfate) 2 mg PRN Q2HR PRN IV MODERATE PAIN Last administered on 02/15/19at 21:25; Start 02/15/19 at 20:45 Ondansetron HCl (Zofran) 4 mg PRN Q6HRS PRN IV NAUSEA/VOMITING Last administered on 02/15/19at 21:03; Start 02/15/19 at 20:45 Insulin Glargine (Lantus) 50 units QHS SQ ; Start 02/15/19 at 21:00; Stop 02/16/19 at 06:35; Status DC Insulin Human Lispro (HumaLOG) 0-5 UNITS TIDWMEALS SQ ; Start 02/16/19 at 08:00 Dextrose (Dextrose 50%-Water Syringe) 12.5 gm PRN Q15MIN PRN IV SEE COMMENTS; Start 02/15/19 at 20:45 Morphine Sulfate (Morphine Sulfate) 4 mg PRN Q2HR PRN IV SEVERE PAIN; Start 02/15/19 at 21:45 Pantoprazole Sodium (PROTONIX VIAL for IV PUSH) 40 mg 1X ONCE IVP Last administered on 02/15/19at 22:00; Start 02/15/19 at 22:00; Stop 02/15/19 at 22:01; Status DC Sodium Chloride 1,000 ml @ 30 mls/hr Q24H IV Last administered on 02/15/19at 22:00; Start 02/15/19 at 22:00; Stop 02/15/19 at 22:47; Status DC Throat Lozenges (Cepacol Sore Throat Lozenge) 1 wong PRN Q2HRS PRN PO SORE THROAT Last administered on 02/15/19at 22:44; Start 02/15/19 at 22:45 Sodium Chloride 1,000 ml @ 50 mls/hr Q20H IV Last administered on 02/15/19at 23:00; Start 02/15/19 at 23:00 Active Scripts Active Amiodarone Hcl 200 Mg Tablet 1 Tab PO BID Oxycodone Hcl Immed.release (Oxycodone Hcl) 5 Mg Tablet 5 Mg PO PRN Q4HRS PRN MDD 1 [Pantoprazole] 40 MG Tablet. 40 Mg PO DAILYAC MDD 1 Lantus Solostar (Insulin Glargine,Hum.rec.anlog) 100 Unit/1 Ml Insuln.pen 50 Units SQ QHS MDD 1 30 Days Aspirin Ec (Aspirin) 325 Mg Tablet. 325 Mg PO DAILYWBKFT MDD 1 Atorvastatin Calcium 20 Mg Tablet 20 Mg PO QHS MDD 1 Proair Hfa (Albuterol Sulfate) 8.5 Gm Hfa.aer.ad 2.5 Mg NEB PRN Q4HRS PRN MDD 1 30 Days Reported Lisinopril 5 Mg Tablet 1 Tab PO DAILY Lasix (Furosemide) 40 Mg Tablet 1 Tab PO PRN DAILY PRN Metoprolol Succinate ( Xl ) (Metoprolol Succinate) 100 Mg Tab.er.24h 1 Tab PO D AILY Allergies Allergies: Coded Allergies: No Known Drug Allergies (Unverified , 02/10/19) ROS General: No: Chills, Other (fevers) PSYCHOLOGICAL ROS: No: Anxiety, Depression Eyes: No Blurry vision, No Double vision HEENT: No: Heacaches, Sore Throat Hematological and Lymphatic: No: Bleeding Problems, Blood Clots Respiratory: No: Cough, Shortness of breath Cardiovascular: No Chest Pain, No Palpitations Gastrointestinal: Yes Other (see hpi) Genitourinary: No Dysuria, No Hematuria Musculoskeletal: No Joint Pain, No Muscle Pain Neurological: No Confusion, No Numbness/Tingling Skin: No Pruritus, No Skin Lesion Changes Physical Exam General: Alert, Oriented X3, Cooperative, No acute distress HEENT: PERRLA, Mucous membr. moist/pink Lungs: Clear to auscultation, Normal air movement Heart: Regular rate, Normal S1, Normal S2, No murmurs Abdomen: Soft, Other (mildly distended, NTTP on exam) Extremities: No clubbing, No cyanosis Skin: No rashes, No breakdown Neuro: Normal gait, Normal speech Psych/Mental Status: Mental status NL, Mood NL MUSCULOSKELETAL: No deformity, No swelling Vitals VITALS Vital Signs Date Time Temp Pulse Resp B/P (MAP) Pulse Ox O2 Delivery O2 Flow Rate FiO2 02/16/19 07:00 97.8 93 18 120/69 (86) 97 Nasal Cannula 97.8 02/15/19 21:55 2.0 Labs Labs Laboratory Tests Test 02/15/19 15:45 02/15/19 20:10 02/15/19 20:35 02/15/19 20:57 White Blood Count 10.9 x10^3/uL (4.0-11.0) Red Blood Count 4.29 x10^6/uL (4.30-5.70) Hemoglobin 12.7 g/dL (13.0-17.5) Hematocrit 37.7 % (39.0-53.0) Mean Corpuscular Volume 88 fL (79-100) Mean Corpuscular Hemoglobin 30 pg (25-35) Mean Corpuscular Hemoglobin Concent 34 g/dL (31-37) Red Cell Distribution Width 14.1 % (11.5-14.5) Platelet Count 222 x10^3/uL (140-400) Neutrophils (%) (Auto) 83 % (31-73) Lymphocytes (%) (Auto) 5 % (24-48) Monocytes (%) (Auto) 12 % (0-9) Eosinophils (%) (Auto) 0 % (0-3) Basophils (%) (Auto) 0 % (0-3) Neutrophils # (Auto) 9.1 x10^3uL (1.8-7.7) Lymphocytes # (Auto) 0.6 x10^3/uL (1.0-4.8) Monocytes # (Auto) 1.3 x10^3/uL (0.0-1.1) Eosinophils # (Auto) 0.0 x10^3/uL (0.0-0.7) Basophils # (Auto) 0.0 x10^3/uL (0.0-0.2) Sodium Level 136 mmol/L (136-145) Potassium Level 4.0 mmol/L (3.5-5.1) Chloride Level 96 mmol/L (98-107) Carbon Dioxide Level 30 mmol/L (21-32) Anion Gap 10 (6-14) Blood Urea Nitrogen 35 mg/dL (8-26) Creatinine 1.0 mg/dL (0.7-1.3) Estimated GFR (Cockcroft-Gault) 75.5 BUN/Creatinine Ratio 35 (6-20) Glucose Level 185 mg/dL (70-99) Calcium Level 9.0 mg/dL (8.5-10.1) Magnesium Level 2.1 mg/dL (1.8-2.4) Total Bilirubin 1.8 mg/dL (0.2-1.0) Aspartate Amino Transf (AST/SGOT) 35 U/L (15-37) Alanine Aminotransferase (ALT/SGPT) 32 U/L (16-63) Alkaline Phosphatase 83 U/L (46-116) Creatine Kinase 75 U/L (39-308) Troponin I Quantitative 4.542 ng/mL (0.000-0.055) 4.095 ng/mL (0.000-0.055) IT-Ufu-C-Type Natriuretic Peptide 2759 pg/mL (0-124) Total Protein 7.0 g/dL (6.4-8.2) Albumin 3.0 g/dL (3.4-5.0) Albumin/Globulin Ratio 0.8 (1.0-1.7) Lipase 589 U/L (73-393) Urine Collection Type Unknown Urine Color Yellow Urine Clarity Clear Urine pH 5.0 Urine Specific [place] >=1.030 Urine Protein Negative mg/dL (NEG-TRACE) Urine Glucose (UA) Negative mg/dL (NEG) Urine Ketones (Stick) 15 mg/dL (NEG) Urine Blood Negative (NEG) Urine Nitrite Negative (NEG) Urine Bilirubin Negative (NEG) Urine Urobilinogen Dipstick 0.2 mg/dL (0.2 mg/dL) Urine Leukocyte Esterase Negative (NEG) Urine RBC Occ /HPF (0-2) Urine WBC 0 /HPF (0-4) Urine Bacteria 0 /HPF (0-FEW) Lactic Acid Level 2.2 mmol/L (0.4-2.0) Glucose (Fingerstick) 176 mg/dL (70-99) Test 02/15/19 23:45 02/16/19 07:29 Lactic Acid Level 2.1 mmol/L (0.4-2.0) Troponin I Quantitative 3.849 ng/mL (0.000-0.055) Glucose (Fingerstick) 178 mg/dL (70-99) Laboratory Tests Test 02/15/19 15:45 02/15/19 20:10 02/15/19 20:35 02/15/19 20:57 White Blood Count 10.9 x10^3/uL (4.0-11.0) Red Blood Count 4.29 x10^6/uL (4.30-5.70) Hemoglobin 12.7 g/dL (13.0-17.5) Hematocrit 37.7 % (39.0-53.0) Mean Corpuscular Volume 88 fL (79-100) Mean Corpuscular Hemoglobin 30 pg (25-35) Mean Corpuscular Hemoglobin Concent 34 g/dL (31-37) Red Cell Distribution Width 14.1 % (11.5-14.5) Platelet Count 222 x10^3/uL (140-400) Neutrophils (%) (Auto) 83 % (31-73) Lymphocytes (%) (Auto) 5 % (24-48) Monocytes (%) (Auto) 12 % (0-9) Eosinophils (%) (Auto) 0 % (0-3) Basophils (%) (Auto) 0 % (0-3) Neutrophils # (Auto) 9.1 x10^3uL (1.8-7.7) Lymphocytes # (Auto) 0.6 x10^3/uL (1.0-4.8) Monocytes # (Auto) 1.3 x10^3/uL (0.0-1.1) Eosinophils # (Auto) 0.0 x10^3/uL (0.0-0.7) Basophils # (Auto) 0.0 x10^3/uL (0.0-0.2) Sodium Level 136 mmol/L (136-145) Potassium Level 4.0 mmol/L (3.5-5.1) Chloride Level 96 mmol/L (98-107) Carbon Dioxide Level 30 mmol/L (21-32) Anion Gap 10 (6-14) Blood Urea Nitrogen 35 mg/dL (8-26) Creatinine 1.0 mg/dL (0.7-1.3) Estimated GFR (Cockcroft-Gault) 75.5 BUN/Creatinine Ratio 35 (6-20) Glucose Level 185 mg/dL (70-99) Calcium Level 9.0 mg/dL (8.5-10.1) Magnesium Level 2.1 mg/dL (1.8-2.4) Total Bilirubin 1.8 mg/dL (0.2-1.0) Aspartate Amino Transf (AST/SGOT) 35 U/L (15-37) Alanine Aminotransferase (ALT/SGPT) 32 U/L (16-63) Alkaline Phosphatase 83 U/L (46-116) Creatine Kinase 75 U/L (39-308) Troponin I Quantitative 4.542 ng/mL (0.000-0.055) 4.095 ng/mL (0.000-0.055) NM-Web-J-Type Natriuretic Peptide 2759 pg/mL (0-124) Total Protein 7.0 g/dL (6.4-8.2) Albumin 3.0 g/dL (3.4-5.0) Albumin/Globulin Ratio 0.8 (1.0-1.7) Lipase 589 U/L (73-393) Urine Collection Type Unknown Urine Color Yellow Urine Clarity Clear Urine pH 5.0 Urine Specific [place] >=1.030 Urine Protein Negative mg/dL (NEG-TRACE) Urine Glucose (UA) Negative mg/dL (NEG) Urine Ketones (Stick) 15 mg/dL (NEG) Urine Blood Negative (NEG) Urine Nitrite Negative (NEG) Urine Bilirubin Negative (NEG) Urine Urobilinogen Dipstick 0.2 mg/dL (0.2 mg/dL) Urine Leukocyte Esterase Negative (NEG) Urine RBC Occ /HPF (0-2) Urine WBC 0 /HPF (0-4) Urine Bacteria 0 /HPF (0-FEW) Lactic Acid Level 2.2 mmol/L (0.4-2.0) Glucose (Fingerstick) 176 mg/dL (70-99) Test 02/15/19 23:45 02/16/19 07:29 Lactic Acid Level 2.1 mmol/L (0.4-2.0) Troponin I Quantitative 3.849 ng/mL (0.000-0.055) Glucose (Fingerstick) 178 mg/dL (70-99) Assessment/Plan Assessment/Plan SBO vs ileus seems more c/w with ileus due to recent operation, narcotic use, decreased activity will check xrays this AM NPO, bowel rest consider Radiology to place NG if still with significant distention findings ANGIE XIE MD 02/16/192046: CONSULT Assessment/Plan Assessment/Plan pt seen 16 Fr NG placed after 2% lidocaine jelly nasally and cetacaine spray to throat immediate return of 300cc not sure how long patient will leave it in SHAKIRA REED APRN Feb 16, 2019 08:35 ANGIE XIE MD Feb 16, 2019 20:47
--- NOTE | 2019-02-16 09:09 | EKG ---
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
[2019-02-16 09:24] LABS: ALBUMIN 2.5 g/dL (3.4-5.0); ALBUMIN/GLOBULIN RATIO 0.7 (1.0-1.7); CALCIUM 8.3 mg/dL (8.5-10.1); GFR 75.5; MAGNESIUM 2.2 mg/dL (1.8-2.4); POTASSIUM 3.5 mmol/L (3.5-5.1); TOTAL BILIRUBIN 1.3 mg/dL (0.2-1.0); TOTAL PROTEIN 5.9 g/dL (6.4-8.2)
--- NOTE | 2019-02-16 09:27 | PDOC2 ---
GI CONSULT Reason For Consult: Ileus HPI: HPI: 63 y/o w/ recent STEMI and emergent CABG x 3 on 02/10/19, discharged 02/14 w/ oxycodone and pantoprazole. Says he was not eating very well prior to discharge "because I was bloated" but was tolerating liquids and had a BM on 02/14 (and another small one yesterday - says he was taking stool softeners as inpt). Back to ER yesterday w/ vomiting - "it was all the liquids I drank." Tells me it was hard to tell if he had abdominal pain because of post-op chest pain. Imaging as below concerning for ileus vs obstruction, NGT placement attempted x 3 in ER complicated by reported short run of V tach. Currently denies nausea, hasn't vomited since yesterday, not sure if he's bloated ("I couldn't tell ya"), denies abd pain, and is not passing flatus but it belching. Asks if he's going to go home today. Denies reflux/heartburn, dysphagia, hematemesis, hematochezia, melena, diarrhea, or typical issues w/ constipation. Does not recall previous EGD. Reports a colonoscopy "years ago" with no significant findings. No GB, liver, pancreas, or PUD history. No NSAID use. PMH: PMH: CAD, ?MIGUEL A, DM appendectomy, CABG FH: Family History: Cancer (mother - unknown kind), CAD, DM Social History: Smoke: Quit ALCOHOL: rare Drugs: None ROS: GEN: Denies fevers, chills, sweats HEENT: Denies blurred vision, sore throat CV: +post-op chest pain RESP: Denies shortness of air, cough GI: Per HPI : Denies hematuria, dysuria ENDO: Denies weight changes NEURO: Denies confusion, dizziness MSK: Denies weakness, joint pain/swelling SKIN: Denies jaundice, pruritus Vitals: Vitals: Vital Signs Date Time Temp Pulse Resp B/P (MAP) Pulse Ox O2 Delivery O2 Flow Rate FiO2 02/16/19 07:00 97.8 93 18 120/69 (86) 97 Nasal Cannula 97.8 02/15/19 21:55 2.0 Labs: Labs: Laboratory Tests Test 02/15/19 15:45 02/15/19 20:10 02/15/19 20:35 02/15/19 20:57 White Blood Count 10.9 x10^3/uL (4.0-11.0) Red Blood Count 4.29 x10^6/uL (4.30-5.70) Hemoglobin 12.7 g/dL (13.0-17.5) Hematocrit 37.7 % (39.0-53.0) Mean Corpuscular Volume 88 fL (79-100) Mean Corpuscular Hemoglobin 30 pg (25-35) Mean Corpuscular Hemoglobin Concent 34 g/dL (31-37) Red Cell Distribution Width 14.1 % (11.5-14.5) Platelet Count 222 x10^3/uL (140-400) Neutrophils (%) (Auto) 83 % (31-73) Lymphocytes (%) (Auto) 5 % (24-48) Monocytes (%) (Auto) 12 % (0-9) Eosinophils (%) (Auto) 0 % (0-3) Basophils (%) (Auto) 0 % (0-3) Neutrophils # (Auto) 9.1 x10^3uL (1.8-7.7) Lymphocytes # (Auto) 0.6 x10^3/uL (1.0-4.8) Monocytes # (Auto) 1.3 x10^3/uL (0.0-1.1) Eosinophils # (Auto) 0.0 x10^3/uL (0.0-0.7) Basophils # (Auto) 0.0 x10^3/uL (0.0-0.2) Sodium Level 136 mmol/L (136-145) Potassium Level 4.0 mmol/L (3.5-5.1) Chloride Level 96 mmol/L (98-107) Carbon Dioxide Level 30 mmol/L (21-32) Anion Gap 10 (6-14) Blood Urea Nitrogen 35 mg/dL (8-26) Creatinine 1.0 mg/dL (0.7-1.3) Estimated GFR (Cockcroft-Gault) 75.5 BUN/Creatinine Ratio 35 (6-20) Glucose Level 185 mg/dL (70-99) Calcium Level 9.0 mg/dL (8.5-10.1) Magnesium Level 2.1 mg/dL (1.8-2.4) Total Bilirubin 1.8 mg/dL (0.2-1.0) Aspartate Amino Transf (AST/SGOT) 35 U/L (15-37) Alanine Aminotransferase (ALT/SGPT) 32 U/L (16-63) Alkaline Phosphatase 83 U/L (46-116) Creatine Kinase 75 U/L (39-308) Troponin I Quantitative 4.542 ng/mL (0.000-0.055) 4.095 ng/mL (0.000-0.055) RV-Uup-F-Type Natriuretic Peptide 2759 pg/mL (0-124) Total Protein 7.0 g/dL (6.4-8.2) Albumin 3.0 g/dL (3.4-5.0) Albumin/Globulin Ratio 0.8 (1.0-1.7) Lipase 589 U/L (73-393) Urine Collection Type Unknown Urine Color Yellow Urine Clarity Clear Urine pH 5.0 Urine Specific [place] >=1.030 Urine Protein Negative mg/dL (NEG-TRACE) Urine Glucose (UA) Negative mg/dL (NEG) Urine Ketones (Stick) 15 mg/dL (NEG) Urine Blood Negative (NEG) Urine Nitrite Negative (NEG) Urine Bilirubin Negative (NEG) Urine Urobilinogen Dipstick 0.2 mg/dL (0.2 mg/dL) Urine Leukocyte Esterase Negative (NEG) Urine RBC Occ /HPF (0-2) Urine WBC 0 /HPF (0-4) Urine Bacteria 0 /HPF (0-FEW) Lactic Acid Level 2.2 mmol/L (0.4-2.0) Glucose (Fingerstick) 176 mg/dL (70-99) Test 02/15/19 23:45 02/16/19 07:29 02/16/19 08:30 Lactic Acid Level 2.1 mmol/L (0.4-2.0) Troponin I Quantitative 3.849 ng/mL (0.000-0.055) Glucose (Fingerstick) 178 mg/dL (70-99) Sodium Level 136 mmol/L (136-145) Potassium Level 3.5 mmol/L (3.5-5.1) Chloride Level 99 mmol/L (98-107) Carbon Dioxide Level 28 mmol/L (21-32) Anion Gap 9 (6-14) Blood Urea Nitrogen 38 mg/dL (8-26) Creatinine 1.0 mg/dL (0.7-1.3) Estimated GFR (Cockcroft-Gault) 75.5 BUN/Creatinine Ratio 38 (6-20) Glucose Level 218 mg/dL (70-99) Calcium Level 8.3 mg/dL (8.5-10.1) Magnesium Level 2.2 mg/dL (1.8-2.4) Total Bilirubin 1.3 mg/dL (0.2-1.0) Aspartate Amino Transf (AST/SGOT) 21 U/L (15-37) Alanine Aminotransferase (ALT/SGPT) 25 U/L (16-63) Alkaline Phosphatase 68 U/L (46-116) Total Protein 5.9 g/dL (6.4-8.2) Albumin 2.5 g/dL (3.4-5.0) Albumin/Globulin Ratio 0.7 (1.0-1.7) Amylase Level 32 U/L (25-115) Lipase 240 U/L (73-393) Allergies: Coded Allergies: No Known Drug Allergies (Unverified , 02/10/19) Medications: Current Medications Medications (Trade) Dose Ordered Sig/Rosa Elena Route PRN Reason Start Time Stop Time Status Last Admin Dose Admin Ondansetron HCl (Zofran) 4 mg 1X ONCE IV 02/15/19 16:15 02/15/19 16:16 DC 02/15/19 16:10 Fentanyl Citrate (Fentanyl 2ml Vial) 50 mcg 1X ONCE IV 02/15/19 16:15 02/15/19 16:16 DC 02/15/19 16:13 Iohexol (Omnipaque 350 Mg/ml) 100 ml 1X ONCE IV 02/15/19 16:30 02/15/19 16:31 DC 02/15/19 16:30 Sodium Chloride 1,000 ml @ 1,000 mls/hr 1X ONCE IV 02/15/19 17:00 02/15/19 17:59 DC 02/15/19 16:53 Fentanyl Citrate (Fentanyl 2ml Vial) 50 mcg 1X ONCE IV 02/15/19 18:00 02/15/19 18:01 DC 02/15/19 17:55 Amiodarone HCl (Cordarone) 150 mg 1X ONCE IVP 02/15/19 18:30 02/15/19 18:33 DC 02/15/19 18:16 Amiodarone HCl 900 mg/Dextrose 518 ml @ 0 mls/hr CONT PRN IV SEE I/O RECORD 02/15/19 18:30 02/15/19 19:02 DC 02/15/19 19:02 Aspirin (Aspirin) 300 mg 1X ONCE IN 02/15/19 18:30 02/15/19 18:32 DC 02/15/19 19:02 Morphine Sulfate (Morphine Sulfate) 2 mg PRN Q2HR PRN IV MODERATE PAIN 02/15/19 20:45 02/15/19 21:25 Ondansetron HCl (Zofran) 4 mg PRN Q6HRS PRN IV NAUSEA/VOMITING 02/15/19 20:45 02/15/19 21:03 Pantoprazole Sodium (PROTONIX VIAL for IV PUSH) 40 mg 1X ONCE IVP 02/15/19 22:00 02/15/19 22:01 DC 02/15/19 22:00 Sodium Chloride 1,000 ml @ 30 mls/hr Q24H IV 02/15/19 22:00 02/15/19 22:47 DC 02/15/19 22:00 Throat Lozenges (Cepacol Sore Throat Lozenge) 1 wong PRN Q2HRS PRN PO SORE THROAT 02/15/19 22:45 02/15/19 22:44 Sodium Chloride 1,000 ml @ 50 mls/hr Q20H IV 02/15/19 23:00 02/15/19 23:00 Imaging: Imaging: CT angio C/A/P 02/15/19 Arterial exam: Atherosclerotic calcifications of the aorta. No evidence of aneurysm or dissection. The proximal great vessels are patent. The major aortic branches in the abdomen are patent. There is anatomic variant of the celiac axis, and a branch arises directly from the aorta just above the celiac axis, probably representing a separate origin of the left gastric artery from the aorta. There is at least mild narrowing of the left renal artery origin. Nonvascular chest findings: Study was not protocoled for nonvascular evaluation. Thyroid appears symmetric. No evidence of significant lymph node enlargement. Coronary artery calcifications. No pericardial effusion. Small left pleural effusion. The esophagus is mildly distended with fluid. There is mild atelectasis in both lungs, without lobar airspace consolidation. Trachea and mainstem bronchi are patent. There are postsurgical changes in the chest. Sternotomy is noted. Nonvascular abdomen pelvis findings: Study was not protocoled for nonvascular exam, limiting evaluation of solid viscera and bowel. Mild distention of the colon with gas and fluid, more so on the right. No evidence of colonic wall thickening. Appendix is not clearly seen. There is diffuse distention of small bowel loops throughout, with fluid and a smaller amount of gas. There is also distention of the stomach with fluid and air. Findings may be due to an ileus, versus a distal obstruction. Liver and spleen are not enlarged. No peripancreatic inflammatory type change. No adrenal mass. Symmetric enhancement of both kidneys. Hypodense lesion upper pole right kidney measures 11 Hounsfield units and 4.5 cm compatible with a cyst. No hydronephrosis. Gallbladder not well visualized. No significant lymph node enlargement. Urinary bladder demonstrates no focal wall thickening. Bones: Degenerative changes of the spine, mild. No evidence of aggressive bone destruction. IMPRESSION: 1. No evidence of aortic aneurysm or dissection. 2. Atherosclerotic disease. 3. Diffuse distention of large and small bowel, as well as stomach and esophagus with gas and fluid. Findings may represent distal obstruction, and/or severe ileus. CXR 02/15 IMPRESSION: 1. Mild pleural and parenchymal disease of the left lung base is stable. 2. Upper abdominal bowel gaseous distention appears similar. Acute Abd Series 02/16 pending PE: GEN: pale - looks ill HEENT: Atraumatic, PERRL LUNGS: NC 2 L, clear anteriorly HEART: tachycardic ABD: distended, soft, non-tender, no BS EXTREMITY: mild BLE edema SKIN: chest incision intact NEURO/PSYCH: A & O 3 A/P: A/P: Vomiting, abd pain Abnormal CT - diffuse distention of large and small bowel, as well as stomach and esophagus with gas and fluid ---> findings may represent distal obstruction, and/or severe ileus. Recent STEMI, CAD s/p CABG 02/10/19 DM CRC screen - reports normal colonoscopy years ago Mild anemia - noted post-op last admission, improved Elevated BUN - 35 to 38, Cr normal Mildly elevated lipase - unclear significance, resolved -- Surgery following, plans to await KUB - pending these results, consider radiology to place NG. Continue NPO, add IV PPI. Check iron profile for completeness. KELSEY TAYLOR Feb 16, 2019 09:27
--- NOTE | 2019-02-16 09:40 | PDOC ---
RUSLAN GAR PRE ALGEBRA TEACHER 02/16/19 0940: CARDIO Progress Notes Date and Time Date of Service 02/16/2019 Time of Evaluation 0910 Subjective Subjective: No Chest Pain, No shortness of breath, No Palpitations Vitals Vitals Vital Signs Date Time Temp Pulse Resp B/P (MAP) Pulse Ox O2 Delivery O2 Flow Rate FiO2 02/16/19 07:00 97.8 93 18 120/69 (86) 97 Nasal Cannula 97.8 02/15/19 21:55 2.0 Weight Weight [ ] Input and Output Intake and Output Intake and Output 02/16/19 06:59 Intake Total 1660 ml Output Total 250 ml Balance 1410 ml Intake Oral 0 ml IV Total 1660 ml Output Urine Total 250 ml Laboratory Labs Laboratory Tests Test 02/15/19 15:45 02/15/19 20:10 02/15/19 20:35 02/15/19 20:57 White Blood Count 10.9 x10^3/uL (4.0-11.0) Red Blood Count 4.29 x10^6/uL (4.30-5.70) Hemoglobin 12.7 g/dL (13.0-17.5) Hematocrit 37.7 % (39.0-53.0) Mean Corpuscular Volume 88 fL (79-100) Mean Corpuscular Hemoglobin 30 pg (25-35) Mean Corpuscular Hemoglobin Concent 34 g/dL (31-37) Red Cell Distribution Width 14.1 % (11.5-14.5) Platelet Count 222 x10^3/uL (140-400) Neutrophils (%) (Auto) 83 % (31-73) Lymphocytes (%) (Auto) 5 % (24-48) Monocytes (%) (Auto) 12 % (0-9) Eosinophils (%) (Auto) 0 % (0-3) Basophils (%) (Auto) 0 % (0-3) Neutrophils # (Auto) 9.1 x10^3uL (1.8-7.7) Lymphocytes # (Auto) 0.6 x10^3/uL (1.0-4.8) Monocytes # (Auto) 1.3 x10^3/uL (0.0-1.1) Eosinophils # (Auto) 0.0 x10^3/uL (0.0-0.7) Basophils # (Auto) 0.0 x10^3/uL (0.0-0.2) Sodium Level 136 mmol/L (136-145) Potassium Level 4.0 mmol/L (3.5-5.1) Chloride Level 96 mmol/L (98-107) Carbon Dioxide Level 30 mmol/L (21-32) Anion Gap 10 (6-14) Blood Urea Nitrogen 35 mg/dL (8-26) Creatinine 1.0 mg/dL (0.7-1.3) Estimated GFR (Cockcroft-Gault) 75.5 BUN/Creatinine Ratio 35 (6-20) Glucose Level 185 mg/dL (70-99) Calcium Level 9.0 mg/dL (8.5-10.1) Magnesium Level 2.1 mg/dL (1.8-2.4) Total Bilirubin 1.8 mg/dL (0.2-1.0) Aspartate Amino Transf (AST/SGOT) 35 U/L (15-37) Alanine Aminotransferase (ALT/SGPT) 32 U/L (16-63) Alkaline Phosphatase 83 U/L (46-116) Creatine Kinase 75 U/L (39-308) Troponin I Quantitative 4.542 ng/mL (0.000-0.055) 4.095 ng/mL (0.000-0.055) KM-Fse-W-Type Natriuretic Peptide 2759 pg/mL (0-124) Total Protein 7.0 g/dL (6.4-8.2) Albumin 3.0 g/dL (3.4-5.0) Albumin/Globulin Ratio 0.8 (1.0-1.7) Lipase 589 U/L (73-393) Urine Collection Type Unknown Urine Color Yellow Urine Clarity Clear Urine pH 5.0 Urine Specific [place] >=1.030 Urine Protein Negative mg/dL (NEG-TRACE) Urine Glucose (UA) Negative mg/dL (NEG) Urine Ketones (Stick) 15 mg/dL (NEG) Urine Blood Negative (NEG) Urine Nitrite Negative (NEG) Urine Bilirubin Negative (NEG) Urine Urobilinogen Dipstick 0.2 mg/dL (0.2 mg/dL) Urine Leukocyte Esterase Negative (NEG) Urine RBC Occ /HPF (0-2) Urine WBC 0 /HPF (0-4) Urine Bacteria 0 /HPF (0-FEW) Lactic Acid Level 2.2 mmol/L (0.4-2.0) Glucose (Fingerstick) 176 mg/dL (70-99) Test 02/15/19 23:45 02/16/19 07:29 Lactic Acid Level 2.1 mmol/L (0.4-2.0) Troponin I Quantitative 3.849 ng/mL (0.000-0.055) Glucose (Fingerstick) 178 mg/dL (70-99) Physical Exam HEENT: Neck Supple W Full Motion Chest: Symmetric LUNGS: Clear to Auscultation Heart: S1S2, RRR (SR) Abdomen: Other (distended abd) Extremities: No Edema, No Calf Tenderness Neurology: alert, oriented, follow commands Assessment Assessment HPI: This is a pleasant 63 yo male admitted for complains of abdominal pain and vomiting. He was discharge Tues after a successful CABG. He actually had a good BM at home. Yesterday he was feeling bloated and was not feeling well and did not eat or drink much as he vomited gastric contents large amount and just been dry heaving since then. At max he only took about 3 tabs of pain pills at home. No chest pain or significant SOA. Mid chest surgical pain is controlled. Currently abd pain is better and no nausea. 1. Abdominal pain/ileus: GI and general surgery following. possibly opioid induced. 2. Arrhythmia: AFIB RVR in ED and and NSVT on floor, induced by GI issues and N GT insertion. Maintaining SR 3. 3V CAD s/p emergent CABG with AL to LAD, SVG to OM, SVG to RPDA. POD #6, stable. 4. Elevated troponin: trending down, expected with recent CABG 5. Chronic systolic HF with ICM; follow up TTE with EF at 35-40%, compensated 6. Hypertension; controlled 7. DM2/ HLP Recommendations Rectal ASA, Amiodarone drip Low dose IV lopressor. Resume PO meds, secondary prevention once allowed. Awaiting NGT decompression possibly with fluroscopy, staff tried x3 already. IVF with caution. CMP and Mg, correct K and Mg as warranted. MATHEW SHEEHAN MD 02/16/19 0248: CARDIO Progress Notes Assessment Assessment Patient seen and examined. Agree with TEMPERATURE REGULATOR's assessment and plan. Continue current management for ileus per GI team Monitor tele for any further episodes of atrial fib Chr systolic heart failure compensated Thank you for your consultation RUSLAN GAR APRN Feb 16, 2019 09:40 MATHEW SHEEHAN MD Feb 16, 2019 21:03
[2019-02-16] MEDS ORDERED: METOPROLOL TARTRATE 5 MG/5 ML VIAL. IVP SCH (10:00)
[2019-02-16] MEDS ORDERED: DEXTROSE 50% 25 GM / 50ML DISP.SYRIN. IV PRN (10:15)
--- NOTE | 2019-02-16 10:18 | PDOC ---
PROGRESS NOTES Chief Complaint Chief Complaint Ileus, distal SBO CAD RECENT CABG x 3 (AL to LAD, SVG to RPDA, SVG to OM) with Left endoscopic greater saphenous vein harvest ST elevation myocardial infarction - Acute systolic heart failure (EF 20-25%) - IABP placed REspi failure s/post CABG Diabetes - HTN - NSVT in the background of NG tube attempt insertion at ER for 02/15/19 History of Present Illness History of Present Illness I discharged 2 days ago and back one day after because of ileus distal SBO and emesis on CT Went into some NSVT upon NG tube trial or attempt at ER He has vomited 2 buckets of emesis and abdomen is soft feeling much better but still in discomfort So far no further episodes of V. tach at bedside Blood sugars okay, supposed to be on 20 units daily at bedtime Lantus He was in 50 units daily at bedtime post CABG postop claims she gave 20 units at home at night and blood sugar was 170 in the morning PLAN: Await small bowel series Follow GI GS input Cardiology also consulted because of NSVT at ER after NG tube attempt insertion Keep nothing by mouth ice chips for now Lantus 20 daily at bedtime and sliding scale insulin every 6 high-dose Vitals Vitals Vital Signs Date Time Temp Pulse Resp B/P (MAP) Pulse Ox O2 Delivery O2 Flow Rate FiO2 02/16/19 08:00 Room Air 02/16/19 07:00 97.8 93 18 120/69 (86) 97 97.8 02/15/19 21:55 2.0 Physical Exam General: Alert, Oriented X3, Cooperative, No acute distress Heart: Regular rate, Normal S1, Normal S2, No murmurs Lungs: Clear, Crackles, Other Abdomen: Soft, Other (mildly distended, NTTP on exam) Extremities: No clubbing, No cyanosis Skin: No rashes, No breakdown Labs LABS Laboratory Tests Test 02/15/19 15:45 02/15/19 20:10 02/15/19 20:35 02/15/19 20:57 White Blood Count 10.9 x10^3/uL (4.0-11.0) Red Blood Count 4.29 x10^6/uL (4.30-5.70) Hemoglobin 12.7 g/dL (13.0-17.5) Hematocrit 37.7 % (39.0-53.0) Mean Corpuscular Volume 88 fL (79-100) Mean Corpuscular Hemoglobin 30 pg (25-35) Mean Corpuscular Hemoglobin Concent 34 g/dL (31-37) Red Cell Distribution Width 14.1 % (11.5-14.5) Platelet Count 222 x10^3/uL (140-400) Neutrophils (%) (Auto) 83 % (31-73) Lymphocytes (%) (Auto) 5 % (24-48) Monocytes (%) (Auto) 12 % (0-9) Eosinophils (%) (Auto) 0 % (0-3) Basophils (%) (Auto) 0 % (0-3) Neutrophils # (Auto) 9.1 x10^3uL (1.8-7.7) Lymphocytes # (Auto) 0.6 x10^3/uL (1.0-4.8) Monocytes # (Auto) 1.3 x10^3/uL (0.0-1.1) Eosinophils # (Auto) 0.0 x10^3/uL (0.0-0.7) Basophils # (Auto) 0.0 x10^3/uL (0.0-0.2) Sodium Level 136 mmol/L (136-145) Potassium Level 4.0 mmol/L (3.5-5.1) Chloride Level 96 mmol/L (98-107) Carbon Dioxide Level 30 mmol/L (21-32) Anion Gap 10 (6-14) Blood Urea Nitrogen 35 mg/dL (8-26) Creatinine 1.0 mg/dL (0.7-1.3) Estimated GFR (Cockcroft-Gault) 75.5 BUN/Creatinine Ratio 35 (6-20) Glucose Level 185 mg/dL (70-99) Calcium Level 9.0 mg/dL (8.5-10.1) Magnesium Level 2.1 mg/dL (1.8-2.4) Total Bilirubin 1.8 mg/dL (0.2-1.0) Aspartate Amino Transf (AST/SGOT) 35 U/L (15-37) Alanine Aminotransferase (ALT/SGPT) 32 U/L (16-63) Alkaline Phosphatase 83 U/L (46-116) Creatine Kinase 75 U/L (39-308) Troponin I Quantitative 4.542 ng/mL (0.000-0.055) 4.095 ng/mL (0.000-0.055) MM-Ceu-H-Type Natriuretic Peptide 2759 pg/mL (0-124) Total Protein 7.0 g/dL (6.4-8.2) Albumin 3.0 g/dL (3.4-5.0) Albumin/Globulin Ratio 0.8 (1.0-1.7) Lipase 589 U/L (73-393) Urine Collection Type Unknown Urine Color Yellow Urine Clarity Clear Urine pH 5.0 Urine Specific [place] >=1.030 Urine Protein Negative mg/dL (NEG-TRACE) Urine Glucose (UA) Negative mg/dL (NEG) Urine Ketones (Stick) 15 mg/dL (NEG) Urine Blood Negative (NEG) Urine Nitrite Negative (NEG) Urine Bilirubin Negative (NEG) Urine Urobilinogen Dipstick 0.2 mg/dL (0.2 mg/dL) Urine Leukocyte Esterase Negative (NEG) Urine RBC Occ /HPF (0-2) Urine WBC 0 /HPF (0-4) Urine Bacteria 0 /HPF (0-FEW) Lactic Acid Level 2.2 mmol/L (0.4-2.0) Glucose (Fingerstick) 176 mg/dL (70-99) Test 02/15/19 23:45 02/16/19 07:29 02/16/19 08:30 Lactic Acid Level 2.1 mmol/L (0.4-2.0) Troponin I Quantitative 3.849 ng/mL (0.000-0.055) Glucose (Fingerstick) 178 mg/dL (70-99) Sodium Level 136 mmol/L (136-145) Potassium Level 3.5 mmol/L (3.5-5.1) Chloride Level 99 mmol/L (98-107) Carbon Dioxide Level 28 mmol/L (21-32) Anion Gap 9 (6-14) Blood Urea Nitrogen 38 mg/dL (8-26) Creatinine 1.0 mg/dL (0.7-1.3) Estimated GFR (Cockcroft-Gault) 75.5 BUN/Creatinine Ratio 38 (6-20) Glucose Level 218 mg/dL (70-99) Calcium Level 8.3 mg/dL (8.5-10.1) Magnesium Level 2.2 mg/dL (1.8-2.4) Total Bilirubin 1.3 mg/dL (0.2-1.0) Aspartate Amino Transf (AST/SGOT) 21 U/L (15-37) Alanine Aminotransferase (ALT/SGPT) 25 U/L (16-63) Alkaline Phosphatase 68 U/L (46-116) Total Protein 5.9 g/dL (6.4-8.2) Albumin 2.5 g/dL (3.4-5.0) Albumin/Globulin Ratio 0.7 (1.0-1.7) Amylase Level 32 U/L (25-115) Lipase 240 U/L (73-393) Review of Systems Review of Systems Abdominal discomfort, no flatus, Pos nausea, no emesis, no chest pain Assessment and Plan Assessmemt and Plan Problems Medical Problems: (1) Abdominal pain Status: Acute (2) Elevated troponin I level Status: Acute (3) Ileus Status: Acute (4) Nausea and vomiting Status: Acute (5) Renal insufficiency Status: Acute (6) Small bowel obstruction Status: Acute (7) Tachycardia Status: Acute Comment Review of Relevant I have reviewed the following items richie (where applicable) has been applied. Labs Laboratory Tests Test 02/15/19 15:45 02/15/19 20:10 02/15/19 20:35 02/15/19 20:57 White Blood Count 10.9 x10^3/uL (4.0-11.0) Red Blood Count 4.29 x10^6/uL (4.30-5.70) Hemoglobin 12.7 g/dL (13.0-17.5) Hematocrit 37.7 % (39.0-53.0) Mean Corpuscular Volume 88 fL (79-100) Mean Corpuscular Hemoglobin 30 pg (25-35) Mean Corpuscular Hemoglobin Concent 34 g/dL (31-37) Red Cell Distribution Width 14.1 % (11.5-14.5) Platelet Count 222 x10^3/uL (140-400) Neutrophils (%) (Auto) 83 % (31-73) Lymphocytes (%) (Auto) 5 % (24-48) Monocytes (%) (Auto) 12 % (0-9) Eosinophils (%) (Auto) 0 % (0-3) Basophils (%) (Auto) 0 % (0-3) Neutrophils # (Auto) 9.1 x10^3uL (1.8-7.7) Lymphocytes # (Auto) 0.6 x10^3/uL (1.0-4.8) Monocytes # (Auto) 1.3 x10^3/uL (0.0-1.1) Eosinophils # (Auto) 0.0 x10^3/uL (0.0-0.7) Basophils # (Auto) 0.0 x10^3/uL (0.0-0.2) Sodium Level 136 mmol/L (136-145) Potassium Level 4.0 mmol/L (3.5-5.1) Chloride Level 96 mmol/L (98-107) Carbon Dioxide Level 30 mmol/L (21-32) Anion Gap 10 (6-14) Blood Urea Nitrogen 35 mg/dL (8-26) Creatinine 1.0 mg/dL (0.7-1.3) Estimated GFR (Cockcroft-Gault) 75.5 BUN/Creatinine Ratio 35 (6-20) Glucose Level 185 mg/dL (70-99) Calcium Level 9.0 mg/dL (8.5-10.1) Magnesium Level 2.1 mg/dL (1.8-2.4) Total Bilirubin 1.8 mg/dL (0.2-1.0) Aspartate Amino Transf (AST/SGOT) 35 U/L (15-37) Alanine Aminotransferase (ALT/SGPT) 32 U/L (16-63) Alkaline Phosphatase 83 U/L (46-116) Creatine Kinase 75 U/L (39-308) Troponin I Quantitative 4.542 ng/mL (0.000-0.055) 4.095 ng/mL (0.000-0.055) PX-Vxm-E-Type Natriuretic Peptide 2759 pg/mL (0-124) Total Protein 7.0 g/dL (6.4-8.2) Albumin 3.0 g/dL (3.4-5.0) Albumin/Globulin Ratio 0.8 (1.0-1.7) Lipase 589 U/L (73-393) Urine Collection Type Unknown Urine Color Yellow Urine Clarity Clear Urine pH 5.0 Urine Specific [place] >=1.030 Urine Protein Negative mg/dL (NEG-TRACE) Urine Glucose (UA) Negative mg/dL (NEG) Urine Ketones (Stick) 15 mg/dL (NEG) Urine Blood Negative (NEG) Urine Nitrite Negative (NEG) Urine Bilirubin Negative (NEG) Urine Urobilinogen Dipstick 0.2 mg/dL (0.2 mg/dL) Urine Leukocyte Esterase Negative (NEG) Urine RBC Occ /HPF (0-2) Urine WBC 0 /HPF (0-4) Urine Bacteria 0 /HPF (0-FEW) Lactic Acid Level 2.2 mmol/L (0.4-2.0) Glucose (Fingerstick) 176 mg/dL (70-99) Test 02/15/19 23:45 02/16/19 07:29 02/16/19 08:30 Lactic Acid Level 2.1 mmol/L (0.4-2.0) Troponin I Quantitative 3.849 ng/mL (0.000-0.055) Glucose (Fingerstick) 178 mg/dL (70-99) Sodium Level 136 mmol/L (136-145) Potassium Level 3.5 mmol/L (3.5-5.1) Chloride Level 99 mmol/L (98-107) Carbon Dioxide Level 28 mmol/L (21-32) Anion Gap 9 (6-14) Blood Urea Nitrogen 38 mg/dL (8-26) Creatinine 1.0 mg/dL (0.7-1.3) Estimated GFR (Cockcroft-Gault) 75.5 BUN/Creatinine Ratio 38 (6-20) Glucose Level 218 mg/dL (70-99) Calcium Level 8.3 mg/dL (8.5-10.1) Magnesium Level 2.2 mg/dL (1.8-2.4) Total Bilirubin 1.3 mg/dL (0.2-1.0) Aspartate Amino Transf (AST/SGOT) 21 U/L (15-37) Alanine Aminotransferase (ALT/SGPT) 25 U/L (16-63) Alkaline Phosphatase 68 U/L (46-116) Total Protein 5.9 g/dL (6.4-8.2) Albumin 2.5 g/dL (3.4-5.0) Albumin/Globulin Ratio 0.7 (1.0-1.7) Amylase Level 32 U/L (25-115) Lipase 240 U/L (73-393) Laboratory Tests Test 02/15/19 15:45 02/15/19 20:10 02/15/19 20:35 02/15/19 20:57 White Blood Count 10.9 x10^3/uL (4.0-11.0) Red Blood Count 4.29 x10^6/uL (4.30-5.70) Hemoglobin 12.7 g/dL (13.0-17.5) Hematocrit 37.7 % (39.0-53.0) Mean Corpuscular Volume 88 fL (79-100) Mean Corpuscular Hemoglobin 30 pg (25-35) Mean Corpuscular Hemoglobin Concent 34 g/dL (31-37) Red Cell Distribution Width 14.1 % (11.5-14.5) Platelet Count 222 x10^3/uL (140-400) Neutrophils (%) (Auto) 83 % (31-73) Lymphocytes (%) (Auto) 5 % (24-48) Monocytes (%) (Auto) 12 % (0-9) Eosinophils (%) (Auto) 0 % (0-3) Basophils (%) (Auto) 0 % (0-3) Neutrophils # (Auto) 9.1 x10^3uL (1.8-7.7) Lymphocytes # (Auto) 0.6 x10^3/uL (1.0-4.8) Monocytes # (Auto) 1.3 x10^3/uL (0.0-1.1) Eosinophils # (Auto) 0.0 x10^3/uL (0.0-0.7) Basophils # (Auto) 0.0 x10^3/uL (0.0-0.2) Sodium Level 136 mmol/L (136-145) Potassium Level 4.0 mmol/L (3.5-5.1) Chloride Level 96 mmol/L (98-107) Carbon Dioxide Level 30 mmol/L (21-32) Anion Gap 10 (6-14) Blood Urea Nitrogen 35 mg/dL (8-26) Creatinine 1.0 mg/dL (0.7-1.3) Estimated GFR (Cockcroft-Gault) 75.5 BUN/Creatinine Ratio 35 (6-20) Glucose Level 185 mg/dL (70-99) Calcium Level 9.0 mg/dL (8.5-10.1) Magnesium Level 2.1 mg/dL (1.8-2.4) Total Bilirubin 1.8 mg/dL (0.2-1.0) Aspartate Amino Transf (AST/SGOT) 35 U/L (15-37) Alanine Aminotransferase (ALT/SGPT) 32 U/L (16-63) Alkaline Phosphatase 83 U/L (46-116) Creatine Kinase 75 U/L (39-308) Troponin I Quantitative 4.542 ng/mL (0.000-0.055) 4.095 ng/mL (0.000-0.055) XO-Fzy-T-Type Natriuretic Peptide 2759 pg/mL (0-124) Total Protein 7.0 g/dL (6.4-8.2) Albumin 3.0 g/dL (3.4-5.0) Albumin/Globulin Ratio 0.8 (1.0-1.7) Lipase 589 U/L (73-393) Urine Collection Type Unknown Urine Color Yellow Urine Clarity Clear Urine pH 5.0 Urine Specific [place] >=1.030 Urine Protein Negative mg/dL (NEG-TRACE) Urine Glucose (UA) Negative mg/dL (NEG) Urine Ketones (Stick) 15 mg/dL (NEG) Urine Blood Negative (NEG) Urine Nitrite Negative (NEG) Urine Bilirubin Negative (NEG) Urine Urobilinogen Dipstick 0.2 mg/dL (0.2 mg/dL) Urine Leukocyte Esterase Negative (NEG) Urine RBC Occ /HPF (0-2) Urine WBC 0 /HPF (0-4) Urine Bacteria 0 /HPF (0-FEW) Lactic Acid Level 2.2 mmol/L (0.4-2.0) Glucose (Fingerstick) 176 mg/dL (70-99) Test 02/15/19 23:45 02/16/19 07:29 02/16/19 08:30 Lactic Acid Level 2.1 mmol/L (0.4-2.0) Troponin I Quantitative 3.849 ng/mL (0.000-0.055) Glucose (Fingerstick) 178 mg/dL (70-99) Sodium Level 136 mmol/L (136-145) Potassium Level 3.5 mmol/L (3.5-5.1) Chloride Level 99 mmol/L (98-107) Carbon Dioxide Level 28 mmol/L (21-32) Anion Gap 9 (6-14) Blood Urea Nitrogen 38 mg/dL (8-26) Creatinine 1.0 mg/dL (0.7-1.3) Estimated GFR (Cockcroft-Gault) 75.5 BUN/Creatinine Ratio 38 (6-20) Glucose Level 218 mg/dL (70-99) Calcium Level 8.3 mg/dL (8.5-10.1) Magnesium Level 2.2 mg/dL (1.8-2.4) Total Bilirubin 1.3 mg/dL (0.2-1.0) Aspartate Amino Transf (AST/SGOT) 21 U/L (15-37) Alanine Aminotransferase (ALT/SGPT) 25 U/L (16-63) Alkaline Phosphatase 68 U/L (46-116) Total Protein 5.9 g/dL (6.4-8.2) Albumin 2.5 g/dL (3.4-5.0) Albumin/Globulin Ratio 0.7 (1.0-1.7) Amylase Level 32 U/L (25-115) Lipase 240 U/L (73-393) Medications Current Medications Ondansetron HCl (Zofran) 4 mg STK-MED ONCE .ROUTE ; Start 02/15/19 at 16:07; Stop 02/15/19 at 16:08; Status DC Fentanyl Citrate (Fentanyl 2ml Vial) 100 mcg STK-MED ONCE .ROUTE ; Start 02/15/19 at 16:07; Stop 02/15/19 at 16:08; Status DC Ondansetron HCl (Zofran) 4 mg 1X ONCE IV Last administered on 02/15/19at 16:10; Start 02/15/19 at 16:15; Stop 02/15/19 at 16:16; Status DC Fentanyl Citrate (Fentanyl 2ml Vial) 50 mcg 1X ONCE IV Last administered on 02/15/19at 16:13; Start 02/15/19 at 16:15; Stop 02/15/19 at 16:16; Status DC Iohexol (Omnipaque 350 Mg/ml) 100 ml 1X ONCE IV Last administered on 02/15/19at 16:30; Start 02/15/19 at 16:30; Stop 02/15/19 at 16:31; Status DC Sodium Chloride 1,000 ml @ 1,000 mls/hr 1X ONCE IV Last administered on 02/15/19at 16:53; Start 02/15/19 at 17:00; Stop 02/15/19 at 17:59; Status DC Sodium Chloride 1,000 ml @ 125 mls/hr Q8H IV ; Start 02/15/19 at 17:41; Stop 02/15/19 at 21:53; Status DC Fentanyl Citrate (Fentanyl 2ml Vial) 50 mcg 1X ONCE IV Last administered on 02/15/19at 17:55; Start 02/15/19 at 18:00; Stop 02/15/19 at 18:01; Status DC Amiodarone HCl (Cordarone) 150 mg 1X ONCE IVP Last administered on 02/15/19at 18:16; Start 02/15/19 at 18:30; Stop 02/15/19 at 18:33; Status DC Amiodarone HCl 900 mg/Dextrose 518 ml @ 0 mls/hr CONT PRN IV SEE I/O RECORD Last administered on 02/15/19at 19:02; Start 02/15/19 at 18:30; Stop 02/15/19 at 19:02; Status DC Aspirin (Aspirin) 300 mg 1X ONCE AK Last administered on 02/15/19at 19:02; Start 02/15/19 at 18:30; Stop 02/15/19 at 18:32; Status DC Morphine Sulfate (Morphine Sulfate) 2 mg PRN Q2HR PRN IV MODERATE PAIN Last administered on 02/15/19at 21:25; Start 02/15/19 at 20:45 Ondansetron HCl (Zofran) 4 mg PRN Q6HRS PRN IV NAUSEA/VOMITING Last administered on 02/15/19at 21:03; Start 02/15/19 at 20:45 Insulin Glargine (Lantus) 50 units QHS SQ ; Start 02/15/19 at 21:00; Stop 02/16/19 at 06:35; Status DC Insulin Human Lispro (HumaLOG) 0-5 UNITS TIDWMEALS SQ ; Start 02/16/19 at 08:00 Dextrose (Dextrose 50%-Water Syringe) 12.5 gm PRN Q15MIN PRN IV SEE COMMENTS; Start 02/15/19 at 20:45 Morphine Sulfate (Morphine Sulfate) 4 mg PRN Q2HR PRN IV SEVERE PAIN; Start 02/15/19 at 21:45 Pantoprazole Sodium (PROTONIX VIAL for IV PUSH) 40 mg 1X ONCE IVP Last administered on 02/15/19at 22:00; Start 02/15/19 at 22:00; Stop 02/15/19 at 22:01; Status DC Sodium Chloride 1,000 ml @ 30 mls/hr Q24H IV Last administered on 02/15/19at 22:00; Start 02/15/19 at 22:00; Stop 02/15/19 at 22:47; Status DC Throat Lozenges (Cepacol Sore Throat Lozenge) 1 wong PRN Q2HRS PRN PO SORE THROAT Last administered on 02/15/19at 22:44; Start 02/15/19 at 22:45 Sodium Chloride 1,000 ml @ 50 mls/hr Q20H IV Last administered on 02/15/19at 23:00; Start 02/15/19 at 23:00 Pantoprazole Sodium (PROTONIX VIAL for IV PUSH) 40 mg BIDAC IVP ; Start 02/16/19 at 16:30 Metoprolol Tartrate (Lopressor Vial) 2.5 mg Q6HRS IVP ; Start 02/16/19 at 10:00 Aspirin (Aspirin) 300 mg DAILY AK ; Start 02/16/19 at 10:00 Amiodarone HCl 900 mg/Dextrose 518 ml @ 0 mls/hr CONT PRN IV SEE I/O RECORD; Start 02/16/19 at 09:45 Active Scripts Active Amiodarone Hcl 200 Mg Tablet 1 Tab PO BID Oxycodone Hcl Immed.release (Oxycodone Hcl) 5 Mg Tablet 5 Mg PO PRN Q4HRS PRN MDD 1 [Pantoprazole] 40 MG Tablet. 40 Mg PO DAILYAC MDD 1 Lantus Solostar (Insulin Glargine,Hum.rec.anlog) 100 Unit/1 Ml Insuln.pen 50 Units SQ QHS MDD 1 30 Days Aspirin Ec (Aspirin) 325 Mg Tablet. 325 Mg PO DAILYWBKFT MDD 1 Atorvastatin Calcium 20 Mg Tablet 20 Mg PO QHS MDD 1 Proair Hfa (Albuterol Sulfate) 8.5 Gm Hfa.aer.ad 2.5 Mg NEB PRN Q4HRS PRN MDD 1 30 Days Reported Lisinopril 5 Mg Tablet 1 Tab PO DAILY Lasix (Furosemide) 40 Mg Tablet 1 Tab PO PRN DAILY PRN Metoprolol Succinate ( Xl ) (Metoprolol Succinate) 100 Mg Tab.er.24h 1 Tab PO DAILY Vitals/I & O Vital Sign - Last 24 Hours 02/15/19 02/15/19 02/15/19 02/15/19 15:39 15:59 16:13 16:14 Temp 98.5 98.5 Pulse 112 112 108 Resp 44 38 32 32 B/P (MAP) 165/92 (116) 159/87 (111) 140/82 (101) Pulse Ox 96 96 96 O2 Delivery Room Air Room Air Room Air Room Air 02/15/19 02/15/19 02/15/19 02/15/19 16:38 17:08 17:38 17:55 Pulse 108 112 112 Resp 30 B/P (MAP) 141/79 (99) 137/82 (100) 153/76 (101) Pulse Ox 96 97 98 97 O2 Delivery Nasal Cannula Nasal Cannula Nasal Cannula Nasal Cannula O2 Flow Rate 2.0 2.0 2.0 2.0 02/15/19 02/15/19 02/15/19 02/15/19 18:08 18:16 18:30 18:30 Pulse 120 183 144 152 Resp B/P (MAP) 180/88 (118) 180/88 155/79 (104) 155/79 (104) Pulse Ox 94 95 93 O2 Delivery Nasal Cannula Nasal Cannula Nasal Cannula O2 Flow Rate 2.0 2.0 2.0 02/15/19 02/15/19 02/15/19 02/15/19 18:38 19:05 19:30 20:00 Temp 98.0 98.0 Pulse 150 115 114 Resp B/P (MAP) 164/91 (115) 126/73 (90) 134/76 (95) Pulse Ox 92 95 92 O2 Delivery Nasal Cannula Nasal Cannula Nasal Cannula Nasal Cannula O2 Flow Rate 2.0 2.0 2.0 02/15/19 02/15/19 02/15/19 02/16/19 21:25 21:55 23:00 03:00 Temp 97.7 97.5 97.7 97.5 Pulse 119 101 Resp 18 18 B/P (MAP) 122/70 (87) 119/66 (83) Pulse Ox 92 88 96 O2 Delivery Room Air Nasal Cannula Nasal Cannula Nasal Cannula O2 Flow Rate 2.0 2.0 02/16/19 02/16/19 07:00 08:00 Temp 97.8 97.8 Pulse 93 Resp 18 B/P (MAP) 120/69 (86) Pulse Ox 97 O2 Delivery Nasal Cannula Room Air Intake and Output 02/15/19 02/15/19 02/16/19 14:59 22:59 06:59 Intake Total 1000 ml 660 ml Output Total 250 ml Balance 750 ml 660 ml NEGRITA KENT MD Feb 16, 2019 10:18
[2019-02-16] MEDS: ASPIRIN RECTAL 300 MG SUPP. PR SCH (10:31)
[2019-02-16 10:44] VITALS: BP 118/73
[2019-02-16] MEDS: MORPHINE SULFATE 2 MG/ML VIAL. IV PRN (11:14)
[2019-02-16] MEDS: INSULIN LISPRO 300 UNITS/3 ML INSULN.PEN. SQ SCH ×2 (12:00→17:00)
[2019-02-16] MEDS ORDERED: DIGOXIN IV 500 MCG/2 ML AMPUL. IV ONE (13:45)
[2019-02-16] MEDS ORDERED: POTASSIUM CHL 20MEQ PREMIX 50 ML IV ONE (14:00)
[2019-02-16] MEDS ORDERED: AMIODARONE 150 MG in IV DEXTROSE 5% 100ML 100 ML IV ONE (14:00)
--- NOTE | 2019-02-16 14:23 | PDOC2 ---
CONSULT Date of Consult Date of Consult DATE: 02/16/19 TIME: 14:11 Reason for Consult Reason for Consult: Ileus s/p CABG Referring Physician Referring Physician: Dr Henley Identification/Chief Complaint Chief Complaint Emesis Source Source: Chart review, Patient History of Present Illness Reason for Visit: The patient is a 63-year-old male who is well known to me. He underwent emergency CABG 3 last week after presenting with an ST elevation MT, unable to perform primary PCI owing to severity of coronary disease. He was in acute systolic heart failure with an EF of 20-25%. Overall he made an uneventful recovery and was discharged home on postoperative day 4. He returned to the emergency room with emesis and abdominal distention. CT of the abdomen showed a significant dilated stomach and dilated diffusely dilated loops of small bowel, consistent with a postoperative ileus. Attempts at NG tube placement were made in the emergency room but were unsuccessful as the tube would correlate his mouth. In addition the NG tube placement attempts induced a short run of self terminating V. Tach. He feels that her today and is less distended. He has not had any emesis since admission. He went into A. fib with RVR this afternoon without any hemodynamic compromise. Past Medical History Cardiovascular: CAD, HTN Pulmonary: No pertinent hx GI: No pertinent hx Heme/Onc: No pertinent hx Hepatobiliary: No pertinent hx Psych: No pertinent hx Rheumatologic: No pertinent hx Infectious disease: No pertinent hx Renal/: No pertinent hx Endocrine: Diabetes Past Surgical History Past Surgical History: Appendectomy, CABG Family History Family History: Coronary Artery Disease Social History Quit ALCOHOL: rare Drugs: None Lives: with Family Current Problem List Problem List Problems Medical Problems: (1) Abdominal pain Status: Acute (2) Elevated troponin I level Status: Acute (3) Ileus Status: Acute (4) Nausea and vomiting Status: Acute (5) Renal insufficiency Status: Acute (6) Small bowel obstruction Status: Acute (7) Tachycardia Status: Acute Current Medications Current Medications Current Medications Ondansetron HCl (Zofran) 4 mg STK-MED ONCE .ROUTE ; Start 02/15/19 at 16:07; Stop 02/15/19 at 16:08; Status DC Fentanyl Citrate (Fentanyl 2ml Vial) 100 mcg STK-MED ONCE .ROUTE ; Start 01/24 02/10 at 16:07; Stop 02/15/19 at 16:08; Status DC Ondansetron HCl (Zofran) 4 mg 1X ONCE IV Last administered on 02/15/19 16:10; Start 02/15/19 at 16:15; Stop 02/15/19 at 16:16; Status DC Fentanyl Citrate (Fentanyl 2ml Vial) 50 mcg 1X ONCE IV Last administered on 02/15/19 16:13; Start 02/15/19 at 16:15; Stop 02/15/19 at 16:16; Status DC Iohexol (Omnipaque 350 Mg/ml) 100 ml 1X ONCE IV Last administered on 02/15/19 16:30; Start 02/15/19 at 16:30; Stop 02/15/19 at 16:31; Status DC Sodium Chloride 1,000 ml @ 1,000 mls/hr 1X ONCE IV Last administered on 02/15/19 16:53; Start 02/15/19 at 17:00; Stop 02/15/19 at 17:59; Status DC Sodium Chloride 1,000 ml @ 125 mls/hr Q8H IV ; Start 02/15/19 at 17:41; Stop 02/15/19 at 21:53; Status DC Fentanyl Citrate (Fentanyl 2ml Vial) 50 mcg 1X ONCE IV Last administered on 02/15/19 17:55; Start 02/15/19 at 18:00; Stop 02/15/19 at 18:01; Status DC Amiodarone HCl (Cordarone) 150 mg 1X ONCE IVP Last administered on 02/15/19 18:16; Start 02/15/19 at 18:30; Stop 02/15/19 at 18:33; Status DC Amiodarone HCl 900 mg/Dextrose 518 ml @ 0 mls/hr CONT PRN IV SEE I/O RECORD Last administered on 02/15/19 19:02; Start 02/15/19 at 18:30; Stop 02/15/19 at 19:02; Status DC Aspirin (Aspirin) 300 mg 1X ONCE NM Last administered on 02/15/19 19:02; Start 02/15/19 at 18:30; Stop 02/15/19 at 18:32; Status DC Morphine Sulfate (Morphine Sulfate) 2 mg PRN Q2HR PRN IV MODERATE PAIN Last administered on 02/16/19at 11:14; Start 02/15/19 at 20:45 Ondansetron HCl (Zofran) 4 mg PRN Q6HRS PRN IV NAUSEA/VOMITING Last administered on 02/15/19at 21:03; Start 02/15/19 at 20:45 Insulin Glargine (Lantus) 50 units QHS SQ ; Start 02/15/19 at 21:00; Stop 02/16/19 at 06:35; Status DC Insulin Human Lispro (HumaLOG) 0-5 UNITS TIDWMEALS SQ ; Start 02/16/19 at 08:00; Stop 02/16/19 at 10:16; Status DC Dextrose (Dextrose 50%-Water Syringe) 12.5 gm PRN Q15MIN PRN IV SEE COMMENTS; Start 02/15/19 at 20:45; Stop 02/16/19 at 10:27; Status DC Morphine Sulfate (Morphine Sulfate) 4 mg PRN Q2HR PRN IV SEVERE PAIN; Start 02/15/19 at 21:45 Pantoprazole Sodium (PROTONIX VIAL for IV PUSH) 40 mg 1X ONCE IVP Last administered on 02/15/19at 22:00; Start 02/15/19 at 22:00; Stop 02/15/19 at 22:01; Status DC Sodium Chloride 1,000 ml @ 30 mls/hr Q24H IV Last administered on 02/15/19at 22:00; Start 02/15/19 at 22:00; Stop 02/15/19 at 22:47; Status DC Throat Lozenges (Cepacol Sore Throat Lozenge) 1 wong PRN Q2HRS PRN PO SORE THROAT Last administered on 02/15/19at 22:44; Start 02/15/19 at 22:45 Sodium Chloride 1,000 ml @ 50 mls/hr Q20H IV Last administered on 02/15/19at 23:00; Start 02/15/19 at 23:00 Pantoprazole Sodium (PROTONIX VIAL for IV PUSH) 40 mg BIDAC IVP ; Start 02/16/19 at 16:30 Metoprolol Tartrate (Lopressor Vial) 2.5 mg Q6HRS IVP Last administered on 02/16/19at 10:31; Start 02/16/19 at 10:00; Stop 02/16/19 at 13:37; Status DC Aspirin (Aspirin) 300 mg DAILY NM Last administered on 02/16/19at 10:31; Start 02/16/19 at 10:00 Amiodarone HCl 900 mg/Dextrose 518 ml @ 0 mls/hr CONT PRN IV SEE I/O RECORD; Start 02/16/19 at 09:45 Insulin Human Lispro (HumaLOG) 0-9 UNITS TIDWMEALS SQ ; Start 02/16/19 at 12:00 Dextrose (Dextrose 50%-Water Syringe) 12.5 gm PRN Q15MIN PRN IV SEE COMMENTS; Start 02/16/19 at 10:15 Insulin Glargine (Lantus) 20 units QHS SQ ; Start 02/16/19 at 21:00 Metoprolol Tartrate (Lopressor Vial) 5 mg Q6HRS IVP ; Start 02/16/19 at 18:00 Digoxin (Lanoxin) 500 mcg 1X ONCE IV Last administered on 02/16/19at 13:50; Start 02/16/19 at 13:45; Stop 02/16/19 at 13:46; Status DC Amiodarone HCl 150 mg/Dextrose 103 ml @ 618 mls/hr 1X ONCE IV ; Start 02/16/19 at 14:00; Stop 02/16/19 at 14:09; Status DC Potassium Chloride/Water 50 ml @ 50 mls/hr 1X ONCE IV ; Start 02/16/19 at 14:00; Stop 02/16/19 at 14:59 Active Scripts Active Amiodarone Hcl 200 Mg Tablet 1 Tab PO BID Oxycodone Hcl Immed.release (Oxycodone Hcl) 5 Mg Tablet 5 Mg PO PRN Q4HRS PRN MDD 1 [Pantoprazole] 40 MG Tablet. 40 Mg PO DAILYAC MDD 1 Lantus Solostar (Insulin Glargine,Hum.rec.anlog) 100 Unit/1 Ml Insuln.pen 50 Units SQ QHS MDD 1 30 Days Aspirin Ec (Aspirin) 325 Mg Tablet. 325 Mg PO DAILYWBKFT MDD 1 Atorvastatin Calcium 20 Mg Tablet 20 Mg PO QHS MDD 1 Proair Hfa (Albuterol Sulfate) 8.5 Gm Hfa.aer.ad 2.5 Mg NEB PRN Q4HRS PRN MDD 1 30 Days Reported Lisinopril 5 Mg Tablet 1 Tab PO DAILY Lasix (Furosemide) 40 Mg Tablet 1 Tab PO PRN DAILY PRN Metoprolol Succinate ( Xl ) (Metoprolol Succinate) 100 Mg Tab.er.24h 1 Tab PO DAILY Allergies Allergies: Coded Allergies: No Known Drug Allergies (Unverified , 02/10/19) ROS General: No: Chills, Night Sweats, Fatigue, Malaise, Appetite PSYCHOLOGICAL ROS: No: Anxiety, Behavioral Disorder, Concentration difficultie, Decreased libido, Depression, Disorientation, Hallucinations, Hostility, Irritablity, Memory difficulties, Mood Swings, Obsessive thoughts, Physical abuse, Sexual abuse, Sleep disturbances, Suicidal ideation Eyes: No Blurry vision, No Decreased vision, No Double vision, No Dry eyes, No Excessive tearing, No Eye Pain, No Itchy Eyes, No Loss of vision, No P hotophobia, No Scotomata, No Uses contacts, No Uses glasses HEENT: No: Heacaches, Visual Changes, Hearing change, Nasal congestion, Nasal discharge, Oral lesions, Sinus pain, Sore Throat, Epistaxis, Sneezing, Snoring, Tinnitus, Vertigo, Vocal changes ALLERGY AND IMMUNOLOGY: No: Hives, Insect Bite Sensitivity, Itchy/Watery Eyes, Nasal Congestion, Post Nasal Drip, Seasonal Allergies Hematological and Lymphatic: No: Bleeding Problems, Blood Clots, Blood Transfusions, Brusing, Night Sweats, Pallor, Swollen Lymph Nodes ENDOCRINE: No: Breast Changes, Galactorrhea, Hair Pattern Changes, Hot Flashes, Malaise/lethargy, Mood Swings, Palpitations, Polydipsia/polyuria, Skin Changes, Temperature Intolerance, Unexpected Weight Changes Respiratory: No: Cough, Hemoptysis, Orthopnea, Pleuritic Pain, Shortness of breath, SOB with excertion, Sputum Changes, Stridor, Tachypnea, Wheezing Cardiovascular: No Chest Pain, No Palpitations, No Orthopnea, No Paroxysmal Noc. Dyspnea, No Edema, No Lt Headedness Gastrointestinal: Yes Nausea, Yes Vomiting, Yes Diarrhea, Yes Other (distention); No Abdominal Pain, No Constipation, No Melena, No Hematochezia Genitourinary: No Dysuria, No Frequency, No Incontinence, No Hematuria, No Retention, No Discharge, No Urgency, No Pain, No Flank Pain Musculoskeletal: No Gait Disturbance, No Joint Pain, No Joint Stiffness, No Joint Swelling, No Muscle Pain, No Muscular Weakness, No Pain In:, No Swelling In: Neurological: No Behavorial Changes, No Bowel/Bladder ControlChng, No Confusion, No Dizziness, No Gait Disturbance, No Headaches, No Impaired Coord/balance, No Memory Loss, No Numbness/Tingling, No Seizures, No Speech Problems, No Tremors, No Visual Changes, No Weakness Skin: No Dry Skin, No Eczema, No Hair Changes, No Lumps, No Mole Changes, No Mottling, No Nail Changes, No Pruritus, No Rash, No Skin Lesion Changes, No Acne Physical Exam General: Alert, Oriented X3, No acute distress HEENT: Atraumatic, PERRLA, EOMI Heart: Regular rate, Normal S1, Normal S2, No murmurs Abdomen: Soft, No tenderness Skin: No significant lesion Neuro: Normal gait, Normal speech, Strength at 5/5 X4 ext, Normal tone, Sensation intact, Cranial nerves 3-12 NL, Reflexes 2+ Psych/Mental Status: Mental status NL MUSCULOSKELETAL: No deformity Vitals VITALS Vital Signs Date Time Temp Pulse Resp B/P (MAP) Pulse Ox O2 Delivery O2 Flow Rate FiO2 02/16/19 13:50 133 02/16/19 11:14 Room Air 02/16/19 10:44 97.8 20 118/73 (88) 96 97.8 02/15/19 21:55 2.0 Labs Labs Laboratory Tests Test 02/15/19 15:45 02/15/19 20:10 02/15/19 20:35 02/15/19 20:57 White Blood Count 10.9 x10^3/uL (4.0-11.0) Red Blood Count 4.29 x10^6/uL (4.30-5.70) Hemoglobin 12.7 g/dL (13.0-17.5) Hematocrit 37.7 % (39.0-53.0) Mean Corpuscular Volume 88 fL (79-100) Mean Corpuscular Hemoglobin 30 pg (25-35) Mean Corpuscular Hemoglobin Concent 34 g/dL (31-37) Red Cell Distribution Width 14.1 % (11.5-14.5) Platelet Count 222 x10^3/uL (140-400) Neutrophils (%) (Auto) 83 % (31-73) Lymphocytes (%) (Auto) 5 % (24-48) Monocytes (%) (Auto) 12 % (0-9) Eosinophils (%) (Auto) 0 % (0-3) Basophils (%) (Auto) 0 % (0-3) Neutrophils # (Auto) 9.1 x10^3uL (1.8-7.7) Lymphocytes # (Auto) 0.6 x10^3/uL (1.0-4.8) Monocytes # (Auto) 1.3 x10^3/uL (0.0-1.1) Eosinophils # (Auto) 0.0 x10^3/uL (0.0-0.7) Basophils # (Auto) 0.0 x10^3/uL (0.0-0.2) Sodium Level 136 mmol/L (136-145) Potassium Level 4.0 mmol/L (3.5-5.1) Chloride Level 96 mmol/L (98-107) Carbon Dioxide Level 30 mmol/L (21-32) Anion Gap 10 (6-14) Blood Urea Nitrogen 35 mg/dL (8-26) Creatinine 1.0 mg/dL (0.7-1.3) Estimated GFR (Cockcroft-Gault) 75.5 BUN/Creatinine Ratio 35 (6-20) Glucose Level 185 mg/dL (70-99) Calcium Level 9.0 mg/dL (8.5-10.1) Magnesium Level 2.1 mg/dL (1.8-2.4) Total Bilirubin 1.8 mg/dL (0.2-1.0) Aspartate Amino Transf (AST/SGOT) 35 U/L (15-37) Alanine Aminotransferase (ALT/SGPT) 32 U/L (16-63) Alkaline Phosphatase 83 U/L (46-116) Creatine Kinase 75 U/L (39-308) Troponin I Quantitative 4.542 ng/mL (0.000-0.055) 4.095 ng/mL (0.000-0.055) EV-Gcb-B-Type Natriuretic Peptide 2759 pg/mL (0-124) Total Protein 7.0 g/dL (6.4-8.2) Albumin 3.0 g/dL (3.4-5.0) Albumin/Globulin Ratio 0.8 (1.0-1.7) Lipase 589 U/L (73-393) Urine Collection Type Unknown Urine Color Yellow Urine Clarity Clear Urine pH 5.0 Urine Specific [employer] >=1.030 Urine Protein Negative mg/dL (NEG-TRACE) Urine Glucose (UA) Negative mg/dL (NEG) Urine Ketones (Stick) 15 mg/dL (NEG) Urine Blood Negative (NEG) Urine Nitrite Negative (NEG) Urine Bilirubin Negative (NEG) Urine Urobilinogen Dipstick 0.2 mg/dL (0.2 mg/dL) Urine Leukocyte Esterase Negative (NEG) Urine RBC Occ /HPF (0-2) Urine WBC 0 /HPF (0-4) Urine Bacteria 0 /HPF (0-FEW) Lactic Acid Level 2.2 mmol/L (0.4-2.0) Glucose (Fingerstick) 176 mg/dL (70-99) Test 02/15/19 23:45 02/16/19 07:29 02/16/19 08:30 02/16/19 11:49 Lactic Acid Level 2.1 mmol/L (0.4-2.0) Troponin I Quantitative 3.849 ng/mL (0.000-0.055) Glucose (Fingerstick) 178 mg/dL (70-99) 150 mg/dL (70-99) Sodium Level 136 mmol/L (136-145) Potassium Level 3.5 mmol/L (3.5-5.1) Chloride Level 99 mmol/L (98-107) Carbon Dioxide Level 28 mmol/L (21-32) Anion Gap 9 (6-14) Blood Urea Nitrogen 38 mg/dL (8-26) Creatinine 1.0 mg/dL (0.7-1.3) Estimated GFR (Cockcroft-Gault) 75.5 BUN/Creatinine Ratio 38 (6-20) Glucose Level 218 mg/dL (70-99) Calcium Level 8.3 mg/dL (8.5-10.1) Magnesium Level 2.2 mg/dL (1.8-2.4) Iron Level 9 ug/dL (65-175) Total Iron Binding Capacity 151 ug/dL (250-450) Iron Saturation 6 % (15-34) Total Bilirubin 1.3 mg/dL (0.2-1.0) Aspartate Amino Transf (AST/SGOT) 21 U/L (15-37) Alanine Aminotransferase (ALT/SGPT) 25 U/L (16-63) Alkaline Phosphatase 68 U/L (46-116) Total Protein 5.9 g/dL (6.4-8.2) Albumin 2.5 g/dL (3.4-5.0) Albumin/Globulin Ratio 0.7 (1.0-1.7) Amylase Level 32 U/L (25-115) Lipase 240 U/L (73-393) Laboratory Tests Test 02/15/19 15:45 02/15/19 20:10 02/15/19 20:35 02/15/19 20:57 White Blood Count 10.9 x10^3/uL (4.0-11.0) Red Blood Count 4.29 x10^6/uL (4.30-5.70) Hemoglobin 12.7 g/dL (13.0-17.5) Hematocrit 37.7 % (39.0-53.0) Mean Corpuscular Volume 88 fL (79-100) Mean Corpuscular Hemoglobin 30 pg (25-35) Mean Corpuscular Hemoglobin Concent 34 g/dL (31-37) Red Cell Distribution Width 14.1 % (11.5-14.5) Platelet Count 222 x10^3/uL (140-400) Neutrophils (%) (Auto) 83 % (31-73) Lymphocytes (%) (Auto) 5 % (24-48) Monocytes (%) (Auto) 12 % (0-9) Eosinophils (%) (Auto) 0 % (0-3) Basophils (%) (Auto) 0 % (0-3) Neutrophils # (Auto) 9.1 x10^3uL (1.8-7.7) Lymphocytes # (Auto) 0.6 x10^3/uL (1.0-4.8) Monocytes # (Auto) 1.3 x10^3/uL (0.0-1.1) Eosinophils # (Auto) 0.0 x10^3/uL (0.0-0.7) Basophils # (Auto) 0.0 x10^3/uL (0.0-0.2) Sodium Level 136 mmol/L (136-145) Potassium Level 4.0 mmol/L (3.5-5.1) Chloride Level 96 mmol/L (98-107) Carbon Dioxide Level 30 mmol/L (21-32) Anion Gap 10 (6-14) Blood Urea Nitrogen 35 mg/dL (8-26) Creatinine 1.0 mg/dL (0.7-1.3) Estimated GFR (Cockcroft-Gault) 75.5 BUN/Creatinine Ratio 35 (6-20) Glucose Level 185 mg/dL (70-99) Calcium Level 9.0 mg/dL (8.5-10.1) Magnesium Level 2.1 mg/dL (1.8-2.4) Total Bilirubin 1.8 mg/dL (0.2-1.0) Aspartate Amino Transf (AST/SGOT) 35 U/L (15-37) Alanine Aminotransferase (ALT/SGPT) 32 U/L (16-63) Alkaline Phosphatase 83 U/L (46-116) Creatine Kinase 75 U/L (39-308) Troponin I Quantitative 4.542 ng/mL (0.000-0.055) 4.095 ng/mL (0.000-0.055) TK-Lfl-V-Type Natriuretic Peptide 2759 pg/mL (0-124) Total Protein 7.0 g/dL (6.4-8.2) Albumin 3.0 g/dL (3.4-5.0) Albumin/Globulin Ratio 0.8 (1.0-1.7) Lipase 589 U/L (73-393) Urine Collection Type Unknown Urine Color Yellow Urine Clarity Clear Urine pH 5.0 Urine Specific [employer] >=1.030 Urine Protein Negative mg/dL (NEG-TRACE) Urine Glucose (UA) Negative mg/dL (NEG) Urine Ketones (Stick) 15 mg/dL (NEG) Urine Blood Negative (NEG) Urine Nitrite Negative (NEG) Urine Bilirubin Negative (NEG) Urine Urobilinogen Dipstick 0.2 mg/dL (0.2 mg/dL) Urine Leukocyte Esterase Negative (NEG) Urine RBC Occ /HPF (0-2) Urine WBC 0 /HPF (0-4) Urine Bacteria 0 /HPF (0-FEW) Lactic Acid Level 2.2 mmol/L (0.4-2.0) Glucose (Fingerstick) 176 mg/dL (70-99) Test 02/15/19 23:45 02/16/19 07:29 02/16/19 08:30 02/16/19 11:49 Lactic Acid Level 2.1 mmol/L (0.4-2.0) Troponin I Quantitative 3.849 ng/mL (0.000-0.055) Glucose (Fingerstick) 178 mg/dL (70-99) 150 mg/dL (70-99) Sodium Level 136 mmol/L (136-145) Potassium Level 3.5 mmol/L (3.5-5.1) Chloride Level 99 mmol/L (98-107) Carbon Dioxide Level 28 mmol/L (21-32) Anion Gap 9 (6-14) Blood Urea Nitrogen 38 mg/dL (8-26) Creatinine 1.0 mg/dL (0.7-1.3) Estimated GFR (Cockcroft-Gault) 75.5 BUN/Creatinine Ratio 38 (6-20) Glucose Level 218 mg/dL (70-99) Calcium Level 8.3 mg/dL (8.5-10.1) Magnesium Level 2.2 mg/dL (1.8-2.4) Iron Level 9 ug/dL (65-175) Total Iron Binding Capacity 151 ug/dL (250-450) Iron Saturation 6 % (15-34) Total Bilirubin 1.3 mg/dL (0.2-1.0) Aspartate Amino Transf (AST/SGOT) 21 U/L (15-37) Alanine Aminotransferase (ALT/SGPT) 25 U/L (16-63) Alkaline Phosphatase 68 U/L (46-116) Total Protein 5.9 g/dL (6.4-8.2) Albumin 2.5 g/dL (3.4-5.0) Albumin/Globulin Ratio 0.7 (1.0-1.7) Amylase Level 32 U/L (25-115) Lipase 240 U/L (73-393) Assessment/Plan Assessment/Plan The patient is a 63-year-old male who underwent emergency CABG 3 last week aft er presenting with an ST elevation MT, unable to perform primary PCI owing to severity of coronary disease. He was in acute systolic heart failure with an EF of 20-25%. Overall he made an uneventful recovery and was discharged home on postoperative day 4. He returned to the emergency room yesterday with a postoperative ileus. Unsuccessful attempt at NG tube placement in the emergency room which also triggered a short run of self terminating V. tach. Feels better today with less distention and has not had any emesis since admission. Otherwise benign abdominal exam. In A.fib with RVR since this afternoon. Plan Management of ileus as per general surgery On amiodarone drip for A. fib. He has been given an additional 150mg bolus of amiodarone and 500 mcg digoxin K+ was 3.5 this morning, will replace with 20 mEq of IV potassium chloride. Mg was 2.1 Cardiology will manage A. fib I will follow along ARNULFO MORROW MD Feb 16, 2019 14:23
--- NOTE | 2019-02-16 14:57 | NUR ---
At approximately 1300 noticed on monitor pt's HR was afib RVR in the 140-150s. Entered pt's room to assess and found patient asleep. Woke pt. Pt was not symptomatic. No c/o chest pain or SOB. Paged and spoke to Cardiology IT APPLICATION SUPPORT ANALYST, who gave orders for 500 mg dig. While administering medication, Cardiothoracic surgeon entered room to assess pt and also ordered potassium replacement IV and additional amiodarone bolus of 150 mg. At approximately 1400, hall monitor shows pt's HR and rhythm back in NSR. Will continue to monitor.
[2019-02-16 15:00] VITALS: BP 124/62
--- NOTE | 2019-02-16 15:49 | NUR ---
SS following for discharge planning. SS reviewed pt chart. Pt is from home with spouse and is currently on room air. No discharge needs noted at this time. SS will continue to follow for pending discharge needs.
--- NOTE | 2019-02-16 15:55 | RAD ---
2 view abdominal series and portable AP chest x-ray Clinical indications: Ileus versus small bowel obstruction COMPARISON: Chest x-ray performed on February 15, 2019. FINDINGS: There is diffuse dilatation of large and small bowel down to the rectosigmoid region consistent with a diffuse functional ileus. No free intraperitoneal air is seen. Chest x-ray demonstrates elevation of the right hemidiaphragm which is unchanged. Atelectasis or infiltrate of the medial left lung base is stable. No new lung infiltrate or pulmonary edema or pneumothorax is seen. A sternotomy noted. Heart size and mediastinum and pulmonary vasculature are stable. IMPRESSION: Diffuse moderate dilatation of large and small bowel down to the rectosigmoid region consistent with an ileus. The colon measures up to 10 cm in greatest caliber. Electronically signed by: Jac Trent MD (02/16/2019 3:52 PM) [place] [id number]
[2019-02-16] MEDS: PANTOPRAZOLE IV PUSH 40 MG VIAL. IVP SCH (16:52)
[2019-02-16] MEDS: IV NORMAL SALINE 1000ML BAG 1,000 ML IV SCH (17:54)
[2019-02-16] MEDS: METOPROLOL TARTRATE 5 MG/5 ML VIAL. IVP SCH (18:02)
[2019-02-16 19:55] VITALS: BP 122/69
[2019-02-16] MEDS ORDERED: BENZOCAINE ONE 20% MUCOSAL SPRAY. MM (20:15)
[2019-02-16] MEDS ORDERED: LIDOCAINE 2% TOPICAL JELLY 5GM TUBE. TP ONE (20:15)
[2019-02-16] MEDS: AMIODARONE 900 MG in IV DEXTROSE 5% 500 ML IV PRN (20:55)
[2019-02-16] MEDS: MORPHINE SULFATE 4 MG/ML VIAL. IV PRN ×2 (20:55→23:11)
[2019-02-16] MEDS: INSULIN GLARGINE 300 UNITS/3 ML INSULN.PEN. SQ SCH (21:00)
[2019-02-16] MEDS ORDERED: PHENOL ORAL SPRAY 177ML BOTTLE. PO PRN (21:00)
[2019-02-16] MEDS ORDERED: BENZOCAINE/MENTHOL LOZENGE. PO PRN (21:00)
[2019-02-16 22:39] VITALS: BP 113/61
[2019-02-17] MEDS: METOPROLOL TARTRATE 5 MG/5 ML VIAL. IVP SCH ×3 (00:37→12:53)
[2019-02-17 02:46] VITALS: BP 140/75
[2019-02-17 07:23] VITALS: BP 139/72
[2019-02-17] MEDS: INSULIN LISPRO 300 UNITS/3 ML INSULN.PEN. SQ SCH ×3 (08:00→17:00)
[2019-02-17] MEDS: ASPIRIN RECTAL 300 MG SUPP. PR SCH (09:00)
[2019-02-17] MEDS: PANTOPRAZOLE IV PUSH 40 MG VIAL. IVP SCH (09:39)
[2019-02-17] MEDS: MORPHINE SULFATE 4 MG/ML VIAL. IV PRN (09:41)
--- NOTE | 2019-02-17 10:22 | PDOC ---
PROGRESS NOTES Chief Complaint Chief Complaint Ileus, distal SBO CAD RECENT CABG x 3 (AL to LAD, SVG to RPDA, SVG to OM) with Left endoscopic greater saphenous vein harvest ST elevation myocardial infarction - Acute systolic heart failure (EF 20-25%) - IABP placed REspi failure s/post CABG Diabetes - HTN - NSVT in the background of NG tube attempt insertion at ER for 02/15/19 History of Present Illness History of Present Illness GS was able to successfully put NG tube on 02/16/19 with no arrhythmias Now he wants the NG tube out I have educated him, showed the 700 mL NG output, and provided him a copy of his acute abdominal series yesterday showing still persistent ileus Earlier entry: He just had CABG this week I Sent home and back one day after with the ileus Now on Lantus significant dose daily at bedtime - BS ok Still bloated, tympanitic, hypoactive bowel sounds clinically Plan: keep NG, keep nothing by mouth, increase IV fluid to 70 mL-I am aware of the poor EF and LifeVest etc. (i dont think this rate is too much) was on Amiodarone drip after to V. tach after NGT attempt at ER encourage to Ambulate as tolerated Vitals Vitals Vital Signs Date Time Temp Pulse Resp B/P (MAP) Pulse Ox O2 Delivery O2 Flow Rate FiO2 02/17/19 09:41 18 Room Air 02/17/19 07:23 97.2 91 139/72 (94) 95 97.2 Physical Exam General: Alert, Oriented X3, No acute distress Heart: Regular rate, Normal S1, Normal S2, No murmurs Lungs: Clear, Crackles, Other Abdomen: Soft, No tenderness Extremities: No clubbing, No cyanosis Skin: No significant lesion Labs LABS Laboratory Tests Test 02/16/19 11:49 02/16/19 20:39 02/17/19 07:16 Glucose (Fingerstick) 150 mg/dL (70-99) 168 mg/dL (70-99) 161 mg/dL (70-99) Review of Systems Review of Systems Bloated, nausea, abdominal discomfort, the rest of ROS 14 point negative Assessment and Plan Assessmemt and Plan Problems Medical Problems: (1) Abdominal pain Status: Acute (2) Elevated troponin I level Status: Acute (3) Ileus Status: Acute (4) Nausea and vomiting Status: Acute (5) Renal insufficiency Status: Acute (6) Small bowel obstruction Status: Acute (7) Tachycardia Status: Acute Comment Review of Relevant I have reviewed the following items richie (where applicable) has been applied. Labs Laboratory Tests Test 02/15/19 15:45 02/15/19 20:10 02/15/19 20:35 02/15/19 20:57 White Blood Count 10.9 x10^3/uL (4.0-11.0) Red Blood Count 4.29 x10^6/uL (4.30-5.70) Hemoglobin 12.7 g/dL (13.0-17.5) Hematocrit 37.7 % (39.0-53.0) Mean Corpuscular Volume 88 fL (79-100) Mean Corpuscular Hemoglobin 30 pg (25-35) Mean Corpuscular Hemoglobin Concent 34 g/dL (31-37) Red Cell Distribution Width 14.1 % (11.5-14.5) Platelet Count 222 x10^3/uL (140-400) Neutrophils (%) (Auto) 83 % (31-73) Lymphocytes (%) (Auto) 5 % (24-48) Monocytes (%) (Auto) 12 % (0-9) Eosinophils (%) (Auto) 0 % (0-3) Basophils (%) (Auto) 0 % (0-3) Neutrophils # (Auto) 9.1 x10^3uL (1.8-7.7) Lymphocytes # (Auto) 0.6 x10^3/uL (1.0-4.8) Monocytes # (Auto) 1.3 x10^3/uL (0.0-1.1) Eosinophils # (Auto) 0.0 x10^3/uL (0.0-0.7) Basophils # (Auto) 0.0 x10^3/uL (0.0-0.2) Sodium Level 136 mmol/L (136-145) Potassium Level 4.0 mmol/L (3.5-5.1) Chloride Level 96 mmol/L (98-107) Carbon Dioxide Level 30 mmol/L (21-32) Anion Gap 10 (6-14) Blood Urea Nitrogen 35 mg/dL (8-26) Creatinine 1.0 mg/dL (0.7-1.3) Estimated GFR (Cockcroft-Gault) 75.5 BUN/Creatinine Ratio 35 (6-20) Glucose Level 185 mg/dL (70-99) Calcium Level 9.0 mg/dL (8.5-10.1) Magnesium Level 2.1 mg/dL (1.8-2.4) Total Bilirubin 1.8 mg/dL (0.2-1.0) Aspartate Amino Transf (AST/SGOT) 35 U/L (15-37) Alanine Aminotransferase (ALT/SGPT) 32 U/L (16-63) Alkaline Phosphatase 83 U/L (46-116) Creatine Kinase 75 U/L (39-308) Troponin I Quantitative 4.542 ng/mL (0.000-0.055) 4.095 ng/mL (0.000-0.055) JE-Yop-T-Type Natriuretic Peptide 2759 pg/mL (0-124) Total Protein 7.0 g/dL (6.4-8.2) Albumin 3.0 g/dL (3.4-5.0) Albumin/Globulin Ratio 0.8 (1.0-1.7) Lipase 589 U/L (73-393) Urine Collection Type Unknown Urine Color Yellow Urine Clarity Clear Urine pH 5.0 Urine Specific Damon >=1.030 Urine Protein Negative mg/dL (NEG-TRACE) Urine Glucose (UA) Negative mg/dL (NEG) Urine Ketones (Stick) 15 mg/dL (NEG) Urine Blood Negative (NEG) Urine Nitrite Negative (NEG) Urine Bilirubin Negative (NEG) Urine Urobilinogen Dipstick 0.2 mg/dL (0.2 mg/dL) Urine Leukocyte Esterase Negative (NEG) Urine RBC Occ /HPF (0-2) Urine WBC 0 /HPF (0-4) Urine Bacteria 0 /HPF (0-FEW) Lactic Acid Level 2.2 mmol/L (0.4-2.0) Glucose (Fingerstick) 176 mg/dL (70-99) Test 02/15/19 23:45 02/16/19 07:29 02/16/19 08:30 02/16/19 11:49 Lactic Acid Level 2.1 mmol/L (0.4-2.0) Troponin I Quantitative 3.849 ng/mL (0.000-0.055) Glucose (Fingerstick) 178 mg/dL (70-99) 150 mg/dL (70-99) Sodium Level 136 mmol/L (136-145) Potassium Level 3.5 mmol/L (3.5-5.1) Chloride Level 99 mmol/L (98-107) Carbon Dioxide Level 28 mmol/L (21-32) Anion Gap 9 (6-14) Blood Urea Nitrogen 38 mg/dL (8-26) Creatinine 1.0 mg/dL (0.7-1.3) Estimated GFR (Cockcroft-Gault) 75.5 BUN/Creatinine Ratio 38 (6-20) Glucose Level 218 mg/dL (70-99) Calcium Level 8.3 mg/dL (8.5-10.1) Magnesium Level 2.2 mg/dL (1.8-2.4) Iron Level 9 ug/dL (65-175) Total Iron Binding Capacity 151 ug/dL (250-450) Iron Saturation 6 % (15-34) Total Bilirubin 1.3 mg/dL (0.2-1.0) Aspartate Amino Transf (AST/SGOT) 21 U/L (15-37) Alanine Aminotransferase (ALT/SGPT) 25 U/L (16-63) Alkaline Phosphatase 68 U/L (46-116) Total Protein 5.9 g/dL (6.4-8.2) Albumin 2.5 g/dL (3.4-5.0) Albumin/Globulin Ratio 0.7 (1.0-1.7) Amylase Level 32 U/L (25-115) Lipase 240 U/L (73-393) Test 02/16/19 20:39 02/17/19 07:16 Glucose (Fingerstick) 168 mg/dL (70-99) 161 mg/dL (70-99) Laboratory Tests Test 02/16/19 11:49 02/16/19 20:39 02/17/19 07:16 Glucose (Fingerstick) 150 mg/dL (70-99) 168 mg/dL (70-99) 161 mg/dL (70-99) Medications Current Medications Ondansetron HCl (Zofran) 4 mg STK-MED ONCE .ROUTE ; Start 02/15/19 at 16:07; Stop 02/15/19 at 16:08; Status DC Fentanyl Citrate (Fentanyl 2ml Vial) 100 mcg STK-MED ONCE .ROUTE ; Start 02/15/19 at 16:07; Stop 02/15/19 at 16:08; Status DC Ondansetron HCl (Zofran) 4 mg 1X ONCE IV Last administered on 02/15/19at 16:10; Start 02/15/19 at 16:15; Stop 02/15/19 at 16:16; Status DC Fentanyl Citrate (Fentanyl 2ml Vial) 50 mcg 1X ONCE IV Last administered on 02/15/19 16:13; Start 02/15/19 at 16:15; Stop 02/15/19 at 16:16; Status DC Iohexol (Omnipaque 350 Mg/ml) 100 ml 1X ONCE IV Last administered on 02/15/19 16:30; Start 02/15/19 at 16:30; Stop 02/15/19 at 16:31; Status DC Sodium Chloride 1,000 ml @ 1,000 mls/hr 1X ONCE IV Last administered on 02/15/19 16:53; Start 02/15/19 at 17:00; Stop 02/15/19 at 17:59; Status DC Sodium Chloride 1,000 ml @ 125 mls/hr Q8H IV ; Start 02/15/19 at 17:41; Stop 02/15/19 at 21:53; Status DC Fentanyl Citrate (Fentanyl 2ml Vial) 50 mcg 1X ONCE IV Last administered on 02/15/19 17:55; Start 02/15/19 at 18:00; Stop 02/15/19 at 18:01; Status DC Amiodarone HCl (Cordarone) 150 mg 1X ONCE IVP Last administered on 02/15/19 18:16; Start 02/15/19 at 18:30; Stop 02/15/19 at 18:33; Status DC Amiodarone HCl 900 mg/Dextrose 518 ml @ 0 mls/hr CONT PRN IV SEE I/O RECORD Last administered on 02/15/19 19:02; Start 02/15/19 at 18:30; Stop 02/15/19 at 19:02; Status DC Aspirin (Aspirin) 300 mg 1X ONCE NH Last administered on 02/15/19 19:02; Start 02/15/19 at 18:30; Stop 02/15/19 at 18:32; Status DC Morphine Sulfate (Morphine Sulfate) 2 mg PRN Q2HR PRN IV MODERATE PAIN Last administered on 02/16/19 11:14; Start 02/15/19 at 20:45 Ondansetron HCl (Zofran) 4 mg PRN Q6HRS PRN IV NAUSEA/VOMITING Last administered on 02/15/19 21:03; Start 02/15/19 at 20:45 Insulin Glargine (Lantus) 50 units QHS SQ ; Start 02/15/19 at 21:00; Stop 02/16/19 at 06:35; Status DC Insulin Human Lispro (HumaLOG) 0-5 UNITS TIDWMEALS SQ ; Start 02/16/19 at 08:00; Stop 02/16/19 at 10:16; Status DC Dextrose (Dextrose 50%-Water Syringe) 12.5 gm PRN Q15MIN PRN IV SEE COMMENTS; Start 02/15/19 at 20:45; Stop 02/16/19 at 10:27; Status DC Morphine Sulfate (Morphine Sulfate) 4 mg PRN Q2HR PRN IV SEVERE PAIN Last administered on 02/17/19 09:41; Start 02/15/19 at 21:45 Pantoprazole Sodium (PROTONIX VIAL for IV PUSH) 40 mg 1X ONCE IVP Last admini stered on 02/15/19 22:00; Start 02/15/19 at 22:00; Stop 02/15/19 at 22:01; Status DC Sodium Chloride 1,000 ml @ 30 mls/hr Q24H IV Last administered on 02/15/19 22:00; Start 02/15/19 at 22:00; Stop 02/15/19 at 22:47; Status DC Throat Lozenges (Cepacol Sore Throat Lozenge) 1 wong PRN Q2HRS PRN PO SORE THROAT Last administered on 02/15/19 22:44; Start 02/15/19 at 22:45; Stop at 20:59; Status DC Sodium Chloride 1,000 ml @ 70 mls/hr [id number] IV Last administered on 02/16/19 17:54; Start 02/15/19 at 23:00 Pantoprazole Sodium (PROTONIX VIAL for IV PUSH) 40 mg BIDAC IVP Last administered on 4/26/19at 09:39; Start 02/16/19 at 16:30 Metoprolol Tartrate (Lopressor Vial) 2.5 mg Q6HRS IVP Last administered on 02/16/19at 10:31; Start 02/16/19 at 10:00; Stop 02/16/19 at 13:37; Status DC Aspirin (Aspirin) 300 mg DAILY NH Last administered on 02/16/19at 10:31; Start 02/16/19 at 10:00 Amiodarone HCl 900 mg/Dextrose 518 ml @ 0 mls/hr CONT PRN IV SEE I/O RECORD Last administered on 02/16/19at 20:55; Start 02/16/19 at 09:45 Insulin Human Lispro (HumaLOG) 0-9 UNITS TIDWMEALS SQ ; Start 02/16/19 at 12:00 Dextrose (Dextrose 50%-Water Syringe) 12.5 gm PRN Q15MIN PRN IV SEE COMMENTS; Start 02/16/19 at 10:15 Insulin Glargine (Lantus) 20 units QHS SQ ; Start 02/16/19 at 21:00 Metoprolol Tartrate (Lopressor Vial) 5 mg Q6HRS IVP Last administered on 02/17/19 06:08; Start 02/16/19 at 18:00 Digoxin (Lanoxin) 500 mcg 1X ONCE IV Last administered on 02/16/19at 13:50; Start 02/16/19 at 13:45; Stop 02/16/19 at 13:46; Status DC Amiodarone HCl 150 mg/Dextrose 103 ml @ 618 mls/hr 1X ONCE IV Last administered on 02/16/19at 14:20; Start 02/16/19 at 14:00; Stop 02/16/19 at 14:09; Status DC Potassium Chloride/Water 50 ml @ 50 mls/hr 1X ONCE IV Last administered on 02/16/19at 14:21; Start 02/16/19 at 14:00; Stop 02/16/19 at 14:59; Status DC Benzocaine (Hurricaine One) 1 spray 1X ONCE MM Last administered on 02/16/19at 20:54; Start 02/16/19 at 20:15; Stop 02/16/19 at 20:16; Status DC Lidocaine HCl (Xylocaine 2% Topical 5gm Tube) 1 marco 1X ONCE TP Last administered on 02/16/19at 20:15; Start 02/16/19 at 20:15; Stop 02/16/19 at 20:16; Status DC Throat Lozenges (Cepacol Sore Throat Lozenge) 1 wong PRN Q2HRS PRN PO SORE THROAT; Start 02/16/19 at 21:00 Throat Lozenges (Chloraseptic) 1 spray PRN Q2HR PRN PO SORE THROAT; Start 02/16/19 at 21:00 Active Scripts Active Amiodarone Hcl 200 Mg Tablet 1 Tab PO BID Oxycodone Hcl Immed.release (Oxycodone Hcl) 5 Mg Tablet 5 Mg PO PRN Q4HRS PRN MDD 1 [Pantoprazole] 40 MG Tablet. 40 Mg PO DAILYAC MDD 1 Lantus Solostar (Insulin Glargine,Hum.rec.anlog) 100 Unit/1 Ml Insuln.pen 50 Un its SQ QHS MDD 1 30 Days Aspirin Ec (Aspirin) 325 Mg Tablet.dr 325 Mg PO DAILYWBKFT MDD 1 Atorvastatin Calcium 20 Mg Tablet 20 Mg PO QHS MDD 1 Proair Hfa (Albuterol Sulfate) 8.5 Gm Hfa.aer.ad 2.5 Mg NEB PRN Q4HRS PRN MDD 1 30 Days Reported Lisinopril 5 Mg Tablet 1 Tab PO DAILY Lasix (Furosemide) 40 Mg Tablet 1 Tab PO PRN DAILY PRN Metoprolol Succinate ( Xl ) (Metoprolol Succinate) 100 Mg Tab.er.24h 1 Tab PO DAILY Vitals/I & O Vital Sign - Last 24 Hours 02/16/19 02/16/19 02/16/19 02/16/19 10:31 10:44 11:14 13:50 Temp 97.8 97.8 Pulse 91 91 133 Resp 20 B/P (MAP) 118/73 118/73 (88) Pulse Ox 96 O2 Delivery Room Air Room Air 02/16/19 02/16/19 02/16/19 02/16/19 14:20 15:00 18:02 19:55 Temp 98.3 98.0 98.3 98.0 Pulse 90 90 95 93 Resp 18 18 B/P (MAP) 115/65 124/62 (82) 110/65 122/69 (86) Pulse Ox 99 98 O2 Delivery Room Air Room Air 02/16/19 02/16/19 02/16/19 02/16/19 20:00 20:55 22:39 23:11 Temp 97.3 97.3 Pulse 100 Resp 18 B/P (MAP) 113/61 (78) Pulse Ox 98 97 97 O2 Delivery Room Air Room Air Room Air Room Air 02/16/19 02/17/19 02/17/19 02/17/19 23:41 00:37 02:46 06:08 Temp 97.6 97.6 Pulse 100 91 91 Resp 20 B/P (MAP) 113/61 140/75 (96) 140/75 Pulse Ox 97 96 O2 Delivery Room Air Room Air 02/17/19 02/17/19 07:23 09:41 Temp 97.2 97.2 Pulse 91 Resp 16 18 B/P (MAP) 139/72 (94) Pulse Ox 95 O2 Delivery Room Air Room Air Intake and Output 02/16/19 02/16/19 02/17/19 15:00 23:00 07:00 Intake Total 100 ml 765.56 ml 772 ml Output Total 1100 ml 1050 ml Balance 100 ml -334.44 ml -278 ml NEGRITA KENT MD Feb 17, 2019 10:22
--- NOTE | 2019-02-17 10:36 | PDOC ---
SHAKIRA REED BUILDING MAINTENANCE CUSTODIAN 02/17/19 1036: SURGICAL PROGRESS NOTE Subjective frustrated no flatus Vital Signs Vital Signs Date Time Temp Pulse Resp B/P (MAP) Pulse Ox O2 Delivery O2 Flow Rate FiO2 02/17/19 09:41 18 Room Air 02/17/19 07:23 97.2 91 139/72 (94) 95 97.2 I&O Intake and Output 02/17/19 06:59 Intake Total 1637.56 ml Output Total 2150 ml Balance -512.44 ml Intake Oral 0 ml IV Total 1637.56 ml Output Urine Total 1500 ml Drainage Total 650 ml General: Alert, Cooperative HEENT: Other (ng in place) Abdomen: Soft, Other (distended ) Labs Laboratory Tests Test 02/15/19 15:45 02/15/19 20:10 02/15/19 20:35 02/15/19 20:57 White Blood Count 10.9 x10^3/uL (4.0-11.0) Red Blood Count 4.29 x10^6/uL (4.30-5.70) Hemoglobin 12.7 g/dL (13.0-17.5) Hematocrit 37.7 % (39.0-53.0) Mean Corpuscular Volume 88 fL (79-100) Mean Corpuscular Hemoglobin 30 pg (25-35) Mean Corpuscular Hemoglobin Concent 34 g/dL (31-37) Red Cell Distribution Width 14.1 % (11.5-14.5) Platelet Count 222 x10^3/uL (140-400) Neutrophils (%) (Auto) 83 % (31-73) Lymphocytes (%) (Auto) 5 % (24-48) Monocytes (%) (Auto) 12 % (0-9) Eosinophils (%) (Auto) 0 % (0-3) Basophils (%) (Auto) 0 % (0-3) Neutrophils # (Auto) 9.1 x10^3uL (1.8-7.7) Lymphocytes # (Auto) 0.6 x10^3/uL (1.0-4.8) Monocytes # (Auto) 1.3 x10^3/uL (0.0-1.1) Eosinophils # (Auto) 0.0 x10^3/uL (0.0-0.7) Basophils # (Auto) 0.0 x10^3/uL (0.0-0.2) Sodium Level 136 mmol/L (136-145) Potassium Level 4.0 mmol/L (3.5-5.1) Chloride Level 96 mmol/L (98-107) Carbon Dioxide Level 30 mmol/L (21-32) Anion Gap 10 (6-14) Blood Urea Nitrogen 35 mg/dL (8-26) Creatinine 1.0 mg/dL (0.7-1.3) Estimated GFR (Cockcroft-Gault) 75.5 BUN/Creatinine Ratio 35 (6-20) Glucose Level 185 mg/dL (70-99) Calcium Level 9.0 mg/dL (8.5-10.1) Magnesium Level 2.1 mg/dL (1.8-2.4) Total Bilirubin 1.8 mg/dL (0.2-1.0) Aspartate Amino Transf (AST/SGOT) 35 U/L (15-37) Alanine Aminotransferase (ALT/SGPT) 32 U/L (16-63) Alkaline Phosphatase 83 U/L (46-116) Creatine Kinase 75 U/L (39-308) Troponin I Quantitative 4.542 ng/mL (0.000-0.055) 4.095 ng/mL (0.000-0.055) GH-Sww-Y-Type Natriuretic Peptide 2759 pg/mL (0-124) Total Protein 7.0 g/dL (6.4-8.2) Albumin 3.0 g/dL (3.4-5.0) Albumin/Globulin Ratio 0.8 (1.0-1.7) Lipase 589 U/L (73-393) Urine Collection Type Unknown Urine Color Yellow Urine Clarity Clear Urine pH 5.0 Urine Specific Ermine >=1.030 Urine Protein Negative mg/dL (NEG-TRACE) Urine Glucose (UA) Negative mg/dL (NEG) Urine Ketones (Stick) 15 mg/dL (NEG) Urine Blood Negative (NEG) Urine Nitrite Negative (NEG) Urine Bilirubin Negative (NEG) Urine Urobilinogen Dipstick 0.2 mg/dL (0.2 mg/dL) Urine Leukocyte Esterase Negative (NEG) Urine RBC Occ /HPF (0-2) Urine WBC 0 /HPF (0-4) Urine Bacteria 0 /HPF (0-FEW) Lactic Acid Level 2.2 mmol/L (0.4-2.0) Glucose (Fingerstick) 176 mg/dL (70-99) Test 02/15/19 23:45 02/16/19 07:29 02/16/19 08:30 02/16/19 11:49 Lactic Acid Level 2.1 mmol/L (0.4-2.0) Troponin I Quantitative 3.849 ng/mL (0.000-0.055) Glucose (Fingerstick) 178 mg/dL (70-99) 150 mg/dL (70-99) Sodium Level 136 mmol/L (136-145) Potassium Level 3.5 mmol/L (3.5-5.1) Chloride Level 99 mmol/L (98-107) Carbon Dioxide Level 28 mmol/L (21-32) Anion Gap 9 (6-14) Blood Urea Nitrogen 38 mg/dL (8-26) Creatinine 1.0 mg/dL (0.7-1.3) Estimated GFR (Cockcroft-Gault) 75.5 BUN/Creatinine Ratio 38 (6-20) Glucose Level 218 mg/dL (70-99) Calcium Level 8.3 mg/dL (8.5-10.1) Magnesium Level 2.2 mg/dL (1.8-2.4) Iron Level 9 ug/dL (65-175) Total Iron Binding Capacity 151 ug/dL (250-450) Iron Saturation 6 % (15-34) Total Bilirubin 1.3 mg/dL (0.2-1.0) Aspartate Amino Transf (AST/SGOT) 21 U/L (15-37) Alanine Aminotransferase (ALT/SGPT) 25 U/L (16-63) Alkaline Phosphatase 68 U/L (46-116) Total Protein 5.9 g/dL (6.4-8.2) Albumin 2.5 g/dL (3.4-5.0) Albumin/Globulin Ratio 0.7 (1.0-1.7) Amylase Level 32 U/L (25-115) Lipase 240 U/L (73-393) Test 02/16/19 20:39 02/17/19 07:16 Glucose (Fingerstick) 168 mg/dL (70-99) 161 mg/dL (70-99) Laboratory Tests Test 02/16/19 11:49 02/16/19 20:39 02/17/19 07:16 Glucose (Fingerstick) 150 mg/dL (70-99) 168 mg/dL (70-99) 161 mg/dL (70-99) Problem List Problems Medical Problems: (1) Abdominal pain Status: Acute (2) Elevated troponin I level Status: Acute (3) Ileus Status: Acute (4) Nausea and vomiting Status: Acute (5) Renal insufficiency Status: Acute (6) Small bowel obstruction Status: Acute (7) Tachycardia Status: Acute Assessment/Plan ileus continue NG decompression xrays pending ANGIE XIE MD 02/17/19 1420: SURGICAL PROGRESS NOTE Assessment/Plan pt seen in room NG with 800cc out xrays not improved rec continued NG Dr Gonzalez to follow over the weekend SHAKIRA REED BUILDING MAINTENANCE CUSTODIAN Feb 17, 2019 10:36 ANGIE XIE MD Feb 17, 2019 14:20
[2019-02-17 11:28] VITALS: BP 153/76
--- NOTE | 2019-02-17 12:34 | PDOC ---
MYRNA LOJA APRN 02/17/19 1234: CARDIO Progress Notes Date and Time Date of Service 02/17/19 Time of Evaluation 1150 Subjective Subjective: No Chest Pain, No shortness of breath, No Palpitations Vitals Vitals Vital Signs Date Time Temp Pulse Resp B/P (MAP) Pulse Ox O2 Delivery O2 Flow Rate FiO2 02/17/19 11:28 97.9 97 18 153/76 (101) 95 Room Air 97.9 02/17/19 10:11 2.0 Weight Weight [ ] Input and Output Intake and Output Intake and Output 02/17/19 07:00 Intake Total 1637.56 ml Output Total 2150 ml Balance -512.44 ml Intake Oral 0 ml IV Total 1637.56 ml Output Urine Total 1500 ml Drainage Total 650 ml Laboratory Labs Laboratory Tests Test 02/16/19 20:39 02/17/19 07:16 02/17/19 11:24 Glucose (Fingerstick) 168 mg/dL (70-99) 161 mg/dL (70-99) 164 mg/dL (70-99) Physical Exam HEENT: Neck Supple W Full Motion Chest: Symmetric LUNGS: Clear to Auscultation Heart: S1S2, RRR (SR) Abdomen: Other (distended abd) Extremities: No Edema, No Calf Tenderness Neurology: alert, oriented, follow commands Assessment Assessment 1. Abdominal pain/ileus 2. Arrhythmia: AFIB RVR in ED and and NSVT on floor, induced by GI issues and NGT insertion. Now maintaining SR 3. 3V CAD s/p emergent CABG with AL to LAD, SVG to OM, SVG to RPDA. POD #7, stable. 4. Elevated troponin: trending down, expected with recent CABG 5. Chronic systolic HF with ICM; LVEF at 35-40%, compensated 6. Hypertension; controlled 7. DM2/ HLP Recommendations Amiodarone gtt for rhythm maintenance Metoprolol IV while NPO ASA for stroke prophylaxis Resume PO meds, secondary prevention once allowed. Supportive care Follow GI, surgery MATHEW Werner MD 02/17/19 1655: CARDIO Progress Notes Assessment Assessment Patient seen and examined. Agree with RELIABILITY TECHNICIAN's assessment and plan. Continue current treatment for ileus per GI team CAD s/p recent CABG, stable Continue amiodarone drip for rhythm maintenance MYRNA LOJA APRN Feb 17, 2019 12:34 MATHEW SHEEHAN MD Feb 17, 2019 16:55
[2019-02-17] MEDS: IV NORMAL SALINE 1000ML BAG 1,000 ML IV SCH (12:57)
--- NOTE | 2019-02-17 13:29 | PDOC ---
Progress Note Subjective Subjective NGT placed, 600cc output. Less distended. AXR shows dilated loop of small bowel and dilated colon up to 9-10cm. Back in SR ROS ROS No nausea No vomiting No pain No rash Vital Sign Vital Signs Vital Signs Date Time Temp Pulse Resp B/P (MAP) Pulse Ox O2 Delivery O2 Flow Rate FiO2 02/17/19 12:53 99 148/69 02/17/19 11:28 97.9 18 95 Room Air 97.9 02/17/19 10:11 2.0 Physical Exam PHYSICAL EXAM GENERAL: NAD, Alert HEENT: PERRL, OC/OP NECK: Supple, no JVD, no LN LUNGS: Clear HEART: S1S2, no gallop, no murmur ABD: Soft, NT, no organomegaly, no rebound EXT: No edema, no cyanosis CELL BIOLOGIST: Alert, 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, no focal neurologic deficit SKIN: No rash IV: ok Labs Lab Laboratory Tests Test 02/16/19 20:39 02/17/19 07:16 02/17/19 11:24 Glucose (Fingerstick) 168 mg/dL (70-99) 161 mg/dL (70-99) 164 mg/dL (70-99) Objective Assessment S/p emergent CABG a week ago. Re-admitted with ileus. NGT placed, 600cc output. Less distended. AXR shows dilated loop of small bowel and dilated colon up to 9-10cm. Back in SR Plan Plan of Care Management of ileus as per gen surgery ARNULFO MORROW MD Feb 17, 2019 13:29
--- NOTE | 2019-02-17 13:50 | PDOC ---
Subjective: Subjective: Wants the tube out. No flatus. No pain. No nausea. Wants x-ray results. and RN present. Objective: Vital Signs: Vital Signs Date Time Temp Pulse Resp B/P (MAP) Pulse Ox O2 Delivery O2 Flow Rate FiO2 02/17/19 12:53 99 148/69 02/17/19 11:28 97.9 18 95 Room Air 97.9 02/17/19 10:11 2.0 Labs: Laboratory Tests Test 02/16/19 20:39 02/17/19 07:16 02/17/19 11:24 Glucose (Fingerstick) 168 mg/dL (70-99) 161 mg/dL (70-99) 164 mg/dL (70-99) Imaging: Acute Abd Series 02/16 IMPRESSION: Diffuse moderate dilatation of large and small bowel down to the rectosigmoid region consistent with an ileus. The colon measures up to 10 cm in greatest caliber. Abd X-Ray 02/17 pending PE: GEN: up to chair, looks uncomfortable HEENT: NG bilious LUNGS: NC HEART: RRR ABD: stable distention, non-tender, does have bowel sounds (though NG suction ongoing) NEURO/PSYCH: A & O 3, frustrated A/P: Ileus Recent CABG MEGHANN -- Reviewed w/ Dr. Grimes - continue supportive care, NPO, NG suction, try Relistor x 1. KELSEY TAYLOR Feb 17, 2019 13:50
[2019-02-17] MEDS ORDERED: METHYLNALTREXONE 12 MG/0.6 ML VIAL. SQ ONE (14:00)
[2019-02-17 15:23] VITALS: BP 144/74
--- NOTE | 2019-02-17 15:46 | RAD ---
Supine and upright views of the abdomen without comparison for ileus. FINDINGS: There is gaseous dilatation of large and small bowel diffusely, with air seen to level of rectum. The cecum measures 15 cm in diameter. There is no free air beneath the diaphragm. IMPRESSION: 1. Marked gaseous distention of the colon, with the cecum measuring 15 cm. Findings are most consistent with adynamic ileus, as there is air and stool in the vicinity of the rectum. Electronically signed by: Jonny Valle MD (02/17/2019 3:43 PM) [id number]
[2019-02-17] MEDS: LORazepam INTENSOL 2 MG/ML ORAL.CONC SL PRN (18:26)
[2019-02-17 19:35] VITALS: BP 130/70
[2019-02-17] MEDS: INSULIN GLARGINE 300 UNITS/3 ML INSULN.PEN. SQ SCH (22:10)
--- NOTE | 2019-02-17 22:45 | RAD ---
Single view abdomen dated 02/17/2019. Comparison made to 02/16/2019. Clinical indication: Follow-up ileus. FINDINGS: Supine images submitted. Moderately dilated loops of small and large bowel, not significantly changed given differences in technique. No apparent pneumoperitoneum on this supine exam. IMPRESSION: Moderately dilated loops of small and large bowel, not significantly changed from prior study. Electronically signed by: Oscar Cody MD (02/17/2019 10:42 PM) [id number]
--- NOTE | 2019-02-17 22:47 | RAD ---
Single view chest dated 02/17/2019. Comparison made to 02/15/2019. Clinical indication: PICC placement. FINDINGS: Single upright portable exam performed. Heart and mediastinal contours are stable. Interval placement of right-sided PICC with tip projected to the level the cavoatrial junction. NG tube tip extends to the left upper quadrant. Patient is status post median sternotomy. Lung volumes are low, limiting evaluation. There is patchy increased density at both lung bases, likely atelectasis. No new infiltrate or pleural effusion. No pneumothorax. IMPRESSION: 1. Right-sided PICC with tip projected to the level of the cavoatrial junction. 2. NG tube tip projected to the left upper quadrant. 3. Patchy bibasilar airspace disease, likely atelectasis. Electronically signed by: Oscar Cody MD (02/17/2019 10:45 PM) [id number]
[2019-02-17 23:44] VITALS: BP 141/66
[2019-02-18] VITALS (15 sets, daily range): BP systolic 102–171; BP diastolic 58–78
[2019-02-18] MEDS ORDERED: ATROPINE 1 MG/10 ML DISP.SYRINGE. IV PRN (01:15)
--- NOTE | 2019-02-18 01:40 | NUR ---
Patient transferred to [facility], per Dr. Vazquez for close monitoring. Report given to ROSA Crawley.
[2019-02-18] MEDS ORDERED: NEOSTIGMINE 10 MG/10 ML VIAL. IV ONE (02:00)
--- NOTE | 2019-02-18 02:00 | NUR ---
Nursing Note: Pt transferred to room 104 for neostigmine administration. Pt tolerated well, passed large amount of gas and mixture of diarrhea, small formed stool. Pt sleeping, went into afib rvr for about 20 minutes. Given lopressor, converted back to SR. Pt resting in bed.
[2019-02-18] MEDS: METOPROLOL TARTRATE 5 MG/5 ML VIAL. IVP SCH ×4 (02:27→17:57)
[2019-02-18] MEDS: INSULIN LISPRO 300 UNITS/3 ML INSULN.PEN. SQ SCH ×3 (08:00→17:00)
--- NOTE | 2019-02-18 08:23 | RAD ---
KUB History: ileus Comparison: February 17, 2019 Findings: Single supine AP view of the abdomen is submitted. There is persistent gas dilated large and small bowel, not significantly changed other than decreased gas in the region of rectosigmoid colon. Exam is insufficient for the evaluation for free air. Impression: 1. There is persistent gas dilated large and small bowel which may be due to ileus, somewhat decreased gas in the region of the rectosigmoid colon. Electronically signed by: Cristofer Forbes MD (02/18/2019 8:20 AM) [facility]
[2019-02-18] MEDS: PANTOPRAZOLE IV PUSH 40 MG VIAL. IVP SCH ×3 (08:29→17:57)
[2019-02-18] MEDS: IV NORMAL SALINE 1000ML BAG 1,000 ML IV SCH ×2 (08:29→17:58)
[2019-02-18] MEDS: ASPIRIN RECTAL 300 MG SUPP. PR SCH (08:30)
[2019-02-18 08:49] LABS: BASO % 0 % (0-3); EOS # 0.2 x10^3/uL (0.0-0.7); EOS % 2 % (0-3); HEMATOCRIT 30.8 % (39.0-53.0); HEMOGLOBIN 10.5 g/dL (13.0-17.5); LYMPH # 0.8 x10^3/uL (1.0-4.8); LYMPH % 8 % (24-48); MEAN CORPUSCULAR HEMOGLOBIN 30 pg (25-35); MEAN CORPUSCULAR HGB CONC 34 g/dL (31-37); MEAN CORPUSCULAR VOLUME 88 fL (79-100); MONO % 10 % (0-9); NEUT # 8.4 x10^3uL (1.8-7.7); NEUT % 81 % (31-73); PLATELET COUNT 134 x10^3/uL (140-400); RED BLOOD COUNT 3.49 x10^6/uL (4.30-5.70); RED CELL DISTRIBUTION WIDTH 13.5 % (11.5-14.5); WHITE BLOOD COUNT 10.4 x10^3/uL (4.0-11.0)
[2019-02-18 09:11] LABS: CALCIUM 7.9 mg/dL (8.5-10.1); CREATININE 0.8 mg/dL (0.7-1.3); GFR 97.6; MAGNESIUM 1.9 mg/dL (1.8-2.4); POTASSIUM 3.2 mmol/L (3.5-5.1)
--- NOTE | 2019-02-18 10:30 | PDOC ---
PROGRESS NOTES Chief Complaint Chief Complaint Ileus, distal SBO S/P NEOSTIGMINE (02/17) CAD RECENT CABG x 3 (AL to LAD, SVG to RPDA, SVG to OM) with Left endoscopic greater saphenous vein harvest ST elevation myocardial infarction - Acute systolic heart failure (EF 20-25%) - IABP placed REspi failure s/post CABG Diabetes - HTN - NSVT in the background of NG tube attempt insertion at ER for 02/15/19 History of Present Illness History of Present Illness GS was able to successfully put NG tube on 02/16/19 with no arrhythmias Transferred to ICU by intelligence applications GI in case bradycardia after neostigmine S.p neostigmine with almost complete resolve of sxs clinically HE looks and feels better, NGT output now clearing up to yellowish color BElly SOFT, he is smiling Films today show persistent diltan ileus but better than past films PLAN: OK to t.o to CVC - recent CABG KEep NPO, ang NGT and low dose iVF (low ef) dw pt and [employer] Appreciate GI expertise Vitals Vitals Vital Signs Date Time Temp Pulse Resp B/P (MAP) Pulse Ox O2 Delivery O2 Flow Rate FiO2 02/18/19 08:00 Room Air 02/18/19 07:00 88 18 127/69 (88) 98 02/18/19 02:00 98.1 98.1 02/17/19 10:11 2.0 Physical Exam Physical Exam GENERAL: NAD, Alert HEENT: PERRL, OC/OP NECK: Supple, no JVD, no LN LUNGS: Clear HEART: S1S2, no gallop, no murmur ABD: Soft, NT, no organomegaly, no rebound EXT: No edema, no cyanosis 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, 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, no focal neurologic deficit SKIN: No rash IV: ok General: Alert, Cooperative Heart: Regular rate, Normal S1, Normal S2, No murmurs Lungs: Clear, Crackles, Other Abdomen: Soft, Other (distended ) Extremities: No clubbing, No cyanosis Skin: No significant lesion Labs LABS Laboratory Tests Test 02/17/19 11:24 02/17/19 16:42 02/17/19 20:56 02/18/19 08:35 Glucose (Fingerstick) 164 mg/dL (70-99) 151 mg/dL (70-99) 143 mg/dL (70-99) White Blood Count 10.4 x10^3/uL (4.0-11.0) Red Blood Count 3.49 x10^6/uL (4.30-5.70) Hemoglobin 10.5 g/dL (13.0-17.5) Hematocrit 30.8 % (39.0-53.0) Mean Corpuscular Volume 88 fL (79-100) Mean Corpuscular Hemoglobin 30 pg (25-35) Mean Corpuscular Hemoglobin Concent 34 g/dL (31-37) Red Cell Distribution Width 13.5 % (11.5-14.5) Platelet Count 134 x10^3/uL (140-400) Neutrophils (%) (Auto) 81 % (31-73) Lymphocytes (%) (Auto) 8 % (24-48) Monocytes (%) (Auto) 10 % (0-9) Eosinophils (%) (Auto) 2 % (0-3) Basophils (%) (Auto) 0 % (0-3) Neutrophils # (Auto) 8.4 x10^3uL (1.8-7.7) Lymphocytes # (Auto) 0.8 x10^3/uL (1.0-4.8) Monocytes # (Auto) 1.0 x10^3/uL (0.0-1.1) Eosinophils # (Auto) 0.2 x10^3/uL (0.0-0.7) Basophils # (Auto) 0.0 x10^3/uL (0.0-0.2) Sodium Level 143 mmol/L (136-145) Potassium Level 3.2 mmol/L (3.5-5.1) Chloride Level 108 mmol/L (98-107) Carbon Dioxide Level 27 mmol/L (21-32) Anion Gap 8 (6-14) Blood Urea Nitrogen 22 mg/dL (8-26) Creatinine 0.8 mg/dL (0.7-1.3) Estimated GFR (Cockcroft-Gault) 97.6 Glucose Level 126 mg/dL (70-99) Calcium Level 7.9 mg/dL (8.5-10.1) Magnesium Level 1.9 mg/dL (1.8-2.4) Review of Systems Review of Systems A 14 point ROS was completed with the following noted as positive: Other systems reviewed and negative. \CONSTITUTIONAL: No fever or chills EYES: No recent changes SKIN: No rash or itching CARDIOVASCULAR: No chest pain, syncope, palpitations, or edema RESPIRATORY: No SOB or cough GASTROINTESTINAL: No nausea, vomiting or abdominal pain NEUROLOGICAL: No headaches or weakness ENDOCRINE: No cold or heat intolerance GENITOURINARY: No urgency or frequency of urination MUSCULOSKELETAL: No back pain or joint pain LYMPHATICS: No enlarged lymph nodes PSYCHIATRIC: No anxiety or depression Assessment and Plan Assessmemt and Plan Problems Medical Problems: (1) Abdominal pain Status: Acute (2) Elevated troponin I level Status: Acute (3) Ileus Status: Acute (4) Nausea and vomiting Status: Acute (5) Renal insufficiency Status: Acute (6) Small bowel obstruction Status: Acute (7) Tachycardia Status: Acute Comment Review of Relevant I have reviewed the following items richie (where applicable) has been applied. Labs Laboratory Tests Test 02/16/19 11:49 02/16/19 20:39 02/17/19 07:16 02/17/19 11:24 Glucose (Fingerstick) 150 mg/dL (70-99) 168 mg/dL (70-99) 161 mg/dL (70-99) 164 mg/dL (70-99) Test 02/17/19 16:42 02/17/19 20:56 02/18/19 08:35 Glucose (Fingerstick) 151 mg/dL (70-99) 143 mg/dL (70-99) White Blood Count 10.4 x10^3/uL (4.0-11.0) Red Blood Count 3.49 x10^6/uL (4.30-5.70) Hemoglobin 10.5 g/dL (13.0-17.5) Hematocrit 30.8 % (39.0-53.0) Mean Corpuscular Volume 88 fL (79-100) Mean Corpuscular Hemoglobin 30 pg (25-35) Mean Corpuscular Hemoglobin Concent 34 g/dL (31-37) Red Cell Distribution Width 13.5 % (11.5-14.5) Platelet Count 134 x10^3/uL (140-400) Neutrophils (%) (Auto) 81 % (31-73) Lymphocytes (%) (Auto) 8 % (24-48) Monocytes (%) (Auto) 10 % (0-9) Eosinophils (%) (Auto) 2 % (0-3) Basophils (%) (Auto) 0 % (0-3) Neutrophils # (Auto) 8.4 x10^3uL (1.8-7.7) Lymphocytes # (Auto) 0.8 x10^3/uL (1.0-4.8) Monocytes # (Auto) 1.0 x10^3/uL (0.0-1.1) Eosinophils # (Auto) 0.2 x10^3/uL (0.0-0.7) Basophils # (Auto) 0.0 x10^3/uL (0.0-0.2) Sodium Level 143 mmol/L (136-145) Potassium Level 3.2 mmol/L (3.5-5.1) Chloride Level 108 mmol/L (98-107) Carbon Dioxide Level 27 mmol/L (21-32) Anion Gap 8 (6-14) Blood Urea Nitrogen 22 mg/dL (8-26) Creatinine 0.8 mg/dL (0.7-1.3) Estimated GFR (Cockcroft-Gault) 97.6 Glucose Level 126 mg/dL (70-99) Calcium Level 7.9 mg/dL (8.5-10.1) Magnesium Level 1.9 mg/dL (1.8-2.4) Laboratory Tests Test 02/17/19 11:24 02/17/19 16:42 02/17/19 20:56 02/18/19 08:35 Glucose (Fingerstick) 164 mg/dL (70-99) 151 mg/dL (70-99) 143 mg/dL (70-99) White Blood Count 10.4 x10^3/uL (4.0-11.0) Red Blood Count 3.49 x10^6/uL (4.30-5.70) Hemoglobin 10.5 g/dL (13.0-17.5) Hematocrit 30.8 % (39.0-53.0) Mean Corpuscular Volume 88 fL (79-100) Mean Corpuscular Hemoglobin 30 pg (25-35) Mean Corpuscular Hemoglobin Concent 34 g/dL (31-37) Red Cell Distribution Width 13.5 % (11.5-14.5) Platelet Count 134 x10^3/uL (140-400) Neutrophils (%) (Auto) 81 % (31-73) Lymphocytes (%) (Auto) 8 % (24-48) Monocytes (%) (Auto) 10 % (0-9) Eosinophils (%) (Auto) 2 % (0-3) Basophils (%) (Auto) 0 % (0-3) Neutrophils # (Auto) 8.4 x10^3uL (1.8-7.7) Lymphocytes # (Auto) 0.8 x10^3/uL (1.0-4.8) Monocytes # (Auto) 1.0 x10^3/uL (0.0-1.1) Eosinophils # (Auto) 0.2 x10^3/uL (0.0-0.7) Basophils # (Auto) 0.0 x10^3/uL (0.0-0.2) Sodium Level 143 mmol/L (136-145) Potassium Level 3.2 mmol/L (3.5-5.1) Chloride Level 108 mmol/L (98-107) Carbon Dioxide Level 27 mmol/L (21-32) Anion Gap 8 (6-14) Blood Urea Nitrogen 22 mg/dL (8-26) Creatinine 0.8 mg/dL (0.7-1.3) Estimated GFR (Cockcroft-Gault) 97.6 Glucose Level 126 mg/dL (70-99) Calcium Level 7.9 mg/dL (8.5-10.1) Magnesium Level 1.9 mg/dL (1.8-2.4) Medications Current Medications Ondansetron HCl (Zofran) 4 mg STK-MED ONCE .ROUTE ; Start 02/15/19 at 16:07; Stop 02/15/19 at 16:08; Status DC Fentanyl Citrate (Fentanyl 2ml Vial) 100 mcg STK-MED ONCE .ROUTE ; Start 02/15/19 at 16:07; Stop 02/15/19 at 16:08; Status DC Ondansetron HCl (Zofran) 4 mg 1X ONCE IV Last administered on 02/15/19at 16:10; Start 02/15/19 at 16:15; Stop 02/15/19 at 16:16; Status DC Fentanyl Citrate (Fentanyl 2ml Vial) 50 mcg 1X ONCE IV Last administered on 02/15/19 16:13; Start 02/15/19 at 16:15; Stop 02/15/19 at 16:16; Status DC Iohexol (Omnipaque 350 Mg/ml) 100 ml 1X ONCE IV Last administered on 02/15/19 16:30; Start 02/15/19 at 16:30; Stop 02/15/19 at 16:31; Status DC Sodium Chloride 1,000 ml @ 1,000 mls/hr 1X ONCE IV Last administered on 01/24 16:53; Start 02/15/19 at 17:00; Stop 02/15/19 at 17:59; Status DC Sodium Chloride 1,000 ml @ 125 mls/hr Q8H IV ; Start 02/15/19 at 17:41; Stop 02/15/19 at 21:53; Status DC Fentanyl Citrate (Fentanyl 2ml Vial) 50 mcg 1X ONCE IV Last administered on 02/15/19 17:55; Start 02/15/19 at 18:00; Stop 02/15/19 at 18:01; Status DC Amiodarone HCl (Cordarone) 150 mg 1X ONCE IVP Last administered on 02/15/19 18:16; Start 02/15/19 at 18:30; Stop 02/15/19 at 18:33; Status DC Amiodarone HCl 900 mg/Dextrose 518 ml @ 0 mls/hr CONT PRN IV SEE I/O RECORD Last administered on 02/15/19 19:02; Start 02/15/19 at 18:30; Stop 02/15/19 at 19:02; Status DC Aspirin (Aspirin) 300 mg 1X ONCE IA Last administered on 02/15/19at 19:02; Start 02/15/19 at 18:30; Stop 02/15/19 at 18:32; Status DC Morphine Sulfate (Morphine Sulfate) 2 mg PRN Q2HR PRN IV MODERATE PAIN Last administered on 02/16/19 11:14; Start 02/15/19 at 20:45 Ondansetron HCl (Zofran) 4 mg PRN Q6HRS PRN IV NAUSEA/VOMITING Last administered on 02/15/19 21:03; Start 02/15/19 at 20:45 Insulin Glargine (Lantus) 50 units QHS SQ ; Start 02/15/19 at 21:00; Stop 02/16/19 at 06:35; Status DC Insulin Human Lispro (HumaLOG) 0-5 UNITS TIDWMEALS SQ ; Start 02/16/19 at 08:00; Stop 02/16/19 at 10:16; Status DC Dextrose (Dextrose 50%-Water Syringe) 12.5 gm PRN Q15MIN PRN IV SEE COMMENTS; Start 02/15/19 at 20:45; Stop 02/16/19 at 10:27; Status DC Morphine Sulfate (Morphine Sulfate) 4 mg PRN Q2HR PRN IV SEVERE PAIN Last administered on 02/17/19at 09:41; Start 02/15/19 at 21:45 Pantoprazole Sodium (PROTONIX VIAL for IV PUSH) 40 mg 1X ONCE IVP Last administered on 02/15/19at 22:00; Start 02/15/19 at 22:00; Stop 02/15/19 at 22:01; Status DC Sodium Chloride 1,000 ml @ 30 mls/hr Q24H IV Last administered on 02/15/19at 22:00; Start 02/15/19 at 22:00; Stop 02/15/19 at 22:47; Status DC Throat Lozenges (Cepacol Sore Throat Lozenge) 1 wong PRN Q2HRS PRN PO SORE THROAT Last administered on 02/15/19at 22:44; Start 02/15/19 at 22:45; Stop 02/16/19 at 20:59; Status DC Sodium Chloride 1,000 ml @ 70 mls/hr [id number] IV Last administered on 02/18/19at 08:29; Start 02/15/19 at 23:00 Pantoprazole Sodium (PROTONIX VIAL for IV PUSH) 40 mg BIDAC IVP Last administered on 02/18/19at 08:36; Start 02/16/19 at 16:30 Metoprolol Tartrate (Lopressor Vial) 2.5 mg Q6HRS IVP Last administered on 02/16/19at 10:31; Start 02/16/19 at 10:00; Stop 02/16/19 at 13:37; Status DC Aspirin (Aspirin) 300 mg DAILY IA Last administered on 02/18/19at 08:30; Start 02/16/19 at 10:00 Amiodarone HCl 900 mg/Dextrose 518 ml @ 0 mls/hr CONT PRN IV SEE I/O RECORD Last administered on 02/16/19at 20:55; Start 02/16/19 at 09:45 Insulin Human Lispro (HumaLOG) 0-9 UNITS TIDWMEALS SQ ; Start 02/16/19 at 12:00 Dextrose (Dextrose 50%-Water Syringe) 12.5 gm PRN Q15MIN PRN IV SEE COMMENTS; Start 02/16/19 at 10:15 Insulin Glargine (Lantus) 20 units QHS SQ Last administered on 02/17/19at 22:10; Start 02/16/19 at 21:00 Metoprolol Tartrate (Lopressor Vial) 5 mg Q6HRS IVP Last administered on 02/18/19at 06:02; Start 02/16/19 at 18:00 Digoxin (Lanoxin) 500 mcg 1X ONCE IV Last administered on 02/16/19at 13:50; Start 02/16/19 at 13:45; Stop 02/16/19 at 13:46; Status DC Amiodarone HCl 150 mg/Dextrose 103 ml @ 618 mls/hr 1X ONCE IV Last administered on 02/16/19at 14:20; Start 02/16/19 at 14:00; Stop 02/16/19 at 14:09; Status DC Potassium Chloride/Water 50 ml @ 50 mls/hr 1X ONCE IV Last administered on 02/16/19at 14:21; Start 02/16/19 at 14:00; Stop 02/16/19 at 14:59; Status DC Benzocaine (Hurricaine One) 1 spray 1X ONCE MM Last administered on 02/16/19at 20:54; Start 02/16/19 at 20:15; Stop 02/16/19 at 20:16; Status DC Lidocaine HCl (Xylocaine 2% Topical 5gm Tube) 1 marco 1X ONCE TP Last administered on 02/16/19at 20:15; Start 02/16/19 at 20:15; Stop 02/16/19 at 20:16; Status DC Throat Lozenges (Cepacol Sore Throat Lozenge) 1 wong PRN Q2HRS PRN PO SORE THROAT; Start 02/16/19 at 21:00 Throat Lozenges (Chloraseptic) 1 spray PRN Q2HR PRN PO SORE THROAT; Start 02/16/19 at 21:00 Methylnaltrexone [place] (Relistor) 12 mg 1X ONCE SQ Last administered on 02/17/19at 15:49; Start 02/17/19 at 14:00; Stop 02/17/19 at 14:01; Status DC Lorazepam (Ativan Intensol) 2 mg PRN Q6HRS PRN SL ANXIETY / AGITATION Last administered on 02/17/19at 18:26; Start 02/17/19 at 18:00 Neostigmine Methylsulfate (Bloxiverz) 2 mg 1X ONCE IV Last administered on 02/18/19at 01:51; Start 02/18/19 at 02:00; Stop 02/18/19 at 02:01; Status DC Atropine Sulfate (ATROPINE 1mg SYRINGE) 1 mg 1X PRN PRN IV BRADYCARDIA; Start 02/18/19 at 01:15; Stop 02/19/19 at 01:14 Active Scripts Active Amiodarone Hcl 200 Mg Tablet 1 Tab PO BID Oxycodone Hcl Immed.release (Oxycodone Hcl) 5 Mg Tablet 5 Mg PO PRN Q4HRS PRN MDD 1 [Pantoprazole] 40 MG Tablet. 40 Mg PO DAILYAC MDD 1 Lantus Solostar (Insulin Glargine,Hum.rec.anlog) 100 Unit/1 Ml Insuln.pen 50 Units SQ QHS MDD 1 30 Days Aspirin Ec (Aspirin) 325 Mg Tablet. 325 Mg PO DAILYWBKFT MDD 1 Atorvastatin Calcium 20 Mg Tablet 20 Mg PO QHS MDD 1 Proair Hfa (Albuterol Sulfate) 8.5 Gm Hfa.aer.ad 2.5 Mg NEB PRN Q4HRS PRN MDD 1 30 Days Reported Lisinopril 5 Mg Tablet 1 Tab PO DAILY Lasix (Furosemide) 40 Mg Tablet 1 Tab PO PRN DAILY PRN Metoprolol Succinate ( Xl ) (Metoprolol Succinate) 100 Mg Tab.er.24h 1 Tab PO DAILY Vitals/I & O Vital Sign - Last 24 Hours 02/17/19 02/17/19 02/17/19 02/17/19 11:28 12:53 15:23 19:35 Temp 97.9 97.8 97.9 97.9 97.8 97.9 Pulse 97 99 90 103 Resp 18 16 18 B/P (MAP) 153/76 (101) 148/69 144/74 (97) 130/70 (90) Pulse Ox 95 95 97 O2 Delivery Room Air Room Air Room Air 02/17/19 02/17/19 02/18/19 02/18/19 20:00 23:44 02:00 02:15 Temp 97.9 98.1 97.9 98.1 Pulse 108 108 123 Resp 18 25 25 B/P (MAP) 141/66 (91) 156/68 (97) 132/71 (91) Pulse Ox 96 97 97 O2 Delivery Room Air Room Air Room Air Room Air 02/18/19 02/18/19 02/18/19 02/18/19 02:27 02:30 02:45 03:00 Pulse 140 124 88 94 Resp 25 18 14 B/P (MAP) 132/71 102/72 (82) 115/58 (77) 108/63 (78) Pulse Ox 98 96 98 O2 Delivery Room Air Room Air Room Air 02/18/19 02/18/19 02/18/19 02/18/19 03:35 04:00 05:00 06:02 Pulse 92 93 91 Resp 12 19 B/P (MAP) 117/65 (82) 131/71 (91) 136/67 Pulse Ox 97 96 O2 Delivery Room Air Room Air Room Air 02/18/19 02/18/19 07:00 08:00 Pulse 88 Resp 18 B/P (MAP) 127/69 (88) Pulse Ox 98 O2 Delivery Room Air Room Air l Intake and Output 02/17/19 02/17/19 02/18/19 15:00 23:00 07:00 Intake Total 250 ml 0 ml 1288 ml Output Total 2250 ml 400 ml Balance 250 ml -2250 ml 888 ml NEGRITA KENT MD Feb 18, 2019 10:30
--- NOTE | 2019-02-18 11:07 | PDOC ---
PROGRESS NOTES Subjective Subjective Feeling much better after receiving neostigmine Objective Objective Vital Signs Date Time Temp Pulse Resp B/P (MAP) Pulse Ox O2 Delivery O2 Flow Rate FiO2 02/18/19 08:00 Room Air 02/18/19 07:00 88 18 127/69 (88) 98 02/18/19 02:00 98.1 98.1 02/17/19 10:11 2.0 Intake and Output 02/18/19 06:59 Intake Total 1538 ml Output Total 2650 ml Balance -1112 ml Intake Oral 0 ml IV Total 1288 ml Blood Product IV Normal Saline Flush 250 ml Output Urine Total 1450 ml Gastric Drainage Total 1200 ml # Voids 1 # Bowel Movements 1 Physical Exam Abdomen: Soft, Other (distended ) Heart: Regular rate, Normal S1, Normal S2, No murmurs Extremities: No clubbing, No cyanosis General: Alert, Cooperative HEENT: Other (ng in place) Lungs: Clear to auscultation, Normal air movement MUSCULOSKELETAL: No deformity Neuro: Normal gait, Normal speech, Strength at 5/5 X4 ext, Normal tone, Sensation intact, Cranial nerves 3-12 NL, Reflexes 2+ Psych/Mental Status: Mental status NL Skin: No significant lesion Assessment Assessment 1. Abdominal pain/ileus: Improved with neostigmine. GI team following. 2. Cardiac Arrhythmia: AFIB RVR in ED telemetry showed few brief episodes of atrial fibrillation, presently sinus rhythm. Continue amiodarone for rhythm maintenance 3. 3V CAD s/p recent CABG with AL to LAD, SVG to OM, SVG to RPDA, stable. 4. Elevated troponin: trending down, expected with recent CABG 5. Chronic systolic HF with ICM; LVEF at 35-40%, compensated 6. Hypertension; controlled 7. DM2/ HLP Plan Plan of Care Problems Medical Problems: (1) Abdominal pain Status: Acute (2) Elevated troponin I level Status: Acute (3) Ileus Status: Acute (4) Nausea and vomiting Status: Acute (5) Renal insufficiency Status: Acute (6) Small bowel obstruction Status: Acute (7) Tachycardia Status: Acute Comment Review of Relevant I have reviewed the following items richie (where applicable) has been applied. Labs Laboratory Tests Test 02/17/19 11:24 02/17/19 16:42 02/17/19 20:56 02/18/19 08:35 Glucose (Fingerstick) 164 mg/dL (70-99) 151 mg/dL (70-99) 143 mg/dL (70-99) White Blood Count 10.4 x10^3/uL (4.0-11.0) Red Blood Count 3.49 x10^6/uL (4.30-5.70) Hemoglobin 10.5 g/dL (13.0-17.5) Hematocrit 30.8 % (39.0-53.0) Mean Corpuscular Volume 88 fL (79-100) Mean Corpuscular Hemoglobin 30 pg (25-35) Mean Corpuscular Hemoglobin Concent 34 g/dL (31-37) Red Cell Distribution Width 13.5 % (11.5-14.5) Platelet Count 134 x10^3/uL (140-400) Neutrophils (%) (Auto) 81 % (31-73) Lymphocytes (%) (Auto) 8 % (24-48) Monocytes (%) (Auto) 10 % (0-9) Eosinophils (%) (Auto) 2 % (0-3) Basophils (%) (Auto) 0 % (0-3) Neutrophils # (Auto) 8.4 x10^3uL (1.8-7.7) Lymphocytes # (Auto) 0.8 x10^3/uL (1.0-4.8) Monocytes # (Auto) 1.0 x10^3/uL (0.0-1.1) Eosinophils # (Auto) 0.2 x10^3/uL (0.0-0.7) Basophils # (Auto) 0.0 x10^3/uL (0.0-0.2) Sodium Level 143 mmol/L (136-145) Potassium Level 3.2 mmol/L (3.5-5.1) Chloride Level 108 mmol/L (98-107) Carbon Dioxide Level 27 mmol/L (21-32) Anion Gap 8 (6-14) Blood Urea Nitrogen 22 mg/dL (8-26) Creatinine 0.8 mg/dL (0.7-1.3) Estimated GFR (Cockcroft-Gault) 97.6 Glucose Level 126 mg/dL (70-99) Calcium Level 7.9 mg/dL (8.5-10.1) Magnesium Level 1.9 mg/dL (1.8-2.4) Medications Current Medications Atropine Sulfate (ATROPINE 1mg SYRINGE) 1 mg 1X PRN PRN IV BRADYCARDIA; Start 02/18/19 at 01:15; Stop 02/19/19 at 01:14 Lorazepam (Ativan Intensol) 2 mg PRN Q6HRS PRN SL ANXIETY / AGITATION Last ad ministered on 02/17/19at 18:26; Start 02/17/19 at 18:00 Methylnaltrexone [place] (Relistor) 12 mg 1X ONCE SQ Last administered on 02/17/19at 15:49; Start 02/17/19 at 14:00; Stop 02/17/19 at 14:01; Status DC Neostigmine Methylsulfate (Bloxiverz) 2 mg 1X ONCE IV Last administered on 02/18/19at 01:51; Start 02/18/19 at 02:00; Stop 02/18/19 at 02:01; Status DC Vitals/I & O Vital Sign - Last 24 Hours 02/17/19 02/17/19 02/17/19 02/17/19 11:28 12:53 15:23 19:35 Temp 97.9 97.8 97.9 97.9 97.8 97.9 Pulse 97 99 90 103 Resp 18 B/P (MAP) 153/76 (101) 148/69 144/74 (97) 130/70 (90) Pulse Ox 95 95 97 O2 Delivery Room Air Room Air Room Air 02/17/19 02/17/19 02/18/19 02/18/19 20:00 23:44 02:00 02:15 Temp 97.9 98.1 97.9 98.1 Pulse 108 108 123 Resp 18 25 B/P (MAP) 141/66 (91) 156/68 (97) 132/71 (91) Pulse Ox 96 97 97 O2 Delivery Room Air Room Air Room Air Room Air 02/18/19 02/18/19 02/18/19 02/18/19 02:27 02:30 02:45 03:00 Pulse 140 124 88 94 Resp 18 14 B/P (MAP) 132/71 102/72 (82) 115/58 (77) 108/63 (78) Pulse Ox 98 96 98 O2 Delivery Room Air Room Air Room Air 02/18/19 02/18/19 02/18/19 02/18/19 03:35 04:00 05:00 06:02 Pulse 92 93 91 Resp 12 19 B/P (MAP) 117/65 (82) 131/71 (91) 136/67 Pulse Ox 97 96 O2 Delivery Room Air Room Air Room Air 02/18/19 02/18/19 07:00 08:00 Pulse 88 Resp 18 B/P (MAP) 127/69 (88) Pulse Ox 98 O2 Delivery Room Air Room Air Intake and Output 02/17/19 02/17/19 02/18/19 14:59 22:59 06:59 Intake Total 250 ml 0 ml 1288 ml Output Total 2250 ml 400 ml Balance 250 ml -2250 ml 888 ml MATHEW SHEEHAN MD Feb 18, 2019 11:07
[2019-02-18] MEDS: AMIODARONE 900 MG in IV DEXTROSE 5% 500 ML IV PRN (12:43)
--- NOTE | 2019-02-18 13:25 | PDOC ---
Subjective: Subjective: Received Neostigmine overnight. Has had flauts and several bowel movements. NO abd pain Objective: Vital Signs: Vital Signs Date Time Temp Pulse Resp B/P (MAP) Pulse Ox O2 Delivery O2 Flow Rate FiO2 02/18/19 12:32 82 154/71 02/18/19 11:00 18 98 Room Air 02/18/19 02:00 98.1 98.1 02/17/19 10:11 2.0 Labs: Laboratory Tests Test 02/17/19 16:42 02/17/19 20:56 02/18/19 08:35 02/18/19 08:36 Glucose (Fingerstick) 151 mg/dL (70-99) 143 mg/dL (70-99) 120 mg/dL (70-99) White Blood Count 10.4 x10^3/uL (4.0-11.0) Red Blood Count 3.49 x10^6/uL (4.30-5.70) Hemoglobin 10.5 g/dL (13.0-17.5) Hematocrit 30.8 % (39.0-53.0) Mean Corpuscular Volume 88 fL (79-100) Mean Corpuscular Hemoglobin 30 pg (25-35) Mean Corpuscular Hemoglobin Concent 34 g/dL (31-37) Red Cell Distribution Width 13.5 % (11.5-14.5) Platelet Count 134 x10^3/uL (140-400) Neutrophils (%) (Auto) 81 % (31-73) Lymphocytes (%) (Auto) 8 % (24-48) Monocytes (%) (Auto) 10 % (0-9) Eosinophils (%) (Auto) 2 % (0-3) Basophils (%) (Auto) 0 % (0-3) Neutrophils # (Auto) 8.4 x10^3uL (1.8-7.7) Lymphocytes # (Auto) 0.8 x10^3/uL (1.0-4.8) Monocytes # (Auto) 1.0 x10^3/uL (0.0-1.1) Eosinophils # (Auto) 0.2 x10^3/uL (0.0-0.7) Basophils # (Auto) 0.0 x10^3/uL (0.0-0.2) Sodium Level 143 mmol/L (136-145) Potassium Level 3.2 mmol/L (3.5-5.1) Chloride Level 108 mmol/L (98-107) Carbon Dioxide Level 27 mmol/L (21-32) Anion Gap 8 (6-14) Blood Urea Nitrogen 22 mg/dL (8-26) Creatinine 0.8 mg/dL (0.7-1.3) Estimated GFR (Cockcroft-Gault) 97.6 Glucose Level 126 mg/dL (70-99) Calcium Level 7.9 mg/dL (8.5-10.1) Magnesium Level 1.9 mg/dL (1.8-2.4) Test 02/18/19 12:34 Glucose (Fingerstick) 125 mg/dL (70-99) Physical Exam: Physical Exam: GEN: NAD HEENT: OP clear. NGT in place CV: S1S2 without murmurs, rubs, or gallops RESP: CTAB without wheezing, rhonchi, or crackles ABD: NABS, SNT/ND EXT: No edema NEURO: AAO x 3 Assessment & Plan: Assessment : A 1) Dilated cecum 2) Ieus 3) MEGHANN 4) Hypokalemia Plan: P 1) Clamp NGT. If no further distention and continues flatus after 4 hours, f avor ice chips 2) Replace K 3) Check KUB in am SOUMYA ROUSE MD Feb 18, 2019 13:25
[2019-02-18] MEDS: POTASSIUM CHL 20MEQ PREMIX 50 ML IV SCH ×2 (14:30→15:43)
--- NOTE | 2019-02-18 15:29 | PDOC ---
SURGICAL PROGRESS NOTE Subjective Pt without c/o, multiple stools, denies pain, feels much better Vital Signs Vital Signs Date Time Temp Pulse Resp B/P (MAP) Pulse Ox O2 Delivery O2 Flow Rate FiO2 02/18/19 12:32 82 154/71 02/18/19 11:00 18 98 Room Air 02/18/19 02:00 98.1 98.1 02/17/19 10:11 2.0 I&O Intake and Output 02/18/19 06:59 Intake Total 1538 ml Output Total 2650 ml Balance -1112 ml Intake Oral 0 ml IV Total 1288 ml Blood Product IV Normal Saline Flush 250 ml Output Urine Total 1450 ml Gastric Drainage Total 1200 ml # Voids 1 # Bowel Movements 1 General: Alert, Oriented X3, Cooperative Abdomen: Soft, No tenderness Labs Laboratory Tests Test 02/16/19 20:39 02/17/19 07:16 02/17/19 11:24 02/17/19 16:42 Glucose (Fingerstick) 168 mg/dL (70-99) 161 mg/dL (70-99) 164 mg/dL (70-99) 151 mg/dL (70-99) Test 02/17/19 20:56 02/18/19 08:35 02/18/19 08:36 02/18/19 12:34 Glucose (Fingerstick) 143 mg/dL (70-99) 120 mg/dL (70-99) 125 mg/dL (70-99) White Blood Count 10.4 x10^3/uL (4.0-11.0) Red Blood Count 3.49 x10^6/uL (4.30-5.70) Hemoglobin 10.5 g/dL (13.0-17.5) Hematocrit 30.8 % (39.0-53.0) Mean Corpuscular Volume 88 fL (79-100) Mean Corpuscular Hemoglobin 30 pg (25-35) Mean Corpuscular Hemoglobin Concent 34 g/dL (31-37) Red Cell Distribution Width 13.5 % (11.5-14.5) Platelet Count 134 x10^3/uL (140-400) Neutrophils (%) (Auto) 81 % (31-73) Lymphocytes (%) (Auto) 8 % (24-48) Monocytes (%) (Auto) 10 % (0-9) Eosinophils (%) (Auto) 2 % (0-3) Basophils (%) (Auto) 0 % (0-3) Neutrophils # (Auto) 8.4 x10^3uL (1.8-7.7) Lymphocytes # (Auto) 0.8 x10^3/uL (1.0-4.8) Monocytes # (Auto) 1.0 x10^3/uL (0.0-1.1) Eosinophils # (Auto) 0.2 x10^3/uL (0.0-0.7) Basophils # (Auto) 0.0 x10^3/uL (0.0-0.2) Sodium Level 143 mmol/L (136-145) Potassium Level 3.2 mmol/L (3.5-5.1) Chloride Level 108 mmol/L (98-107) Carbon Dioxide Level 27 mmol/L (21-32) Anion Gap 8 (6-14) Blood Urea Nitrogen 22 mg/dL (8-26) Creatinine 0.8 mg/dL (0.7-1.3) Estimated GFR (Cockcroft-Gault) 97.6 Glucose Level 126 mg/dL (70-99) Calcium Level 7.9 mg/dL (8.5-10.1) Magnesium Level 1.9 mg/dL (1.8-2.4) Laboratory Tests Test 02/17/19 16:42 02/17/19 20:56 02/18/19 08:35 02/18/19 08:36 Glucose (Fingerstick) 151 mg/dL (70-99) 143 mg/dL (70-99) 120 mg/dL (70-99) White Blood Count 10.4 x10^3/uL (4.0-11.0) Red Blood Count 3.49 x10^6/uL (4.30-5.70) Hemoglobin 10.5 g/dL (13.0-17.5) Hematocrit 30.8 % (39.0-53.0) Mean Corpuscular Volume 88 fL (79-100) Mean Corpuscular Hemoglobin 30 pg (25-35) Mean Corpuscular Hemoglobin Concent 34 g/dL (31-37) Red Cell Distribution Width 13.5 % (11.5-14.5) Platelet Count 134 x10^3/uL (140-400) Neutrophils (%) (Auto) 81 % (31-73) Lymphocytes (%) (Auto) 8 % (24-48) Monocytes (%) (Auto) 10 % (0-9) Eosinophils (%) (Auto) 2 % (0-3) Basophils (%) (Auto) 0 % (0-3) Neutrophils # (Auto) 8.4 x10^3uL (1.8-7.7) Lymphocytes # (Auto) 0.8 x10^3/uL (1.0-4.8) Monocytes # (Auto) 1.0 x10^3/uL (0.0-1.1) Eosinophils # (Auto) 0.2 x10^3/uL (0.0-0.7) Basophils # (Auto) 0.0 x10^3/uL (0.0-0.2) Sodium Level 143 mmol/L (136-145) Potassium Level 3.2 mmol/L (3.5-5.1) Chloride Level 108 mmol/L (98-107) Carbon Dioxide Level 27 mmol/L (21-32) Anion Gap 8 (6-14) Blood Urea Nitrogen 22 mg/dL (8-26) Creatinine 0.8 mg/dL (0.7-1.3) Estimated GFR (Cockcroft-Gault) 97.6 Glucose Level 126 mg/dL (70-99) Calcium Level 7.9 mg/dL (8.5-10.1) Magnesium Level 1.9 mg/dL (1.8-2.4) Test 02/18/19 12:34 Glucose (Fingerstick) 125 mg/dL (70-99) Problem List Problems Medical Problems: (1) Abdominal pain Status: Acute (2) Elevated troponin I level Status: Acute (3) Ileus Status: Acute (4) Nausea and vomiting Status: Acute (5) Renal insufficiency Status: Acute (6) Small bowel obstruction Status: Acute (7) Tachycardia Status: Acute Assessment/Plan ileus, appears improved d/w GI agree with clamping ALYSONT ALEX LOPEZ MD Feb 18, 2019 15:29
--- NOTE | 2019-02-18 16:05 | NUR ---
RN NOTE patient transferred from ICU 104. patients NG clamped and has IVF running as ordered. patient settled into the room call light within reach and family at bedside.
[2019-02-18] MEDS: INSULIN GLARGINE 300 UNITS/3 ML INSULN.PEN. SQ SCH (21:00)
[2019-02-19] MEDS: METOPROLOL TARTRATE 5 MG/5 ML VIAL. IVP SCH ×3 (00:08→17:14)
[2019-02-19 03:00] VITALS: BP 161/78
[2019-02-19 07:46] VITALS: BP 177/88
--- NOTE | 2019-02-19 07:47 | RAD ---
KUB History: DILATED CECUM Comparison: February 18, 2019 Findings: 2 supine AP views of the abdomen are submitted. There is again gas distention of the large and small bowel overall greater. There is some gas in the rectosigmoid colon in the pelvis. Exam is insufficient for the evaluation for free air. There is again enteric catheter coursing into stomach. Impression: 1. There is persistent gas dilated large and small bowel, likely somewhat greater. Electronically signed by: Cristofer Forbes MD (02/19/2019 7:44 AM) [facility]
[2019-02-19] MEDS: INSULIN LISPRO 300 UNITS/3 ML INSULN.PEN. SQ SCH ×3 (08:00→16:59)
[2019-02-19] MEDS ORDERED: POTASSIUM CL 40MEQ IN 0.9%NACL 1,000 ML IV SCH (09:30)
[2019-02-19] MEDS: PANTOPRAZOLE IV PUSH 40 MG VIAL. IVP SCH (09:36)
[2019-02-19] MEDS: ASPIRIN RECTAL 300 MG SUPP. PR SCH (09:37)
--- NOTE | 2019-02-19 09:47 | PDOC ---
PROGRESS NOTES Chief Complaint Chief Complaint Ileus, distal SBO S/P NEOSTIGMINE (02/17) CAD RECENT CABG x 3 (AL to LAD, SVG to RPDA, SVG to OM) with Left endoscopic greater saphenous vein harvest ST elevation myocardial infarction - Acute systolic heart failure (EF 20-25%) - IABP placed REspi failure s/post CABG Diabetes - HTN - NSVT in the background of NG tube attempt insertion at ER for 02/15/19 History of Present Illness History of Present Illness GS was able to successfully put NG tube on 02/16/19 with no arrhythmias Transferred to ICU by licensed occupational therapy assistant GI in case bradycardia after neostigmine S.p neostigmine with almost complete resolve of sxs clinically Transferred out of ICU 02/18/19 after neostigmine administration NGT clamped since 02/18/19 No abdominal pain, no nausea emesis, still moving BM, still flatus. No NG output. But does complain of maybe a little bit of abdominal tightness more Interval KUB shows maybe slight worsening of his dilated bowels, compared to the last film yesterday, but also could be hardly noticeable individual/reader- dependent Tachycardic 90s, blood pressure 180s today-was okay yesterday but we are creeping up now Plan Await for GS if okay to DC NG tube He is getting quite impatient which is totally understandable, he is frustrated. He asks if his ice chips that he is munching is making his ileus worse I did advise him to not exceed 4 cups of ice chips in a 24-hour duration Increase metoprolol to 10 IV every 6 from 5 Continue amiodarone drip per cardiology or thoracic surgery-wasn't on amio by mouth but of course start nothing by mouth for now Discussed with and RN at bedside Vitals Vitals Vital Signs Date Time Temp Pulse Resp B/P (MAP) Pulse Ox O2 Delivery O2 Flow Rate FiO2 02/19/19 07:54 Room Air 2.0 02/19/19 07:46 98.1 91 24 177/88 (117) 98 98.1 Physical Exam Physical Exam GENERAL: NAD, Alert HEENT: PERRL, OC/OP NECK: Supple, no JVD, no LN LUNGS: Clear HEART: S1S2, no gallop, no murmur ABD: Soft, NT, no organomegaly, no rebound EXT: No edema, no cyanosis [employer]: Alert, 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, no focal neurologic deficit SKIN: No rash IV: ok General: Alert, Oriented X3, Cooperative Heart: Regular rate, Normal S1, Normal S2, No murmurs Lungs: Clear, Crackles, Other Abdomen: Soft, No tenderness Extremities: No clubbing, No cyanosis Skin: No significant lesion Labs LABS Laboratory Tests Test 02/18/19 12:34 02/18/19 17:56 02/18/19 21:17 02/19/19 07:21 Glucose (Fingerstick) 125 mg/dL (70-99) 130 mg/dL (70-99) 139 mg/dL (70-99) 131 mg/dL (70-99) Review of Systems Review of Systems Abdominal tightness, the rest of ROS 14 point negative Assessment and Plan Assessmemt and Plan Problems Medical Problems: (1) Abdominal pain Status: Acute (2) Elevated troponin I level Status: Acute (3) Ileus Status: Acute (4) Nausea and vomiting Status: Acute (5) Renal insufficiency Status: Acute (6) Small bowel obstruction Status: Acute (7) Tachycardia Status: Acute Comment Review of Relevant I have reviewed the following items richie (where applicable) has been applied. Labs Laboratory Tests Test 02/17/19 11:24 02/17/19 16:42 02/17/19 20:56 02/18/19 08:35 Glucose (Fingerstick) 164 mg/dL (70-99) 151 mg/dL (70-99) 143 mg/dL (70-99) White Blood Count 10.4 x10^3/uL (4.0-11.0) Red Blood Count 3.49 x10^6/uL (4.30-5.70) Hemoglobin 10.5 g/dL (13.0-17.5) Hematocrit 30.8 % (39.0-53.0) Mean Corpuscular Volume 88 fL (79-100) Mean Corpuscular Hemoglobin 30 pg (25-35) Mean Corpuscular Hemoglobin Concent 34 g/dL (31-37) Red Cell Distribution Width 13.5 % (11.5-14.5) Platelet Count 134 x10^3/uL (140-400) Neutrophils (%) (Auto) 81 % (31-73) Lymphocytes (%) (Auto) 8 % (24-48) Monocytes (%) (Auto) 10 % (0-9) Eosinophils (%) (Auto) 2 % (0-3) Basophils (%) (Auto) 0 % (0-3) Neutrophils # (Auto) 8.4 x10^3uL (1.8-7.7) Lymphocytes # (Auto) 0.8 x10^3/uL (1.0-4.8) Monocytes # (Auto) 1.0 x10^3/uL (0.0-1.1) Eosinophils # (Auto) 0.2 x10^3/uL (0.0-0.7) Basophils # (Auto) 0.0 x10^3/uL (0.0-0.2) Sodium Level 143 mmol/L (136-145) Potassium Level 3.2 mmol/L (3.5-5.1) Chloride Level 108 mmol/L (98-107) Carbon Dioxide Level 27 mmol/L (21-32) Anion Gap 8 (6-14) Blood Urea Nitrogen 22 mg/dL (8-26) Creatinine 0.8 mg/dL (0.7-1.3) Estimated GFR (Cockcroft-Gault) 97.6 Glucose Level 126 mg/dL (70-99) Calcium Level 7.9 mg/dL (8.5-10.1) Magnesium Level 1.9 mg/dL (1.8-2.4) Test 02/18/19 08:36 02/18/19 12:34 02/18/19 17:56 02/18/19 21:17 Glucose (Fingerstick) 120 mg/dL (70-99) 125 mg/dL (70-99) 130 mg/dL (70-99) 139 mg/dL (70-99) Test 02/19/19 07:21 Glucose (Fingerstick) 131 mg/dL (70-99) Laboratory Tests Test 02/18/19 12:34 02/18/19 17:56 02/18/19 21:17 02/19/19 07:21 Glucose (Fingerstick) 125 mg/dL (70-99) 130 mg/dL (70-99) 139 mg/dL (70-99) 131 mg/dL (70-99) Medications Current Medications Ondansetron HCl (Zofran) 4 mg STK-MED ONCE .ROUTE ; Start 02/15/19 at 16:07; Stop 02/15/19 at 16:08; Status DC Fentanyl Citrate (Fentanyl 2ml Vial) 100 mcg STK-MED ONCE .ROUTE ; Start 02/15/19 at 16:07; Stop 02/15/19 at 16:08; Status DC Ondansetron HCl (Zofran) 4 mg 1X ONCE IV Last administered on 02/15/19at 16:10; Start 02/15/19 at 16:15; Stop 02/15/19 at 16:16; Status DC Fentanyl Citrate (Fentanyl 2ml Vial) 50 mcg 1X ONCE IV Last administered on 02/15/19at 16:13; Start 02/15/19 at 16:15; Stop 02/15/19 at 16:16; Status DC Iohexol (Omnipaque 350 Mg/ml) 100 ml 1X ONCE IV Last administered on 02/15/19at 16:30; Start 02/15/19 at 16:30; Stop 02/15/19 at 16:31; Status DC Sodium Chloride 1,000 ml @ 1,000 mls/hr 1X ONCE IV Last administered on 02/15/19at 16:53; Start 02/15/19 at 17:00; Stop 02/15/19 at 17:59; Status DC Sodium Chloride 1,000 ml @ 125 mls/hr Q8H IV ; Start 02/15/19 at 17:41; Stop 02/15/19 at 21:53; Status DC Fentanyl Citrate (Fentanyl 2ml Vial) 50 mcg 1X ONCE IV Last administered on 02/15/19at 17:55; Start 02/15/19 at 18:00; Stop 02/15/19 at 18:01; Status DC Amiodarone HCl (Cordarone) 150 mg 1X ONCE IVP Last administered on 02/15/19at 18:16; Start 02/15/19 at 18:30; Stop 02/15/19 at 18:33; Status DC Amiodarone HCl 900 mg/Dextrose 518 ml @ 0 mls/hr CONT PRN IV SEE I/O RECORD Last administered on 02/15/19at 19:02; Start 02/15/19 at 18:30; Stop 02/15/19 at 19:02; Status DC Aspirin (Aspirin) 300 mg 1X ONCE OR Last administered on 02/15/19 19:02; Start 02/15/19 at 18:30; Stop 02/15/19 at 18:32; Status DC Morphine Sulfate (Morphine Sulfate) 2 mg PRN Q2HR PRN IV MODERATE PAIN Last administered on 02/16/19at 11:14; Start 02/15/19 at 20:45 Ondansetron HCl (Zofran) 4 mg PRN Q6HRS PRN IV NAUSEA/VOMITING Last administered on 02/15/19 21:03; Start 02/15/19 at 20:45 Insulin Glargine (Lantus) 50 units QHS SQ ; Start 02/15/19 at 21:00; Stop 02/16/19 at 06:35; Status DC Insulin Human Lispro (HumaLOG) 0-5 UNITS TIDWMEALS SQ ; Start 02/16/19 at 08:00; Stop 02/16/19 at 10:16; Status DC Dextrose (Dextrose 50%-Water Syringe) 12.5 gm PRN Q15MIN PRN IV SEE COMMENTS; Start 02/15/19 at 20:45; Stop 02/16/19 at 10:27; Status DC Morphine Sulfate (Morphine Sulfate) 4 mg PRN Q2HR PRN IV SEVERE PAIN Last administered on 02/17/19 09:41; Start 02/15/19 at 21:45 Pantoprazole Sodium (PROTONIX VIAL for IV PUSH) 40 mg 1X ONCE IVP Last administered on 02/15/19 22:00; Start 02/15/19 at 22:00; Stop 02/15/19 at 22:01; Status DC Sodium Chloride 1,000 ml @ 30 mls/hr Q24H IV Last administered on 02/15/19 22:00; Start 02/15/19 at 22:00; Stop 02/15/19 at 22:47; Status DC Throat Lozenges (Cepacol Sore Throat Lozenge) 1 wong PRN Q2HRS PRN PO SORE THROAT Last administered on 02/15/19 22:44; Start 02/15/19 at 22:45; Stop 02/16/19 at 20:59; Status DC Sodium Chloride 1,000 ml @ 70 mls/hr [id number] IV Last administered on 02/18/19 17:58; Start 02/15/19 at 23:00; Stop 02/19/19 at 08:57; Status DC Pantoprazole Sodium (PROTONIX VIAL for IV PUSH) 40 mg BIDAC IVP Last administered on 02/19/19 09:36; Start 02/16/19 at 16:30 Metoprolol Tartrate (Lopressor Vial) 2.5 mg Q6HRS IVP Last administered on 02/16/19 10:31; Start 02/16/19 at 10:00; Stop 02/16/19 at 13:37; Status DC Aspirin (Aspirin) 300 mg DAILY OR Last administered on 02/19/19 09:37; Start 02/16/19 at 10:00 Amiodarone HCl 900 mg/Dextrose 518 ml @ 0 mls/hr CONT PRN IV SEE I/O RECORD Last administered on 02/18/19 12:43; Start 02/16/19 at 09:45 Insulin Human Lispro (HumaLOG) 0-9 UNITS TIDWMEALS SQ ; Start 02/16/19 at 12:00 Dextrose (Dextrose 50%-Water Syringe) 12.5 gm PRN Q15MIN PRN IV SEE COMMENTS; Start 02/16/19 at 10:15 Insulin Glargine (Lantus) 20 units QHS SQ Last administered on 02/17/19 22:10; Start 02/16/19 at 21:00 Metoprolol Tartrate (Lopressor Vial) 5 mg Q6HRS IVP Last administered on 02/19/19 06:13; Start 02/16/19 at 18:00 Digoxin (Lanoxin) 500 mcg 1X ONCE IV Last administered on 02/16/19at 13:50; Start 02/16/19 at 13:45; Stop 02/16/19 at 13:46; Status DC Amiodarone HCl 150 mg/Dextrose 103 ml @ 618 mls/hr 1X ONCE IV Last administered on 02/16/19 14:20; Start 02/16/19 at 14:00; Stop 02/16/19 at 14:09; Status DC Potassium Chloride/Water 50 ml @ 50 mls/hr 1X ONCE IV Last administered on 02/16/19 14:21; Start 02/16/19 at 14:00; Stop 02/16/19 at 14:59; Status DC Benzocaine (Hurricaine One) 1 spray 1X ONCE MM Last administered on 02/16/19at 20:54; Start 02/16/19 at 20:15; Stop 02/16/19 at 20:16; Status DC Lidocaine HCl (Xylocaine 2% Topical 5gm Tube) 1 marco 1X ONCE TP Last administered on 02/16/19at 20:15; Start 02/16/19 at 20:15; Stop 02/16/19 at 20:16; Status DC Throat Lozenges (Cepacol Sore Throat Lozenge) 1 wong PRN Q2HRS PRN PO SORE THROAT; Start 02/16/19 at 21:00 Throat Lozenges (Chloraseptic) 1 spray PRN Q2HR PRN PO SORE THROAT; Start 02/16/19 at 21:00 Methylnaltrexone [place] (Relistor) 12 mg 1X ONCE SQ Last administered on 02/17/19at 15:49; Start 02/17/19 at 14:00; Stop 02/17/19 at 14:01; Status DC Lorazepam (Ativan Intensol) 2 mg PRN Q6HRS PRN SL ANXIETY / AGITATION Last administered on 02/17/19at 18:26; Start 02/17/19 at 18:00 Neostigmine Methylsulfate (Bloxiverz) 2 mg 1X ONCE IV Last administered on 02/18/19at 01:51; Start 02/18/19 at 02:00; Stop 02/18/19 at 02:01; Status DC Atropine Sulfate (ATROPINE 1mg SYRINGE) 1 mg 1X PRN PRN IV BRADYCARDIA; Start 02/18/19 at 01:15; Stop 02/19/19 at 01:14; Status DC Potassium Chloride/Water 50 ml @ 50 mls/hr Q1H IV Last administered on 02/18/19at 15:43; Start 02/18/19 at 14:00; Stop 02/18/19 at 15:59; Status DC Potassium Chloride/Sodium Chloride 1,000 ml @ 75 mls/hr [id number] IV Last administered on 02/19/19at 09:37; Start 02/19/19 at 09:30 Active Scripts Active Amiodarone Hcl 200 Mg Tablet 1 Tab PO BID Oxycodone Hcl Immed.release (Oxycodone Hcl) 5 Mg Tablet 5 Mg PO PRN Q4HRS PRN MDD 1 [Pantoprazole] 40 MG Tablet. 40 Mg PO DAILYAC MDD 1 Lantus Solostar (Insulin Glargine,Hum.rec.anlog) 100 Unit/1 Ml Insuln.pen 50 Units SQ QHS MDD 1 30 Days Aspirin Ec (Aspirin) 325 Mg Tablet. 325 Mg PO [id number] MDD 1 Atorvastatin Calcium 20 Mg Tablet 20 Mg PO QHS MDD 1 Proair Hfa (Albuterol Sulfate) 8.5 Gm Hfa.aer.ad 2.5 Mg NEB PRN Q4HRS PRN MDD 1 30 Days Reported Lisinopril 5 Mg Tablet 1 Tab PO DAILY Lasix (Furosemide) 40 Mg Tablet 1 Tab PO PRN DAILY PRN Metoprolol Succinate ( Xl ) (Metoprolol Succinate) 100 Mg Tab.er.24h 1 Tab PO DAILY Vitals/I & O Vital Sign - Last 24 Hours 02/18/19 02/18/19 02/18/19 02/18/19 11:00 12:32 15:59 16:00 Temp 97.9 97.9 Pulse 91 82 96 98 Resp 18 18 B/P (MAP) 140/66 (90) 154/71 156/69 (98) 156/69 (98) Pulse Ox 98 95 O2 Delivery Room Air Room Air 02/18/19 02/18/19 02/18/19 02/18/19 17:01 17:57 18:01 19:15 Temp 97.9 97.9 Pulse 94 98 98 94 Resp 24 B/P (MAP) 149/69 (95) 149/69 156/78 (104) 171/67 (101) Pulse Ox 95 O2 Delivery Room Air 02/18/19 02/18/19 02/19/19 02/19/19 20:07 23:25 00:08 03:00 Temp 97.9 97.9 Pulse 99 103 91 Resp 22 21 B/P (MAP) 165/72 (103) 165/72 161/78 (105) Pulse Ox 95 95 O2 Delivery Room Air Room Air Room Air O2 Flow Rate 2.0 02/19/19 02/19/19 02/19/19 06:13 07:46 07:54 Temp 98.1 98.1 Pulse 96 91 Resp 24 B/P (MAP) 172/77 177/88 (117) Pulse Ox 98 O2 Delivery Room Air Room Air O2 Flow Rate 2.0 Intake and Output 02/18/19 02/18/19 02/19/19 14:59 22:59 06:59 Intake Total 0 ml 0 ml Output Total 1 ml Balance -1 ml 0 ml NEGRITA KENT MD Feb 19, 2019 09:47
[2019-02-19 10:54] VITALS: BP 151/81
--- NOTE | 2019-02-19 11:08 | PDOC ---
Subjective: Subjective: Had three BMs this am. NGT clamped Objective: Vital Signs: Vital Signs Date Time Temp Pulse Resp B/P (MAP) Pulse Ox O2 Delivery O2 Flow Rate FiO2 02/19/19 10:54 97.8 99 28 151/81 (104) 97 Room Air 97.8 02/19/19 07:54 2.0 Labs: Laboratory Tests Test 02/18/19 12:34 02/18/19 17:56 02/18/19 21:17 02/19/19 07:21 Glucose (Fingerstick) 125 mg/dL (70-99) 130 mg/dL (70-99) 139 mg/dL (70-99) 131 mg/dL (70-99) Test 02/19/19 10:13 Glucose (Fingerstick) 142 mg/dL (70-99) Physical Exam: Physical Exam: Physical Exam: Physical Exam: GEN: NAD HEENT: OP clear. NGT in place CV: S1S2 without murmurs, rubs, or gallops RESP: CTAB without wheezing, rhonchi, or crackles ABD: NABS, SNT/ND EXT: No edema NEURO: AAO x 3 Assessment & Plan: Assessment : A 1) Dilated cecum 2) Ieus 3) MEGHANN 4) Hypokalemia Plan: P 1) Will try clear liquid diet with NGT in place. If he tolerates this, okay to d/c NGT and ADAT 2) check K and replace as needed 3) Check KUB in am SOUMYA ROUSE MD Feb 19, 2019 11:08
[2019-02-19 11:22] LABS: CALCIUM 7.7 mg/dL (8.5-10.1); CREATININE 0.8 mg/dL (0.7-1.3); GFR 97.6; POTASSIUM 3.3 mmol/L (3.5-5.1)
--- NOTE | 2019-02-19 11:37 | PDOC ---
PROGRESS NOTES Subjective Subjective feeling better. Objective Objective Vital Signs Date Time Temp Pulse Resp B/P (MAP) Pulse Ox O2 Delivery O2 Flow Rate FiO2 02/19/19 10:54 97.8 99 28 151/81 (104) 97 Room Air 97.8 02/19/19 07:54 2.0 Intake and Output 02/19/19 07:00 Intake Total 0 ml Output Total 1 ml Balance -1 ml Intake Oral 0 ml Output Urine Total 0 ml Stool Total 1 ml # Voids 2 # Bowel Movements 1 Physical Exam Abdomen: Soft, No tenderness Heart: Regular rate, Normal S1, Normal S2, No murmurs Extremities: No clubbing, No cyanosis General: Alert, Oriented X3, Cooperative HEENT: Other (ng in place) Lungs: Clear to auscultation, Normal air movement MUSCULOSKELETAL: No deformity Neuro: Normal gait, Normal speech, Strength at 5/5 X4 ext, Normal tone, Sensation intact, Cranial nerves 3-12 NL, Reflexes 2+ Psych/Mental Status: Mental status NL Skin: No significant lesion Assessment Assessment 1. Abdominal pain/ileus: Improved with neostigmine. GI team following. 2. Cardiac Arrhythmia: AFIB RVR in ED telemetry showed few brief episodes of atrial fibrillation, presently sinus rhythm. Continue amiodarone for rhythm maintenance 3. 3V CAD s/p recent CABG with AL to LAD, SVG to OM, SVG to RPDA, stable. 4. Elevated troponin: trending down, expected with recent CABG 5. Chronic systolic HF with ICM; LVEF at 35-40%, compensated 6. Hypertension; blood pressure slightly elevated. Resume oral medications once able to take PO 7. DM2/ HLP Plan Plan of Care Problems Medical Problems: (1) Abdominal pain Status: Acute (2) Elevated troponin I level Status: Acute (3) Ileus Status: Acute (4) Nausea and vomiting Status: Acute (5) Renal insufficiency Status: Acute (6) Small bowel obstruction Status: Acute (7) Tachycardia Status: Acute Comment Review of Relevant I have reviewed the following items richie (where applicable) has been applied. Labs Laboratory Tests Test 02/18/19 12:34 02/18/19 17:56 02/18/19 21:17 02/19/19 07:21 Glucose (Fingerstick) 125 mg/dL (70-99) 130 mg/dL (70-99) 139 mg/dL (70-99) 131 mg/dL (70-99) Test 02/19/19 10:13 02/19/19 10:40 Glucose (Fingerstick) 142 mg/dL (70-99) Sodium Level 140 mmol/L (136-145) Potassium Level 3.3 mmol/L (3.5-5.1) Chloride Level 105 mmol/L (98-107) Carbon Dioxide Level 23 mmol/L (21-32) Anion Gap 12 (6-14) Blood Urea Nitrogen 17 mg/dL (8-26) Creatinine 0.8 mg/dL (0.7-1.3) Estimated GFR (Cockcroft-Gault) 97.6 Glucose Level 223 mg/dL (70-99) Calcium Level 7.7 mg/dL (8.5-10.1) Medications Current Medications Metoprolol Tartrate (Lopressor Vial) 10 mg Q6HRS IVP ; Start 02/19/19 at 12:00 Potassium Chloride/Sodium Chloride 1,000 ml @ 75 mls/hr [id number] IV Last administered on 02/19/19at 09:37; Start 02/19/19 at 09:30 Potassium Chloride/Water 50 ml @ 50 mls/hr Q1H IV Last administered on 02/18/19at 15:43; Start 02/18/19 at 14:00; Stop 02/18/19 at 15:59; Status DC Vitals/I & O Vital Sign - Last 24 Hours 02/18/19 02/18/19 02/18/19 02/18/19 12:32 15:59 16:00 17:01 Temp 97.9 97.9 Pulse 82 96 98 94 Resp 18 B/P (MAP) 154/71 156/69 (98) 156/69 (98) 149/69 (95) Pulse Ox 95 O2 Delivery Room Air 02/18/19 02/18/19 02/18/19 02/18/19 17:57 18:01 19:15 20:07 Temp 97.9 97.9 Pulse 98 98 94 Resp 24 B/P (MAP) 149/69 156/78 (104) 171/67 (101) Pulse Ox 95 O2 Delivery Room Air Room Air O2 Flow Rate 2.0 02/18/19 02/19/19 02/19/19 02/19/19 23:25 00:08 03:00 06:13 Temp 97.9 97.9 Pulse 99 103 91 96 Resp B/P (MAP) 165/72 (103) 165/72 161/78 (105) 172/77 Pulse Ox 95 95 O2 Delivery Room Air Room Air 02/19/19 02/19/19 02/19/19 07:46 07:54 10:54 Temp 98.1 97.8 98.1 97.8 Pulse 91 99 Resp B/P (MAP) 177/88 (117) 151/81 (104) Pulse Ox 98 97 O2 Delivery Room Air Room Air Room Air O2 Flow Rate 2.0 Intake and Output 02/18/19 02/18/19 02/19/19 15:00 23:00 07:00 Intake Total 0 ml 0 ml Output Total 1 ml Balance -1 ml 0 ml MATHEW SHEEHAN MD Feb 19, 2019 11:37
[2019-02-19] MEDS ORDERED: METOPROLOL TARTRATE 5 MG/5 ML VIAL. IVP SCH (12:00)
[2019-02-19] MEDS ORDERED: POLYVINYL ALCOHOL 1.4% OPHTH SOLUTION 15ML BOTTLE. OU PRN (12:30)
[2019-02-19] MEDS ORDERED: FUROSEMIDE 40 MG TABLET. PO PRN (14:00)
[2019-02-19] MEDS ORDERED: oxyCODONE IR 5 MG TABLET PO PRN (14:00)
[2019-02-19] MEDS ORDERED: ALBUTEROL SULFATE 2.5 MG/3 ML NEBU. NEB PRN (14:00)
[2019-02-19] MEDS ORDERED: AMIODARONE 900 MG in IV DEXTROSE 5% 500 ML IV PRN (14:15)
[2019-02-19] MEDS: POTASSIUM CL 40MEQ IN 0.9%NACL 1,000 ML IV SCH ×2 (14:15→21:24)
[2019-02-19] MEDS ORDERED: POTASSIUM CHLORIDE 20 MEQ TABLET.ER. PO ONE (14:30)
[2019-02-19] MEDS ORDERED: METOPROLOL SUCC 24HR ER 100 MG TAB.ER.24H. PO SCH (14:30)
[2019-02-19] MEDS ORDERED: AMIODARONE HCL 200 MG TABLET. PO SCH (14:30)
[2019-02-19] MEDS ORDERED: LISINOPRIL 5 MG TABLET. PO SCH (14:30)
--- NOTE | 2019-02-19 15:13 | PDOC ---
SURGICAL PROGRESS NOTE Subjective Pt without c/o except NGT, no N/V, no abd pain, passing flatus and stool Vital Signs Vital Signs Date Time Temp Pulse Resp B/P (MAP) Pulse Ox O2 Delivery O2 Flow Rate FiO2 02/19/19 12:49 157/74 02/19/19 10:54 97.8 99 28 97 Room Air 97.8 02/19/19 07:54 2.0 I&O Intake and Output 02/19/19 07:00 Intake Total 0 ml Output Total 1 ml Balance -1 ml Intake Oral 0 ml Output Urine Total 0 ml Stool Total 1 ml # Voids 2 # Bowel Movements 1 General: Alert, Oriented X3, Cooperative, No acute distress Abdomen: Soft, No tenderness Labs Laboratory Tests Test 02/17/19 16:42 02/17/19 20:56 02/18/19 08:35 02/18/19 08:36 Glucose (Fingerstick) 151 mg/dL (70-99) 143 mg/dL (70-99) 120 mg/dL (70-99) White Blood Count 10.4 x10^3/uL (4.0-11.0) Red Blood Count 3.49 x10^6/uL (4.30-5.70) Hemoglobin 10.5 g/dL (13.0-17.5) Hematocrit 30.8 % (39.0-53.0) Mean Corpuscular Volume 88 fL (79-100) Mean Corpuscular Hemoglobin 30 pg (25-35) Mean Corpuscular Hemoglobin Concent 34 g/dL (31-37) Red Cell Distribution Width 13.5 % (11.5-14.5) Platelet Count 134 x10^3/uL (140-400) Neutrophils (%) (Auto) 81 % (31-73) Lymphocytes (%) (Auto) 8 % (24-48) Monocytes (%) (Auto) 10 % (0-9) Eosinophils (%) (Auto) 2 % (0-3) Basophils (%) (Auto) 0 % (0-3) Neutrophils # (Auto) 8.4 x10^3uL (1.8-7.7) Lymphocytes # (Auto) 0.8 x10^3/uL (1.0-4.8) Monocytes # (Auto) 1.0 x10^3/uL (0.0-1.1) Eosinophils # (Auto) 0.2 x10^3/uL (0.0-0.7) Basophils # (Auto) 0.0 x10^3/uL (0.0-0.2) Sodium Level 143 mmol/L (136-145) Potassium Level 3.2 mmol/L (3.5-5.1) Chloride Level 108 mmol/L (98-107) Carbon Dioxide Level 27 mmol/L (21-32) Anion Gap 8 (6-14) Blood Urea Nitrogen 22 mg/dL (8-26) Creatinine 0.8 mg/dL (0.7-1.3) Estimated GFR (Cockcroft-Gault) 97.6 Glucose Level 126 mg/dL (70-99) Calcium Level 7.9 mg/dL (8.5-10.1) Magnesium Level 1.9 mg/dL (1.8-2.4) Test 02/18/19 12:34 02/18/19 17:56 02/18/19 21:17 02/19/19 07:21 Glucose (Fingerstick) 125 mg/dL (70-99) 130 mg/dL (70-99) 139 mg/dL (70-99) 131 mg/dL (70-99) Test 02/19/19 10:13 02/19/19 10:40 Glucose (Fingerstick) 142 mg/dL (70-99) Sodium Level 140 mmol/L (136-145) Potassium Level 3.3 mmol/L (3.5-5.1) Chloride Level 105 mmol/L (98-107) Carbon Dioxide Level 23 mmol/L (21-32) Anion Gap 12 (6-14) Blood Urea Nitrogen 17 mg/dL (8-26) Creatinine 0.8 mg/dL (0.7-1.3) Estimated GFR (Cockcroft-Gault) 97.6 Glucose Level 223 mg/dL (70-99) Calcium Level 7.7 mg/dL (8.5-10.1) Laboratory Tests Test 02/18/19 17:56 02/18/19 21:17 02/19/19 07:21 02/19/19 10:13 Glucose (Fingerstick) 130 mg/dL (70-99) 139 mg/dL (70-99) 131 mg/dL (70-99) 142 mg/dL (70-99) Test 02/19/19 10:40 Sodium Level 140 mmol/L (136-145) Potassium Level 3.3 mmol/L (3.5-5.1) Chloride Level 105 mmol/L (98-107) Carbon Dioxide Level 23 mmol/L (21-32) Anion Gap 12 (6-14) Blood Urea Nitrogen 17 mg/dL (8-26) Creatinine 0.8 mg/dL (0.7-1.3) Estimated GFR (Cockcroft-Gault) 97.6 Glucose Level 223 mg/dL (70-99) Calcium Level 7.7 mg/dL (8.5-10.1) Problem List Problems Medical Problems: (1) Abdominal pain Status: Acute (2) Elevated troponin I level Status: Acute (3) Ileus Status: Acute (4) Nausea and vomiting Status: Acute (5) Renal insufficiency Status: Acute (6) Small bowel obstruction Status: Acute (7) Tachycardia Status: Acute Assessment/Plan ileus agree with plan per GI-cont NGT and try clears with KUB in AM KUB today with slight worsening, but pt clinically improved ALEX LOPEZ MD Feb 19, 2019 15:13
[2019-02-19 15:29] VITALS: BP 172/72
[2019-02-19 19:30] VITALS: BP 159/75
[2019-02-19] MEDS: INSULIN GLARGINE 300 UNITS/3 ML INSULN.PEN. SQ SCH (21:00)
[2019-02-19] MEDS ORDERED: ATORVASTATIN CALCIUM 20 MG TABLET PO SCH (21:00)
[2019-02-19] MEDS: LORazepam INTENSOL 2 MG/ML ORAL.CONC SL PRN (21:05)
[2019-02-19 23:20] VITALS: BP 158/84
[2019-02-20] MEDS: METOPROLOL TARTRATE 5 MG/5 ML VIAL. IVP SCH ×5 (00:32→23:42)
[2019-02-20 03:10] VITALS: BP 154/76
[2019-02-20 06:02] LABS: CALCIUM 7.9 mg/dL (8.5-10.1); CREATININE 0.7 mg/dL (0.7-1.3); GFR 113.9; POTASSIUM 3.5 mmol/L (3.5-5.1)
[2019-02-20 07:00] VITALS: BP 156/74
[2019-02-20] MEDS ORDERED: PANTOPRAZOLE 40 MG TABLET.DR. PO SCH (07:30)
[2019-02-20] MEDS: INSULIN LISPRO 300 UNITS/3 ML INSULN.PEN. SQ SCH ×3 (08:00→18:13)
[2019-02-20] MEDS ORDERED: ASPIRIN ENTERIC COATED 325 MG TABLET.DR. PO SCH (08:00)
--- NOTE | 2019-02-20 08:00 | PDOC ---
PROGRESS NOTES Chief Complaint Chief Complaint Ileus, distal SBO S/P NEOSTIGMINE (02/17) CAD RECENT CABG x 3 (AL to LAD, SVG to RPDA, SVG to OM) with Left endoscopic greater saphenous vein harvest ST elevation myocardial infarction - Acute systolic heart failure (EF 20-25%) - IABP placed REspi failure s/post CABG Diabetes - HTN - NSVT in the background of NG tube attempt insertion at ER for 02/15/19 History of Present Illness History of Present Illness GS was able to successfully put NG tube on 02/16/19 with no arrhythmias Transferred to ICU by brand communications manager GI in case bradycardia after neostigmine. S.p neostigmine with almost complete resolve of sxs clinically, Transferred out of ICU 02/18/19 after neostigmine administration, NGT clamped since 02/18/19 No abdominal pain, no nausea emesis, still moving BM, still flatus. No NG output. Interval KUB shows improvement of his dilated bowels, compared to the last film yesterday. He wishes for diet. Plan Await for GS if okay to DC NG tube Clear liquid diet He is getting quite impatient which is totally understandable, he is frustrated. Increased metoprolol to 10 IV every 6 from 5 Continue amiodarone drip per cardiology or thoracic surgery-wasn't on amio by mouth but of course start nothing by mouth for now Discussed with and RN at bedside Vitals Vitals Vital Signs Date Time Temp Pulse Resp B/P (MAP) Pulse Ox O2 Delivery O2 Flow Rate FiO2 02/20/19 05:45 97 154/76 02/20/19 03:10 97.7 20 96 Room Air 97.7 02/19/19 07:54 2.0 Physical Exam Physical Exam GENERAL: NAD, Alert HEENT: PERRL, OC/OP NECK: Supple, no JVD, no LN LUNGS: Clear HEART: S1S2, no gallop, no murmur ABD: Soft, NT, no organomegaly, no rebound EXT: No edema, no cyanosis PHYSICAL DAMAGE APPRAISER: Alert, 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, no focal neurologic deficit SKIN: No rash IV: ok General: Alert, Oriented X3, Cooperative, No acute distress Heart: Regular rate, Normal S1, Normal S2, No murmurs Lungs: Clear, Crackles, Other Abdomen: Soft, No tenderness Extremities: No clubbing, No cyanosis Skin: No significant lesion Labs LABS Laboratory Tests Test 02/19/19 10:13 02/19/19 10:40 02/19/19 16:50 02/20/19 00:07 Glucose (Fingerstick) 142 mg/dL (70-99) 135 mg/dL (70-99) 140 mg/dL (70-99) Sodium Level 140 mmol/L (136-145) Potassium Level 3.3 mmol/L (3.5-5.1) Chloride Level 105 mmol/L (98-107) Carbon Dioxide Level 23 mmol/L (21-32) Anion Gap 12 (6-14) Blood Urea Nitrogen 17 mg/dL (8-26) Creatinine 0.8 mg/dL (0.7-1.3) Estimated GFR (Cockcroft-Gault) 97.6 Glucose Level 223 mg/dL (70-99) Calcium Level 7.7 mg/dL (8.5-10.1) Test 02/20/19 05:30 02/20/19 06:15 Sodium Level 142 mmol/L (136-145) Potassium Level 3.5 mmol/L (3.5-5.1) Chloride Level 108 mmol/L (98-107) Carbon Dioxide Level 22 mmol/L (21-32) Anion Gap 12 (6-14) Blood Urea Nitrogen 15 mg/dL (8-26) Creatinine 0.7 mg/dL (0.7-1.3) Estimated GFR (Cockcroft-Gault) 113.9 Glucose Level 163 mg/dL (70-99) Calcium Level 7.9 mg/dL (8.5-10.1) Glucose (Fingerstick) 144 mg/dL (70-99) Assessment and Plan Assessmemt and Plan Problems Medical Problems: (1) Abdominal pain Status: Acute (2) Elevated troponin I level Status: Acute (3) Ileus Status: Acute (4) Nausea and vomiting Status: Acute (5) Renal insufficiency Status: Acute (6) Small bowel obstruction Status: Acute (7) Tachycardia Status: Acute Comment Review of Relevant I have reviewed the following items richie (where applicable) has been applied. Labs Laboratory Tests Test 02/18/19 08:35 02/18/19 08:36 02/18/19 12:34 02/18/19 17:56 White Blood Count 10.4 x10^3/uL (4.0-11.0) Red Blood Count 3.49 x10^6/uL (4.30-5.70) Hemoglobin 10.5 g/dL (13.0-17.5) Hematocrit 30.8 % (39.0-53.0) Mean Corpuscular Volume 88 fL (79-100) Mean Corpuscular Hemoglobin 30 pg (25-35) Mean Corpuscular Hemoglobin Concent 34 g/dL (31-37) Red Cell Distribution Width 13.5 % (11.5-14.5) Platelet Count 134 x10^3/uL (140-400) Neutrophils (%) (Auto) 81 % (31-73) Lymphocytes (%) (Auto) 8 % (24-48) Monocytes (%) (Auto) 10 % (0-9) Eosinophils (%) (Auto) 2 % (0-3) Basophils (%) (Auto) 0 % (0-3) Neutrophils # (Auto) 8.4 x10^3uL (1.8-7.7) Lymphocytes # (Auto) 0.8 x10^3/uL (1.0-4.8) Monocytes # (Auto) 1.0 x10^3/uL (0.0-1.1) Eosinophils # (Auto) 0.2 x10^3/uL (0.0-0.7) Basophils # (Auto) 0.0 x10^3/uL (0.0-0.2) Sodium Level 143 mmol/L (136-145) Potassium Level 3.2 mmol/L (3.5-5.1) Chloride Level 108 mmol/L (98-107) Carbon Dioxide Level 27 mmol/L (21-32) Anion Gap 8 (6-14) Blood Urea Nitrogen 22 mg/dL (8-26) Creatinine 0.8 mg/dL (0.7-1.3) Estimated GFR (Cockcroft-Gault) 97.6 Glucose Level 126 mg/dL (70-99) Calcium Level 7.9 mg/dL (8.5-10.1) Magnesium Level 1.9 mg/dL (1.8-2.4) Glucose (Fingerstick) 120 mg/dL (70-99) 125 mg/dL (70-99) 130 mg/dL (70-99) Test 02/18/19 21:17 02/19/19 07:21 02/19/19 10:13 02/19/19 10:40 Glucose (Fingerstick) 139 mg/dL (70-99) 131 mg/dL (70-99) 142 mg/dL (70-99) Sodium Level 140 mmol/L (136-145) Potassium Level 3.3 mmol/L (3.5-5.1) Chloride Level 105 mmol/L (98-107) Carbon Dioxide Level 23 mmol/L (21-32) Anion Gap 12 (6-14) Blood Urea Nitrogen 17 mg/dL (8-26) Creatinine 0.8 mg/dL (0.7-1.3) Estimated GFR (Cockcroft-Gault) 97.6 Glucose Level 223 mg/dL (70-99) Calcium Level 7.7 mg/dL (8.5-10.1) Test 02/19/19 16:50 02/20/19 00:07 02/20/19 05:30 02/20/19 06:15 Glucose (Fingerstick) 135 mg/dL (70-99) 140 mg/dL (70-99) 144 mg/dL (70-99) Sodium Level 142 mmol/L (136-145) Potassium Level 3.5 mmol/L (3.5-5.1) Chloride Level 108 mmol/L (98-107) Carbon Dioxide Level 22 mmol/L (21-32) Anion Gap 12 (6-14) Blood Urea Nitrogen 15 mg/dL (8-26) Creatinine 0.7 mg/dL (0.7-1.3) Estimated GFR (Cockcroft-Gault) 113.9 Glucose Level 163 mg/dL (70-99) Calcium Level 7.9 mg/dL (8.5-10.1) Laboratory Tests Test 02/19/19 10:13 02/19/19 10:40 02/19/19 16:50 02/20/19 00:07 Glucose (Fingerstick) 142 mg/dL (70-99) 135 mg/dL (70-99) 140 mg/dL (70-99) Sodium Level 140 mmol/L (136-145) Potassium Level 3.3 mmol/L (3.5-5.1) Chloride Level 105 mmol/L (98-107) Carbon Dioxide Level 23 mmol/L (21-32) Anion Gap 12 (6-14) Blood Urea Nitrogen 17 mg/dL (8-26) Creatinine 0.8 mg/dL (0.7-1.3) Estimated GFR (Cockcroft-Gault) 97.6 Glucose Level 223 mg/dL (70-99) Calcium Level 7.7 mg/dL (8.5-10.1) Test 02/20/19 05:30 02/20/19 06:15 Sodium Level 142 mmol/L (136-145) Potassium Level 3.5 mmol/L (3.5-5.1) Chloride Level 108 mmol/L (98-107) Carbon Dioxide Level 22 mmol/L (21-32) Anion Gap 12 (6-14) Blood Urea Nitrogen 15 mg/dL (8-26) Creatinine 0.7 mg/dL (0.7-1.3) Estimated GFR (Cockcroft-Gault) 113.9 Glucose Level 163 mg/dL (70-99) Calcium Level 7.9 mg/dL (8.5-10.1) Glucose (Fingerstick) 144 mg/dL (70-99) Medications Current Medications Ondansetron HCl (Zofran) 4 mg STK-MED ONCE .ROUTE ; Start 02/15/19 at 16:07; Stop 02/15/19 at 16:08; Status DC Fentanyl Citrate (Fentanyl 2ml Vial) 100 mcg STK-MED ONCE .ROUTE ; Start 02/15/19 at 16:07; Stop 02/15/19 at 16:08; Status DC Ondansetron HCl (Zofran) 4 mg 1X ONCE IV Last administered on 02/15/19at 16:10; Start 02/15/19 at 16:15; Stop 02/15/19 at 16:16; Status DC Fentanyl Citrate (Fentanyl 2ml Vial) 50 mcg 1X ONCE IV Last administered on 02/15/19at 16:13; Start 02/15/19 at 16:15; Stop 02/15/19 at 16:16; Status DC Iohexol (Omnipaque 350 Mg/ml) 100 ml 1X ONCE IV Last administered on 02/15/19at 16:30; Start 02/15/19 at 16:30; Stop 02/15/19 at 16:31; Status DC Sodium Chloride 1,000 ml @ 1,000 mls/hr 1X ONCE IV Last administered on 02/15/19at 16:53; Start 02/15/19 at 17:00; Stop 02/15/19 at 17:59; Status DC Sodium Chloride 1,000 ml @ 125 mls/hr Q8H IV ; Start 02/15/19 at 17:41; Stop 02/15/19 at 21:53; Status DC Fentanyl Citrate (Fentanyl 2ml Vial) 50 mcg 1X ONCE IV Last administered on 02/15/19at 17:55; Start 02/15/19 at 18:00; Stop 02/15/19 at 18:01; Status DC Amiodarone HCl (Cordarone) 150 mg 1X ONCE IVP Last administered on 02/15/19at 18:16; Start 02/15/19 at 18:30; Stop 02/15/19 at 18:33; Status DC Amiodarone HCl 900 mg/Dextrose 518 ml @ 0 mls/hr CONT PRN IV SEE I/O RECORD Last administered on 02/15/19at 19:02; Start 02/15/19 at 18:30; Stop 02/15/19 at 19:02; Status DC Aspirin (Aspirin) 300 mg 1X ONCE ND Last administered on 02/15/19at 19:02; Start 02/15/19 at 18:30; Stop 02/15/19 at 18:32; Status DC Morphine Sulfate (Morphine Sulfate) 2 mg PRN Q2HR PRN IV MODERATE PAIN Last adm inistered on 02/16/19at 11:14; Start 02/15/19 at 20:45 Ondansetron HCl (Zofran) 4 mg PRN Q6HRS PRN IV NAUSEA/VOMITING Last admin istered on 02/15/19at 21:03; Start 02/15/19 at 20:45 Insulin Glargine (Lantus) 50 units QHS SQ ; Start 02/15/19 at 21:00; Stop at 06:35; Status DC Insulin Human Lispro (HumaLOG) 0-5 UNITS TIDWMEALS SQ ; Start 02/16/19 at 08:00; Stop 02/16/19 at 10:16; Status DC Dextrose (Dextrose 50%-Water Syringe) 12.5 gm PRN Q15MIN PRN IV SEE COMMENTS; Start 02/15/19 at 20:45; Stop 02/16/19 at 10:27; Status DC Morphine Sulfate (Morphine Sulfate) 4 mg PRN Q2HR PRN IV SEVERE PAIN Last administered on 02/17/19at 09:41; Start 02/15/19 at 21:45 Pantoprazole Sodium (PROTONIX VIAL for IV PUSH) 40 mg 1X ONCE IVP Last administered on 02/15/19at 22:00; Start 02/15/19 at 22:00; Stop 02/15/19 at 22:01; Status DC Sodium Chloride 1,000 ml @ 30 mls/hr Q24H IV Last administered on 02/15/19at 22:00; Start 02/15/19 at 22:00; Stop 02/15/19 at 22:47; Status DC Throat Lozenges (Cepacol Sore Throat Lozenge) 1 wong PRN Q2HRS PRN PO SORE THROAT Last administered on 02/15/19at 22:44; Start 02/15/19 at 22:45; Stop 02/16/19 at 20:59; Status DC Sodium Chloride 1,000 ml @ 70 mls/hr [id number] IV Last administered on 02/18/19at 17:58; Start 02/15/19 at 23:00; Stop 02/19/19 at 08:57; Status DC Pantoprazole Sodium (PROTONIX VIAL for IV PUSH) 40 mg BIDAC IVP Last administered on 02/19/19at 09:36; Start 02/16/19 at 16:30; Stop 02/19/19 at 14:06; Status DC Metoprolol Tartrate (Lopressor Vial) 2.5 mg Q6HRS IVP Last administered on 02/16/19at 10:31; Start 02/16/19 at 10:00; Stop 02/16/19 at 13:37; Status DC Aspirin (Aspirin) 300 mg DAILY ND Last administered on 02/19/19at 09:37; Start 02/16/19 at 10:00; Stop 02/19/19 at 14:04; Status DC Amiodarone HCl 900 mg/Dextrose 518 ml @ 0 mls/hr CONT PRN IV SEE I/O RECORD Last administered on 02/18/19at 12:43; Start 02/16/19 at 09:45; Stop 02/19/19 at 14:02; Status DC Insulin Human Lispro (HumaLOG) 0-9 UNITS TIDWMEALS SQ ; Start 02/16/19 at 12:00 Dextrose (Dextrose 50%-Water Syringe) 12.5 gm PRN Q15MIN PRN IV SEE COMMENTS; Start 02/16/19 at 10:15 Insulin Glargine (Lantus) 20 units QHS SQ Last administered on 02/17/19at 22:10; Start 02/16/19 at 21:00 Metoprolol Tartrate (Lopressor Vial) 5 mg Q6HRS IVP Last administered on 02/19/19at 06:13; Start 02/16/19 at 18:00; Stop 02/19/19 at 09:45; Status DC Digoxin (Lanoxin) 500 mcg 1X ONCE IV Last administered on 02/16/19at 13:50; Start 02/16/19 at 13:45; Stop 02/16/19 at 13:46; Status DC Amiodarone HCl 150 mg/Dextrose 103 ml @ 618 mls/hr 1X ONCE IV Last administered on 02/16/19at 14:20; Start 02/16/19 at 14:00; Stop 02/16/19 at 14:09; Status DC Potassium Chloride/Water 50 ml @ 50 mls/hr 1X ONCE IV Last administered on 02/16/19at 14:21; Start 02/16/19 at 14:00; Stop 02/16/19 at 14:59; Status DC Benzocaine (Hurricaine One) 1 spray 1X ONCE MM Last administered on 02/16/19at 20:54; Start 02/16/19 at 20:15; Stop 02/16/19 at 20:16; Status DC Lidocaine HCl (Xylocaine 2% Topical 5gm Tube) 1 marco 1X ONCE TP Last administered on 02/16/19at 20:15; Start 02/16/19 at 20:15; Stop 02/16/19 at 20:16; Status DC Throat Lozenges (Cepacol Sore Throat Lozenge) 1 wong PRN Q2HRS PRN PO SORE THROAT; Start 02/16/19 at 21:00 Throat Lozenges (Chloraseptic) 1 spray PRN Q2HR PRN PO SORE THROAT; Start 02/16/19 at 21:00 Methylnaltrexone Bowie (Relistor) 12 mg 1X ONCE SQ Last administered on 02/17/19at 15:49; Start 02/17/19 at 14:00; Stop 02/17/19 at 14:01; Status DC Lorazepam (Ativan Intensol) 2 mg PRN Q6HRS PRN SL ANXIETY / AGITATION Last administered on 02/19/19at 21:05; Start 02/17/19 at 18:00 Neostigmine Methylsulfate (Bloxiverz) 2 mg 1X ONCE IV Last administered on 02/18/19at 01:51; Start 02/18/19 at 02:00; Stop 02/18/19 at 02:01; Status DC Atropine Sulfate (ATROPINE 1mg SYRINGE) 1 mg 1X PRN PRN IV BRADYCARDIA; Start 02/18/19 at 01:15; Stop 02/19/19 at 01:14; Status DC Potassium Chloride/Water 50 ml @ 50 mls/hr Q1H IV Last administered on 02/18/19at 15:43; Start 02/18/19 at 14:00; Stop 02/18/19 at 15:59; Status DC Potassium Chloride/Sodium Chloride 1,000 ml @ 75 mls/hr [id number] IV Last administered on 02/19/19at 09:37; Start 02/19/19 at 09:30; Stop 02/19/19 at 14:06; Status DC Metoprolol Tartrate (Lopressor Vial) 10 mg Q6HRS IVP Last administered on 02/19/19at 12:49; Start 02/19/19 at 12:00; Stop 02/19/19 at 14:05; Status DC Artificial Tears (Artificial Tears) 1 drop PRN Q15MIN PRN OU DRY EYE; Start 02/19/19 at 12:30 Potassium Chloride (Klor-Con) 40 meq 1X ONCE PO ; Start 02/19/19 at 14:30; Stop 02/19/19 at 14:30; Status DC Albuterol Sulfate (Ventolin Neb Soln) 2.5 mg PRN Q4HRS PRN NEB SHORTNESS OF BREATH; Start 02/19/19 at 14:00 Amiodarone HCl (Cordarone) 200 mg BID PO ; Start 02/19/19 at 14:30; Stop 02/19/19 at 14:30; Status DC Aspirin (Ecotrin) 325 mg DAILYWBKFT PO ; Start 02/20/19 at 08:00; Stop 02/20/19 at 08:00; Status DC Atorvastatin Calcium (Lipitor) 20 mg QHS PO ; Start 02/19/19 at 21:00; Stop 02/19/19 at 21:00; Status DC Furosemide (Lasix) 40 mg PRN DAILY PRN PO SHORTNESS OF BREATH; Start 02/19/19 at 14:00; Stop 02/19/19 at 14:10; Status DC Metoprolol Succinate (Toprol Xl) 100 mg DAILY PO ; Start 02/19/19 at 14:30; Stop 02/19/19 at 14:30; Status DC Oxycodone HCl (Roxicodone) 5 mg PRN Q4HRS PRN PO MODERATE PAIN; Start 02/19/19 at 14:00; Stop 02/19/19 at 14:10; Status DC Lisinopril (Prinivil) 5 mg DAILY PO ; Start 02/19/19 at 14:30; Stop 02/19/19 at 14:30; Status DC Pantoprazole Sodium (Protonix) 40 mg DAILYAC PO ; Start 02/20/19 at 07:30; Stop 02/20/19 at 07:30; Status DC Pantoprazole Sodium (PROTONIX VIAL for IV PUSH) 40 mg DAILYAC IVP ; Start 02/20/19 at 07:30 Amiodarone HCl 900 mg/Dextrose 518 ml @ 0 mls/hr CONT PRN IV SEE I/O RECORD Last administered on 02/19/19at 21:05; Start 02/19/19 at 14:15; Stop 02/19/19 at 21:05; Status DC Potassium Chloride/Sodium Chloride 1,000 ml @ 75 mls/hr [id number] IV Last administered on 02/19/19at 21:24; Start 02/19/19 at 14:15 Aspirin (Aspirin) 600 mg DAILY ND ; Start 02/20/19 at 09:00 Metoprolol Tartrate (Lopressor Vial) 10 mg Q6HRS IVP Last administered on 02/20/19at 05:45; Start 02/19/19 at 18:00 Active Scripts Active Amiodarone Hcl 200 Mg Tablet 1 Tab PO BID Oxycodone Hcl Immed.release (Oxycodone Hcl) 5 Mg Tablet 5 Mg PO PRN Q4HRS PRN MDD 1 [Pantoprazole] 40 MG Tablet. 40 Mg PO DAILYAC MDD 1 Lantus Solostar (Insulin Glargine,Hum.rec.anlog) 100 Unit/1 Ml Insuln.pen 50 Units SQ QHS MDD 1 30 Days Aspirin Ec (Aspirin) 325 Mg Tablet. 325 Mg PO DAILYWBKFT MDD 1 Atorvastatin Calcium 20 Mg Tablet 20 Mg PO QHS MDD 1 Proair Hfa (Albuterol Sulfate) 8.5 Gm Hfa.aer.ad 2.5 Mg NEB PRN Q4HRS PRN MDD 1 30 Days Reported Lisinopril 5 Mg Tablet 1 Tab PO DAILY Lasix (Furosemide) 40 Mg Tablet 1 Tab PO PRN DAILY PRN Metoprolol Succinate ( Xl ) (Metoprolol Succinate) 100 Mg Tab.er.24h 1 Tab PO DAILY Vitals/I & O Vital Sign - Last 24 Hours 02/19/19 02/19/19 02/19/19 02/19/19 10:54 12:49 15:29 17:14 Temp 97.8 98.3 97.8 98.3 Pulse 99 89 Resp 20 B/P (MAP) 151/81 (104) 157/74 172/72 (105) 158/71 Pulse Ox 97 97 O2 Delivery Room Air Room Air 02/19/19 02/19/19 02/19/19 02/20/19 19:17 19:30 23:20 00:32 Temp 98.4 98.0 98.4 98.0 Pulse 91 98 98 Resp 20 B/P (MAP) 159/75 (103) 158/84 (108) 158/84 Pulse Ox 95 97 96 O2 Delivery Room Air Room Air Room Air 02/20/19 02/20/19 03:10 05:45 Temp 97.7 97.7 Pulse 97 97 Resp 20 B/P (MAP) 154/76 (102) 154/76 Pulse Ox 96 O2 Delivery Room Air Intake and Output 02/19/19 02/19/19 02/20/19 14:59 22:59 06:59 Intake Total 100 ml 1844 ml 0 ml Output Total 200 ml 450 ml Balance 100 ml 1644 ml -450 ml RIFFEL,CHRISTOPHER S MD Feb 20, 2019 08:00
--- NOTE | 2019-02-20 08:51 | PDOC ---
SURGICAL PROGRESS NOTE Subjective up to bedside chair no c/o nausea or vomiting with NG off suction passing gas and stool Vital Signs Vital Signs Date Time Temp Pulse Resp B/P (MAP) Pulse Ox O2 Delivery O2 Flow Rate FiO2 02/20/19 07:00 97.3 94 18 156/74 (101) 97 Room Air 97.3 02/19/19 07:54 2.0 I&O Intake and Output 02/20/19 07:00 Intake Total 1944 ml Output Total 650 ml Balance 1294 ml Intake Oral 100 ml IV Total 1844 ml Output Urine Total 650 ml PATIENT HAS A HART: No General: Alert, Oriented X3, No acute distress Abdomen: Soft, Other (protuberant, non TTP) Labs Laboratory Tests Test 02/18/19 12:34 02/18/19 17:56 02/18/19 21:17 02/19/19 07:21 Glucose (Fingerstick) 125 mg/dL (70-99) 130 mg/dL (70-99) 139 mg/dL (70-99) 131 mg/dL (70-99) Test 02/19/19 10:13 02/19/19 10:40 02/19/19 16:50 02/20/19 00:07 Glucose (Fingerstick) 142 mg/dL (70-99) 135 mg/dL (70-99) 140 mg/dL (70-99) Sodium Level 140 mmol/L (136-145) Potassium Level 3.3 mmol/L (3.5-5.1) Chloride Level 105 mmol/L (98-107) Carbon Dioxide Level 23 mmol/L (21-32) Anion Gap 12 (6-14) Blood Urea Nitrogen 17 mg/dL (8-26) Creatinine 0.8 mg/dL (0.7-1.3) Estimated GFR (Cockcroft-Gault) 97.6 Glucose Level 223 mg/dL (70-99) Calcium Level 7.7 mg/dL (8.5-10.1) Test 02/20/19 05:30 02/20/19 06:15 Sodium Level 142 mmol/L (136-145) Potassium Level 3.5 mmol/L (3.5-5.1) Chloride Level 108 mmol/L (98-107) Carbon Dioxide Level 22 mmol/L (21-32) Anion Gap 12 (6-14) Blood Urea Nitrogen 15 mg/dL (8-26) Creatinine 0.7 mg/dL (0.7-1.3) Estimated GFR (Cockcroft-Gault) 113.9 Glucose Level 163 mg/dL (70-99) Calcium Level 7.9 mg/dL (8.5-10.1) Glucose (Fingerstick) 144 mg/dL (70-99) Laboratory Tests Test 02/19/19 10:13 02/19/19 10:40 02/19/19 16:50 02/20/19 00:07 Glucose (Fingerstick) 142 mg/dL (70-99) 135 mg/dL (70-99) 140 mg/dL (70-99) Sodium Level 140 mmol/L (136-145) Potassium Level 3.3 mmol/L (3.5-5.1) Chloride Level 105 mmol/L (98-107) Carbon Dioxide Level 23 mmol/L (21-32) Anion Gap 12 (6-14) Blood Urea Nitrogen 17 mg/dL (8-26) Creatinine 0.8 mg/dL (0.7-1.3) Estimated GFR (Cockcroft-Gault) 97.6 Glucose Level 223 mg/dL (70-99) Calcium Level 7.7 mg/dL (8.5-10.1) Test 02/20/19 05:30 02/20/19 06:15 Sodium Level 142 mmol/L (136-145) Potassium Level 3.5 mmol/L (3.5-5.1) Chloride Level 108 mmol/L (98-107) Carbon Dioxide Level 22 mmol/L (21-32) Anion Gap 12 (6-14) Blood Urea Nitrogen 15 mg/dL (8-26) Creatinine 0.7 mg/dL (0.7-1.3) Estimated GFR (Cockcroft-Gault) 113.9 Glucose Level 163 mg/dL (70-99) Calcium Level 7.9 mg/dL (8.5-10.1) Glucose (Fingerstick) 144 mg/dL (70-99) Problem List Problems Medical Problems: (1) Abdominal pain Status: Acute (2) Elevated troponin I level Status: Acute (3) Ileus Status: Acute (4) Nausea and vomiting Status: Acute (5) Renal insufficiency Status: Acute (6) Small bowel obstruction Status: Acute (7) Tachycardia Status: Acute Assessment/Plan ileus, enteritis, improved clinically recheck plain films ANGIE XIE MD Feb 20, 2019 08:51
[2019-02-20] MEDS ORDERED: ASPIRIN 600 MG PR SCH (09:00)
[2019-02-20] MEDS: PANTOPRAZOLE IV PUSH 40 MG VIAL. IVP SCH (09:07)
--- NOTE | 2019-02-20 10:20 | RAD ---
Portable abdomen, 2 views, 02/20/2019: HISTORY: Ileus Comparison is made to a study from 02/17/2019. An NG tube remains in place extending into the proximal aspect of the stomach. There is moderate gaseous distention of what appear to be large and small bowel loops which appears slightly improved since the previous study. No free air is seen. No organomegaly is evident. IMPRESSION: 1. Stable NG tube position. 2. Gaseous distention of large and small bowel appears to have improved slightly since 02/17/2019. Electronically signed by: Seun Childress MD (02/20/2019 10:17 AM) [facility]
[2019-02-20 11:00] VITALS: BP 172/74
--- NOTE | 2019-02-20 11:33 | PDOC ---
Subjective: Subjective: Feels better, would like NGT out. Objective: Objective: Reviewed w/ RN - has stooled, plans to try clears, not getting out of bed. Vital Signs: Vital Signs Date Time Temp Pulse Resp B/P (MAP) Pulse Ox O2 Delivery O2 Flow Rate FiO2 02/20/19 11:00 97.4 96 16 172/74 (106) 93 Room Air 97.4 02/19/19 07:54 2.0 Labs: Laboratory Tests Test 02/19/19 16:50 02/20/19 00:07 02/20/19 06:15 Glucose (Fingerstick) 135 mg/dL (70-99) 140 mg/dL (70-99) 144 mg/dL (70-99) Imaging: Abd X-Ray 02/20 IMPRESSION: 1. Stable NG tube position. 2. Gaseous distention of large and small bowel appears to have improved slightly since 02/17/2019. PE: GEN: NAD - looks better HEENT: NG clamped LUNGS: CTAB HEART: RRR ABD: less distended, softer, BS+ NEURO/PSYCH: A & O 3, sleepy A/P: Ileus/colonic pseudo-obstruction - resolving Recent CABG -- Plans to try clears w/ NG clamped, await response. Encouraged activity. KELSEY TAYLOR Feb 20, 2019 11:33
[2019-02-20] MEDS: POTASSIUM CL 40MEQ IN 0.9%NACL 1,000 ML IV SCH (12:12)
--- NOTE | 2019-02-20 12:58 | PDOC ---
Progress Note Subjective Subjective NGT has been clamped for >48hr. Also receiving clears. Clinically better, less distended, +BMs. AXR improving ROS ROS No nausea No vomiting No pain No rash Vital Sign Vital Signs Vital Signs Date Time Temp Pulse Resp B/P (MAP) Pulse Ox O2 Delivery O2 Flow Rate FiO2 02/20/19 12:12 96 172/74 02/20/19 11:00 97.4 16 93 Room Air 97.4 02/19/19 07:54 2.0 Physical Exam PHYSICAL EXAM GENERAL: NAD, Alert HEENT: PERRL, OC/OP NECK: Supple, no JVD, no LN LUNGS: Clear HEART: S1S2, no gallop, no murmur ABD: Soft, NT, no organomegaly, no rebound EXT: No edema, no cyanosis BIOLOGICAL SCIENTIST: Alert, 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, no focal neurologic deficit SKIN: No rash IV: ok Labs Lab Laboratory Tests Test 02/19/19 16:50 02/20/19 00:07 02/20/19 05:30 02/20/19 06:15 Glucose (Fingerstick) 135 mg/dL (70-99) 140 mg/dL (70-99) 144 mg/dL (70-99) Sodium Level 142 mmol/L (136-145) Potassium Level 3.5 mmol/L (3.5-5.1) Chloride Level 108 mmol/L (98-107) Carbon Dioxide Level 22 mmol/L (21-32) Anion Gap 12 (6-14) Blood Urea Nitrogen 15 mg/dL (8-26) Creatinine 0.7 mg/dL (0.7-1.3) Estimated GFR (Cockcroft-Gault) 113.9 Glucose Level 163 mg/dL (70-99) Calcium Level 7.9 mg/dL (8.5-10.1) Test 02/20/19 11:56 Glucose (Fingerstick) 143 mg/dL (70-99) Objective Assessment S/p emergent CABG a week ago. Re-admitted with ileus. NGT has been clamped for >48hr. Also receiving clears. Clinically better, less distended, +BMs. AXR improving Plan Plan of Care Would be cautious feeding patient with NGT in place, as it renders the GEJ incompetent, increasing the risk for aspiration. Management of ileus as per gen surgery ARNULFO MORROW MD Feb 20, 2019 12:58
--- NOTE | 2019-02-20 13:33 | NUR ---
Cardiothoracic surgeon came to check on patient. Questioned why NG tube was still intact if pt's diet has been advanced to clear liquid and concerned about aspiration. Spoke with General Surgery STITCHER SET UP OPERATOR AUTOMATIC. This RN explained concerns of Cardiothoracic surgeon. Was advised by STITCHER SET UP OPERATOR AUTOMATIC to keep NG tube until this evening if pt tolerates clear liquid diet.
[2019-02-20 15:00] VITALS: BP 178/73
[2019-02-20] MEDS: POLYETHYLENE GLYCOL 3350 17 GM PACKET. PO SCH ×2 (15:00→21:06)
[2019-02-20] MEDS ORDERED: AMIODARONE 900 MG in IV DEXTROSE 5% 500 ML IV PRN (18:00)
[2019-02-20 19:20] VITALS: BP 148/70
[2019-02-20] MEDS: INSULIN GLARGINE 300 UNITS/3 ML INSULN.PEN. SQ SCH (20:59)
--- NOTE | 2019-02-20 21:22 | PDOC ---
PROGRESS NOTES Subjective Subjective Feeling better. NG clamped, passing stools and tolerating clear liquids Objective Objective Vital Signs Date Time Temp Pulse Resp B/P (MAP) Pulse Ox O2 Delivery O2 Flow Rate FiO2 02/20/19 20:00 Room Air 02/20/19 19:20 98.0 89 20 148/70 (96) 97 98.0 02/19/19 07:54 2.0 Intake and Output 02/20/19 07:00 Intake Total 1944 ml Output Total 650 ml Balance 1294 ml Intake Oral 100 ml IV Total 1844 ml Output Urine Total 650 ml Physical Exam Abdomen: Soft, Other (protuberant, non TTP) Heart: Regular rate, Normal S1, Normal S2, No murmurs Extremities: No clubbing, No cyanosis General: Alert, Oriented X3, No acute distress HEENT: Other (ng in place) Lungs: Clear to auscultation, Normal air movement MUSCULOSKELETAL: No deformity Neuro: Normal gait, Normal speech, Strength at 5/5 X4 ext, Normal tone, Sensation intact, Cranial nerves 3-12 NL, Reflexes 2+ Psych/Mental Status: Mental status NL Skin: No significant lesion Assessment Assessment 1. Abdominal pain/ileus: Improved with neostigmine. Tolerating clear liquids. GI following 2. Cardiac Arrhythmia: AFIB RVR in ED telemetry showed few brief episodes of atrial fibrillation, presently sinus rhythm. Continue amiodarone for rhythm maintenance 3. 3V CAD s/p recent CABG with AL to LAD, SVG to OM, SVG to RPDA, stable. 4. Elevated troponin: expected with recent CABG 5. Chronic systolic HF with ICM; LVEF at 35-40%, compensated 6. Hypertension; blood pressure slightly elevated. Resume oral medications once able to take PO 7. DM2/ HLP Plan Plan of Care Problems Medical Problems: (1) Abdominal pain Status: Acute (2) Elevated troponin I level Status: Acute (3) Ileus Status: Acute (4) Nausea and vomiting Status: Acute (5) Renal insufficiency Status: Acute (6) Small bowel obstruction Status: Acute (7) Tachycardia Status: Acute Comment Review of Relevant I have reviewed the following items richie (where applicable) has been applied. Labs Laboratory Tests Test 02/20/19 00:07 02/20/19 05:30 02/20/19 06:15 02/20/19 11:56 Glucose (Fingerstick) 140 mg/dL (70-99) 144 mg/dL (70-99) 143 mg/dL (70-99) Sodium Level 142 mmol/L (136-145) Potassium Level 3.5 mmol/L (3.5-5.1) Chloride Level 108 mmol/L (98-107) Carbon Dioxide Level 22 mmol/L (21-32) Anion Gap 12 (6-14) Blood Urea Nitrogen 15 mg/dL (8-26) Creatinine 0.7 mg/dL (0.7-1.3) Estimated GFR (Cockcroft-Gault) 113.9 Glucose Level 163 mg/dL (70-99) Calcium Level 7.9 mg/dL (8.5-10.1) Test 02/20/19 18:01 02/20/19 20:42 Glucose (Fingerstick) 198 mg/dL (70-99) 149 mg/dL (70-99) Medications Current Medications Amiodarone HCl 900 mg/Dextrose 518 ml @ 0 mls/hr CONT PRN IV SEE I/O RECORD; Start 02/20/19 at 18:00 Aspirin (Aspirin) 600 mg DAILY NE Last administered on 02/20/19at 09:55; Start 02/20/19 at 09:00 Aspirin (Ecotrin) 325 mg DAILYWBKFT PO ; Start 02/20/19 at 08:00; Stop 02/20/19 at 08:00; Status DC Pantoprazole Sodium (PROTONIX VIAL for IV PUSH) 40 mg DAILYAC IVP Last administered on 02/20/19at 09:07; Start 02/20/19 at 07:30 Pantoprazole Sodium (Protonix) 40 mg DAILYAC PO ; Start 02/20/19 at 07:30; Stop 02/20/19 at 07:30; Status DC Polyethylene Glycol (miraLAX PACKET) 17 gm BID PO Last administered on 02/20/19at 21:06; Start 02/20/19 at 15:00 Vitals/I & O Vital Sign - Last 24 Hours 02/19/19 02/20/19 02/20/19 02/20/19 23:20 00:32 03:10 05:45 Temp 98.0 97.7 98.0 97.7 Pulse 98 98 97 97 Resp 20 20 B/P (MAP) 158/84 (108) 158/84 154/76 (102) 154/76 Pulse Ox 96 96 O2 Delivery Room Air Room Air 02/20/19 02/20/19 02/20/19 02/20/19 07:00 08:00 11:00 12:12 Temp 97.3 97.4 97.3 97.4 Pulse 94 96 96 Resp 18 16 B/P (MAP) 156/74 (101) 172/74 (106) 172/74 Pulse Ox 97 93 O2 Delivery Room Air Room Air Room Air 02/20/19 02/20/19 02/20/19 02/20/19 15:00 17:56 19:20 20:00 Temp 97.7 98.0 97.7 98.0 Pulse 98 103 89 Resp 16 20 B/P (MAP) 178/73 (108) 159/65 148/70 (96) Pulse Ox 96 97 O2 Delivery Room Air Room Air Room Air Intake and Output 02/19/19 02/19/19 02/20/19 15:00 23:00 07:00 Intake Total 100 ml 1844 ml 0 ml Output Total 200 ml 450 ml Balance 100 ml 1644 ml -450 ml MATHEW SHEEHAN MD Feb 20, 2019 21:22
[2019-02-20 23:35] VITALS: BP 159/73
[2019-02-21 03:45] VITALS: BP 151/76
[2019-02-21] MEDS: POTASSIUM CL 40MEQ IN 0.9%NACL 1,000 ML IV SCH (05:36)
[2019-02-21] MEDS: METOPROLOL TARTRATE 5 MG/5 ML VIAL. IVP SCH ×2 (05:37→13:44)
--- NOTE | 2019-02-21 05:51 | NUR ---
NG tube removed with pt in chair. Pt tolerated well, VSS, SR on telemetry, will monitor PO intake and any status changes.
[2019-02-21 07:00] VITALS: BP 150/72
[2019-02-21] MEDS: POLYETHYLENE GLYCOL 3350 17 GM PACKET. PO SCH ×2 (08:40→22:08)
[2019-02-21] MEDS: PANTOPRAZOLE IV PUSH 40 MG VIAL. IVP SCH (08:40)
[2019-02-21] MEDS: INSULIN LISPRO 300 UNITS/3 ML INSULN.PEN. SQ SCH ×3 (08:48→17:00)
--- NOTE | 2019-02-21 09:52 | PDOC ---
Subjective: Subjective: NG out, tolerating clears w/o n/v, denies abd pain, having liquid stools but says "starting to firm up." Objective: Vital Signs: Vital Signs Date Time Temp Pulse Resp B/P (MAP) Pulse Ox O2 Delivery O2 Flow Rate FiO2 02/21/19 07:00 97.5 98 20 150/72 (98) 96 Room Air 97.5 Labs: Laboratory Tests Test 02/20/19 11:56 02/20/19 18:01 02/20/19 20:42 02/21/19 07:39 Glucose (Fingerstick) 143 mg/dL 198 mg/dL 149 mg/dL 167 mg/dL PE: GEN: NAD - up to chair, looks better today LUNGS: room air HEART: RRR ABD: NABS, S/ND/NT NEURO/PSYCH: A & O 3 A/P: Ileus/colonic pseudo-obstruction Recent CABG MEGHANN -- Improved - stooling and tolerating liquids w/o NG. Continue Miralax. ?advance diet beyond clears Plan for outpt 'scopes down the road. KELSEY TAYLOR Feb 21, 2019 09:52
[2019-02-21] MEDS: ASPIRIN 325 MG TABLET PO SCH (09:57)
[2019-02-21 11:00] VITALS: BP 117/53
--- NOTE | 2019-02-21 12:36 | PDOC ---
PROGRESS NOTES Chief Complaint Chief Complaint Ileus, distal SBO S/P NEOSTIGMINE (02/17) CAD RECENT CABG x 3 (AL to LAD, SVG to RPDA, SVG to OM) with Left endoscopic greater saphenous vein harvest ST elevation myocardial infarction - Acute systolic heart failure (EF 20-25%) - IABP placed REspi failure s/post CABG Diabetes - HTN - NSVT in the background of NG tube attempt insertion at ER for 02/15/19 History of Present Illness History of Present Illness GS was able to successfully put NG tube on 02/16/19 with no arrhythmias Transferred to ICU by leak detection engineer GI in case bradycardia after neostigmine. S.p neostigmine with almost complete resolve of sxs clinically, Transferred out of ICU 02/18/19 after neostigmine administration, NGT clamped since 02/18/19 No abdominal pain, no nausea emesis, still moving multiple BM, still flatus. No NG output. Interval KUB shows improvement of his dilated bowels, compared to the last film yesterday. Tolerated advanced diet well Plan Await for GS if okay to DC NG tube Clear liquid diet He is getting quite impatient which is totally understandable, he is frustrated. Increased metoprolol to 10 IV every 6 from 5 Continue amiodarone drip per cardiology or thoracic surgery-wasn't on amio by mouth but of course start nothing by mouth for now Discussed with and RN at bedside Vitals Vitals Vital Signs Date Time Temp Pulse Resp B/P (MAP) Pulse Ox O2 Delivery O2 Flow Rate FiO2 02/21/19 11:00 97.2 107 20 117/53 (74) 98 Room Air 97.2 Physical Exam Physical Exam GENERAL: NAD, Alert HEENT: PERRL, OC/OP NECK: Supple, no JVD, no LN LUNGS: Clear HEART: S1S2, no gallop, no murmur ABD: Soft, NT, no organomegaly, no rebound EXT: No edema, no cyanosis ETHICS INSTRUCTOR: Alert, 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, no focal neurologic deficit SKIN: No rash IV: ok General: Alert, Oriented X3, No acute distress Heart: Regular rate, Normal S1, Normal S2, No murmurs Lungs: Clear, Crackles, Other Abdomen: Soft, Other (protuberant, non TTP) Extremities: No clubbing, No cyanosis Skin: No significant lesion Labs LABS Laboratory Tests Test 02/20/19 18:01 02/20/19 20:42 02/21/19 07:39 02/21/19 11:42 Glucose (Fingerstick) 198 mg/dL (70-99) 149 mg/dL (70-99) 167 mg/dL (70-99) 179 mg/dL (70-99) Assessment and Plan Assessmemt and Plan Problems Medical Problems: (1) Abdominal pain Status: Acute (2) Elevated troponin I level Status: Acute (3) Ileus Status: Acute (4) Nausea and vomiting Status: Acute (5) Renal insufficiency Status: Acute (6) Small bowel obstruction Status: Acute (7) Tachycardia Status: Acute Comment Review of Relevant I have reviewed the following items richie (where applicable) has been applied. Labs Laboratory Tests Test 02/19/19 16:50 02/20/19 00:07 02/20/19 05:30 02/20/19 06:15 Glucose (Fingerstick) 135 mg/dL (70-99) 140 mg/dL (70-99) 144 mg/dL (70-99) Sodium Level 142 mmol/L (136-145) Potassium Level 3.5 mmol/L (3.5-5.1) Chloride Level 108 mmol/L (98-107) Carbon Dioxide Level 22 mmol/L (21-32) Anion Gap 12 (6-14) Blood Urea Nitrogen 15 mg/dL (8-26) Creatinine 0.7 mg/dL (0.7-1.3) Estimated GFR (Cockcroft-Gault) 113.9 Glucose Level 163 mg/dL (70-99) Calcium Level 7.9 mg/dL (8.5-10.1) Test 02/20/19 11:56 02/20/19 18:01 02/20/19 20:42 02/21/19 07:39 Glucose (Fingerstick) 143 mg/dL (70-99) 198 mg/dL (70-99) 149 mg/dL (70-99) 167 mg/dL (70-99) Test 02/21/19 11:42 Glucose (Fingerstick) 179 mg/dL (70-99) Laboratory Tests Test 02/20/19 18:01 02/20/19 20:42 02/21/19 07:39 02/21/19 11:42 Glucose (Fingerstick) 198 mg/dL (70-99) 149 mg/dL (70-99) 167 mg/dL (70-99) 179 mg/dL (70-99) Medications Current Medications Ondansetron HCl (Zofran) 4 mg STK-MED ONCE .ROUTE ; Start 02/15/19 at 16:07; Stop 02/15/19 at 16:08; Status DC Fentanyl Citrate (Fentanyl 2ml Vial) 100 mcg STK-MED ONCE .ROUTE ; Start 02/15/19 at 16:07; Stop 02/15/19 at 16:08; Status DC Ondansetron HCl (Zofran) 4 mg 1X ONCE IV Last administered on 02/15/19at 16:10; Start 02/15/19 at 16:15; Stop 02/15/19 at 16:16; Status DC Fentanyl Citrate (Fentanyl 2ml Vial) 50 mcg 1X ONCE IV Last administered on 02/15/19at 16:13; Start 02/15/19 at 16:15; Stop 02/15/19 at 16:16; Status DC Iohexol (Omnipaque 350 Mg/ml) 100 ml 1X ONCE IV Last administered on 02/15/19at 16:30; Start 02/15/19 at 16:30; Stop 02/15/19 at 16:31; Status DC Sodium Chloride 1,000 ml @ 1,000 mls/hr 1X ONCE IV Last administered on 02/15/19at 16:53; Start 02/15/19 at 17:00; Stop 02/15/19 at 17:59; Status DC Sodium Chloride 1,000 ml @ 125 mls/hr Q8H IV ; Start 02/15/19 at 17:41; Stop 02/15/19 at 21:53; Status DC Fentanyl Citrate (Fentanyl 2ml Vial) 50 mcg 1X ONCE IV Last administered on 02/15/19at 17:55; Start 02/15/19 at 18:00; Stop 02/15/19 at 18:01; Status DC Amiodarone HCl (Cordarone) 150 mg 1X ONCE IVP Last administered on 02/15/19at 18:16; Start 02/15/19 at 18:30; Stop 02/15/19 at 18:33; Status DC Amiodarone HCl 900 mg/Dextrose 518 ml @ 0 mls/hr CONT PRN IV SEE I/O RECORD Last administered on 02/15/19 19:02; Start 02/15/19 at 18:30; Stop 02/15/19 at 19:02; Status DC Aspirin (Aspirin) 300 mg 1X ONCE IA Last administered on 02/15/19 19:02; Start 02/15/19 at 18:30; Stop 02/15/19 at 18:32; Status DC Morphine Sulfate (Morphine Sulfate) 2 mg PRN Q2HR PRN IV MODERATE PAIN Last a dministered on 02/16/19at 11:14; Start 02/15/19 at 20:45 Ondansetron HCl (Zofran) 4 mg PRN Q6HRS PRN IV NAUSEA/VOMITING Last adm inistered on 02/15/19at 21:03; Start 02/15/19 at 20:45 Insulin Glargine (Lantus) 50 units QHS SQ ; Start 02/15/19 at 21:00; Stop 02/16/19 at 06:35; Status DC Insulin Human Lispro (HumaLOG) 0-5 UNITS TIDWMEALS SQ ; Start 02/16/19 at 08:00; Stop 02/16/19 at 10:16; Status DC Dextrose (Dextrose 50%-Water Syringe) 12.5 gm PRN Q15MIN PRN IV SEE COMMENTS; Start 02/15/19 at 20:45; Stop 02/16/19 at 10:27; Status DC Morphine Sulfate (Morphine Sulfate) 4 mg PRN Q2HR PRN IV SEVERE PAIN Last administered on 02/17/19at 09:41; Start 02/15/19 at 21:45 Pantoprazole Sodium (PROTONIX VIAL for IV PUSH) 40 mg 1X ONCE IVP Last administered on 02/15/19at 22:00; Start 02/15/19 at 22:00; Stop 02/15/19 at 22:01; Status DC Sodium Chloride 1,000 ml @ 30 mls/hr Q24H IV Last administered on 02/15/19at 22:00; Start 02/15/19 at 22:00; Stop 02/15/19 at 22:47; Status DC Throat Lozenges (Cepacol Sore Throat Lozenge) 1 wong PRN Q2HRS PRN PO SORE THROAT Last administered on 02/15/19 22:44; Start 02/15/19 at 22:45; Stop 02/16/19 at 20:59; Status DC Sodium Chloride 1,000 ml @ 70 mls/hr [id number] IV Last administered on 02/18/19at 17:58; Start 02/15/19 at 23:00; Stop 02/19/19 at 08:57; Status DC Pantoprazole Sodium (PROTONIX VIAL for IV PUSH) 40 mg BIDAC IVP Last administered on 02/19/19 09:36; Start 02/16/19 at 16:30; Stop 02/19/19 at 14:06; Status DC Metoprolol Tartrate (Lopressor Vial) 2.5 mg Q6HRS IVP Last administered on 02/16/19 10:31; Start 02/16/19 at 10:00; Stop 02/16/19 at 13:37; Status DC Aspirin (Aspirin) 300 mg DAILY IA Last administered on 02/19/19at 09:37; Start 02/16/19 at 10:00; Stop 02/19/19 at 14:04; Status DC Amiodarone HCl 900 mg/Dextrose 518 ml @ 0 mls/hr CONT PRN IV SEE I/O RECORD Last administered on 02/18/19at 12:43; Start 02/16/19 at 09:45; Stop 02/19/19 at 14:02; Status DC Insulin Human Lispro (HumaLOG) 0-9 UNITS TIDWMEALS SQ Last administered on 02/21/19 08:48; Start 02/16/19 at 12:00 Dextrose (Dextrose 50%-Water Syringe) 12.5 gm PRN Q15MIN PRN IV SEE COMMENTS; Start 02/16/19 at 10:15 Insulin Glargine (Lantus) 20 units QHS SQ Last administered on 02/17/19at 22:10; Start 02/16/19 at 21:00 Metoprolol Tartrate (Lopressor Vial) 5 mg Q6HRS IVP Last administered on 02/19/19 06:13; Start 02/16/19 at 18:00; Stop 02/19/19 at 09:45; Status DC Digoxin (Lanoxin) 500 mcg 1X ONCE IV Last administered on 02/16/19at 13:50; Start 02/16/19 at 13:45; Stop 02/16/19 at 13:46; Status DC Amiodarone HCl 150 mg/Dextrose 103 ml @ 618 mls/hr 1X ONCE IV Last administered on 02/16/19at 14:20; Start 02/16/19 at 14:00; Stop 02/16/19 at 14:09; Status DC Potassium Chloride/Water 50 ml @ 50 mls/hr 1X ONCE IV Last administered on 02/16/19at 14:21; Start 02/16/19 at 14:00; Stop 02/16/19 at 14:59; Status DC Benzocaine (Hurricaine One) 1 spray 1X ONCE MM Last administered on 02/16/19at 20:54; Start 02/16/19 at 20:15; Stop 02/16/19 at 20:16; Status DC Lidocaine HCl (Xylocaine 2% Topical 5gm Tube) 1 marco 1X ONCE TP Last administered on 02/16/19at 20:15; Start 02/16/19 at 20:15; Stop 02/16/19 at 20:16; Status DC Throat Lozenges (Cepacol Sore Throat Lozenge) 1 wong PRN Q2HRS PRN PO SORE THROAT; Start 02/16/19 at 21:00 Throat Lozenges (Chloraseptic) 1 spray PRN Q2HR PRN PO SORE THROAT; Start 02/16/19 at 21:00 Methylnaltrexone [place] (Relistor) 12 mg 1X ONCE SQ Last administered on 02/17at 15:49; Start 02/17/19 at 14:00; Stop 02/17/19 at 14:01; Status DC Lorazepam (Ativan Intensol) 2 mg PRN Q6HRS PRN SL ANXIETY / AGITATION Last administered on 02/19/19at 21:05; Start 02/17/19 at 18:00 Neostigmine Methylsulfate (Bloxiverz) 2 mg 1X ONCE IV Last administered on 02/18/19at 01:51; Start 02/18/19 at 02:00; Stop 02/18/19 at 02:01; Status DC Atropine Sulfate (ATROPINE 1mg SYRINGE) 1 mg 1X PRN PRN IV BRADYCARDIA; Start 02/18/19 at 01:15; Stop 02/19/19 at 01:14; Status DC Potassium Chloride/Water 50 ml @ 50 mls/hr Q1H IV Last administered on 02/18/19at 15:43; Start 02/18/19 at 14:00; Stop 02/18/19 at 15:59; Status DC Potassium Chloride/Sodium Chloride 1,000 ml @ 75 mls/hr [id number] IV Last administered on 02/19/19at 09:37; Start 02/19/19 at 09:30; Stop 02/19/19 at 14:06; Status DC Metoprolol Tartrate (Lopressor Vial) 10 mg Q6HRS IVP Last administered on 02/19/19at 12:49; Start 02/19/19 at 12:00; Stop 02/19/19 at 14:05; Status DC Artificial Tears (Artificial Tears) 1 drop PRN Q15MIN PRN OU DRY EYE; Start 02/19/19 at 12:30 Potassium Chloride (Klor-Con) 40 meq 1X ONCE PO ; Start 02/19/19 at 14:30; Stop 02/19/19 at 14:30; Status DC Albuterol Sulfate (Ventolin Neb Soln) 2.5 mg PRN Q4HRS PRN NEB SHORTNESS OF BREATH; Start 02/19/19 at 14:00 Amiodarone HCl (Cordarone) 200 mg BID PO ; Start 02/19/19 at 14:30; Stop 02/19/19 at 14:30; Status DC Aspirin (Ecotrin) 325 mg DAILYWBKFT PO ; Start 02/20/19 at 08:00; Stop 02/20/19 at 08:00; Status DC Atorvastatin Calcium (Lipitor) 20 mg QHS PO ; Start 02/19/19 at 21:00; Stop 02/19/19 at 21:00; Status DC Furosemide (Lasix) 40 mg PRN DAILY PRN PO SHORTNESS OF BREATH; Start 02/19/19 at 14:00; Stop 02/19/19 at 14:10; Status DC Metoprolol Succinate (Toprol Xl) 100 mg DAILY PO ; Start 02/19/19 at 14:30; Stop 02/19/19 at 14:30; Status DC Oxycodone HCl (Roxicodone) 5 mg PRN Q4HRS PRN PO MODERATE PAIN; Start 02/19/19 at 14:00; Stop 02/19/19 at 14:10; Status DC Lisinopril (Prinivil) 5 mg DAILY PO ; Start 02/19/19 at 14:30; Stop 02/19/19 at 14:30; Status DC Pantoprazole Sodium (Protonix) 40 mg DAILYAC PO ; Start 02/20/19 at 07:30; Stop 02/20/19 at 07:30; Status DC Pantoprazole Sodium (PROTONIX VIAL for IV PUSH) 40 mg DAILYAC IVP Last administered on 02/21/19at 08:40; Start 02/20/19 at 07:30 Amiodarone HCl 900 mg/Dextrose 518 ml @ 0 mls/hr CONT PRN IV SEE I/O RECORD Last administered on 02/19/19at 21:05; Start 02/19/19 at 14:15; Stop 02/19/19 at 21:05; Status DC Potassium Chloride/Sodium Chloride 1,000 ml @ 75 mls/hr [id number] IV Last administered on 02/21/19at 05:36; Start 02/19/19 at 14:15 Aspirin (Aspirin) 600 mg DAILY IA Last administered on 02/20/19at 09:55; Start 02/20/19 at 09:00; Stop 02/21/19 at 09:42; Status DC Metoprolol Tartrate (Lopressor Vial) 10 mg Q6HRS IVP Last administered on 02/21/19at 05:37; Start 02/19/19 at 18:00 Polyethylene Glycol (miraLAX PACKET) 17 gm BID PO Last administered on 02/21/19at 08:40; Start 02/20/19 at 15:00 Amiodarone HCl 900 mg/Dextrose 518 ml @ 0 mls/hr CONT PRN IV SEE I/O RECORD Last administered on 02/21/19at 04:43; Start 02/20/19 at 18:00; Stop 02/21/19 at 04:43; Status DC Aspirin (Fly Aspirin) 325 mg DAILYWBKFT PO Last administered on 02/21/19at 09:57; Start 02/21/19 at 09:45 Active Scripts Active Amiodarone Hcl 200 Mg Tablet 1 Tab PO BID Oxycodone Hcl Immed.release (Oxycodone Hcl) 5 Mg Tablet 5 Mg PO PRN Q4HRS PRN MDD 1 [Pantoprazole] 40 MG Tablet. 40 Mg PO DAILYAC MDD 1 Lantus Solostar (Insulin Glargine,Hum.rec.anlog) 100 Unit/1 Ml Insuln.pen 50 Units SQ QHS MDD 1 30 Days Aspirin Ec (Aspirin) 325 Mg Tablet. 325 Mg PO DAILYWBKFT MDD 1 Atorvastatin Calcium 20 Mg Tablet 20 Mg PO QHS MDD 1 Proair Hfa (Albuterol Sulfate) 8.5 Gm Hfa.aer.ad 2.5 Mg NEB PRN Q4HRS PRN MDD 1 30 Days Reported Lisinopril 5 Mg Tablet 1 Tab PO DAILY Lasix (Furosemide) 40 Mg Tablet 1 Tab PO PRN DAILY PRN Metoprolol Succinate ( Xl ) (Metoprolol Succinate) 100 Mg Tab.er.24h 1 Tab PO DAILY Vitals/I & O Vital Sign - Last 24 Hours 02/20/19 02/20/19 02/20/19 02/20/19 15:00 17:56 19:20 20:00 Temp 97.7 98.0 97.7 98.0 Pulse 98 103 89 Resp 16 20 B/P (MAP) 178/73 (108) 159/65 148/70 (96) Pulse Ox 96 97 O2 Delivery Room Air Room Air Room Air 02/20/19 02/20/19 02/21/19 02/21/19 23:35 23:42 03:45 05:37 Temp 97.7 97.9 97.7 97.9 Pulse 90 88 96 96 Resp 18 20 B/P (MAP) 159/73 (101) 159/73 151/76 (101) 151/76 Pulse Ox 97 96 O2 Delivery Room Air Room Air 02/21/19 02/21/19 02/21/19 07:00 08:00 11:00 Temp 97.5 97.2 97.5 97.2 Pulse 98 107 Resp 20 20 B/P (MAP) 150/72 (98) 117/53 (74) Pulse Ox 96 98 O2 Delivery Room Air Room Air Room Air Intake and Output 02/20/19 02/20/19 02/21/19 15:00 23:00 07:00 Intake Total 814.86 ml 770 ml Output Total 200 ml 525 ml Balance 614.86 ml 245 ml RIFFEL,CHRISTOPHER S MD Feb 21, 2019 12:36
--- NOTE | 2019-02-21 12:43 | PDOC ---
SURGICAL PROGRESS NOTE Subjective up to bedside chair ALYSON jack has been taking clear liquids without problem Vital Signs Vital Signs Date Time Temp Pulse Resp B/P (MAP) Pulse Ox O2 Delivery O2 Flow Rate FiO2 02/21/19 11:00 97.2 107 20 117/53 (74) 98 Room Air 97.2 I&O Intake and Output 02/21/19 07:00 Intake Total 1584.86 ml Output Total 725 ml Balance 859.86 ml IV Total 1584.86 ml Output Urine Total 725 ml # Bowel Movements 1 PATIENT HAS A HART: No Abdomen: Soft, No tenderness Labs Laboratory Tests Test 02/19/19 16:50 02/20/19 00:07 02/20/19 05:30 02/20/19 06:15 Glucose (Fingerstick) 135 mg/dL (70-99) 140 mg/dL (70-99) 144 mg/dL (70-99) Sodium Level 142 mmol/L (136-145) Potassium Level 3.5 mmol/L (3.5-5.1) Chloride Level 108 mmol/L (98-107) Carbon Dioxide Level 22 mmol/L (21-32) Anion Gap 12 (6-14) Blood Urea Nitrogen 15 mg/dL (8-26) Creatinine 0.7 mg/dL (0.7-1.3) Estimated GFR (Cockcroft-Gault) 113.9 Glucose Level 163 mg/dL (70-99) Calcium Level 7.9 mg/dL (8.5-10.1) Test 02/20/19 11:56 02/20/19 18:01 02/20/19 20:42 02/21/19 07:39 Glucose (Fingerstick) 143 mg/dL (70-99) 198 mg/dL (70-99) 149 mg/dL (70-99) 167 mg/dL (70-99) Test 02/21/19 11:42 Glucose (Fingerstick) 179 mg/dL (70-99) Laboratory Tests Test 02/20/19 18:01 02/20/19 20:42 02/21/19 07:39 02/21/19 11:42 Glucose (Fingerstick) 198 mg/dL (70-99) 149 mg/dL (70-99) 167 mg/dL (70-99) 179 mg/dL (70-99) Problem List Problems Medical Problems: (1) Abdominal pain Status: Acute (2) Elevated troponin I level Status: Acute (3) Ileus Status: Acute (4) Nausea and vomiting Status: Acute (5) Renal insufficiency Status: Acute (6) Small bowel obstruction Status: Acute (7) Tachycardia Status: Acute Assessment/Plan improved no surgical recs will sign off please call if needed Thank you ANGIE XIE MD Feb 21, 2019 12:42
--- NOTE | 2019-02-21 13:56 | NUR ---
SW following. Pt is from home, NPO, NG clamp, needs PT/OT eval. Not ready to discharge, SW will continue to follow.
[2019-02-21 15:00] VITALS: BP 118/61
--- NOTE | 2019-02-21 16:35 | PDOC ---
RUSLAN GAR STRIP MACHINE OPERATOR 02/21/19 1635: CARDIO Progress Notes Date and Time Date of Service 02/21/2019 Time of Evaluation 1240 Subjective Subjective: No Chest Pain, No shortness of breath, No Palpitations, Other (abd pain and distension better; having BM) Vitals Vitals Vital Signs Date Time Temp Pulse Resp B/P (MAP) Pulse Ox O2 Delivery O2 Flow Rate FiO2 02/21/19 15:00 97.6 93 20 118/61 (80) 96 Room Air 97.6 Weight Weight [ ] Input and Output Intake and Output Intake and Output 02/21/19 07:00 Intake Total 1584.86 ml Output Total 725 ml Balance 859.86 ml IV Total 1584.86 ml Output Urine Total 725 ml # Bowel Movements 1 Laboratory Labs Laboratory Tests Test 02/20/19 18:01 02/20/19 20:42 02/21/19 07:39 02/21/19 11:42 Glucose (Fingerstick) 198 mg/dL (70-99) 149 mg/dL (70-99) 167 mg/dL (70-99) 179 mg/dL (70-99) Physical Exam HEENT: Neck Supple W Full Motion Chest: Symmetric LUNGS: Other (diminished bases) Heart: S1S2, RRR (SR) Abdomen: Other (obes, soft + flatus) Extremities: Other (1+ bilateral LE pitting edema) Neurology: alert, oriented, follow commands Assessment Assessment 1. Abdominal pain/ileus: much better, +BMs 2. Cardiac Arrhythmia: PAFIB post CABG. Maintaining SR 3. 3V CAD s/p recent CABG with AL to LAD, SVG to OM, SVG to RPDA, clinically stable. 4. Elevated troponin: trending down, expected with recent CABG 5. Chronic systolic HF with ICM; LVEF at 35-40%, compensated 6. Hypertension; Controlled 7. DM2/ HLP Recommendations Change IV BB to PO, restart amiodarone PO, statin, discussed with RN. ASA Will introduce full dosing of BP meds pending BP trend. BMP and Mg in AM Lasix MATHEW GIORDANO MD 02/22/19 1602: CARDIO Progress Notes Assessment Assessment Patient seen and examined 02/21/19. Agree with CONSTRUCTION FOREMAN's assessment and plan. Ileus resolving Resume medications orally Possible DC home tomorrow RUSLAN GAR APRN Feb 21, 2019 16:35 MATHEW SHEEHAN MD February 22, 2019 16:02
[2019-02-21 20:05] VITALS: BP 143/62
[2019-02-21] MEDS ORDERED: ATORVASTATIN CALCIUM 20 MG TABLET PO SCH (21:00)
[2019-02-21] MEDS: AMIODARONE HCL 200 MG TABLET. PO SCH (22:07)
[2019-02-21] MEDS: INSULIN GLARGINE 300 UNITS/3 ML INSULN.PEN. SQ SCH (22:15)
[2019-02-21 23:05] VITALS: BP 140/64
[2019-02-22] MEDS: POTASSIUM CL 40MEQ IN 0.9%NACL 1,000 ML IV SCH ×2 (01:25→08:55)
[2019-02-22 03:15] VITALS: BP 148/75
[2019-02-22 06:02] LABS: CALCIUM 7.5 mg/dL (8.5-10.1); CREATININE 0.7 mg/dL (0.7-1.3); GFR 113.9; MAGNESIUM 1.7 mg/dL (1.8-2.4); POTASSIUM 3.2 mmol/L (3.5-5.1)
[2019-02-22 07:00] VITALS: BP 143/80
[2019-02-22] MEDS ORDERED: PANTOPRAZOLE 40 MG TABLET.DR. PO SCH (07:45)
--- NOTE | 2019-02-22 07:46 | PDOC ---
PROGRESS NOTES Chief Complaint Chief Complaint Ileus, distal SBO S/P NEOSTIGMINE (02/17) CAD RECENT CABG x 3 (AL to LAD, SVG to RPDA, SVG to OM) with Left endoscopic greater saphenous vein harvest ST elevation myocardial infarction - Acute systolic heart failure (EF 20-25%) - IABP placed REspi failure s/post CABG Diabetes - HTN - NSVT in the background of NG tube attempt insertion at ER for 02/15/19 History of Present Illness History of Present Illness Mr Bower is a 63yo M w/ PMHx DM, HTN who underwent emergency CABG 3 last week 02/10/19 [address] with an ST elevation [place], unable to perform primary PCI owing to severity of coronary disease. He was in acute systolic heart failure with an EF of 20-25%. Overall he made an uneventful recovery and was discharged home on postoperative day 4. He returned to the emergency room with emesis and abdominal distention. CT of the abdomen showed a significant dilated stomach and dilated diffusely dilated loops of small bowel, consistent with a postoperative ileus and afib with RVR. was able to successfully put NG tube on 02/16/19 with no arrhythmias Transferred to ICU by last ironer GI in case bradycardia after neostigmine. S.p neostigmine with almost complete resolve of sxs clinically, Transferred out of ICU 02/18/19 after neostigmine administration, NGT clamped since 02/18/19 NGT out 48 hours now. No abdominal pain, no nausea emesis, still moving multiple BM, still flatus. Tolerated advanced diet well Plan Increased metoprolol to oral regimen and amio Discussed with and RN at bedside Vitals Vitals Vital Signs Date Time Temp Pulse Resp B/P (MAP) Pulse Ox O2 Delivery O2 Flow Rate FiO2 02/22/19 03:15 98.0 94 18 148/75 (99) 96 Room Air 98.0 Physical Exam Physical Exam GENERAL: NAD, Alert HEENT: PERRL, OC/OP NECK: Supple, no JVD, no LN LUNGS: Clear HEART: S1S2, no gallop, no murmur ABD: Soft, NT, no organomegaly, no rebound EXT: No edema, no cyanosis ONLINE RETAILER: Alert, 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, no focal neurologic deficit SKIN: No rash IV: ok General: Alert, Oriented X3, No acute distress Heart: Regular rate, Normal S1, Normal S2, No murmurs Lungs: Clear, Crackles, Other Abdomen: Soft, No tenderness Extremities: No clubbing, No cyanosis Skin: No significant lesion Labs LABS Laboratory Tests Test 02/21/19 11:42 02/21/19 16:42 02/21/19 21:09 02/22/19 05:30 Glucose (Fingerstick) 179 mg/dL (70-99) 138 mg/dL (70-99) 174 mg/dL (70-99) Sodium Level 138 mmol/L (136-145) Potassium Level 3.2 mmol/L (3.5-5.1) Chloride Level 106 mmol/L (98-107) Carbon Dioxide Level 24 mmol/L (21-32) Anion Gap 8 (6-14) Blood Urea Nitrogen 11 mg/dL (8-26) Creatinine 0.7 mg/dL (0.7-1.3) Estimated GFR (Cockcroft-Gault) 113.9 Glucose Level 134 mg/dL (70-99) Calcium Level 7.5 mg/dL (8.5-10.1) Magnesium Level 1.7 mg/dL (1.8-2.4) Assessment and Plan Assessmemt and Plan Problems Medical Problems: (1) Abdominal pain Status: Acute (2) Elevated troponin I level Status: Acute (3) Ileus Status: Acute (4) Nausea and vomiting Status: Acute (5) Renal insufficiency Status: Acute (6) Small bowel obstruction Status: Acute (7) Tachycardia Status: Acute Comment Review of Relevant I have reviewed the following items richie (where applicable) has been applied. Labs Laboratory Tests Test 02/20/19 11:56 02/20/19 18:01 02/20/19 20:42 02/21/19 07:39 Glucose (Fingerstick) 143 mg/dL (70-99) 198 mg/dL (70-99) 149 mg/dL (70-99) 167 mg/dL (70-99) Test 02/21/19 11:42 02/21/19 16:42 02/21/19 21:09 02/22/19 05:30 Glucose (Fingerstick) 179 mg/dL (70-99) 138 mg/dL (70-99) 174 mg/dL (70-99) Sodium Level 138 mmol/L (136-145) Potassium Level 3.2 mmol/L (3.5-5.1) Chloride Level 106 mmol/L (98-107) Carbon Dioxide Level 24 mmol/L (21-32) Anion Gap 8 (6-14) Blood Urea Nitrogen 11 mg/dL (8-26) Creatinine 0.7 mg/dL (0.7-1.3) Estimated GFR (Cockcroft-Gault) 113.9 Glucose Level 134 mg/dL (70-99) Calcium Level 7.5 mg/dL (8.5-10.1) Magnesium Level 1.7 mg/dL (1.8-2.4) Laboratory Tests Test 02/21/19 11:42 02/21/19 16:42 02/21/19 21:09 02/22/19 05:30 Glucose (Fingerstick) 179 mg/dL (70-99) 138 mg/dL (70-99) 174 mg/dL (70-99) Sodium Level 138 mmol/L (136-145) Potassium Level 3.2 mmol/L (3.5-5.1) Chloride Level 106 mmol/L (98-107) Carbon Dioxide Level 24 mmol/L (21-32) Anion Gap 8 (6-14) Blood Urea Nitrogen 11 mg/dL (8-26) Creatinine 0.7 mg/dL (0.7-1.3) Estimated GFR (Cockcroft-Gault) 113.9 Glucose Level 134 mg/dL (70-99) Calcium Level 7.5 mg/dL (8.5-10.1) Magnesium Level 1.7 mg/dL (1.8-2.4) Medications Current Medications Ondansetron HCl (Zofran) 4 mg STK-MED ONCE .ROUTE ; Start 02/15/19 at 16:07; Stop 02/15/19 at 16:08; Status DC Fentanyl Citrate (Fentanyl 2ml Vial) 100 mcg STK-MED ONCE .ROUTE ; Start 02/15/19 at 16:07; Stop 02/15/19 at 16:08; Status DC Ondansetron HCl (Zofran) 4 mg 1X ONCE IV Last administered on 02/15/19at 16:10; Start 02/15/19 at 16:15; Stop 02/15/19 at 16:16; Status DC Fentanyl Citrate (Fentanyl 2ml Vial) 50 mcg 1X ONCE IV Last administered on 02/15/19 16:13; Start 02/15/19 at 16:15; Stop 02/15/19 at 16:16; Status DC Iohexol (Omnipaque 350 Mg/ml) 100 ml 1X ONCE IV Last administered on 02/15/19 16:30; Start 02/15/19 at 16:30; Stop 02/15/19 at 16:31; Status DC Sodium Chloride 1,000 ml @ 1,000 mls/hr 1X ONCE IV Last administered on 02/15/19 16:53; Start 02/15/19 at 17:00; Stop 02/15/19 at 17:59; Status DC Sodium Chloride 1,000 ml @ 125 mls/hr Q8H IV ; Start 02/15/19 at 17:41; Stop 02/15/19 at 21:53; Status DC Fentanyl Citrate (Fentanyl 2ml Vial) 50 mcg 1X ONCE IV Last administered on 02/15/19 17:55; Start 02/15/19 at 18:00; Stop 02/15/19 at 18:01; Status DC Amiodarone HCl (Cordarone) 150 mg 1X ONCE IVP Last administered on 02/15/19 18:16; Start 02/15/19 at 18:30; Stop 02/15/19 at 18:33; Status DC Amiodarone HCl 900 mg/Dextrose 518 ml @ 0 mls/hr CONT PRN IV SEE I/O RECORD Last administered on 02/15/19 19:02; Start 02/15/19 at 18:30; Stop 02/15/19 at 19:02; Status DC Aspirin (Aspirin) 300 mg 1X ONCE MN Last administered on 02/15/19 19:02; Start 02/15/19 at 18:30; Stop 02/15/19 at 18:32; Status DC Morphine Sulfate (Morphine Sulfate) 2 mg PRN Q2HR PRN IV MODERATE PAIN Last administered on 02/16/19 11:14; Start 02/15/19 at 20:45 Ondansetron HCl (Zofran) 4 mg PRN Q6HRS PRN IV NAUSEA/VOMITING Last administered on 02/15/19 21:03; Start 02/15/19 at 20:45 Insulin Glargine (Lantus) 50 units QHS SQ ; Start 02/15/19 at 21:00; Stop 02/16/19 at 06:35; Status DC Insulin Human Lispro (HumaLOG) 0-5 UNITS TIDWMEALS SQ ; Start 02/16/19 at 08:00; Stop 02/16/19 at 10:16; Status DC Dextrose (Dextrose 50%-Water Syringe) 12.5 gm PRN Q15MIN PRN IV SEE COMMENTS; Start 02/15/19 at 20:45; Stop 02/16/19 at 10:27; Status DC Morphine Sulfate (Morphine Sulfate) 4 mg PRN Q2HR PRN IV SEVERE PAIN Last administered on 02/17/19at 09:41; Start 02/15/19 at 21:45 Pantoprazole Sodium (PROTONIX VIAL for IV PUSH) 40 mg 1X ONCE IVP Last administered on 02/15/19at 22:00; Start 02/15/19 at 22:00; Stop 02/15/19 at 22:01; Status DC Sodium Chloride 1,000 ml @ 30 mls/hr Q24H IV Last administered on 02/15/19at 22:00; Start 02/15/19 at 22:00; Stop 02/15/19 at 22:47; Status DC Throat Lozenges (Cepacol Sore Throat Lozenge) 1 wong PRN Q2HRS PRN PO SORE THROAT Last administered on 02/15/19at 22:44; Start 02/15/19 at 22:45; Stop 02/16/19 at 20:59; Status DC Sodium Chloride 1,000 ml @ 70 mls/hr [id number] IV Last administered on 02/18/19at 17:58; Start 02/15/19 at 23:00; Stop 02/19/19 at 08:57; Status DC Pantoprazole Sodium (PROTONIX VIAL for IV PUSH) 40 mg BIDAC IVP Last administered on 02/19/19at 09:36; Start 02/16/19 at 16:30; Stop 02/19/19 at 14:06; Status DC Metoprolol Tartrate (Lopressor Vial) 2.5 mg Q6HRS IVP Last administered on 02/16/19at 10:31; Start 02/16/19 at 10:00; Stop 02/16/19 at 13:37; Status DC Aspirin (Aspirin) 300 mg DAILY MN Last administered on 02/19/19at 09:37; Start 02/16/19 at 10:00; Stop 02/19/19 at 14:04; Status DC Amiodarone HCl 900 mg/Dextrose 518 ml @ 0 mls/hr CONT PRN IV SEE I/O RECORD Last administered on 02/18/19at 12:43; Start 02/16/19 at 09:45; Stop 02/19/19 at 14:02; Status DC Insulin Human Lispro (HumaLOG) 0-9 UNITS TIDWMEALS SQ Last administered on 02/21/19at 13:55; Start 02/16/19 at 12:00 Dextrose (Dextrose 50%-Water Syringe) 12.5 gm PRN Q15MIN PRN IV SEE COMMENTS; Start 02/16/19 at 10:15 Insulin Glargine (Lantus) 20 units QHS SQ Last administered on 02/21/19at 22:15; Start 02/16/19 at 21:00 Metoprolol Tartrate (Lopressor Vial) 5 mg Q6HRS IVP Last administered on 02/19/19at 06:13; Start 02/16/19 at 18:00; Stop 02/19/19 at 09:45; Status DC Digoxin (Lanoxin) 500 mcg 1X ONCE IV Last administered on 02/16/19at 13:50; St art 02/16/19 at 13:45; Stop 02/16/19 at 13:46; Status DC Amiodarone HCl 150 mg/Dextrose 103 ml @ 618 mls/hr 1X ONCE IV Last a dministered on 02/16/19at 14:20; Start 02/16/19 at 14:00; Stop 02/16/19 at 14:09; Status DC Potassium Chloride/Water 50 ml @ 50 mls/hr 1X ONCE IV Last administered on 02/16/19at 14:21; Start 02/16/19 at 14:00; Stop 02/16/19 at 14:59; Status DC Benzocaine (Hurricaine One) 1 spray 1X ONCE MM Last administered on 02/16/19at 20:54; Start 02/16/19 at 20:15; Stop 02/16/19 at 20:16; Status DC Lidocaine HCl (Xylocaine 2% Topical 5gm Tube) 1 marco 1X ONCE TP Last administered on 02/16/19at 20:15; Start 02/16/19 at 20:15; Stop 02/16/19 at 20:16; Status DC Throat Lozenges (Cepacol Sore Throat Lozenge) 1 wong PRN Q2HRS PRN PO SORE THROAT; Start 02/16/19 at 21:00 Throat Lozenges (Chloraseptic) 1 spray PRN Q2HR PRN PO SORE THROAT; Start 02/16/19 at 21:00 Methylnaltrexone Callahan (Relistor) 12 mg 1X ONCE SQ Last administered on 02/17/19at 15:49; Start 02/17/19 at 14:00; Stop 02/17/19 at 14:01; Status DC Lorazepam (Ativan Intensol) 2 mg PRN Q6HRS PRN SL ANXIETY / AGITATION Last administered on 02/19/19at 21:05; Start 02/17/19 at 18:00 Neostigmine Methylsulfate (Bloxiverz) 2 mg 1X ONCE IV Last administered on 02/18/19at 01:51; Start 02/18/19 at 02:00; Stop 02/18/19 at 02:01; Status DC Atropine Sulfate (ATROPINE 1mg SYRINGE) 1 mg 1X PRN PRN IV BRADYCARDIA; Start 02/18/19 at 01:15; Stop 02/19/19 at 01:14; Status DC Potassium Chloride/Water 50 ml @ 50 mls/hr Q1H IV Last administered on 02/18/19 at 15:43; Start 02/18/19 at 14:00; Stop 02/18/19 at 15:59; Status DC Potassium Chloride/Sodium Chloride 1,000 ml @ 75 mls/hr [id number] IV Last administered on 02/19/19at 09:37; Start 02/19/19 at 09:30; Stop 02/19/19 at 14:06; Status DC Metoprolol Tartrate (Lopressor Vial) 10 mg Q6HRS IVP Last administered on 02/19/19at 12:49; Start 02/19/19 at 12:00; Stop 02/19/19 at 14:05; Status DC Artificial Tears (Artificial Tears) 1 drop PRN Q15MIN PRN OU DRY EYE; Start 02/19/19 at 12:30 Potassium Chloride (Klor-Con) 40 meq 1X ONCE PO ; Start 02/19/19 at 14:30; Stop 02/19/19 at 14:30; Status DC Albuterol Sulfate (Ventolin Neb Soln) 2.5 mg PRN Q4HRS PRN NEB SHORTNESS OF BREATH; Start 02/19/19 at 14:00 Amiodarone HCl (Cordarone) 200 mg BID PO ; Start 02/19/19 at 14:30; Stop 02/19/19 at 14:30; Status DC Aspirin (Ecotrin) 325 mg DAILYWBKFT PO ; Start 02/20/19 at 08:00; Stop 02/20/19 at 08:00; Status DC Atorvastatin Calcium (Lipitor) 20 mg QHS PO ; Start 02/19/19 at 21:00; Stop 02/19/19 at 21:00; Status DC Furosemide (Lasix) 40 mg PRN DAILY PRN PO SHORTNESS OF BREATH; Start 02/19/19 at 14:00; Stop 02/19/19 at 14:10; Status DC Metoprolol Succinate (Toprol Xl) 100 mg DAILY PO ; Start 02/19/19 at 14:30; Stop 02/19/19 at 14:30; Status DC Oxycodone HCl (Roxicodone) 5 mg PRN Q4HRS PRN PO MODERATE PAIN; Start 02/19/19 at 14:00; Stop 02/19/19 at 14:10; Status DC Lisinopril (Prinivil) 5 mg DAILY PO ; Start 02/19/19 at 14:30; Stop 02/19/19 at 14:30; Status DC Pantoprazole Sodium (Protonix) 40 mg DAILYAC PO ; Start 02/20/19 at 07:30; Stop 02/20/19 at 07:30; Status DC Pantoprazole Sodium (PROTONIX VIAL for IV PUSH) 40 mg DAILYAC IVP Last administered on 02/21/19at 08:40; Start 02/20/19 at 07:30 Amiodarone HCl 900 mg/Dextrose 518 ml @ 0 mls/hr CONT PRN IV SEE I/O RECORD Last administered on 02/19/19at 21:05; Start 02/19/19 at 14:15; Stop 02/19/19 at 21:05; Status DC Potassium Chloride/Sodium Chloride 1,000 ml @ 75 mls/hr [id number] IV Last administered on 02/22/19at 01:25; Start 02/19/19 at 14:15 Aspirin (Aspirin) 600 mg DAILY MN Last administered on 02/20/19at 09:55; Start 02/20/19 at 09:00; Stop 02/21/19 at 09:42; Status DC Metoprolol Tartrate (Lopressor Vial) 10 mg Q6HRS IVP Last administered on 02/21/19at 13:44; Start 02/19/19 at 18:00; Stop 02/21/19 at 16:34; Status DC Polyethylene Glycol (miraLAX PACKET) 17 gm BID PO Last administered on 02/21/19at 22:08; Start 02/20/19 at 15:00 Amiodarone HCl 900 mg/Dextrose 518 ml @ 0 mls/hr CONT PRN IV SEE I/O RECORD Last administered on 02/21/19at 04:43; Start 02/20/19 at 18:00; Stop 02/21/19 at 04:43; Status DC Aspirin (Fly Aspirin) 325 mg DAILYWBKFT PO Last administered on 02/21/19at 09:57; Start 02/21/19 at 09:45 Metoprolol Succinate (Toprol Xl) 50 mg DAILY PO ; Start 02/22/19 at 09:00; Stop 02/22/19 at 09:00; Status DC Amiodarone HCl (Cordarone) 200 mg BID PO Last administered on 02/21/19at 22:07; Start 02/21/19 at 21:00 Atorvastatin Calcium (Lipitor) 20 mg QHS PO Last administered on 02/21/19at 22:07; Start 02/21/19 at 21:00 Lisinopril (Prinivil) 5 mg DAILY PO ; Start 02/23/19 at 09:00 Metoprolol Succinate (Toprol Xl) 100 mg DAILY PO ; Start 02/22/19 at 09:00 Potassium Chloride (Klor-Con) 40 meq 1X ONCE PO ; Start 02/22/19 at 08:00; Stop 02/22/19 at 08:01 Magnesium Oxide (Magnesium Oxide) 400 mg BID94 PO ; Start 02/22/19 at 09:00; Sto p 02/22/19 at 18:00 Magnesium Sulfate 50 ml @ 25 mls/hr 1X ONCE IV ; Start 02/22/19 at 07:45; Stop 02/22/19 at 09:44; Status UNV Active Scripts Active Amiodarone Hcl 200 Mg Tablet 1 Tab PO BID Oxycodone Hcl Immed.release (Oxycodone Hcl) 5 Mg Tablet 5 Mg PO PRN Q4HRS PRN MDD 1 [Pantoprazole] 40 MG Tablet. 40 Mg PO DAILYAC MDD 1 Lantus Solostar (Insulin Glargine,Hum.rec.anlog) 100 Unit/1 Ml Insuln.pen 50 Units SQ QHS MDD 1 30 Days Aspirin Ec (Aspirin) 325 Mg Tablet. 325 Mg PO DAILYWBKFT MDD 1 Atorvastatin Calcium 20 Mg Tablet 20 Mg PO QHS MDD 1 Proair Hfa (Albuterol Sulfate) 8.5 Gm Hfa.aer.ad 2.5 Mg NEB PRN Q4HRS PRN MDD 1 30 Days Reported Lisinopril 5 Mg Tablet 1 Tab PO DAILY Lasix (Furosemide) 40 Mg Tablet 1 Tab PO PRN DAILY PRN Metoprolol Succinate ( Xl ) (Metoprolol Succinate) 100 Mg Tab.er.24h 1 Tab PO DAILY Vitals/I & O Vital Sign - Last 24 Hours 02/21/19 02/21/19 02/21/19 02/21/19 08:00 11:00 13:44 15:00 Temp 97.2 97.6 97.2 97.6 Pulse 107 105 93 Resp 20 20 B/P (MAP) 117/53 (74) 117/53 118/61 (80) Pulse Ox 98 96 O2 Delivery Room Air Room Air Room Air 02/21/19 02/21/19 02/21/19 02/21/19 19:00 20:05 20:06 22:07 Temp 98.4 98.4 Pulse 101 101 100 Resp 20 B/P (MAP) 143/62 (89) 143/62 Pulse Ox 96 O2 Delivery Room Air Room Air 02/21/19 02/22/19 23:05 03:15 Temp 98.0 98.0 98.0 98.0 Pulse 93 94 Resp 20 18 B/P (MAP) 140/64 (89) 148/75 (99) Pulse Ox 95 96 O2 Delivery Room Air Room Air Intake and Output 02/21/19 02/21/19 02/22/19 15:00 23:00 07:00 Intake Total 400 ml Output Total 200 ml Balance 200 ml SHAWN MACDONALD MD February 22, 2019 07:46
[2019-02-22] MEDS ORDERED: MAGNESIUM SULFATE 2GM 50 ML IV ONE (08:00)
[2019-02-22] MEDS: INSULIN LISPRO 300 UNITS/3 ML INSULN.PEN. SQ SCH ×2 (08:00→12:00)
[2019-02-22] MEDS ORDERED: POTASSIUM CHLORIDE 20 MEQ TABLET.ER. PO ONE (08:00)
[2019-02-22] MEDS: ASPIRIN 325 MG TABLET PO SCH (08:13)
[2019-02-22] MEDS: AMIODARONE HCL 200 MG TABLET. PO SCH (08:13)
[2019-02-22] MEDS: POLYETHYLENE GLYCOL 3350 17 GM PACKET. PO SCH (08:15)
[2019-02-22] MEDS ORDERED: METOPROLOL SUCC 24HR ER 50 MG TAB.ER.24H. PO SCH ×2 (09:00)
[2019-02-22] MEDS ORDERED: MAGNESIUM OXIDE 400 MG TABLET PO SCH (09:00)
[2019-02-22 11:26] VITALS: BP 110/48
--- NOTE | 2019-02-22 12:20 | PDOC ---
Subjective: Subjective: Tolerated regular food for breakfast w/o n/v or abd pain - jokes that he'd like some filet alysha. Still stooling. Objective: Objective: Reviewed w/ RN - ?DC today Vital Signs: Vital Signs Date Time Temp Pulse Resp B/P (MAP) Pulse Ox O2 Delivery O2 Flow Rate FiO2 02/22/19 11:26 97.5 89 18 110/48 (68) 96 Room Air 97.5 Labs: Laboratory Tests Test 02/21/19 16:42 02/21/19 21:09 02/22/19 05:30 02/22/19 07:39 Glucose (Fingerstick) 138 mg/dL 174 mg/dL 130 mg/dL Sodium Level 138 mmol/L Potassium Level 3.2 mmol/L Chloride Level 106 mmol/L Carbon Dioxide Level 24 mmol/L Anion Gap 8 Blood Urea Nitrogen 11 mg/dL Creatinine 0.7 mg/dL Estimated GFR (Cockcroft-Gault) 113.9 Glucose Level 134 mg/dL Calcium Level 7.5 mg/dL Magnesium Level 1.7 mg/dL Test 02/22/19 11:49 Glucose (Fingerstick) 201 mg/dL PE: GEN: NAD - up to chair, looks much better LUNGS: room air HEART: RRR ABD: less distended, soft, BS+ NEURO/PSYCH: A & O 3 A/P: Pseudo-obstruction Recent CABG MEGHANN -- DC per primary/cardiology/CTS. Would continue Miralax. Follow-up for outpt scopes at some point. KELSEY TAYLOR February 22, 2019 12:20
--- NOTE | 2019-02-22 13:01 | PDOC ---
CARDIO Progress Notes Date and Time Date of Service 02/22/2019 Time of Evaluation 1230 Subjective Subjective: No Chest Pain, No shortness of breath, No Palpitations, Other (nor further abdominal pain, BM x2 today) Vitals Vitals Vital Signs Date Time Temp Pulse Resp B/P (MAP) Pulse Ox O2 Delivery O2 Flow Rate FiO2 02/22/19 11:26 97.5 89 18 110/48 (68) 96 Room Air 97.5 Weight Weight [ ] Input and Output Intake and Output Intake and Output 02/22/19 07:00 Intake Total 400 ml Output Total 200 ml Balance 200 ml Intake Oral 400 ml Output Urine Total 200 ml # Voids 1 # Bowel Movements 1 Laboratory Labs Laboratory Tests Test 02/21/19 16:42 02/21/19 21:09 02/22/19 05:30 02/22/19 07:39 Glucose (Fingerstick) 138 mg/dL (70-99) 174 mg/dL (70-99) 130 mg/dL (70-99) Sodium Level 138 mmol/L (136-145) Potassium Level 3.2 mmol/L (3.5-5.1) Chloride Level 106 mmol/L (98-107) Carbon Dioxide Level 24 mmol/L (21-32) Anion Gap 8 (6-14) Blood Urea Nitrogen 11 mg/dL (8-26) Creatinine 0.7 mg/dL (0.7-1.3) Estimated GFR (Cockcroft-Gault) 113.9 Glucose Level 134 mg/dL (70-99) Calcium Level 7.5 mg/dL (8.5-10.1) Magnesium Level 1.7 mg/dL (1.8-2.4) Test 02/22/19 11:49 Glucose (Fingerstick) 201 mg/dL (70-99) Physical Exam HEENT: Neck Supple W Full Motion Chest: Symmetric LUNGS: Other (diminished bases) Heart: S1S2, RRR (SR) Abdomen: Soft N/T Extremities: Other (1+ bilateral LE pitting edema) Neurology: alert, oriented, follow commands Assessment Assessment 1. Abdominal pain/ileus: resolved 2. Cardiac Arrhythmia: PAFIB post CABG. Maintaining SR 3. 3V CAD s/p recent CABG with AL to LAD, SVG to OM, SVG to RPDA, clinically stable. 4. Elevated troponin: trending down, expected with recent CABG 5. Chronic systolic HF with ICM; LVEF at 35-40%, compensated 6. Hypertension; Controlled 7. DM2/ HLP Recommendations Continue with secondary prevention with meds post CABG as previous including amiodarone Cardiac rehab Reinforced CHF education Follow up as scheduled RUSLAN Tran APRN February 22, 2019 13:01
--- NOTE | 2019-02-22 13:02 | PDOC3 ---
Discharge Summary Visit Information Date of Admission: Feb 15, 2019 Date of Discharge: February 22, 2019 Admitting Diagnosis: Bowel pseudo-obstruction Final Diagnosis Problems Medical Problems: (1) Abdominal pain Status: Acute (2) Elevated troponin I level Status: Acute (3) Ileus Status: Acute (4) Nausea and vomiting Status: Acute (5) Renal insufficiency Status: Acute (6) Small bowel obstruction Status: Acute (7) Tachycardia Status: Acute Brief Hospital Course Allergies Allergies Coded Allergies Type Severity Reaction Last Updated Verified No Known Drug Allergies 02/10/19 No Vital Signs Vital Signs Date Time Temp Pulse Resp B/P (MAP) Pulse Ox O2 Delivery O2 Flow Rate FiO2 02/22/19 11:26 97.5 89 18 110/48 (68) 96 Room Air 97.5 Lab Results Laboratory Tests Test 02/20/19 18:01 02/20/19 20:42 02/21/19 07:39 02/21/19 11:42 Glucose (Fingerstick) 198 mg/dL (70-99) 149 mg/dL (70-99) 167 mg/dL (70-99) 179 mg/dL (70-99) Test 02/21/19 16:42 02/21/19 21:09 02/22/19 05:30 02/22/19 07:39 Glucose (Fingerstick) 138 mg/dL (70-99) 174 mg/dL (70-99) 130 mg/dL (70-99) Sodium Level 138 mmol/L (136-145) Potassium Level 3.2 mmol/L (3.5-5.1) Chloride Level 106 mmol/L (98-107) Carbon Dioxide Level 24 mmol/L (21-32) Anion Gap 8 (6-14) Blood Urea Nitrogen 11 mg/dL (8-26) Creatinine 0.7 mg/dL (0.7-1.3) Estimated GFR (Cockcroft-Gault) 113.9 Glucose Level 134 mg/dL (70-99) Calcium Level 7.5 mg/dL (8.5-10.1) Magnesium Level 1.7 mg/dL (1.8-2.4) Test 02/22/19 11:49 Glucose (Fingerstick) 201 mg/dL (70-99) Laboratory Tests Test 02/21/19 16:42 02/21/19 21:09 02/22/19 05:30 02/22/19 07:39 Glucose (Fingerstick) 138 mg/dL (70-99) 174 mg/dL (70-99) 130 mg/dL (70-99) Sodium Level 138 mmol/L (136-145) Potassium Level 3.2 mmol/L (3.5-5.1) Chloride Level 106 mmol/L (98-107) Carbon Dioxide Level 24 mmol/L (21-32) Anion Gap 8 (6-14) Blood Urea Nitrogen 11 mg/dL (8-26) Creatinine 0.7 mg/dL (0.7-1.3) Estimated GFR (Cockcroft-Gault) 113.9 Glucose Level 134 mg/dL (70-99) Calcium Level 7.5 mg/dL (8.5-10.1) Magnesium Level 1.7 mg/dL (1.8-2.4) Test 02/22/19 11:49 Glucose (Fingerstick) 201 mg/dL (70-99) Brief Hospital Course Mr Bower is a 63yo M w/ PMHx DM, HTN who underwent emergency CABG 3 last week 02/10/19 after presenting with an ST elevation OH, unable to perform primary PCI owing to severity of coronary disease. He was in acute systolic heart failure with an EF of 20-25%. Overall he made an uneventful recovery and was discharged home on postoperative day 4. He returned to the emergency room with emesis and abdominal distention. CT of the abdomen showed a significant dilated stomach and dilated diffusely dilated loops of small bowel, consistent with a postoperative ileus and afib with RVR. was able to successfully put NG tube on 02/16/19 with no arrhythmias Transferred to ICU by [facility] [employer] GI in case bradycardia after neostigmine. S.p neostigmine with almost complete resolve of sxs clinically, Transferred out of ICU 02/18/19 after neostigmine administration, NGT clamped since 02/18/19 NGT out for 3 days. No abdominal pain, no nausea emesis, still moving multiple BM, still flatus. Tolerated advanced diet well. Seen by cardiology, GI, general surgery, and CT surgery. Assessment: Ileus, distal SBO S/P NEOSTIGMINE (02/17) CAD RECENT CABG x 3 (AL to LAD, SVG to RPDA, SVG to OM) with Left endoscopic greater saphenous vein harvest ST elevation myocardial infarction - Acute systolic heart failure (EF 20-25%) - IABP placed REspi failure s/post CABG Diabetes - HTN - Plan Increased metoprolol to oral regimen and amio Discussed with and RN at bedside Greater than 30 minutes spent on discharge today Discharge Information Condition at Discharge: Improved Follow Up: Weeks (2) Disposition/Orders: D/C to Home w/ HH Scheduled Amiodarone Hcl (Amiodarone Hcl) 200 Mg Tablet, 1 TAB PO BID for post cabg arrhythmia, #90 Ref 1 Prescribed by: NEGRITA KENT on 02/14/19840 Last Action: Continued on 02/19/191400 by NEGRITA KENT Aspirin (Aspirin Ec) 325 Mg Tablet.dr, 325 MG PO DAILYWBKFT for cad MDD 1, #60 Ref 1 Prescribed by: NEGRITA KENT on 02/14/19840 Last Action: Continued on 02/19/191400 by NEGRITA KENT Atorvastatin Calcium (Atorvastatin Calcium) 20 Mg Tablet, 20 MG PO QHS for lipids MDD 1, #60 Prescribed by: NEGRITA KENT on 02/14/19840 Last Action: Continued on 02/19/191400 by NEGRITA KENT Insulin Glargine,Hum.rec.anlog (Lantus Solostar) 100 Unit/1 Ml Insuln.pen, 50 UNITS SQ QHS for dm MDD 1 for 30 Days Prescribed by: NEGRITA KENT on 02/14/19840 Last Action: Reviewed on 02/19/191400 by NEGRITA KENT Lisinopril (Lisinopril) 5 Mg Tablet, 1 TAB PO DAILY for CAD, #30 Ref 5 (Reported) Entered as Reported by: BRANDON FAY on 02/14/19 1329 Last Action: Converted on 02/19/191400 by NEGRITA KENT Metoprolol Succinate (Metoprolol Succinate ( Xl )) 100 Mg Tab.er.24h, 1 TAB PO DAILY for CAD, #30 Ref 5 (Reported) Entered as Reported by: BRANDON FAY on 02/14/19 1326 Last Action: Continued on 02/19/191400 by NEGRITA KENT [Pantoprazole] 40 MG TABLET.DR, 40 MG PO DAILYAC for gerd MDD 1, #30 Prescribed by: NEGRITA KENT on 02/14/19840 Last Action: Converted on 02/19/191400 by NEGRITA KENT Scheduled PRN Albuterol Sulfate (Proair Hfa) 8.5 Gm Hfa.aer.ad, 2.5 MG NEB PRN Q4HRS PRN for SHORTNESS OF BREATH MDD 1 for 30 Days, #1 Prescribed by: NEGRITA KENT on 02/14/19840 Last Action: Continued on 02/19/191400 by NEGRITA KENT Furosemide (Lasix) 40 Mg Tablet, 1 TAB PO PRN DAILY PRN for SHORTNESS OF BREATH, #90 Ref 1 (Reported) Entered as Reported by: BRANDON FAY on 02/14/191327 Last Action: Continued on 02/19/191400 by NEGRITA KENT Oxycodone Hcl (Oxycodone Hcl Immed.release ) 5 Mg Tablet, 5 MG PO PRN Q4HRS PRN for MODERATE PAIN MDD 1, #30 Prescribed by: NEGRITA KENT on 02/14/19840 Last Action: Continued on 02/19/191400 by SHAWN RUEDA MD February 22, 2019 13:02
[2019-02-22] MEDS ORDERED: POLY17PO28 PO (13:22)
[2019-02-22] MEDS ORDERED: MAGN400T22 PO (13:22)
[2019-02-22] MEDS ORDERED: INSU100I13 SQ (14:55)
--- NOTE | 2019-02-22 15:00 | NUR ---
Discharge Note: [facility]NANDE[facility] Discharge instructions and discharge home medications reviewed with Patient and a copy given. All questions have been answered and understanding verbalized. Patients PICC line was removed by this RN. Incision site looks good. Minor bleeding at site but less than 0.5 cm in diameter. Patient was informed on how to care for the site and what to look for.
[2019-02-23] MEDS ORDERED: LISINOPRIL 5 MG TABLET. PO SCH (09:00)
== END 2019-02-22 15:00 | disposition home health service (06) | DRG 393 ==
LOC: ER 15:37 → 2 NORTH 17:20 → 1 WEST ICU 02-18 01:50 → 2 SOUTH 02-18 16:16
PROVIDERS: ADMIT Internal Medicine; ATTEND Internal Medicine
PROC: 02HV33Z Insertion of Infusion Device into Superior Vena Cava, Percutaneous Approach (ICD-10-PCS; principal; 2019-02-15)
PROC: 0D9670Z Drainage of Stomach with Drainage Device, Via Natural or Artificial Opening (ICD-10-PCS; 2019-02-15)
DX: K91.89 Other postprocedural complications and disorders of digestive system (principal); I21.3 ST elevation (STEMI) myocardial infarction of unspecified site; I50.21 Acute systolic (congestive) heart failure; K56.7 Ileus, unspecified; I47.2 Ventricular tachycardia; K56.609 Unspecified intestinal obstruction, unspecified as to partial versus complete obstruction; I25.10 Atherosclerotic heart disease of native coronary artery without angina pectoris; E11.9 Type 2 diabetes mellitus without complications; I48.91 Unspecified atrial fibrillation; I11.0 Hypertensive heart disease with heart failure; D64.9 Anemia, unspecified; E87.6 Hypokalemia; K52.9 Noninfective gastroenteritis and colitis, unspecified; E78.5 Hyperlipidemia, unspecified; G47.33 Obstructive sleep apnea (adult) (pediatric); Z95.1 Presence of aortocoronary bypass graft; Z82.49 Family history of ischemic heart disease and other diseases of the circulatory system; Z80.9 Family history of malignant neoplasm, unspecified; Z86.79 Personal history of other diseases of the circulatory system; Z90.49 Acquired absence of other specified parts of digestive tract
CPT/HCPCS: 36415; 36569; 71045; 71275; 74018; 74021; 74022; 74174; 80048; 80053; 81001; 82150; 82550; 82962; 83540; 83550; 83605; 83690; 83735; 83880; 84484; 85025; 93005; 96361; 96365; 96375; C9113; J0282; J1160; J1815; J2212; J2270; J2405; J2710; J3010; J3475; J3480; J3490; J7030; Q9967; 99285-25

== ENCOUNTER → 2019-03-23 | Outpatient (CLI) | payer OTHER ==
[2019-02-22 11:26] VITALS: BP 110/48
[~2019-03-23] MED LIST changes: +MAGN400T22 PO; +POLY17PO28 PO
--- NOTE | 2019-03-23 16:56 | RAD ---
Chest, 2 views, 03/23/2019: HISTORY: Postop CABG Comparison is made to a study from 02/17/2019. Sternal wires are in place. The heart size and pulmonary vascularity are normal. No pulmonary infiltrate is seen. There is no evidence of pleural fluid. IMPRESSION: No significant postoperative cardiopulmonary abnormality is detected. Electronically signed by: Seun Childress MD (03/23/2019 4:52 PM) [facility]
== END | disposition home or self-care (01) ==
LOC: RAD 16:02
PROVIDERS: ATTEND Thoracic Surgery (Cardiothoracic Vascular Surgery)
DX: Z45.02 Encounter for adjustment and management of automatic implantable cardiac defibrillator (principal); Z95.1 Presence of aortocoronary bypass graft
CPT/HCPCS: 71046

== ENCOUNTER → 2019-06-30 | Outpatient (CLI) | payer OTHER ==
--- NOTE | 2019-06-30 14:33 | CARD ---
MR#: [id number] Date of Study: 06/30/2019 Ordering Physician: MATHEW CHRISTIAN, Referring Physician: MATHEW CHRISTIAN Tech: Sangita Seay RDCS APPROVED REPORT EXAM: Two-dimensional and M-mode echocardiogram with Doppler and color Doppler. Other Information Quality : AverageHR: 54bpm Rhythm : Bradycardia INDICATION CAD 2D DIMENSIONS RVDd3.2 (2.9-3.5cm)Left Atrium(2D)3.8 (1.6-4.0cm) IVSd1.0 (0.7-1.1cm)Aortic Root(2D)3.3 (2.0-3.7cm) LVDd5.2 (3.9-5.9cm)LVOT Diameter2.3 (1.8-2.4cm) PWd0.9 (0.7-1.1cm)LVDs3.5 (2.5-4.0cm) FS (%) 32.4 %SV79.5 ml LVEF(%)60.2 (>50%) M-Mode DIMENSIONS Left Atrium(MM)3.89 (2.5-4.0cm)Aortic Root3.61 (2.2-3.7cm) Aortic Valve AoV Peak Jim.118.0cm/sAoV VTI28.4cm AO Peak GR.5.6mmHgLVOT Peak Jim.82.0cm/s AO Mean GR.3mmHgAVA (VMAX)2.78cm2 ELISA (VTI)2.80cm2 Mitral Valve MV E Zybdzynq30.9cm/sMV DECEL TLEM060tp MV A Vnmrulzz98.0cm/sE/A Ratio1.7 Pulmonary Valve PV Peak Xhneywig82.6cm/s Tricuspid Valve TR P. Nzlkgodo701qt/sRAP TYSYZUZV2dnRr TR Peak Gr.05ydYyYOEA06zqTt LEFT VENTRICLE The left ventricle is normal size. There is normal left ventricular wall thickness. The left ventricu lar systolic function is normal. The Ejection Fraction is 55-60%. Septal motion consistent with post- operative state. Transmitral Doppler flow pattern is Grade II-pseudonormal filling dynamics. RIGHT VENTRICLE The right ventricle is normal size. There is normal right ventricular wall thickness. The right ventr icular systolic function is normal. ATRIA The left atrium size is normal. The right atrium size is normal. The interatrial septum is intact wit h no evidence for an atrial septal defect or patent foramen ovale as noted on 2-D or Doppler imaging. AORTIC VALVE The aortic valve is trileaflet. The aortic valve is mildly calcified. Doppler and Color Flow revealed trace aortic regurgitation. There is no significant aortic valvular stenosis. There is no aortic george vular vegetation. MITRAL VALVE The mitral valve is normal in structure and function. There is no evidence of mitral valve prolapse. There is no mitral valve stenosis. Doppler and Color-flow revealed mild mitral regurgitation. TRICUSPID VALVE The tricuspid valve is normal in structure and function. Doppler and Color Flow revealed trace tricus pid regurgitation. The PA pressure was estimated at 18 mmHg. There is no tricuspid valve prolapse or vegetation. There is no tricuspid valve stenosis. PULMONIC VALVE The pulmonary valve is normal in structure and function. Doppler and Color Flow revealed no pulmonic valvular regurgitation. There is no pulmonic valvular stenosis. GREAT VESSELS The aortic root is normal in size. The ascending aorta is normal in size. The IVC is normal in size a nd collapses >50% with inspiration. PERICARDIAL EFFUSION There is no evidence of significant pericardial effusion. Critical Notification Critical Value: No <Conclusion> The left ventricular systolic function is normal and the ejection fraction is within normal range. The left ventricular systolic function is normal. The Ejection Fraction is 55-60%. Transmitral Doppler flow pattern is Grade II-pseudonormal filling dynamics. Mild mitral regurgitation. Trace tricuspid regurgitation. The PA pressure was estimated at 18 mmHg. There is no evidence of significant pericardial effusion. Signed by : Mathew Christian, Electronically Approved : 06/30/2019 14:32:49
== END | disposition home or self-care (01) ==
LOC: ECHO 13:46
PROVIDERS: ATTEND Internal Medicine Cardiovascular Disease
DX: I34.0 Nonrheumatic mitral (valve) insufficiency (principal)
CPT/HCPCS: 93306

== ENCOUNTER → 2020-07-05 | Outpatient (CLI) | payer OTHER ==
--- NOTE | 2020-07-05 11:39 | CARD ---
MR#: [id number] Date of Study: 07/05/2020 Ordering Physician: MATHEW SHEEHAN, Referring Physician: MATHEW SHEEHAN, Tech: Kavita El APPROVED REPORT EXAM: Two-dimensional and M-mode echocardiogram with Doppler and color Doppler. Other Information Quality : AverageHR: 74bpm Technically limited study due to body habitus. INDICATION Cardiac Disease: CAD Surgery/Intervention CABG: Date: 2018 Site: [place] RISK FACTORS Hyperlipidemia Diabetes 2D DIMENSIONS RVDd3.6 (2.9-3.5cm)Left Atrium(2D)2.8 (1.6-4.0cm) IVSd0.9 (0.7-1.1cm)Aortic Root(2D)3.5 (2.0-3.7cm) LVDd5.2 (3.9-5.9cm)LVOT Diameter2.0 (1.8-2.4cm) PWd0.9 (0.7-1.1cm)LVDs2.7 (2.5-4.0cm) FS (%) 47.9 %SV103.7 ml LVEF(%)79.0 (>50%) Aortic Valve AoV Peak Jim.120.4cm/sAoV VTI21.9cm AO Peak GR.5.8mmHgLVOT Peak Jim.107.7cm/s LVOT VTI 21.48cmAO Mean GR.3mmHg ELISA (VMAX)1.65hy3ORE (VTI)2.97cm2 Mitral Valve MV E Vvxndatx67.3cm/sMV DECEL WNCA106rq MV A Mzhwtgte21.3cm/sMV E Mean Gr.1mmHg MV JRI88diV/A Ratio1.1 MVA (PHT)3.10cm2 TDI E/Lateral E'6.1E/Medial E'11.4 Pulmonary Valve PV Peak Brtwgyro69.3cm/sPV Peak Grad.4mmHg Tricuspid Valve TR P. Mlruwdyg092im/sRAP MBJWMHVZ8agFj TR Peak Gr.69hhWhSILA22seCo Pulmonary Vein S1 Xbgbwvpo37.9cm/sD2 Lgahziaw00.9cm/s PVa aazifbmz125weyl LEFT VENTRICLE The left ventricle is normal size. There is normal left ventricular wall thickness. The left ventricu lar systolic function is normal and the ejection fraction is within normal range. The Ejection Fracti on is 55-60%. Septal motion suggestive of prior CABG. There is normal LV segmental wall motion. Trans mitral Doppler flow pattern is Grade II-pseudonormal filling dynamics. RIGHT VENTRICLE The right ventricle is normal size. There is normal right ventricular wall thickness. The right ventr icular systolic function is normal. ATRIA The left atrium size is normal. The right atrium size is normal. The interatrial septum is intact wit h no evidence for an atrial septal defect or patent foramen ovale as noted on 2-D or Doppler imaging. AORTIC VALVE The aortic valve is calcified but opens well. Doppler and Color Flow revealed no significant aortic r egurgitation. Calculated aortic valve area is 3.06 cm2 with maximum pressure gradient of 6 mmHg and m fabiola pressure gradient of 3 mmHg. There is no significant aortic valvular stenosis. MITRAL VALVE The mitral valve is thickened but opens well. There is no evidence of mitral valve prolapse. There is no mitral valve stenosis. Doppler and Color-flow revealed trace mitral regurgitation. TRICUSPID VALVE The tricuspid valve is normal in structure and function. Doppler and Color Flow revealed trace tricus pid regurgitation with an estimated PAP of 23 mmHg. There is no tricuspid valve stenosis. PULMONIC VALVE The pulmonic valve is not well visualized. Doppler and Color Flow revealed no pulmonic valvular regur gitation. There is no pulmonic valvular stenosis. GREAT VESSELS The aortic root is normal in size. The ascending aorta is normal in size. The IVC was not visualized. PERICARDIAL EFFUSION There is no evidence of significant pericardial effusion. Critical Notification Critical Value: No <Conclusion> The left ventricular systolic function is normal and the ejection fraction is within normal range. Th e Ejection Fraction is 55-60%. Septal motion suggestive of prior CABG. There is normal LV segmental wall motion. Signed by : Mello Villanueva, Electronically Approved : 07/05/2020 11:38:40
== END | disposition home or self-care (01) ==
LOC: ECHO 07:47
PROVIDERS: ATTEND Internal Medicine Cardiovascular Disease
DX: I35.1 Nonrheumatic aortic (valve) insufficiency (principal); I25.10 Atherosclerotic heart disease of native coronary artery without angina pectoris; Z95.1 Presence of aortocoronary bypass graft
CPT/HCPCS: 93306

== ENCOUNTER → 2021-08-13 | Outpatient (CLI) | payer MEDICARE ==
[~2021-08-13] MED LIST changes: -AMIO200T4 PO; +AMIO200T6 PO; -LISI-338 PO; +LISI-517 PO; -POLY17PO28 PO; +POLY17PO52 PO
--- NOTE | 2021-08-13 17:47 | CARD ---
MR#: [id number] Date of Study: 08/13/2021 Ordering Physician: MATHEW SHEEHAN, Referring Physician: MATHEW SHEEHAN, Tech: Kavita El JENIFER APPROVED REPORT EXAM: Two-dimensional and M-mode echocardiogram with Doppler and color Doppler. Other Information Quality : AverageHR: 73bpm INDICATION Cardiac Disease: CAD Surgery/Intervention CABG: Date: 2018 Site: [place] RISK FACTORS Hyperlipidemia Diabetes 2D DIMENSIONS RVDd3.5 (2.9-3.5cm)Left Atrium(2D)2.9 (1.6-4.0cm) IVSd1.2 (0.7-1.1cm)Aortic Root(2D)3.4 (2.0-3.7cm) LVDd4.7 (3.9-5.9cm)LVOT Diameter2.1 (1.8-2.4cm) PWd1.2 (0.7-1.1cm)LVDs3.3 (2.5-4.0cm) FS (%) 28.3 %SV54.6 ml Aortic Valve AoV Peak Jim.123.5cm/sAoV VTI26.6cm AO Peak GR.6.1mmHgLVOT Peak Jim.91.6cm/s LVOT VTI 20.07cmAO Mean GR.4mmHg ELISA (VMAX)1.53nf3SZE (VTI)2.56cm2 Mitral Valve MV E Pupkbzhk33.4cm/sMV DECEL ABHC287ut MV A Ncvgmosi47.1cm/sMV E Mean Gr.1mmHg MV BZI95fbG/A Ratio0.9 MVA (PHT)2.50cm2 TDI E/Lateral E'6.7E/Medial E'10.4 Pulmonary Valve PV Peak Ogddbxte54.9cm/sPV Peak Grad.3mmHg Tricuspid Valve TR P. Mzansztr117ms/sRAP IOCJFKQP7uuQb TR Peak Gr.66mhZcZSBG56lpJn Pulmonary Vein S1 Dyoonaus44.8cm/sD2 Apbuaboi30.4cm/s PVa zhwjuoaj394gdzk LEFT VENTRICLE The left ventricle is normal size. There is mild concentric left ventricular hypertrophy. The left ve ntricular systolic function is normal and the ejection fraction is within normal range. The Ejection Fraction is 55-60%. There is normal LV segmental wall motion. Transmitral Doppler flow pattern is Gra de II-pseudonormal filling dynamics. RIGHT VENTRICLE The right ventricle is borderline dilated. There is normal right ventricular wall thickness. The righ t ventricular systolic function is normal. ATRIA The left atrium size is normal. The right atrium size is normal. The interatrial septum is intact wit h no evidence for an atrial septal defect or patent foramen ovale as noted on 2-D or Doppler imaging. AORTIC VALVE The aortic valve is thickened but opens well. Doppler and Color Flow revealed trace aortic regurgitat ion. There is no significant aortic valvular stenosis. Calculated aortic valve area is 2.81 cm2 with maximum pressure gradient of 8 mmHg and mean pressure gradient of 5 mmHg. MITRAL VALVE The mitral valve is normal in structure and function. There is no evidence of mitral valve prolapse. There is no mitral valve stenosis. Doppler and Color-flow revealed trace mitral regurgitation. TRICUSPID VALVE The tricuspid valve is normal in structure and function. Doppler and Color Flow revealed trace tricus pid regurgitation with an estimated PAP of 34 mmHg. There is no tricuspid valve stenosis. PULMONIC VALVE The pulmonic valve is not well visualized. Doppler and Color Flow revealed trace pulmonic valvular re gurgitation. GREAT VESSELS The aortic root is normal in size. The IVC was not visualized. PERICARDIAL EFFUSION There is no evidence of significant pericardial effusion. Critical Notification Critical Value: No <Conclusion> The left ventricle is normal size. The left ventricular systolic function is normal and the ejection fraction is within normal range. The Ejection Fraction is 55-60%. There is mild concentric left ventricular hypertrophy. Doppler and Color Flow revealed trace aortic regurgitation. There is no significant aortic valvular stenosis. Doppler and Color-flow revealed trace mitral regurgitation. Doppler and Color Flow revealed trace tricuspid regurgitation with an estimated PAP of 34 mmHg. Signed by : Jim Tobin MD Electronically Approved : 08/13/2021 17:46:52
== END ==
LOC: ECHO 14:40
PROVIDERS: ATTEND Internal Medicine Cardiovascular Disease
DX: I51.7 Cardiomegaly (principal); I25.10 Atherosclerotic heart disease of native coronary artery without angina pectoris
CPT/HCPCS: 93306